=== PATIENT | male | born 1955 | race Caucasian/White ===

== ENCOUNTER 2019-10-28 02:47 | Emergency (ER) | payer OTHER, SELFPAY ==
[2019-10-28 02:48] VITALS: BP 216/92; PULSE 77; RESP 15; TEMP 36.7; O2SAT 99; BMI 35.2
--- NOTE | 2019-10-28 03:00 | ED.RN ---
PER DR LENNON, CALLED CRISIS TO SEE THIS PT, [facility]
--- NOTE | 2019-10-28 03:01 | ED.VISSUMM ---
- ER Visit Summary Date of Service: 10/28/19 Chief Complaint: Depression History of Present Illness: The patient is a 63 M lives at home with his . They recently moved from [place] to this area. He sees the [place]. He has a history of depression and prior cardiac disease with a quadruple bypass. States he just started a new job but he has been paid yet. They are having some financial concerns. The been getting food from the food bank but obviously do not have a lot of collins at this time. He states his and him discussion about this is upset him and he went to the car with a knife. He said he really had no intentions on harming himself. He thinks he may have overreacted. He states he loves his but that the conversation they had upset him. States he is never attempted suicide in the past. He has not been having suicidal ideations. He wants to follow-up with a counselor. Physical Examination: Older male no acute distress vital signs are stable afebrile. H EENT exam unremarkable. Neck nontender. Lungs clear to auscultation bilaterally. Heart regular rate and rhythm no murmur. Abdomen is soft and nontender normal bowel sounds no peritoneal signs. Patient is moving all 4 extremities. No signs of recent injury or trauma. Back nontender. Neurologically is awake and alert with no focal motor deficits. No signs of toxidrome. No smell of alcohol. Test Results: None Emergency Department Course and Treatment: Older male with acute on chronic depression. I do believe him I do not feel that he was an acute suicide risk tonight. I also spoke to the police communications dispatcher that was at the scene and brought him in. The officer did not feel that he needed a pink slipped nor do I. Please officer told me the same story that the patient did. It seemed to be accurate and cohesive with the patient's history. He stated the patient never made any threat at home. Treatment Plan: Counseling center evaluation as long as are comfortable the patient be discharged home as CT will be discharged with outpatient follow-up. Disposition: Discharge consider evaluation Impression: Acute on chronic depression This note was generated with [employer] dictation software. It may contain incorrect words, spelling, and punctuation that were not noted in review of the chart prior to signing
--- NOTE | 2019-10-28 03:24 | ED.DEP ---
ED Disposition - Plan for ED Patient: Disposition: Home or Assisted Living Instructions: Depression Referrals: Counseling,Center [GROUP OF PHYSICIANS] - As soon as possible Additional Instructions: Return to emergency department if you are feeling worse or suicidal or like you would harm anyone else. Continue with your current medications. Follow-up with the counseling center for further treatment and evaluation. [facility].
[2019-10-28 04:44] VITALS: PULSE 77; RESP 15; O2SAT 99
== END 2019-10-28 04:45 | disposition home or self-care (01) ==
PROVIDERS: Emergency Provider Emergency Medicine
DX: F32.9 Major depressive disorder, single episode, unspecified (principal); I10 Essential (primary) hypertension; E11.9 Type 2 diabetes mellitus without complications; Z79.84 Long term (current) use of oral hypoglycemic drugs; Z79.899 Other long term (current) drug therapy; Z95.1 Presence of aortocoronary bypass graft
CPT/HCPCS: 99283

== ENCOUNTER 2019-10-29 23:42 | Emergency (ER) | payer OTHER, SELFPAY ==
[2019-10-28 02:48] VITALS: BMI 35.2
[2019-10-29 23:44] VITALS: BP 162/112; PULSE 87; RESP 17; TEMP 36.4; O2SAT 98; BMI 35.5
--- NOTE | 2019-10-30 | ED.VIS.GEN ---
History of Present Illness Chief Complaint: Fall Detail of Chief Complaint: Fall with right chest pain Informant: Patient Onset: Weeks - 1 week Context: Gradual Onset Current Severity: Moderate Maximum Severity: Moderate Narrative: Patient presents with right upper chest wall pain. He states he was at work a week ago when he tripped and fell. 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 Patient states that his chest pain has continued throughout the past week. He has not been taking anything for it. He denies any other injury from his fall. - Past Medical History (1) Hypertension Status: Chronic (2) High cholesterol Status: Chronic (3) Hx of CABG Status: Chronic (4) Diabetes Status: Chronic (5) Anxiety Status: Chronic (6) Depression Status: Chronic Past Medical History - Allergies and Home Meds Allergies/Adverse Reactions: Allergies No Known Allergies Allergy (Verified 10/30/19 00:30) Primary Care Physician: Care Physician,No Primary [NON-STAFF] - Prior records reviewed: Yes Lives: Spouse/ Significant Other Smoking Status: Never smoker Review of Systems General: Denies: Chills, Fever Eyes: Denies: Visual changes - bilaterally ENT: Denies: Bilateral ear pain Cardiovascular: Reports: Chest pain - Right upper chest wall Respiratory: Denies: Dyspnea Gastrointestinal: Denies: Abdominal pain, Nausea, Vomiting, Diarrhea Genitourinary: Denies: Dysuria Musculoskeletal: Denies: Back pain, Extremity Pain Skin: Reports: - - Ecchymosis Neurological: Denies: Headache Allergy: Denies: Uticaria Physical Exam Vital Signs/Narrative: Vital Signs Temp Pulse Resp BP Pulse Ox 10/29/19 23:44 97.5 F L 87 17 162/112 H 98 Inital Vital Signs reviewed: Yes General: Well nourished, Well developed Head: Normocephalic ENT: Moist mucous membranes Neck: Supple Cardiovascular: Regular rate, Regular rhythm Respiratory: No distress, CTA bilaterally, Chest tenderness - Patient has reproducible right upper chest wall pain with ecchymosis. No crepitus noted. Abdomen: Soft, Nontender Extremities: Nontender Skin: - - Ecchymosis to right upper chest wall Neurological: Alert, Oriented x3 Psychological: Normal affect Diagnostic/Tx/Re-eval Impressions Ribs w/Chest X-Ray 10/30/19 00:01 IMPRESSION: RIBS: Normal x-ray examination of the ribs. No fracture CHEST: Normal x-ray examination of the chest. Electronically Signed: Lloyd Grady MD at 0:28 EST Tel , Service support , 10/30/19 00:01 Ribs Uni Min 3V w/PA Chest [RAD] Stat - Medical Decision Making X-ray results are reviewed with patient and spouse at bedside. He will be given [place] here for pain. He will take aspirin or Tylenol at home for pain. ED Disposition - Plan for ED Patient: Disposition: Home or Assisted Living Diagnosis: Chest wall contusion Instructions: Chest Wall Contusion Additional Instructions: [facility] with your [facility]
--- NOTE | 2019-10-30 00:01 | RAD_ITS ---
STUDY: X-RAY - UNILATERAL RIBS ( RIGHT ) WITH CHEST REASON FOR EXAM: Male, 63 years old. Patient fell. Right-sided chest pain TECHNIQUE - RIBS: 4 view(s) of the ribs. TECHNIQUE - CHEST: 1 view COMPARISON: None. FINDINGS - RIBS: Normal visualized ribs without a demonstrated fracture. FINDINGS - CHEST: The lungs are clear and expanded. There is no demonstrated pleural abnormality. Normal size heart. Normal mediastinum and miguel. Normal visualized pulmonary arteries. Normal visualized aortic arch and descending thoracic aorta. Normal visualized thoracic spine. Normal visualized ribs, clavicles, and shoulders. There is no demonstrated abnormality of the visualized soft tissue structures of the upper abdomen. RAD/Ribs Uni Min 3V w/PA Chest IMPRESSION: RIBS: Normal x-ray examination of the ribs. No fracture CHEST: Normal x-ray examination of the chest. Electronically Signed: Lloyd Grady MD at 0:28 EST Tel , Service support ,
[2019-10-30] MEDS: HYDROcodone Bitartrate/Apap 5/325 Tablet PO (00:43)
[2019-10-30 00:46] VITALS: BP 158/99; PULSE 81; RESP 19; O2SAT 98
== END 2019-10-30 00:54 | disposition home or self-care (01) ==
PROVIDERS: Emergency Provider Emergency Medicine
DX: S20.211A Contusion of right front wall of thorax, initial encounter (principal); W01.0XXA Fall on same level from slipping, tripping and stumbling without subsequent striking against object, initial encounter; Y93.9 Activity, unspecified; Y92.9 Unspecified place or not applicable; Y99.0 Civilian activity done for income or pay; I10 Essential (primary) hypertension; E78.00 Pure hypercholesterolemia, unspecified; E11.9 Type 2 diabetes mellitus without complications; F32.9 Major depressive disorder, single episode, unspecified; F41.9 Anxiety disorder, unspecified; Z95.1 Presence of aortocoronary bypass graft; Z79.84 Long term (current) use of oral hypoglycemic drugs; Z79.899 Other long term (current) drug therapy
CPT/HCPCS: 71101; 99283; A4216

== ENCOUNTER 2020-06-08 17:48 | Emergency (ER) | payer OTHER, SELFPAY ==
[2020-06-08 17:49] VITALS: BP 165/87; PULSE 78; RESP 18; TEMP 36.8; O2SAT 98; BMI 36.3
--- NOTE | 2020-06-08 18:02 | EKG12_ITS ---
Test Reason : CP Blood Pressure : / mmHG Vent. Rate : 069 BPM Atrial Rate : 069 BPM P-R Int : 156 ms QRS Dur : 098 ms QT Int : 378 ms P-R-T Axes : 015 -66 076 degrees QTc Int : 405 ms Normal sinus rhythm Left axis deviation Inferior infarct , age undetermined Poor R wave progression Nonspecific T wave abnormality Abnormal ECG Confirmed by LILI VENTURA, TRISH ([id number]), publishing editor HERIBERTO PICHARDO ([id number]) on 06/10/2020 12:48:44 PM Referred By: CASSIE Confirmed By:TRISH PEARSON MD
--- NOTE | 2020-06-08 18:49 | RAD_ITS ---
STUDY: X-RAY CHEST REASON FOR EXAM: Male, 64 years old. Chest pain, weakness, tingling in arm. Shortness of breath last night. TECHNIQUE: PA and lateral views of the chest. COMPARISON: None. FINDINGS: The lungs are clear and expanded. There is no demonstrated pleural abnormality. Sternal cerclage wires and vascular clips are present from a prior sternotomy and coronary artery bypass graft procedure (CABG). Normal mediastinum and miguel. Normal visualized pulmonary arteries. Normal visualized aortic arch and descending thoracic aorta. Normal visualized thoracic spine. Normal visualized ribs, clavicles, and shoulders. There is no demonstrated abnormality of the visualized soft tissue structures of the upper abdomen. RAD/Chest PA and Lateral IMPRESSION: No acute pulmonary process Electronically Signed: Oskar Mendoza MD at 19:40 EDT , Service support ,
[2020-06-08 19:41] LABS: Absolute Lymphocyte Count 2.28 X10^3/uL (0.83-4.51); Absolute Neutrophil Count 2.9 X10^3/uL (2.0-7.7); Basophil# 0.03 X10^3/uL; Basophil% 0.5 % (0-1); Eosinophil# 0.11 X10^3/uL; Eosinophils% 1.9 % (0-5); Hematocrit 45.2 % (40-54); Lymphocyte # 2.28 X10^3/ul (4.0); Lymphocyte % 39.4 % (19-41); Mean Corp Hgb Conc 35.4 g/dL (32-36); Mean Corpuscular Volume 87.6 fL (80-94); Mean Platelet Vol. 10.5 fl (6.2-12.0); Monocyte# 0.47 X10^3/uL; Monocyte% 8.1 % (0-10); NRBC Flagged by Analyzer 0 % (0-5); Neutrophil # 2.87 X10^3/uL (2.7-7.7); Neutrophil % 49.8 % (47-70); Platelet Count 188 K/mm3 (150-450); RBC Distribution Width CV 12.8 % (11.6-14.6); RBC Distribution Width SD 40.2 fl (35.1-43.9); Red Blood Count 5.16 M/mm3 (4.6-6.2); White Blood Count 5.8 K/mm3 (4.4-11.0)
[2020-06-08 19:59] LABS: Anion Gap 7 (5-15); BUN 23 mg/dL (7-18); BUN/Creat Ratio 22.8 RATIO (10-20); Calcium,Total 8.8 mg/dL (8.5-10.1); Chloride 103 mmol/L (98-107); Creatinine, Serum 1.01 mg/dL (0.70-1.30); EST Glomerular Filtration Rate 78 mL/min (>60); Est Glom Filt Rate - Afr Amer 95 mL/min (>60); Estimated Creatinine Clearance 74.28 ml/min; Glucose 266 mg/dL (74-106); Potassium 3.9 mmol/L (3.5-5.1); Sodium Level 136 mmol/L (136-145)
[2020-06-08 20:34] VITALS: BP 151/83; PULSE 72; RESP 20; O2SAT 97
--- NOTE | 2020-06-08 21:17 | ED.VISSUMM ---
- ER Visit Summary Date of Service: 06/08/20 Chief Complaint: Chest pain and left arm pain History of Present Illness: The patient is a 64 M presents with chest and left arm pain that became worse tonight. Nursing protocols were entered. I went to see the patient and he was no longer in the room. He had just left a couple minutes prior to my entering the room. Physical Examination: Patient left prior to me performing a physical exam. Test Results: CBC, basic metabolic profile, and troponin were obtained and were all essentially within normal limits. And lateral chest x-ray was obtained. There is no acute cardiopulmonary process. Emergency Department Course and Treatment: Patient left prior to my physical exam Disposition: Discharge AGAINST MEDICAL ADVICE Impression: Chest pain of uncertain etiology This note was generated with [employer] dictation software. It may contain incorrect words, spelling, and punctuation that were not noted in review of the chart prior to signing ED Disposition - Plan for ED Patient: Disposition: LEFT WITHOUT BEING SEEN Diagnosis: Chest pain of uncertain etiology [facility] [Primary Care Provider] -
== END 2020-06-08 21:14 | disposition left against medical advice (07) ==
PROVIDERS: Emergency Provider Emergency Medicine
DX: R07.9 Chest pain, unspecified (principal); Z53.21 Procedure and treatment not carried out due to patient leaving prior to being seen by health care provider
CPT/HCPCS: 71046; 80048; 84484; 85025; 93005; A4216

== ENCOUNTER 2020-09-03 14:48 | Emergency (ER) | payer OTHER, SELFPAY ==
[2020-09-03 14:48] VITALS: BP 163/95; PULSE 75; RESP 26; TEMP 36.3; O2SAT 100; BMI 37.9
--- NOTE | 2020-09-03 15:54 | EKG12_ITS ---
Test Reason : SOB AND DIZZINESS Blood Pressure : / mmHG Vent. Rate : 068 BPM Atrial Rate : 068 BPM P-R Int : 168 ms QRS Dur : 102 ms QT Int : 396 ms P-R-T Axes : 037 -71 019 degrees QTc Int : 421 ms Normal sinus rhythm Left axis deviation Inferior infarct , age undetermined Poor R wave progression Nonspecific T wave abnormality Abnormal ECG Confirmed by LILI VENTURA, TRISH ([id number]), editor continuity and script CHRIS KEENAN ([id number]) on 09/07/2020 12:48:59 PM Referred By: RITCHIE Confirmed By:TRISH PEARSON MD
--- NOTE | 2020-09-03 16:01 | ED.VISSUMM ---
- ER Visit Summary Date of Service: 09/03/20 Chief Complaint: [Shortness of breath] History of Present Illness: The patient is a 64 M [presents to the emergency department complaint of shortness of breath that started yesterday evening. Patient states that it came on gradually. Patient states that he just felt he can take a full breath and he had to make himself breathe. He denies any chest pain. He denies recent illness. He denies fever or cough. He denies abdominal pain. He is not had symptoms like this before. He does have history of anxiety and depression as well as PTSD. Patient with history of diabetes and hypertension. Patient has had a prior four-vessel CABG and history of coronary artery disease.] Patient states that his symptoms tend to come and go. Symptoms are not necessarily exertional. Physical Examination: [HEENT-PERRLA, EOMI. Cranial nerves II through XII grossly intact. TMs clear. Mucous membranes moist. No adenopathy. Cardiovascular-regular rate and rhythm without murmur or ectopy Lungs-clear to auscultation, chest wall stable without crepitus or subcu emphysema Abdomen-normoactive bowel sounds, soft, nontender, no rebound or rigidity, no peritoneal signs. 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 When compared with prior EKG from June 08, 2020 no significant changes noted.] CBC with it was normal. Chemistries unremarkable. Glucose was 384. BNP was 85. D-dimer is less than 0.27. Chest x-ray showed nothing acute. Emergency Department Course and Treatment: [Patient received Ativan 1 mg IV and he had significant improvement in symptoms.] Treatment Plan: [Patient will be given a prescription for a few Ativan as needed for anxiety. Patient agrees that this is likely the most likely cause of his symptoms.] Disposition: [Discharged home in stable condition] Impression: [Dyspnea Anxiety] This note was generated with [employer] software. It may contain incorrect words, spelling, and punctuation that were not noted in review of the chart prior to signing ED Disposition - Plan for ED Patient: [facility] [[facility] Provider] -
--- NOTE | 2020-09-03 16:40 | RAD_ITS ---
STUDY: X-RAY CHEST REASON FOR EXAM: Male, 64 years old. Wetness of breath and dizziness beginning last night. TECHNIQUE: Single AP portable view of the chest. COMPARISON: 06/08/2020. FINDINGS: The lungs are clear and expanded. There is no demonstrated pleural abnormality. Sternal cerclage wires and vascular clips are present from a prior sternotomy and coronary artery bypass graft procedure (CABG). The heart is normal in size. Normal mediastinum and miguel. Normal visualized pulmonary arteries. Normal visualized aortic arch and descending thoracic aorta. There are diffuse degenerative changes of the visualized thoracic spine. There is degenerative osteoarthritis of the bilateral shoulders. There is no demonstrated abnormality of the visualized soft tissue structures of the upper abdomen. RAD/Chest 1 View (Portable) IMPRESSION: No acute cardiopulmonary disease or major interval change. Electronically Signed: Gordon Peraza DO at 17:04 EDT Tel [phone], Service support ,
[2020-09-03] MEDS: LORazepam 2 MG/ML Syringe 1 MG IV (17:01)
[2020-09-03 17:03] VITALS: O2SAT 96
[2020-09-03 17:05] VITALS: BP 165/89; PULSE 70; RESP 18; O2SAT 96
[2020-09-03 17:20] LABS: Absolute Lymphocyte Count 1.41 X10^3/uL (0.83-4.51); Absolute Neutrophil Count 2.2 X10^3/uL (2.0-7.7); Basophil# 0.02 X10^3/uL; Basophil% 0.5 % (0-1); Eosinophil# 0.16 X10^3/uL; Eosinophils% 3.9 % (0-5); Hemoglobin 15.2 g/dL (13.0-16.5); Lymphocyte # 1.41 X10^3/ul (4.0); Lymphocyte % 34.1 % (19-41); Mean Corp Hgb Conc 34.5 g/dL (32-36); Mean Corpuscular Hgb 29.9 pg (27.0-32.0); Mean Corpuscular Volume 86.4 fL (80-94); Mean Platelet Vol. 10.8 fl (6.2-12.0); Monocyte# 0.33 X10^3/uL; NRBC Flagged by Analyzer 0 % (0-5); Neutrophil # 2.21 X10^3/uL (2.7-7.7); Neutrophil % 53.5 % (47-70); Platelet Count 172 K/mm3 (150-450); RBC Distribution Width CV 12.4 % (11.6-14.6); RBC Distribution Width SD 39.2 fl (35.1-43.9); Red Blood Count 5.09 M/mm3 (4.6-6.2); White Blood Count 4.1 K/mm3 (4.4-11.0)
[2020-09-03 17:33] LABS: D-Dimer Quantitative (DVT/PE) <= 0.27 FEU/ug/m (0.27-0.49)
[2020-09-03 17:39] LABS: BNP,B-Type NATRIURETIC PEPTIDE 85.5 pg/mL (0-100)
[2020-09-03 17:40] LABS: Anion Gap 6 (5-15); BUN 20 mg/dL (7-18); BUN/Creat Ratio 18.5 RATIO (10-20); Calcium,Total 8.7 mg/dL (8.5-10.1); Chloride 104 mmol/L (98-107); Creatinine, Serum 1.08 mg/dL (0.70-1.30); EST Glomerular Filtration Rate 73 mL/min (>60); Est Glom Filt Rate - Afr Amer 88 mL/min (>60); Estimated Creatinine Clearance 67.28 ml/min; Glucose 384 mg/dL (74-106); Sodium Level 136 mmol/L (136-145)
--- NOTE | 2020-09-03 17:47 | ED.DEP ---
ED Disposition - Plan for ED Patient: Instructions: ED Dyspnea, ED Panic Attack Prescriptions: Lorazepam [Ativan] 1 mg PO TID PRN #10 tab PRN Reason: Anxiety Prescription Printed [facility] [[facility] Provider] -
[2020-09-03 18:23] VITALS: BP 157/90; RESP 16; O2SAT 96
== END 2020-09-03 18:29 | disposition home or self-care (01) ==
LOC: ED 16:45
PROVIDERS: Emergency Provider Emergency Medicine
DX: R06.00 Dyspnea, unspecified (principal); F41.9 Anxiety disorder, unspecified; I25.10 Atherosclerotic heart disease of native coronary artery without angina pectoris; Z95.1 Presence of aortocoronary bypass graft
CPT/HCPCS: 71045; 80048; 83880; 84484; 85025; 85379; 93005; 96374; 99282; A4216

== ENCOUNTER 2021-04-10 14:24 | Emergency (ER) | payer OTHER, SELFPAY ==
[2021-04-10 14:26] VITALS: BP 199/125; PULSE 89; RESP 18; TEMP 36.1; O2SAT 99; BMI 37.7
--- NOTE | 2021-04-10 14:48 | EKG12_ITS ---
Test Reason : BACK PAIN Blood Pressure : / mmHG Vent. Rate : 084 BPM Atrial Rate : 084 BPM P-R Int : 158 ms QRS Dur : 098 ms QT Int : 390 ms P-R-T Axes : 023 -65 057 degrees QTc Int : 460 ms Normal sinus rhythm Left axis deviation Inferior infarct , age undetermined Abnormal ECG Confirmed by NEENA VENTURA, CARLOS ([id number]), production editor CHRIS KEENAN ([id number]) on 04/13/2021 1:48:45 PM Referred By: MELONIE Confirmed By:CARLOS CHAUDHARY MD
--- NOTE | 2021-04-10 15:04 | RAD_ITS ---
STUDY: X-RAY - THORACIC SPINE REASON FOR EXAM: Male, 65 years old. pain TECHNIQUE: 2 view(s) of the thoracic spine were obtained. COMPARISON: None. FINDINGS: Normal kyphosis of the thoracic spine. There is no substantial scoliosis. There is multilevel endplate spondylosis of the thoracic vertebrae. There is multilevel disc space narrowing of the thoracic spine. Sternal wires and mediastinal surgical clips compatible with prior CABG. RAD/Thoracic Spine 2 Views IMPRESSION: No demonstrate compression fracture. Degenerative disc disease of the thoracic spine. Electronically Signed: Wagner Dalton MD (Brooks) at 15:32 EDT , Service support ,
--- NOTE | 2021-04-10 15:04 | RAD_ITS ---
EXAM: XR RIGHT RIBS AND AP CHEST, 3 OR MORE VIEWS CLINICAL INDICATION: right rib pain TECHNIQUE: Frontal and oblique views of the right ribs and frontal view of the chest. This report was created using [employer] technology. COMPARISON: None. FINDINGS: LUNGS AND PLEURAL SPACES: Unremarkable. No consolidation or edema. No pneumothorax. No effusion. HEART: Sternal wires and mediastinal surgical clips compatible with prior CABG. MEDIASTINUM: Central airways and mediastinal contour are unremarkable. BONES/JOINTS: Unremarkable. No evidence of displaced rib fractures. RAD/Ribs Uni Min 3V w/PA Chest IMPRESSION: No acute findings in the chest or right ribs. Electronically Signed: Wagner Dalton MD (Brooks) at 15:40 EDT , Service support ,
--- NOTE | 2021-04-10 15:06 | EDS_ITS ---
HPI History of Present Illness Chief Complaint: Back Informant: patient and spouse/S.O. Onset/Context/Timing Onset: Weeks (3) Context: - (Cannot remember context of onset) Timing: Continuous Quality: Aching and Burning Current Severity: Moderate Maximum Severity: Moderate Worsened by: improves with Movement and - (Mostly worse with touching skin in the affected area) Relieved by: Medications (Topicals such as Aspercreme, lidocaine patches, and Tylenol orally) Associated Symptoms Associated Symptoms: Negative for Numbness and Tingling Narrative Narrative: Patient has had discomfort in his right upper back and needs his scapula that wraps around along the rib it is associated with to his axilla and chest to the sternum. It does not go to the other side. 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 He does not recall a major lifting injury. He denies any pleuritic symptoms, but he can reproduce the symptoms by palpation along the skin. Topical treatments like described above have been helping but only temporarily. It has been going on for 3 weeks he has never seen a rash. He has had a ruptured disc in the past in his low back that has given him sciatica but he is not dealing with that right now. Here in the emergency department on Monday, his blood pressure is very elevated over 200. He states he just ran out of his blood pressure medications for the last 3 days, he was taking them as prescribed prior to that, and he reordered them today. He has had no changes in his symptoms or new symptoms in the last several days since he ran out of those medications. [facility] Medical History High cholesterol HTN (hypertension) Home Medications atenolol 25 mg PO DAILY 10/30/19 [History Last Taken 10/29/19] atorvastatin 80 mg PO QHS 10/30/19 [History Last Taken 10/29/19] citalopram 40 mg PO DAILY 10/30/19 [History Last Taken 10/29/19] glipizide 5 mg PO DAILY 10/30/19 [History Last Taken 10/29/19] lisinopril 40 mg PO DAILY 10/30/19 [History Last Taken 10/29/19] meclizine 12.5 mg PO DAILY 10/30/19 [History Last Taken 10/29/19] metformin 500 mg PO DAILY 10/30/19 [History Last Taken 10/29/19] nifedipine 90 mg PO DAILY 10/30/19 [History Last Taken 10/29/19] omega-3 fatty acids-fish oil 1 tab PO DAILY 10/30/19 [History Last Taken 10/29/19] lorazepam 1 mg PO TID PRN #10 tab 09/03/20 [Rx Last Taken Unknown] gabapentin 300 mg PO TID 30 Days #89 cap 04/10/21 [Rx Last Taken Unknown] Allergy/AdvReac Type Severity Reaction Status Date / Time No Known Allergies Allergy Verified 04/10/21 14:25 Surgical History (Updated 04/10/21 @ 14:35 by Ada Pierre) S/P CABG x 3 Social History Smoking Status: Never smoker ROS ROS ED Constitutional Constitutional ED: Denies chills or fever(s) Gastrointestinal Gastrointestinal: Denies abdominal pain, constipation, fecal incontinence, nausea or vomiting Genitourinary Genitourinary ED: Reports other Details: no urinary retention ; Denies abdominal discomfort or urinary incontinence Musculoskeletal Musculoskeletal: Reports as per HPI and back pain; Denies neck pain Integumentary Denies rash or wounds Neurologic Neurologic: Denies headache(s), paresthesias or weakness EXAM Physical Exam Const Vital Signs: 04/10/21 14:26 04/10/21 15:39 Temperature 97 F L Temperature Source Temporal Pulse Rate 89 80 Respiratory Rate 18 18 Blood Pressure 199/125 H 221/118 H Blood Pressure Mean 149 152 Pulse Ox 99 96 Oxygen Delivery Method Room Air Room Air Positive well nourished and well developed General Appearance ED: well developed and NAD HEENT Negative for trauma or tenderness Eyes PERRL and EOMs intact bilaterally Neck full ROM and supple GI normal to inspection, nondistended, normoactive bowel sounds, soft to palpation and non-tender Back/Spine normal to inspection Extremity normal to inspection, full ROM and no pedal edema Neuro oriented x3 and no sensory deficits noted Sensorium / Orientation: alert Motor Exam: strength 5/5 throughout and clonus absent Psych mental status grossly normal and thought process normal Skin no rashes or lesions noted and no wounds MDM MDM MDM Narrative Medical decision making narrative: I think this patient is having neuropathic pain given the distribution that goes from midline to midline and the right side only, in a dermatomal strip, approximately T9. Rib x-rays were obtained to rule out a bony issue along the affected rib, as well as spine x-rays to rule out compression fracture. On my interpretation, 5 view x-ray series of the chest and right ribs show no acute abnormality. On my interpretation 3 view x-ray series of the thoracic spine show no acute fractures. According to radiology, there is degenerative disc disease. Certainly, this latter finding could be associated with nerve root impingement. Will place the patient on gabapentin and encourage close outpatient follow-up, he is comfortable with that plan. I also encouraged him to continue doing topicals as needed that are helping with his discomfort. Radiography Diagnostic Testing: Radiology Impression Ribs w/Chest X-Ray 04/10/21 15:04 IMPRESSION: No acute findings in the chest or right ribs. Electronically Signed: Wagner Dalton MD (Brooks) at 15:40 EDT , Service support , Thoracic Spine X-Ray 04/10/21 15:04 IMPRESSION: No demonstrate compression fracture. Degenerative disc disease of the thoracic spine. Electronically Signed: Wagner Dalton MD (Brooks) at 15:32 EDT , Service support , Discharge Plan Triage Chief Complaint: Back ED Provider: Travon Hedrick Dx/Rx/DC Orders Clinical Impression: Thoracic radiculopathy Instructions: ED Radiculopathy, Cervical Prescriptions: New gabapentin 300 mg capsule 300 mg PO TID 30 Days Qty: 89 RF: 0 No Action atorvastatin 80 MG tablet 80 mg PO QHS RF: 0 citalopram 40 MG tablet 40 mg PO DAILY RF: 0 atenolol 25 MG tablet 25 mg PO DAILY RF: 0 meclizine 12.5 MG tablet 12.5 mg PO DAILY RF: 0 metformin 500 MG tablet 500 mg PO DAILY RF: 0 nifedipine 90 MG tablet 90 mg PO DAILY RF: 0 lisinopril 40 MG tablet 40 mg PO DAILY RF: 0 glipizide 5 MG tablet 5 mg PO DAILY RF: 0 omega-3 fatty acids-fish oil 1 EACH capsule,delayed release(DR/EC) 1 tab PO DAILY RF: 0 lorazepam 1 MG tablet 1 mg PO TID PRN (Reason: Anxiety) Qty: 10 RF: 0 [facility] [facility] [[facility] Provider] - 1 Week if not improving Disposition Disposition: Home, self care
[2021-04-10 15:39] VITALS: BP 221/118; PULSE 80; RESP 18; O2SAT 96
[2021-04-10] MEDS: Atenolol 50 MG Tablet 25 MG PO (15:42)
[2021-04-10] MEDS: NIFEdipine 90 MG Tablet PO (15:43)
[2021-04-10] MEDS: Gabapentin 600 MG Tablet 300 MG PO (15:43)
[2021-04-10] MEDS: Lisinopril 40 MG Tablet PO (15:43)
[2021-04-10 16:29] VITALS: BP 199/107; PULSE 76; RESP 20; O2SAT 98
== END 2021-04-10 16:30 | disposition home or self-care (01) ==
PROVIDERS: Emergency Provider Emergency Medicine
DX: M54.14 Radiculopathy, thoracic region (principal); I10 Essential (primary) hypertension; E78.00 Pure hypercholesterolemia, unspecified; Z79.899 Other long term (current) drug therapy; Z79.84 Long term (current) use of oral hypoglycemic drugs
CPT/HCPCS: 71101; 72070; 93005; 99283

== ENCOUNTER 2021-04-20 17:33 | Inpatient (IN) | payer MEDICARE, SELFPAY ==
[2021-04-20 19:50] VITALS: BMI 38.9
[2021-04-20 20:00] VITALS: BP 176/80; PULSE 80; RESP 18; TEMP 36.1; O2SAT 96
[2021-04-20 22:30] VITALS: BP 160/87; PULSE 80; RESP 20; TEMP 36.1
[2021-04-20 22:35] VITALS: BP 160/80; PULSE 80; RESP 18; TEMP 36; O2SAT 97
[2021-04-20 23:11] LABS: Bedside Glucose 171 mg/dL (70-110)
[2021-04-21] MEDS: Atorvastatin Calcium 80 MG Tablet PO ×2 (00:47→21:30)
[2021-04-21] MEDS: metFORMIN HCl 1,000 MG Tablet 1000 MG PO ×2 (00:47→18:09)
[2021-04-21] MEDS: Gabapentin 300 MG Capsule PO ×2 (00:47→06:35)
[2021-04-21 05:49] LABS: Hematocrit 42.4 % (40-54); Mean Corp Hgb Conc 35.4 g/dL (32-36); Mean Corpuscular Volume 84.8 fL (80-94); Mean Platelet Vol. 9.9 fl (6.2-12.0); Platelet Count 174 K/mm3 (150-450); RBC Distribution Width CV 12.5 % (11.6-14.6); RBC Distribution Width SD 38.5 fl (35.1-43.9); White Blood Count 5.2 K/mm3 (4.4-11.0)
[2021-04-21 06:13] LABS: ALB/GLOB Ratio 0.8 RATIO (0.9-2.4); AST(SGOT) 17 U/L (15-37); Alanine Aminotransfer ALT/SGPT 39 U/L (16-61); Albumin, Serum 3.2 g/dL (3.2-5.0); Alkaline Phosphatase 53 U/L (45-117); Anion Gap 8 (5-15); BUN 16 mg/dL (7-18); BUN/Creat Ratio 16.7 RATIO (10-20); Chloride 105 mmol/L (98-107); Creatinine, Serum 0.96 mg/dL (0.70-1.30); EST Glomerular Filtration Rate 83 mL/min (>60); Est Glom Filt Rate - Afr Amer 101 mL/min (>60); Estimated Creatinine Clearance 72.24 ml/min; Globulin 3.8 g/dL (2.2-4.2); Glucose 176 mg/dL (74-106); Magnesium 1.8 mg/dL (1.6-2.6); Phosphorus 3.6 mg/dL (2.5-4.9); Potassium 3.9 mmol/L (3.5-5.1); Sodium Level 138 mmol/L (136-145)
[2021-04-21 07:17] VITALS: O2SAT 98
[2021-04-21 07:21] LABS: Bedside Glucose 192 mg/dL (70-110)
[2021-04-21 08:04] VITALS: BP 160/89; PULSE 89; RESP 18; TEMP 36.1; O2SAT 92
--- NOTE | 2021-04-21 08:59 | CASEMGMT ---
Addendum entered by Socorro Rivas 04/21/21 09:13: Social Work SW did also educate pt to team meeting Monday between 9am-10am, and at that time the team will review pt's progress and anticipated discharge timeframe and plan. MCKAY Zhang Original Note: Social Work SW met w/pt for initial assessment. Pt scored a 1 on PHQ-9, no indication of depression at this time. Pt given information on stroke support group, is undecided at this time if he would like to be on the mailing list. Pt's plan for discharge is to return home w/significant other and step daughter, pt open to home health or outpt therapy, whichever is appropriate when pt is ready for discharge. MCKAY Zhang
[2021-04-21] MEDS: Aspirin 81 MG TAB.CHEW PO (09:28)
[2021-04-21] MEDS: Multivitamins,Therapeutic Tablet 1 TABLET PO (09:28)
[2021-04-21] MEDS: Atenolol 25 MG Tablet PO (09:28)
[2021-04-21] MEDS: Clopidogrel Bisulfate 75 MG Tablet PO (09:28)
[2021-04-21] MEDS: NIFEdipine 90 MG Tablet PO (09:28)
[2021-04-21] MEDS: glipiZIDE 5 MG Tablet PO (09:28)
[2021-04-21] MEDS: Lisinopril 40 MG Tablet PO (09:29)
[2021-04-21] MEDS: Acetaminophen 500 MG Tablet 1000 MG PO ×2 (11:01→21:21)
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
[2021-04-21 12:10] LABS: Bedside Glucose 213 mg/dL (70-110)
--- NOTE | 2021-04-21 12:33 | REHABEVAL_ITS ---
Admission Information Primary Diagnosis:: debility due to multiple lacunar infarcts in several lobes of the brain. Status Changes from Prescreening?: No changes Identified Actual Problem List:: Falls, Cognitve Impr/Memory Loss, Depression, Alteration in Sleep, Mobility Impaired, Self Care Deficit, Diabetes, Hyperglycemia, BP, Hypertension and Alteration-Leisure Activ. Potential Problem List:: DVT, Bleeding, Infection, UTI, Aspiration, Falls, Skin Integrity and Depression Risk of Complications DVT: LMWH and HILL Hose Bleeding: Monitor Lab Values, Nursing to Teach Precautions for anti-coagulation therapy., Wound, if applicable, to be assessed every shift. and Stroke patients assessed for lethargy or change in status. Infection: Clinical Staff to Monitor for S/S of infection: and S/S of infection include fever, redness, warmth, etc. Urinary Tract Infection: Monitor for frequency, burning, discomfort, or incontinence. and Nursing will obtain urine sample for urinalysis and C&S when ordered. Aspiration: Clinical staff will monitor for coughing, drooling, congestion., Speech will evaluate swallowing and dsyphasia. and Nursing will monitor patient swallowing during meals. Falls: Patient will be evaluated for Fall Precautions and Patient will be placed on Fall Precautions as indicated per protocol. Skin Breakdown: Nursing will assess skin daily using assessment tool. and Nursing will place on Skin Breakdown Precautions as indicated. Pain: Clinical staff will assess patient's pain level per protocol., Medications will be given, if needed, and the pain level reassessed. and Other methods: Massage, distraction, decrease stimulus, etc. used PRN. Plan of Care Patient requires physician specializing in physical medicine and rehab oversight to provide close medical supervision of rehab issues including: Pain Management, Sleep Problems, Bowel and Bladder, Medical and co-morbidity Management, DVT prophylaxis, Rehabilitation Leadership and Coordination of treatment team Patient needs Physical Therapy: For a minimum of 1 hour and At least 5 out of 7 days Patient needs Physical Therapy to improve:: Mobility, Strengthening, Transfers, Stretching, ROM, Endurance, Stairs, Gait and Balance Patient needs Occupational Therapy: For a minimum of 1 hour and At least 5 out of 7 days Patient needs Occupational Therapy to improve ADL's incl.: Eating, Grooming, Bathing, Dressing, Toileting, Toilet transfers, Community Reintegration, Higher functioning activities, Household tasks, Adaptive Equipment, Splinting and Other activities as determined Patient requires speech therapy: For a minimum of 1 hour and At least 5 out of 7 days Patient requires speech therapy for: Swallowing, Cognition, Language Skills and Compensatory Strategies Patient requires 24/ Rehabilitation Nursing for: Pain Issues, Identifying and preventing risk factors, Monitoring and reporting current medical conditions, Assisting with ambulation, transfer, and all ADL's, Teaching patients about disease process and medications, Family teaching, Providing safe environment, Bowel and Bladder Issues, Skin integrity and Medication Management Patient needs Process Control Programmer/ Case Management for: Discharge Planning, Arranging Home Equipment or Services and Family Interventions Patient needs Dietary and Nutrition Services for: Adequate Nutrition, Nutritional Supplements and Nutritional Education Goals Patient will remain: free from falls and or injury at time of discharge. Patient will perform bed mobility at: MOD I level of assist. Patient will complete transfers from bed to chair at: MOD I level of assist. Patient will ambulate: with LRD and - (250 ft) Patient will complete upper body dressing at: MOD I level of assist. Patient will complete lower body dressing at: MOD I level of assist. Patient will complete toileting at: MOD I level of assist. Patient will perform bathing at: MOD I level of assist. Patient will complete grooming at: MOD I level of assist. Patient will complete home management skills at: MOD I level of assist. Patient will achieve: 12 stairs and - (1 curb step) Patient will have pain level of: of 3 or less Patient's skin will: remain intact Patient will receive: adequate nutrition. Discharge Planning Pt Prognosis for Sig. Practical Improv. w/in Reasonable Time: Good Estimated Length of stay (days): 14 Anticipated D/C Destination: Home Was Preadmission Assessment Accurate?: Yes
[2021-04-21 16:06] LABS: Hemoglobin A1c 10.1 % (3.8-5.6)
[2021-04-21 16:11] LABS: Bedside Glucose 188 mg/dL (70-110)
[2021-04-21 19:35] VITALS: BP 163/91; PULSE 74; RESP 18; TEMP 36.3; O2SAT 99
[2021-04-22] LABS: Bedside Glucose 190 mg/dL (70-110)
--- NOTE | 2021-04-22 02:42 | NURSING ---
PT HAS HAD 3 BOUTS OF DIARRHEA THIS SHIFT. PT STATES HE GETS DIARRHEA AT HOME WHENEVER HIS MEDICATIONS GET ADJUSTED OR CHANGED.
--- NOTE | 2021-04-22 02:44 | NURSING ---
DR GARCIA NOTIFIED OF PT'S 3 BOUTS OF BROWN DIARRHEA THIS SHIFT, CONTINENT, AND THAT PT DOES NOT HAVE FEVER AND PT'S WBC COUNT WAS 5.2 YESTERDAY . ALSO INFORMED THAT PT STATES HE GETS DIARRHEA AT HOME WHEN HIS MEDS GET ADJUSTED. PT WAS ASKED BY THIS NURSE IF HE WOULD LIKE SOMETHING TO HELP ALLEVIATE DIARRHEA AND PT HAD REPLIED YES. DR GARCIA WILL PLACE A MED ORDER FOR PT
[2021-04-22] MEDS: Loperamide 2 MG Capsule PO (02:54)
[2021-04-22 06:41] LABS: Bedside Glucose 187 mg/dL (70-110)
[2021-04-22 06:46] VITALS: O2SAT 95
[2021-04-22 07:39] VITALS: BP 171/97; PULSE 80; RESP 20; TEMP 36.8; O2SAT 94
[2021-04-22] MEDS: metFORMIN HCl 1,000 MG Tablet 1000 MG PO (08:13)
[2021-04-22] MEDS: Aspirin 81 MG TAB.CHEW PO (08:13)
[2021-04-22] MEDS: Multivitamins,Therapeutic Tablet 1 TABLET PO (08:13)
[2021-04-22] MEDS: NIFEdipine 90 MG Tablet PO (08:14)
[2021-04-22] MEDS: Atenolol 25 MG Tablet PO ×2 (08:14→15:33)
[2021-04-22] MEDS: Clopidogrel Bisulfate 75 MG Tablet PO (08:14)
[2021-04-22] MEDS: Acetaminophen 500 MG Tablet 1000 MG PO ×2 (08:15→18:03)
[2021-04-22] MEDS: Lisinopril 40 MG Tablet PO (08:15)
--- NOTE | 2021-04-22 08:21 | NURSING ---
pt had large emesis this am. pt was taking am medications and had vomited up breakfast and medications. emesis was white and velasquez in color from pt's cereal from breakfast. pt states that his breakfast made his stomach upset and he cannot take pills at times. pt's lungs auscultated, clear at this time. no s/sx of aspiration of emesis. pt denies JACKSON or dizziness, just complaints of nausea. pt cleaned up and denies further assistance. pt's call light is within reach and PA attempted to be placed. pt refuses to wear PA at this time.
[2021-04-22 12:00] LABS: Bedside Glucose 240 mg/dL (70-110)
[2021-04-22] MEDS: Sertraline 50 MG Tablet PO (12:18)
[2021-04-22] MEDS: oxyCODONE 5 MG Tablet PO (15:33)
[2021-04-22 17:10] LABS: Bedside Glucose 217 mg/dL (70-110)
[2021-04-22] MEDS: glipiZIDE 5 MG Tablet PO (17:59)
[2021-04-22] MEDS: Gabapentin 100 MG Capsule PO (18:00)
[2021-04-22] MEDS: metFORMIN HCl 500 MG Tablet PO (18:00)
[2021-04-22 18:01] VITALS: BP 153/98; PULSE 94
[2021-04-22] MEDS: hydrALAZINE 10 MG Tablet PO (18:01)
[2021-04-22 18:07] VITALS: BP 153/98; PULSE 94
--- NOTE | 2021-04-22 18:23 | NURSING ---
pt took medications prior to eating supper. while eating supper, pt had a large emesis. per pt took one bite of meal and didn't like it and began to vomit. pt has 600 cc of emesis out. pt states that the texture and taste of food are causing him to vomit. lung sounds auscultated and remain clear at this time. pt denies nausea prior to eating dinner. pt given applesauce and sugar free jello to eat at this time per request. pt denies further needs. call light within reach, bed in low position. pt refuses application of personal alarm. will continue to monitor pt for s/sx of aspiration.
[2021-04-22 19:30] VITALS: BP 182/97; PULSE 94; RESP 16; TEMP 36.9; O2SAT 99
[2021-04-22] MEDS: Atorvastatin Calcium 80 MG Tablet PO (20:29)
[2021-04-22] MEDS: Neuropathy Pain Cream Compound 60 CLICK TUBE TOPICAL (20:30)
[2021-04-22] MEDS: Ondansetron ODT 4 MG Tablet PO (21:40)
[2021-04-22 22:23] VITALS: BP 186/101; PULSE 83
[2021-04-22] MEDS: hydrALAZINE 25 MG Tablet PO (22:23)
[2021-04-22 22:40] LABS: Bedside Glucose 210 mg/dL (70-110)
[2021-04-23] VITALS (10 sets, daily range): BP systolic 160–187; BP diastolic 80–101; PULSE 76–89; RESP 16–17; TEMP 36.6–36.8; O2SAT 93–97; BMI 38.9
[2021-04-23] MEDS: Calcium Carbonate 500 MG Tablet PO (00:12)
[2021-04-23] MEDS: glipiZIDE 5 MG Tablet PO ×2 (06:47→16:01)
[2021-04-23] MEDS: hydrALAZINE 25 MG Tablet PO ×3 (06:47→21:56)
[2021-04-23 07:25] LABS: Bedside Glucose 137 mg/dL (70-110)
[2021-04-23] MEDS: Enoxaparin 40 MG/0.4 ML Syringe SC (08:02)
[2021-04-23] MEDS: metFORMIN HCl 500 MG Tablet PO ×2 (08:02→16:03)
[2021-04-23] MEDS: Multivitamins,Therapeutic Tablet 1 TABLET PO (08:02)
[2021-04-23] MEDS: Aspirin 81 MG TAB.CHEW PO (08:02)
[2021-04-23] MEDS: Gabapentin 100 MG Capsule PO ×2 (08:04→16:03)
[2021-04-23] MEDS: Neuropathy Pain Cream Compound 60 CLICK TUBE TOPICAL ×2 (08:05→21:58)
[2021-04-23] MEDS: Atenolol 50 MG Tablet PO ×2 (08:08→15:30)
--- NOTE | 2021-04-23 09:30 | PCM.PROGNOTE ---
Subjective Subjective BP's are not adequately controlled. Nursing reports that he is not able to keep meds down due to vomiting which he attributes to minced/moist diet? He denies nausea. This has been happening at home for the past few months.......he tells me it happens when he eats too much. BP is not adequately controlled. He denies CP, SOB, cough, palpitations. Objective Data Objective Data Vital Signs: Vital Signs Temp Pulse Resp BP Pulse Ox 98.4 F 81 16 184/87 H 99 04/22/21 19:30 04/23/21 06:47 04/22/21 19:30 04/23/21 06:47 04/22/21 19:30 Oxygen Delivery Method Room Air Weight: 243 lb 6.245 oz Body Mass Index (BMI) 38.9 Intake & Output: Intake and Output for Last 24 Hours 04/21/21 04/22/21 04/23/21 23:59 23:59 23:59 Intake Total 1422 / 1422 Output Total 600 / 600 Balance 1422 / 1422 -600 / -600 Lab / Micro Data Result Diagrams: 04/21/21 05:36 04/21/21 05:36 Labs: Laboratory Results - last 24 hr 04/22/21 04/22/21 04/22/21 11:55 17:03 22:21 POC Glucose 240 H 217 H 210 H 04/23/21 06:51 POC Glucose 137 H Physical Exam Const alert, oriented x3 and no apparent distress Constitutional Narrative: sitting in the recliner at the bedside. General Appearance: cooperative HEENT Mouth: dry mucous membranes Resp normal respiratory effort, normal air movement and clear to auscultation bilaterally Cardio regular rate, regular rhythm and no gallops Cardio Narrative: no ectopy GI soft to palpation, non-tender and non-distended Extremity General Extremity: Negative for edema Neuro Neuro Narrative: No facial droop. Persistent loss of sensation of the R face. + drift with the RUE. Speech is still a little slurred. Assessment & Plan Assessment/Plan (1) Multiple lacunar infarcts: (2) Vomiting: QUALIFIERS: Vomiting type: unspecified Vomiting Intractability: non-intractable Nausea presence: without nausea Qualified Code(s): R11.11 - Vomiting without nausea (3) Coronary artery disease: QUALIFIERS: Coronary Disease-Associated Artery/Lesion type: [place] artery [place] vs. transplanted heart: [place] heart Associated angina: with stable angina Qualified Code(s): I25.118 - Atherosclerotic heart disease of [place] coronary artery with other forms of angina pectoris (4) Hypertension: QUALIFIERS: Hypertension type: essential hypertension Qualified Code(s): I10 - Essential (primary) hypertension (5) Diabetes: QUALIFIERS: Diabetes mellitus type: type 2 Diabetes mellitus mcc insulin use: without buttermaker continuous churn use Diabetes mellitus complication status: with neurologic complications Diabetes mellitus complication detail: with other neurological complication Qualified Code(s): E11.49 - Type 2 diabetes mellitus with other diabetic neurological complication (6) Thoracic radiculopathy: (7) Dysphagia: PLAN: Adjust the antihypertensives to get the BP consistently less than 135/85. Diet education and risk factor control addressed with him today Will need to teach his how to administer the Victoza. Continue therapy. Charges/Coding Visit Charges Inpatient E&M: 93264 Subs Hosp L2
[2021-04-23] MEDS: Clopidogrel Bisulfate 75 MG Tablet PO (10:49)
[2021-04-23] MEDS: Lisinopril 40 MG Tablet PO (10:49)
[2021-04-23] MEDS: Sertraline 50 MG Tablet PO (10:49)
[2021-04-23] MEDS: NIFEdipine 90 MG Tablet PO (10:49)
[2021-04-23] MEDS: Ondansetron ODT 4 MG Tablet PO (10:53)
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
[2021-04-23 12:10] LABS: Bedside Glucose 136 mg/dL (70-110)
[2021-04-23 16:11] LABS: Bedside Glucose 145 mg/dL (70-110)
--- NOTE | 2021-04-23 17:40 | NURSING ---
Dr. Nieto has been made aware of Blood pressure readings and patient has been kept aware as well at the medication changes and currently blood pressure is 160/80 manually and nno's per Dr. Nieto at this time. Patient denies any ill changes and has had a good day today and in good spirits.
[2021-04-23] MEDS: oxyCODONE 5 MG Tablet PO (17:54)
[2021-04-23 20:45] LABS: Bedside Glucose 141 mg/dL (70-110)
[2021-04-23] MEDS: 0.9% Saline Lock 10 ML Syringe IV (21:52)
[2021-04-23] MEDS: Acetaminophen 500 MG Tablet 1000 MG PO (21:53)
[2021-04-23] MEDS: Atorvastatin Calcium 80 MG Tablet PO (21:58)
[2021-04-24] MEDS: Calcium Carbonate 500 MG Tablet PO (02:30)
[2021-04-24] MEDS: Enoxaparin 40 MG/0.4 ML Syringe SC (05:48)
[2021-04-24] MEDS: oxyCODONE 5 MG Tablet PO ×2 (05:50→18:39)
[2021-04-24 06:36] LABS: Bedside Glucose 165 mg/dL (70-110)
[2021-04-24] MEDS: Neuropathy Pain Cream Compound 60 CLICK TUBE TOPICAL ×2 (07:29→22:17)
[2021-04-24 07:30] VITALS: BP 162/80
[2021-04-24] MEDS: glipiZIDE 5 MG Tablet PO ×2 (07:30→17:01)
[2021-04-24 07:31] VITALS: PULSE 77
[2021-04-24] MEDS: hydrALAZINE 25 MG Tablet PO (07:31)
[2021-04-24] MEDS: Multivitamins,Therapeutic Tablet 1 TABLET PO (07:31)
[2021-04-24] MEDS: Aspirin 81 MG TAB.CHEW PO (07:31)
[2021-04-24] MEDS: Gabapentin 100 MG Capsule PO ×2 (07:31→17:02)
[2021-04-24] MEDS: metFORMIN HCl 500 MG Tablet PO ×2 (07:31→17:02)
[2021-04-24] MEDS: Atenolol 50 MG Tablet PO ×2 (07:32→22:18)
[2021-04-24 08:38] VITALS: PULSE 90; RESP 16; TEMP 36.3; O2SAT 95
[2021-04-24] MEDS: NIFEdipine 90 MG Tablet PO (08:54)
[2021-04-24] MEDS: Clopidogrel Bisulfate 75 MG Tablet PO (08:54)
[2021-04-24] MEDS: Sertraline 50 MG Tablet PO (08:54)
[2021-04-24] MEDS: Lisinopril 40 MG Tablet PO (08:54)
[2021-04-24] MEDS: 0.9% Saline Lock 10 ML Syringe IV ×4 (10:00→22:46)
[2021-04-24 11:06] VITALS: BP 140/72
[2021-04-24 12:05] LABS: Bedside Glucose 199 mg/dL (70-110)
[2021-04-24 16:46] LABS: Bedside Glucose 175 mg/dL (70-110)
[2021-04-24 16:48] VITALS: BMI 38.9
[2021-04-24 22:00] VITALS: BP 124/80; PULSE 84; RESP 16; TEMP 36.5; O2SAT 98
[2021-04-24] MEDS: Atorvastatin Calcium 80 MG Tablet PO (22:18)
[2021-04-24 23:46] LABS: Bedside Glucose 181 mg/dL (70-110)
[2021-04-25] MEDS: oxyCODONE 5 MG Tablet PO (01:51)
[2021-04-25] MEDS: Enoxaparin 40 MG/0.4 ML Syringe SC (06:26)
[2021-04-25 06:35] VITALS: BP 160/90
[2021-04-25 06:36] LABS: Bedside Glucose 172 mg/dL (70-110)
[2021-04-25 06:37] VITALS: BP 160/60; PULSE 86
[2021-04-25] MEDS: hydrALAZINE 25 MG Tablet PO (06:37)
[2021-04-25] MEDS: glipiZIDE 5 MG Tablet PO ×2 (07:49→17:04)
[2021-04-25] MEDS: Neuropathy Pain Cream Compound 60 CLICK TUBE TOPICAL ×2 (07:49→21:57)
[2021-04-25] MEDS: metFORMIN HCl 500 MG Tablet PO ×2 (07:50→17:04)
[2021-04-25] MEDS: Gabapentin 100 MG Capsule PO ×2 (07:50→17:04)
[2021-04-25] MEDS: NIFEdipine 90 MG Tablet PO (07:50)
[2021-04-25] MEDS: Clopidogrel Bisulfate 75 MG Tablet PO (07:50)
[2021-04-25] MEDS: Lisinopril 40 MG Tablet PO (07:50)
[2021-04-25] MEDS: Sertraline 50 MG Tablet PO (07:50)
[2021-04-25] MEDS: Multivitamins,Therapeutic Tablet 1 TABLET PO (07:51)
[2021-04-25] MEDS: Aspirin 81 MG TAB.CHEW PO (07:52)
[2021-04-25] MEDS: Atenolol 50 MG Tablet PO ×2 (07:53→21:58)
[2021-04-25 08:21] VITALS: BP 146/80
[2021-04-25] MEDS: 0.9% Saline Lock 10 ML Syringe IV ×2 (08:28→22:33)
[2021-04-25 08:37] VITALS: PULSE 86; RESP 16; TEMP 36.9; O2SAT 96
[2021-04-25 12:41] LABS: Bedside Glucose 155 mg/dL (70-110)
[2021-04-25 14:09] VITALS: BMI 38.9
[2021-04-25 17:26] LABS: Bedside Glucose 155 mg/dL (70-110)
[2021-04-25 21:26] LABS: Bedside Glucose 147 mg/dL (70-110)
[2021-04-25 21:55] VITALS: BP 150/80; PULSE 85; RESP 18; TEMP 36.4; O2SAT 99; BMI 38.9
[2021-04-25] MEDS: Atorvastatin Calcium 80 MG Tablet PO (21:57)
[2021-04-25] MEDS: Doxazosin 1 MG Tablet PO (21:57)
--- NOTE | 2021-04-26 04:04 | NURSING ---
reviewed and agree with screw machine operator single spindle assessment and handoff note.
[2021-04-26] MEDS: Enoxaparin 40 MG/0.4 ML Syringe SC (06:35)
[2021-04-26 06:41] LABS: Bedside Glucose 162 mg/dL (70-110)
[2021-04-26] MEDS: Lisinopril 40 MG Tablet PO (08:04)
[2021-04-26] MEDS: Sertraline 50 MG Tablet PO (08:04)
[2021-04-26] MEDS: Aspirin 81 MG TAB.CHEW PO (08:05)
[2021-04-26] MEDS: Atenolol 50 MG Tablet PO ×2 (08:05→20:51)
[2021-04-26] MEDS: Gabapentin 100 MG Capsule PO ×2 (08:05→16:52)
[2021-04-26] MEDS: NIFEdipine 90 MG Tablet PO (08:05)
[2021-04-26] MEDS: metFORMIN HCl 500 MG Tablet PO ×2 (08:05→16:52)
[2021-04-26] MEDS: Clopidogrel Bisulfate 75 MG Tablet PO (08:05)
[2021-04-26] MEDS: Acetaminophen 500 MG Tablet 1000 MG PO ×2 (08:06→16:53)
[2021-04-26] MEDS: glipiZIDE 5 MG Tablet PO ×2 (08:06→16:52)
[2021-04-26] MEDS: Sodium Chloride 0.65% 1 SPRAY SPRAY.BTL 2 SPRAY NASAL (08:10)
[2021-04-26] MEDS: Multivitamins,Therapeutic Tablet 1 TABLET PO (08:11)
[2021-04-26] MEDS: Neuropathy Pain Cream Compound 60 CLICK TUBE TOPICAL ×2 (08:12→20:51)
[2021-04-26 08:20] VITALS: BP 138/80; PULSE 86; RESP 16; TEMP 37; O2SAT 93
--- NOTE | 2021-04-26 09:40 | CASEMGMT ---
Social Work Team meeting held. Patient present as well as patient spouse, Susana. Discharge date set for 05/04/2021. Patient to discharge to home with spouse. Therapy recommending continued outpatient services for physical, occupational and speech therapy. Patient to continue with further care and treatment until time of discharge. Proposed discharge date: 05/04/2021 Disposition: Home with spouse. Will continue to follow. Colten LAZO, KIMBERS
[2021-04-26] MEDS: Pantoprazole Sodium 40 MG Tablet PO ×2 (10:25→20:51)
[2021-04-26 11:10] LABS: Bedside Glucose 224 mg/dL (70-110)
--- NOTE | 2021-04-26 14:26 | PCM.PROGNOTE ---
Subjective Subjective Paco was seen on team rounds today. His Susana was in the room for team rounds. Afebrile BP is coming under much better control. BP this AM was 138/80. He denies lightheadedness. Maintaining appropriate oxygen saturation on RA Oral intake is good Discussed with nursing - he does not like applesauce and taking the pills with a spoonful of water has not worked well. He is willing to try vanilla pudding. Reviewed the PT/OT/ST notes Medication list reviewed. Blood sugar record was reviewed. The FBS this morning was 162 and the blood sugar at lunch was 224. Prior to this all blood sugars had been less than 200. Denies CP, SOB, palpitations, cephalgia, nausea. The vomiting has resolved with the initiation of Protonix 40 mg BID for GERD. Objective Data Objective Data Vital Signs: Vital Signs Temp Pulse Resp BP Pulse Ox 98.6 F 86 16 138/80 H 93 04/26/21 08:20 04/26/21 08:20 04/26/21 08:20 04/26/21 08:20 04/26/21 08:20 Oxygen Delivery Method Room Air Weight: 243 lb 6.245 oz Body Mass Index (BMI) 38.9 Intake & Output: Intake and Output for Last 24 Hours 04/24/21 04/25/21 04/26/21 23:59 23:59 23:59 Intake Total 1852 / 1852 1510 / 1510 880 / 880 Balance 1852 / 1852 1510 / 1510 880 / 880 Lab / Micro Data Result Diagrams: 04/21/21 05:36 04/21/21 05:36 Labs: Laboratory Results - last 24 hr 04/25/21 04/25/21 04/26/21 17:04 21:07 06:34 POC Glucose 155 H 147 H 162 H 04/26/21 11:05 POC Glucose 224 H Physical Exam Const alert, oriented x3 and no apparent distress General Appearance: cooperative Resp normal respiratory effort, normal air movement and clear to auscultation bilaterally Cardio regular rate, regular rhythm, S1 normal heart sound, S2 normal heart sound, no murmurs and no gallops GI soft to palpation and non-tender Extremity no clubbing, cyanosis or edema Neuro Neuro Narrative: Speech is more clear and strength in the RUE is improving. Poor short term memory. Very cooperative in working with therapy but is taking his alarm off and not calling for assistance when getting out of bed and walking around his room. Assessment & Plan Assessment/Plan (1) Multiple lacunar infarcts: (2) Vomiting: QUALIFIERS: Vomiting type: unspecified Vomiting Intractability: non-intractable Nausea presence: without nausea Qualified Code(s): R11.11 - Vomiting without nausea (3) GERD (gastroesophageal reflux disease): QUALIFIERS: Esophagitis presence: esophagitis presence not specified Qualified Code(s): K21.9 - Gastro-esophageal reflux disease without esophagitis (4) TBI (traumatic brain injury): QUALIFIERS: Encounter type: subsequent encounter (5) Hypertension: QUALIFIERS: Hypertension type: essential hypertension Qualified Code(s): I10 - Essential (primary) hypertension PLAN: 1. Paco was reminded that he has to keep his alarm on and that he is at risk for aspiration/pneumonia/sepsis and even if he does not follow the swallowing recommendations D/W him by ST. We described to Paco and his what aspiration is and how it leads to pneumonia. I suspect the dysphagia predated this most recent CVA.......likely the result of numerous out lacunar infarcts in the posterior circulation 2. Vomiting likely the result of GERD and possibly gastritis and this has resolve with a PPI 3. HTN - coming under better control with adjustments to the antihypertensive regimen. 4. DM II - better control now with good diet and addition of Victoza. Diarrhea has resolved with the decrease in the Metformin dose. Charges/Coding Visit Charges Inpatient E&M: 98811 Subs Hosp L2
[2021-04-26 15:28] VITALS: BMI 38.9
[2021-04-26 16:00] VITALS: BP 134/84
[2021-04-26 16:45] LABS: Bedside Glucose 155 mg/dL (70-110)
[2021-04-26 20:45] VITALS: BP 146/70; PULSE 93; RESP 18; TEMP 36.5; O2SAT 96; BMI 38.9
[2021-04-26] MEDS: Atorvastatin Calcium 80 MG Tablet PO (20:51)
[2021-04-26] MEDS: Doxazosin 1 MG Tablet PO (20:51)
[2021-04-26 21:11] LABS: Bedside Glucose 139 mg/dL (70-110)
--- NOTE | 2021-04-27 04:10 | NURSING ---
Reviewed and agree with PALEOLOGIST documentation and assessment charting.
[2021-04-27] MEDS: Enoxaparin 40 MG/0.4 ML Syringe SC (06:27)
[2021-04-27 06:55] LABS: Bedside Glucose 145 mg/dL (70-110)
[2021-04-27 07:11] VITALS: BP 138/68; PULSE 87; RESP 16; TEMP 36.6; O2SAT 97
[2021-04-27] MEDS: glipiZIDE 5 MG Tablet 10 MG PO (07:42)
[2021-04-27] MEDS: Multivitamins,Therapeutic Tablet 1 TABLET PO (07:43)
[2021-04-27] MEDS: Aspirin 81 MG TAB.CHEW PO (07:43)
[2021-04-27] MEDS: Senna/Docusate Sodium 1 Tablet 2 TABLET PO (07:43)
[2021-04-27] MEDS: Gabapentin 100 MG Capsule PO ×2 (07:43→16:44)
[2021-04-27] MEDS: metFORMIN HCl 500 MG Tablet PO ×2 (07:43→16:43)
[2021-04-27] MEDS: NIFEdipine 90 MG Tablet PO (07:43)
[2021-04-27] MEDS: Pantoprazole Sodium 40 MG Tablet PO ×2 (07:43→21:38)
[2021-04-27] MEDS: Clopidogrel Bisulfate 75 MG Tablet PO (07:43)
[2021-04-27] MEDS: Neuropathy Pain Cream Compound 60 CLICK TUBE TOPICAL ×2 (07:44→21:38)
[2021-04-27] MEDS: Lisinopril 40 MG Tablet PO (07:44)
[2021-04-27] MEDS: Atenolol 50 MG Tablet PO ×2 (07:44→21:38)
[2021-04-27] MEDS: Sertraline 50 MG Tablet PO (07:45)
[2021-04-27] MEDS: Acetaminophen 500 MG Tablet 1000 MG PO (08:24)
[2021-04-27 09:37] VITALS: PULSE 87; RESP 18; O2SAT 97
--- NOTE | 2021-04-27 10:26 | PN_ITS ---
Subjective Subjective Vital signs stable Afebrile BP is controlled for the past several readings. BS record was reviewed and the blood sugars are well controlled. BS's are almost all less than 200 and he has had no hypoglycemia. Nursing reports that he refused to take his pills with pudding last night and today his nurse reports he took his pills with flavored water drinking form the bottle and not sipping. He has been up in his room walking around in his socks without an AD and he did not call nursing for help. He is at risk for aspiration and falling. We discussed this on rounds yesterday but, I think he just forgets. He has had multiple lacunar strokes and also several TBI's. He denies cough and SOB today. He is able to eat his meals with no vomiting since the Protonix was started. He tells me the neuropathic cream prescribed for R lateral rib pain is working well and he would like a RX at discharge. Objective Data Objective Data Vital Signs: Vital Signs Temp Pulse Resp BP Pulse Ox 97.9 F 87 18 138/68 H 97 04/27/21 07:11 04/27/21 09:37 04/27/21 09:37 04/27/21 07:11 04/27/21 09:37 Oxygen Delivery Method Room Air Weight: 243 lb 6.245 oz Body Mass Index (BMI) 38.9 Intake & Output: Intake and Output for Last 24 Hours 04/25/21 04/26/21 04/27/21 23:59 23:59 23:59 Intake Total 1510 / 1510 1280 / 1280 Balance 1510 / 1510 1280 / 1280 Lab / Micro Data Result Diagrams: 04/21/21 05:36 04/21/21 05:36 Labs: Laboratory Results - last 24 hr 04/26/21 04/26/21 04/26/21 11:05 16:36 21:07 POC Glucose 224 H 155 H 139 H 04/27/21 06:51 POC Glucose 145 H Physical Exam Const alert, no apparent distress and well nourished General Appearance: well developed HEENT moist oral mucous membranes HEENT Narrative: poor dentition Eyes PERRL Resp normal respiratory effort, normal air movement and clear to auscultation bilaterally Cardio regular rate, regular rhythm, S1 normal heart sound, S2 normal heart sound and no gallops Cardio Narrative: no ectopy Extremity no calf tenderness General Extremity: Negative for edema Skin General Skin Exam: no breakdown Rashes: no rashes Neuro CN's II-XII intact bilaterally Neuro Narrative: speech is more clear and he is articulating better. He no longer has drift with the RUE but he has persistent paresthesias of the R face. Psych Psych Narrative: He has poor short term memory. Unable to stick with his restrictions and the rules of the floor....like not getting up by yourself because he forgets. He is very pleasant and no argumentative. He wants to do things his way. Assessment & Plan Assessment/Plan (1) Multiple lacunar infarcts: (2) Physical debility: (3) Vomiting: QUALIFIERS: Vomiting type: unspecified Vomiting Intractability: non-intractable Nausea presence: without nausea Qualified Code(s): R11.11 - Vomiting without nausea (4) GERD (gastroesophageal reflux disease): QUALIFIERS: Esophagitis presence: esophagitis presence not specified Qualified Code(s): K21.9 - Gastro-esophageal reflux disease without esophagitis (5) Diabetes: QUALIFIERS: Diabetes mellitus type: type 2 Diabetes mellitus detention insulin use: without terminal computer operator use Diabetes mellitus complication status: with neurologic complications Diabetes mellitus complication detail: with other neurological complication Qualified Code(s): E11.49 - Type 2 diabetes mellitus with other diabetic neurological complication (6) Hypertension: QUALIFIERS: Hypertension type: essential hypertension Qualified Code(s): I10 - Essential (primary) hypertension (7) High cholesterol: (8) Thoracic radiculopathy: PLAN: 1. diabetes and BP are now well controlled. He was started on Victoza due to multiple CVA's and CAD. It helps with cardio protection. 2. Multiple old lacunar infarcts in the posterior circulation BL. Suspect new CVA with new RUE drift and R facial droop. He knows that he can no longer drive however, he does not have a good memory and he seems to do what he wants and is impulsive. 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 3. I discussed with Paco and his that since he can not follow the rules of this unit putting him at risk for aspiration/pneumonia/respiratory failure/falls we must discharge him home. His feels confident that she will be able to care for him. She knows that he will no longer be able to drive. They will follow up for OP services for PT/OT/ST. 4. The SW is going to try and get him set up with a SW at the [facility]. He gets his medical care at the [facility]. Charges/Coding Visit Charges Inpatient E&M: 53647 Subs Hosp L2
[2021-04-27 11:20] LABS: Bedside Glucose 244 mg/dL (70-110)
--- NOTE | 2021-04-27 13:00 | CASEMGMT ---
Social Work Notified by Dr. Nieto that discharge date has been changed to 04/28/2021. Met with patient in room. Patient agreeable to discharge date and plans to discharge to home with spouse. Patient reports to have all needed DME including a cane. Therapy recommends outpatient physical, occupational and speech therapy. Patient is agreeable to outpatient therapy and request for this social worker palliative care to speak with patient spouse about what facility to set up outpatient therapy services through. Patient plans for patient spouse to provide transportation to home for patient. This social worker palliative care broached topic of stroke support group, patient is agreeable to receiving stock house worker. Support provided. Telephone call to patient spouse, Susana. Susana request for outpatient therapy to be set up through [facility]. Susana confirms to be agreeable to discharge plan and to provide transportation to home for patient. Order for outpatient therapies faxed to [facility]. Proposed discharge date: 04/28/2021. Disposition: Home with spouse and outpatient therapy. Colten LAZO, MCKAY
--- NOTE | 2021-04-27 13:53 | CASEMGMT ---
Social Work Telephone call from [facility] Maki Hernandez. Maki reports that since patient does not have Medicare part B and [facility] instead that [facility] will need to provide orders for outpatient services. [facility] call to [facility], koffiil left for Flavio. Will continue to follow. Colten LAZO, MCKAY
--- NOTE | 2021-04-27 14:13 | CASEMGMT ---
Social Work Telephone call received from [facility]avio Araya with [facility]. Nursing manages referrals for outpatient services. Flavio directing this social contact worker to speak with Mayra Mary at ext. [phone]. Telephone call to vince Nunez left. Colten LAZO, MCKAY
[2021-04-27] MEDS: glipiZIDE 5 MG Tablet PO (16:43)
[2021-04-27 17:26] LABS: Bedside Glucose 132 mg/dL (70-110)
[2021-04-27 19:42] VITALS: BP 110/72; PULSE 87; RESP 18; TEMP 36; O2SAT 99
[2021-04-27 21:30] VITALS: PULSE 87; RESP 18; O2SAT 99; BMI 38.9
[2021-04-27] MEDS: Doxazosin 1 MG Tablet PO (21:37)
[2021-04-27] MEDS: Atorvastatin Calcium 80 MG Tablet PO (21:38)
[2021-04-27 21:55] LABS: Bedside Glucose 124 mg/dL (70-110)
--- NOTE | 2021-04-28 02:43 | NURSING ---
Reviewed and agree with ASSOCIATE PROFESSOR OF COMMUNICATION documentation and assessment charting.
[2021-04-28] MEDS: oxyCODONE 5 MG Tablet PO ×2 (04:14→13:01)
[2021-04-28] MEDS: Enoxaparin 40 MG/0.4 ML Syringe SC (05:15)
[2021-04-28] MEDS: Acetaminophen 500 MG Tablet 1000 MG PO (05:24)
[2021-04-28 07:17] VITALS: BP 148/83; PULSE 68; RESP 16; TEMP 36.2; O2SAT 96
[2021-04-28 07:20] LABS: Bedside Glucose 199 mg/dL (70-110)
[2021-04-28] MEDS: Clopidogrel Bisulfate 75 MG Tablet PO (07:59)
[2021-04-28] MEDS: glipiZIDE 5 MG Tablet 10 MG PO (07:59)
[2021-04-28] MEDS: metFORMIN HCl 500 MG Tablet PO (07:59)
[2021-04-28] MEDS: Neuropathy Pain Cream Compound 60 CLICK TUBE TOPICAL (07:59)
[2021-04-28] MEDS: Multivitamins,Therapeutic Tablet 1 TABLET PO (07:59)
[2021-04-28] MEDS: NIFEdipine 90 MG Tablet PO (07:59)
[2021-04-28] MEDS: Gabapentin 100 MG Capsule PO (07:59)
[2021-04-28] MEDS: Pantoprazole Sodium 40 MG Tablet PO (07:59)
[2021-04-28] MEDS: Aspirin 81 MG TAB.CHEW PO (07:59)
[2021-04-28] MEDS: Atenolol 50 MG Tablet PO (08:00)
[2021-04-28] MEDS: Sertraline 50 MG Tablet PO (08:00)
[2021-04-28] MEDS: Lisinopril 40 MG Tablet PO (08:00)
--- NOTE | 2021-04-28 09:54 | CASEMGMT ---
Social Work Telephone call received from Jennie at the [facility]. Jennie request for D/C recommendations from therapies to be faxed to [phone] to be reviewed for the doctor to approved outpatient therapy services. D/C summaries/recommendations for PT/OT/JACQUARD CARD CUTTER and outpatient therapy order faxed to the above number. Jennie reports that the [facility] will then follow up with patient to communicate if outpatient therapy was approved. Telephone call to patient spouse, Susana. Susana updated on above. Proposed discharge date: 04/28/2021. Colten LAZO, MCKAY
[2021-04-28 11:26] LABS: Bedside Glucose 160 mg/dL (70-110)
[2021-04-28 11:30] VITALS: BP 132/64; PULSE 72; RESP 16; TEMP 36.6; O2SAT 95
--- NOTE | 2021-04-28 11:56 | PCM.DC ---
Discharge Instructions Diet Discharge Diet: Low fat / Low cholesterol, 2000 Calorie Control Diet and 4000 mg Sodium Diet Activity Discharge Activity: May Not Drive, May Shower and - (use the cane to walk ) May resume sexual activity in: No Restrictions Weight Bearing Status: Full weight bearing Additional Activity Instructions:: You will not be able to drive......car or semi for the rest of your life. Dressing / Incision Call your doctor if you observe: Fever of 101 or Higher, Shortness of breath, Fainting spells, Swelling in the ankles, Chest pain, Increased palpitations (irregular heartbeat), Calf discomfort and Uncontrolled pain Follow [facility] Care [facility] [place] [facility] a local PCP to follow up with. You should also see a neurologist due to the multiple strokes you have had. Test Results: Test results from this visit will be discussed in further detail at your follow-up appointment, if applicable. Pending Tests Upon Discharge: none Discharge Plan Admission Admit Date/Time: 04/20/21 17:33 Primary Reason for Your Visit: Debility due recent ischemic CVA with RUE weakness/dysphagia/dysarthria Attending Provider: Ramila Nieto Primary Care Provider: [facility] Instructions Patient Instructions: Controlling High Blood Pressure, Diabetes: Inspecting Your Feet, Diabetes: Shopping for and Preparing Meals, Diabetes: Caring for Your Body, Diabetes: Activity Tips Additional Instructions / Restrictions: 1. Paco you have had numerous strokes in the past. you are at high risk for more strokes in the future if the diabetes, high cholesterol and high blood pressure are not controlled. You goals are to keep the HGBA1C 7 or under, the LDL (bad cholesterol) 70 or under and the BP less than 135/85, preferably less than 135/80. I think it would be a good idea to purchase a BP cuff so that you can check the BP's at home. In order to meet the above goals you are going to have to be consistent with taking ALL your meds AND eating a healthier diet. 2. Because of the multiple strokes and also the traumatic brain injuries your memory is not so good. You are going to have to rely on Lindsay's help to manage your medications and doctor's appts. You are no longer allowed to drive (car or semi) and lindsay will have to drive. 3. It is not uncommon for people with diabetes, high blood pressure and high cholesterol to have strokes and also heart attacks. You need to take better care of yourself. 4. Our SW talked with a SW at the [facility] names Jennie. We are faxing recommendations for therapy to them and the [place] will have to approve. I wrote prescriptions for all of the meds....I do not know which ones you have and which ones you don't. There are quite a few. You will need to get them filled very soon so your diabetes and BP stay controlled. 5. It was a pleasure to meet you Paco. You are a heck of a nice luna and you have taken good care of your family. It is time to retire now and take care of yourself. I hope you have a wonderful Father's day and stay well. If you or Lindsay have any questions after you leave the rehab unit you can call the Nurses station at [phone] or my office [phone] or my cell phone [phone]. Stay well Paco! Discharge Orders/Prescriptions Prescriptions: New clopidogrel 75 mg Tablet 75 mg PO DAILY Qty: 30 RF: 0 acetaminophen 500 mg Tablet 1,000 mg PO Q8H PRN PRN (Reason: Pain 1-10 Or Fever) Qty: 0 RF: 0 aspirin 81 mg Tablet,Chewable 81 mg PO BREAKFAST Qty: 100 RF: 0 atenolol 50 mg Tablet 50 mg PO BID Qty: 60 RF: 0 doxazosin 2 mg tablet 2 mg PO QHS Qty: 30 RF: 0 gabapentin 100 mg Capsule 100 mg PO BIDCM Qty: 60 RF: 0 glipizide 10 mg tablet 10 mg PO BID Qty: 60 RF: 0 Victoza 2-Abad 0.6 mg/0.1 mL (18 mg/3 mL) Pen Injector 0.6 mg subcut DAILY Qty: 1 RF: 0 multivitamin Tablet 1 tab PO BREAKFAST Qty: 0 RF: 0 loperamide 2 mg Capsule 2 mg PO Q2H PRN PRN (Reason: Diarrhea) Qty: 0 RF: 0 oxycodone 5 mg Tablet 5 mg PO Q4H PRN PRN (Reason: Pain Score 6-10) 7 Days Qty: 20 RF: 0 pantoprazole 40 mg Tablet,Delayed Release (Dr/Ec) 40 mg PO BID Qty: 60 RF: 0 sertraline 100 mg tablet 100 mg PO DAILY Qty: 30 RF: 0 Continued atorvastatin 80 MG tablet 80 mg PO QHS Qty: 30 RF: 0 nifedipine 90 MG tablet 90 mg PO DAILY Qty: 30 RF: 0 meclizine 12.5 MG tablet 12.5 mg PO BID PRN (Reason: as needed for dizziness) Qty: 10 RF: 0 lisinopril 40 MG tablet 40 mg PO DAILY Qty: 30 RF: 0 Changed metformin 500 MG tablet 500 mg PO BID Qty: 60 RF: 0 Discontinued atenolol 25 MG tablet 25 mg PO DAILY RF: 0 glipizide 5 MG tablet 5 mg PO BID RF: 0 gabapentin 300 mg capsule 300 mg PO TID RF: 0 Referrals / Follow [facility]: [facility] [[facility] Provider[facility] - Disposition Disposition (needs filled in before D/C Order can be placed): Home, self care
--- NOTE | 2021-04-28 12:17 | DS.PCM_ITS ---
Providers Date of Admission: 04/20/21 Primary Care Physician: [facility] Reason For Visit: STROKE Diagnosis Discharge Diagnosis (1) Multiple lacunar infarcts: Status: Acute Code(s): I63.81 - Other cerebral infarction due to occlusion or stenosis of small artery (2) Vomiting: Status: Resolved Code(s): R11.10 - Vomiting, unspecified Qualifiers: Vomiting type: unspecified Vomiting Intractability: non-intractable Nausea presence: without nausea Qualified Code(s): R11.11 - Vomiting without nausea (3) Coronary artery disease: Status: Chronic Code(s): I25.10 - Atherosclerotic heart disease of [place] coronary artery without angina pectoris Qualifiers: Coronary Disease-Associated Artery/Lesion type: [place] artery [place] vs. 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: 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 Diabetes mellitus complication status: with neurologic complications Diabetes mellitus complication detail: with other neurological complication Qualified Code(s): E11.49 - Type 2 diabetes mellitus with other diabetic neurological complication (6) Thoracic radiculopathy: Status: Acute Code(s): M54.14 - Radiculopathy, thoracic region (7) Dysphagia: Status: Acute Code(s): R13.10 - Dysphagia, unspecified (8) Cognitive dysfunction: Status: Acute Code(s): F09 - Unspecified mental disorder due to known physiological condition (9) GERD (gastroesophageal reflux disease): Status: Acute Code(s): K21.9 - Gastro-esophageal reflux disease without esophagitis Qualifiers: Esophagitis presence: esophagitis presence not specified Qualified Code(s): K21.9 - Gastro-esophageal reflux disease without esophagitis (10) Poor dentition: Status: Acute Code(s): K08.9 - Disorder of teeth and supporting structures, unspecified (11) TBI (traumatic brain injury): Status: Chronic Code(s): S06.9X9A - Unspecified intracranial injury with loss of consciousness of un specified duration, initial encounter Qualifiers: Encounter type: subsequent encounter (12) Physical debility: Status: Acute Code(s): R53.81 - Other malaise (13) Morbid obesity: Status: Acute Code(s): E66.01 - Morbid (severe) obesity due to excess calories (14) Stenosis of right vertebral artery: Status: Acute Code(s): I65.01 - Occlusion and stenosis of right vertebral artery (15) High cholesterol: Status: Chronic Code(s): E78.00 - Pure hypercholesterolemia, unspecified (16) Hx of CABG: Status: Chronic Code(s): Z95.1 - Presence of aortocoronary bypass graft (17) Anxiety: Status: Chronic Code(s): F41.9 - Anxiety disorder, unspecified Plan: DC home. 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 He should see a neurologist due to multiple lacunar infarcts and TBI's with cognitive dysfunction and dysphagia. He was told he should not drive.....either a semi or a car due to the cognitive dysfunction and multiple CVA's. Medications at Discharge Home Medications acetaminophen 1,000 mg PO Q8H PRN PRN #0 tab 04/28/21 aspirin 81 mg PO BREAKFAST #100 tab 04/28/21 atenolol 50 mg PO BID #60 tab 04/28/21 atorvastatin 80 mg PO QHS #30 tab 04/28/21 clopidogrel 75 mg PO DAILY #30 tab 04/28/21 doxazosin 2 mg PO QHS #30 tab 04/28/21 gabapentin 100 mg PO BIDCM #60 cap 04/28/21 glipizide 10 mg PO BID #60 tab 04/28/21 liraglutide [Victoza 2-Abad] 0.6 mg SUBCUT DAILY #1 packet 04/28/21 lisinopril 40 mg PO DAILY #30 tab 04/28/21 loperamide 2 mg PO Q2H PRN PRN #0 cap 04/28/21 meclizine 12.5 mg PO BID PRN #10 tab 04/28/21 metformin 500 mg PO BID #60 tab 04/28/21 multivitamin 1 tab PO BREAKFAST #0 tab 04/28/21 nifedipine 90 mg PO DAILY #30 tab 04/28/21 oxycodone 5 mg PO Q4H PRN PRN 7 Days #20 tab 04/28/21 pantoprazole 40 mg PO BID #60 tab 04/28/21 sertraline 100 mg PO DAILY #30 tab 04/28/21 Hospital Course Operations None Procedures - (Modified barium swallow. ) Summary of Care Provided Minutes Spent on Discharge: 46 Hospital Course: JIM BERNSTEIN, is a 65 M with a past medical history of hypertension, diabetes mellitus type 2, hyperlipidemia, coronary artery disease and history of a four-vessel CABG and multiple TBI's who presented to an emergency department complaining of back and chest pain. A CTA of the chest was negative for pulmonary embolus. Because he complained of some slurred speech and right leg weakness a few days prior to presenting to the emergency room his CT brain was done which showed multiple lacunar infarcts and he was transferred to [facility]. NIH at presentation to [place] was 0. An ECHO showed normal left ventricular size and there was mild left ventricular hypertrophy. The EF was normal at 55 to 60%. There were no wall motion abnormalities and no diastolic dysfunction. No PFO was detected. The atria were of normal size. PT at [place] found him to have impaired judgement, poor balance and poor safety awareness. He had impaired ability to ambulate and required verbal cues. He had poor short-term memory. He is a high fall risk. He was recently started on Gabapentin at a relatively high dose (300 mg TID) for initiation of tx but, he took only 1 dose and he was sleepy and did not recognize his and he quit taking it. On that same day he developed a JACK[place] and numbness on the R side of the face. 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 PT/OT recommended inpt acute rehab and he was transferred to [facility] inpt rehab on 04/20/21 for > 3 hours of therapy daily to restore function at or near his prior level of independence. On presentation to the rehab unit he had R facial numbness, RUE drift, dysarthria and dysphagia. He has been having trouble swallowing for a few months but the other neurologic deficits are new. His NIHSS at presentation to the acute rehab unit was 3. PT/ST and OT were ordered. He had a modified bar ium swallow and was diagnosed with moderate-severe oropharygeal phase dysphagia. Also noted on the MBS was reflux. Paco was having vomiting after eating. He did not complain of CP or heartburn and he denied nausea and epigastric pain. He was started on BID Protonix and the vomiting resolved. CBC was unremarkable at admission. The HGBA1C was 10.1. The BUN at discharge was 16 with a creatinine of 0.96 and a GFR of 83. BS's were under good control at the time of DC and the BP was also controlled with some adjustments to his anti-hypertensive regimen. Paco has very poor short term memory and can not recall his restrictions about eating and sipping rather than drinking down fluids. He has trouble retaining information from one day to the next. He was up walking around in his room without supervision after disconnecting the alarm with no AD in his socks putting him at high risk for a fall. He is poor safety awareness and with multiple cerebral infarcts and multiple TBI's I have little hope he is going to improve cognition and safety awareness. He was told he could no longer drive....either a car or a semi. Prior to DC he no longer had RUE drift and the dysarthria improved with ST. He has persistent R facial numbness and dysphagia. 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 He should follow up with his PCP at the [place] and also see a neurologist......I have a suspicion he may be developing multi-infarct dementia. Physical Exam Const alert, oriented x3, no apparent distress and well nourished Constitutional Narrative: sitting in the recliner at the bedside. General Appearance: cooperative and well developed HEENT normocephalic, head/scalp atraumatic and moist oral mucous membranes HEENT Narrative: poor dentition Eyes PERRL and EOMs intact bilaterally Neck supple, no JVD and no carotid bruits General: trachea midline Lymph Lymphatic: no lymphadenopathy noted Resp normal respiratory effort, normal air movement and clear to auscultation bilaterally Cardio regular rate, regular rhythm, S1 normal heart sound, S2 normal heart sound, no murmurs, no rub and no gallops Cardio Narrative: no ectopy GI soft to palpation, non-tender and non-distended GI Narrative: obese Extremity no clubbing, cyanosis or edema and no calf tenderness General Extremity: Negative for edema Skin no wounds and no jaundice General Skin Exam: no breakdown Rashes: no rashes Neuro Neuro Narrative: No facial droop. Persistent loss of sensation of the R face. No drift with the RUE. Speech is still a little slurred but overall the dysarthria has improved. Psych affect normal Psych Narrative: He has poor short term memory. Unable to stick with his restrictions and the rules of the floor....like not getting up by yourself because he forgets. He is very pleasant and not argumentative. He wants to do things his way and he can not remember what he was told to do. Appearance: appropriate Weight / BMI Weight Weight: 243 lb 2.718 oz Body Mass Index (BMI) 38.9 ABG / Lab / Microbiology Data Result Diagrams: 04/21/21 05:36 04/21/21 05:36 Laboratory: Laboratory Results - last 24 hr 04/27/21 04/27/21 04/28/21 17:22 21:43 07:14 POC Glucose 132 H 124 H 199 H 04/28/21 11:21 POC Glucose 160 H D/C Instructions Discharge Diet: Low fat / Low cholesterol, 2000 Calorie Control Diet and 4000 mg Sodium Diet May resume sexual activity in: No Restrictions Weight Bearing Status: Full weight bearing Additional Activity Instructions: You will not be able to drive......car or semi for the rest of your life. Call your doctor if you observe: Fever of 101 or Higher, Shortness of breath, Fainting spells, Swelling in the ankles, Chest pain, Increased palpitations (irregular heartbeat), Calf discomfort and Uncontrolled pain Pending Tests Upon Discharge: none When: [facility] [place] [facility] pick a local PCP to follow up with. You should also see a neurologist due to the multiple strokes you have had. Meaningful Use Info Meaningful Use Diagnoses (Choose all that apply): Ischemic CVA CVA Therapy Assessed for PT,OT and/or ST?: Yes Ischemic Stroke Antithrombotic order at d/c?: Yes Dx of Atrial fib/flutter?: No Anticoagulant at discharge?: No Reason anticoagulant not ordered: Treatment not Indicated Statins at discharge?: Yes Primary Dx Acute Ischemic CVA?: Yes IV tPA ordered during stay?: No Reason IV t-PA not ordered: Treatment not Indicated Discharge Plan Admission Admit Date/Time: 04/20/21 17:33 Primary Reason for Your Visit: Debility due recent ischemic CVA with RUE weakness/dysphagia/dysarthria Attending Provider: Ramila Nieto Primary Care Provider: [facility] Instructions Patient Instructions: Controlling High Blood Pressure, Diabetes: Inspecting Your Feet, Diabetes: Shopping for and Preparing Meals, Diabetes: Caring for Your Body, Diabetes: Activity Tips Additional Instructions / Restrictions: 1. Paco you have had numerous strokes in the past. you are at high risk for more strokes in the future if the diabetes, high cholesterol and high blood pressure are not controlled. You goals are to keep the HGBA1C 7 or under, the LDL (bad cholesterol) 70 or under and the BP less than 135/85, preferably less than 135/80. I think it would be a good idea to purchase a BP cuff so that you can check the BP's at home. In order to meet the above goals you are going to have to be consistent with taking ALL your meds AND eating a healthier diet. 2. Because of the multiple strokes and also the traumatic brain injuries your memory is not so good. You are going to have to rely on Lindsay's help to manage your medications and doctor's appts. You are no longer allowed to drive (car or semi) and lindsay will have to drive. 3. It is not uncommon for people with diabetes, high blood pressure and high cholesterol to have strokes and also heart attacks. You need to take better care of yourself. 4. Our SW talked with a SW at the [facility] names Jennie. We are faxing recommendations for therapy to them and the [place] will have to approve. I wrote prescriptions for all of the meds....I do not know which ones you have and which ones you don't. There are quite a few. You will need to get them filled very soon so your diabetes and BP stay controlled. 5. It was a pleasure to meet you Paco. You are a heck of a nice luna and you have taken good care of your family. It is time to retire now and take care of yourself. I hope you have a wonderful Father's day and stay well. If you or Lindsay have any questions after you leave the rehab unit you can call the Nurses station at [phone] or my office [phone] or my cell phone [phone]. Stay well Paco! Discharge Orders/Prescriptions Prescriptions: New clopidogrel 75 mg Tablet 75 mg PO DAILY Qty: 30 RF: 0 acetaminophen 500 mg Tablet 1,000 mg PO Q8H PRN PRN (Reason: Pain 1-10 Or Fever) Qty: 0 RF: 0 aspirin 81 mg Tablet,Chewable 81 mg PO BREAKFAST Qty: 100 RF: 0 atenolol 50 mg Tablet 50 mg PO BID Qty: 60 RF: 0 doxazosin 2 mg tablet 2 mg PO QHS Qty: 30 RF: 0 gabapentin 100 mg Capsule 100 mg PO BIDCM Qty: 60 RF: 0 glipizide 10 mg tablet 10 mg PO BID Qty: 60 RF: 0 Victoza 2-Abad 0.6 mg/0.1 mL (18 mg/3 mL) Pen Injector 0.6 mg subcut DAILY Qty: 1 RF: 0 multivitamin Tablet 1 tab PO BREAKFAST Qty: 0 RF: 0 loperamide 2 mg Capsule 2 mg PO Q2H PRN PRN (Reason: Diarrhea) Qty: 0 RF: 0 oxycodone 5 mg Tablet 5 mg PO Q4H PRN PRN (Reason: Pain Score 6-10) 7 Days Qty: 20 RF: 0 pantoprazole 40 mg Tablet,Delayed Release (Dr/Ec) 40 mg PO BID Qty: 60 RF: 0 sertraline 100 mg tablet 100 mg PO DAILY Qty: 30 RF: 0 Continued atorvastatin 80 MG tablet 80 mg PO QHS Qty: 30 RF: 0 nifedipine 90 MG tablet 90 mg PO DAILY Qty: 30 RF: 0 meclizine 12.5 MG tablet 12.5 mg PO BID PRN (Reason: as needed for dizziness) Qty: 10 RF: 0 lisinopril 40 MG tablet 40 mg PO DAILY Qty: 30 RF: 0 Changed metformin 500 MG tablet 500 mg PO BID Qty: 60 RF: 0 Discontinued atenolol 25 MG tablet 25 mg PO DAILY RF: 0 glipizide 5 MG tablet 5 mg PO BID RF: 0 gabapentin 300 mg capsule 300 mg PO TID RF: 0 Referrals / Follow [facility]: [facility] [Primary [facility] Provider[facility] - Disposition Disposition (needs filled in before D/C Order can be placed): Home, self care Charges/Coding Visit Charges Inpatient E&M: 70024 Disch Hosp
--- NOTE | 2021-04-28 13:35 | NURSING ---
pt discharged home via car transport with significant other at this time. discharge instructions given. denies questions or concerns.
[2021-04-28 13:36] VITALS: BMI 38.9
== END 2021-04-28 13:41 | disposition home or self-care (01) | DRG 57 ==
PROVIDERS: Admitting Provider Internal Medicine; Visit Provider Internal Medicine
DX: I69.351 Hemiplegia and hemiparesis following cerebral infarction affecting right dominant side (principal); I69.322 Dysarthria following cerebral infarction; I69.391 Dysphagia following cerebral infarction; I69.398 Other sequelae of cerebral infarction; R13.10 Dysphagia, unspecified; R20.9 Unspecified disturbances of skin sensation; E78.5 Hyperlipidemia, unspecified; I10 Essential (primary) hypertension; E78.00 Pure hypercholesterolemia, unspecified; I25.10 Atherosclerotic heart disease of native coronary artery without angina pectoris; E66.01 Morbid (severe) obesity due to excess calories; M54.14 Radiculopathy, thoracic region; E11.9 Type 2 diabetes mellitus without complications; K21.9 Gastro-esophageal reflux disease without esophagitis; Z95.1 Presence of aortocoronary bypass graft; Z79.899 Other long term (current) drug therapy; Z79.84 Long term (current) use of oral hypoglycemic drugs; Z87.820 Personal history of traumatic brain injury; Z68.38 Body mass index [BMI] 38.0-38.9, adult
CPT/HCPCS: 36415; 74230; 80053; 82962; 83036; 83735; 84100; 85027; 92507; 92523; 92526; 92610; 92611; 97110; 97112; 97116; 97162; 97166; 97530; 97535; 97802; 97803; 99251; A4216; G0463

== ENCOUNTER 2021-05-03 13:07 | Emergency (ER) | payer OTHER, SELFPAY ==
[2021-05-03 13:07] VITALS: BP 141/72; PULSE 82; RESP 18; TEMP 36.2; O2SAT 98; BMI 36.1
--- NOTE | 2021-05-03 14:37 | ED.RN ---
PT LWBS AT 1436
== END 2021-05-03 14:40 | disposition left against medical advice (07) ==
LOC: ED 14:42
DX: Z53.21 Procedure and treatment not carried out due to patient leaving prior to being seen by health care provider (principal)

== ENCOUNTER 2021-05-10 14:13 | Observation (INO) | payer OTHER, MEDICARE, SELFPAY ==
[2021-05-10] VITALS (16 sets, daily range): BP systolic 107–147; BP diastolic 60–79; PULSE 75–86; RESP 12–22; TEMP 36.4–36.9; O2SAT 96–99; BMI 35.9; BMI 35.5
--- NOTE | 2021-05-10 14:21 | EKG12_ITS ---
Test Reason : STROKE TEAM Blood Pressure : / mmHG Vent. Rate : 081 BPM Atrial Rate : 081 BPM P-R Int : 162 ms QRS Dur : 100 ms QT Int : 388 ms P-R-T Axes : -04 -68 052 degrees QTc Int : 450 ms Normal sinus rhythm Left axis deviation Inferior infarct , age undetermined Abnormal ECG Confirmed by LILI VENTURA, TRISH ([id number]), editor book CHRIS KEENAN ([id number]) on 05/13/2021 7:47:56 AM Referred By: RITCHIE Confirmed By:TRISH PEARSON MD
--- NOTE | 2021-05-10 14:21 | CT_ITS ---
STUDY: CT HEAD STROKE PROTOCOL W/O CONTRAST INJECTION REASON FOR EXAM: Male, 65 years old. Neuro deficit, acute, stroke suspected RADIATION DOSAGE (If Supplied By Facility): CTDIvol = ( 44.99 ) mGy, DLP = ( 863.6 ) mGycm TECHNIQUE: Transaxial CT imaging of the brain was performed without administration of intravenous contrast material. Individualized dose optimization techniques were used for this CT. COMPARISON: No relevant priors. FINDINGS: Normal soft tissue structures. Normal calvarium. There is mild cerebral atrophy with widening of the extra-axial spaces and ventricular dilatation. Normal white matter tracts of the cerebral hemispheres. There are small punctate calcifications of the basal ganglia which are seen in the aging brain as a normal variant. Tiny lacunae in the left basal ganglia. Normal brainstem. Normal cerebellum. There is no intracranial hemorrhage. There are no findings of an acute ischemic infarction. Atherosclerotic calcification of the cavernous portions of the internal carotid arteries bilaterally. Normal visualized paranasal sinuses. CT/STROKE Brain/Head without Cont IMPRESSION: Chronic involutional changes of the brain. Tiny lacune in the left basal ganglion. Most likely old. N.B. : The above Results were Read Back by Moncho Canseco MD to Berenice Burgess and understanding confirmed on 05/10/2021 14:41:27 (ET). Electronically Signed: Moncho Canseco MD at 14:42 EDT , Service support ,
[2021-05-10 14:26] LABS: Bedside Glucose 243 mg/dL (70-110)
[2021-05-10 14:27] LABS: Absolute Lymphocyte Count 1.81 X10^3/uL (0.83-4.51); Absolute Neutrophil Count 4.4 X10^3/uL (2.0-7.7); Basophil# 0.04 X10^3/uL; Basophil% 0.6 % (0-1); Eosinophil# 0.15 X10^3/uL; Eosinophils% 2.2 % (0-5); Hematocrit 40.4 % (40-54); Lymphocyte # 1.81 X10^3/ul (0.83-4.51); Lymphocyte % 26.5 % (19-41); Mean Corp Hgb Conc 34.7 g/dL (32-36); Mean Corpuscular Hgb 29.5 pg (27.0-32.0); Mean Corpuscular Volume 85.1 fL (80-94); Mean Platelet Vol. 9.6 fl (6.2-12.0); Monocyte% 5.9 % (0-10); NRBC Flagged by Analyzer 0 % (0-5); Neutrophil % 64.5 % (47-70); Platelet Count 229 K/mm3 (150-450); RBC Distribution Width CV 12.4 % (11.6-14.6); RBC Distribution Width SD 37.9 fl (35.1-43.9); Red Blood Count 4.75 M/mm3 (4.6-6.2); White Blood Count 6.8 K/mm3 (4.4-11.0)
--- NOTE | 2021-05-10 14:31 | ED.VIS.STROK ---
HPI History of Present Illness Chief Complaint: Neuro S/Sx Detail of Chief Complaint: Possible stroke with complaint of dizziness and blurred vision from left ey Informant: patient Narrative Narrative: Patient presents to the emergency department with complaint of dizziness that started when he walked outside around 12:30 PM. Patient also states that he had some blurred vision in the left eye and felt some numbness and tingling in his left hand. Patient tells me that the day before he had a mini stroke and was seen at [facility] where they did MRIs and other testing. Currently he is on aspirin and Plavix which he took today. Patient has history of coronary artery disease. Patient denies any focal weakness currently. He denies any dizziness currently. Complains only of some blurred vision from his left eye. He has no paresthesias currently or weakness. Prior similar symptoms: [facility] Medical History (Updated 05/10/21 @ 15:[address] Berenice Burgess, DO) Coronary artery disease CVA (cerebral vascular accident) Diabetes High cholesterol HTN (hypertension) Home Medications acetaminophen 1,000 mg PO Q8H PRN PRN #0 tab 04/28/21 [Rx Last Taken Unknown] aspirin 81 mg PO BREAKFAST #100 tab 04/28/21 [Rx Last Taken Unknown] atenolol 50 mg PO BID #60 tab 04/28/21 [Rx Last Taken Unknown] atorvastatin 80 mg PO QHS #30 tab 04/28/21 [Rx Last Taken Unknown] clopidogrel 75 mg PO DAILY #30 tab 04/28/21 [Rx Last Taken Unknown] doxazosin 2 mg PO QHS #30 tab 04/28/21 [Rx Last Taken Unknown] gabapentin 100 mg PO BIDCM #60 cap 04/28/21 [Rx Last Taken Unknown] glipizide 10 mg PO BID #60 tab 04/28/21 [Rx Last Taken Unknown] liraglutide [Victoza 2-Abad] 0.6 mg SUBCUT DAILY #1 packet 04/28/21 [Rx Last Taken Unknown] lisinopril 40 mg PO DAILY #30 tab 04/28/21 [Rx Last Taken Unknown] loperamide 2 mg PO Q2H PRN PRN #0 cap 04/28/21 [Rx Last Taken Unknown] meclizine 12.5 mg PO BID PRN #10 tab 04/28/21 [Rx Last Taken Unknown] metformin 500 mg PO BID #60 tab 04/28/21 [Rx Last Taken Unknown] multivitamin 1 tab PO BREAKFAST #0 tab 04/28/21 [Rx Last Taken Unknown] nifedipine 90 mg PO DAILY #30 tab 04/28/21 [Rx Last Taken Unknown] oxycodone 5 mg PO Q4H PRN PRN 7 Days #20 tab 04/28/21 [Rx Last Taken Unknown] pantoprazole 40 mg PO BID #60 tab 04/28/21 [Rx Last Taken Unknown] sertraline 100 mg PO DAILY #30 tab 04/28/21 [Rx Last Taken Unknown] Allergy/AdvReac Type Severity Reaction Status Date / Time No Known Allergies Allergy Verified 05/10/21 14:37 Family History (Updated 04/21/21 @ 12:[address] Ramila Nieto DO) Other Dementia Heart disease Hypertension Myocardial infarction Parkinsons disease Surgical History (Updated 04/10/21 @ 14:35 by Ada Pierre) S/P CABG x 3 Social History (Updated 04/21/21 @ 12:[address] Ramila Nieto DO) Smoking Status: Never smoker alcohol intake: current alcohol intake frequency: 3 or more drinks per day Alcohol type: beer substance use type: does not use ROS ROS ED Constitutional Constitutional ED: Reports systems reviewed and no addt'l complaints, except as documented; Denies body ache(s), change in weight or chills Eyes Eyes: Reports blurry vision; Denies acute decrease in peripheral vision, change in vision, double vision or loss of vision ENT ENT ED: Reports none; Denies ear pain, lip swelling, loss taste/smell, neck pain, otalgia or sore throat Cardiovascular Cardiovascular: Reports none; Denies abdominal pain, chest pain with activity, leg edema, lightheadedness, palpitations, rapid heart rate or syncope Respiratory/Chest Respiratory/Chest: Reports none; Denies change in mental status, dry cough, dyspnea, hemoptysis, shortness of breath at rest or shortness of breath with exertion Gastrointestinal Gastrointestinal: Reports none; Denies abdominal pain, change in stool character, diarrhea, hematemesis, hematochezia, melena, rectal bleeding or vomiting Genitourinary Genitourinary ED: Reports none; Denies abdominal discomfort, anuria, dysuria, genital pain or polyuria Musculoskeletal Musculoskeletal: Reports none; Denies arthralgias, back pain, difficulty walking, extremity pain, muscle weakness or myalgias Integumentary Reports none; Denies abscess or rash Neurologic Neurologic: Reports none and other Details: Dizziness and paresthesias in left hand currently are resolved. ; Denies abnormal gait, confusion, focal weakness, frequent falls, headache(s), loss of vision, numbness, paresthesias, radicular pain, vertigo or weakness Psychiatric Psychiatric: Reports systems reviewed and no addt'l complaints, except as documented and none; Denies behavioral changes, confusion, difficulty concentrating, hallucinations, suicidal ideation, tactile hallucinations or visual hallucinations Endocrine Endocrinology: Denies none, cold intolerance, excessive sweating, fatigue or heat intolerance Hematologic/Lymphatic Hematologic/Lymphatic: Reports none; Denies anemia, easy bleeding or easy bruising Allergic/Immunologic Allergic/Immunologic ED: Denies as per HPI, none, lip swelling, mouth swelling, throat swelling, tongue swelling or hives EXAM Physical Exam Const Vital Signs: 05/10/21 14:15 05/10/21 14:21 05/10/21 14:33 Temperature 97.6 F L Temperature Source Temporal Pulse Rate 85 82 81 Respiratory Rate 18 22 H 15 Blood Pressure 130/69 H 122/73 H 127/79 H Blood Pressure Mean 89 89 95 Pulse Ox 99 98 96 Oxygen Delivery Method Room Air Room Air Room Air 05/10/21 14:34 05/10/21 14:37 05/10/21 14:51 Temperature 97.6 F L Temperature Source Temporal Pulse Rate 84 82 Respiratory Rate 22 H 12 Blood Pressure 122/73 H 130/69 H Blood Pressure Mean 89 89 Pulse Ox 99 99 Oxygen Delivery Method Room Air Room Air Room Air Positive well nourished and well developed General Appearance ED: well developed and NAD HEENT Reports TM's clear and moist mucous membranes normocephalic and atraumatic; Negative for trauma or tenderness Tympanic Membrane ED: Yes TM's clear Eyes PERRL and EOMs intact bilaterally General Eye ED: Negative for pale conjunctiva or scleral icterus Neck no lymphadenopathy, supple and no JVD General: Negative for tenderness Chest Wall inspection of chest normal and palpation of chest normal Chest: Negative for tenderness Resp normal respiratory effort and clear to auscultation bilaterally Effort and Inspection: Negative for respiratory distress or pain with movement Auscultation: Negative for rhonchi, wheezes or diminished lung sounds Cardio regular rate, regular rhythm, S1 normal heart sound, S2 normal heart sound and no murmurs Peripheral Pulses: pulses 2+ throughout GI normal to inspection, nondistended, normoactive bowel sounds, soft to palpation, non-tender, non-distended and no masses Back/Spine no CVA tenderness and no thoracic nor lumbar tenderness Extremity normal to inspection General Extremety ED: Negative for edema General Extremity: Negative for edema Neuro oriented x3, CN's II-XII intact bilaterally, no sensory deficits noted and gait normal Neuro Narrative: Patient has no evidence of facial droop. No speech difficulty. Normal sensation. Complains of some blurred vision but only with the left eye. Patient still able to count fingers. NIH stroke scale is 1. Ramirez Coma Scale: document GCS findings Sensorium / Orientation: awake, alert, oriented to person, oriented to place and oriented to time Motor Exam: strength 5/5 throughout and strength abnormal Psych mental status grossly normal Skin no rashes or lesions noted and no wounds STROKE Vital Signs/Narrative: Vital Signs Temp Pulse Resp BP Pulse Ox 05/10/21 14:51 82 12 130/69 H 99 05/10/21 14:37 97.6 F L 84 22 H 122/73 H 99 05/10/21 14:33 81 15 127/79 H 96 05/10/21 14:21 82 22 H 122/73 H 98 05/10/21 14:15 97.6 F L 85 18 130/69 H 99 MDM MDM MDM Narrative Medical decision making narrative: Patient was evaluated by stroke neurologist from [facility]. Patient told the neurologist that he actually has been dizzy since yesterday and he fell yesterday morning. Last known well time was now yesterday and patient is not a TPA candidate. Patient has history of vertigo but states this dizziness is different. Neurologist recommended admission for MRI. Case will be discussed with hospitalist to evaluate patient for admission. Lab Data Attestation: I reviewed the patient's lab results. Labs: Laboratory Results - last 24 hr 05/10/21 05/10/21 05/10/21 14:20 14:20 14:20 WBC 6.8 RBC 4.75 Hgb 14.0 Hct 40.4 MCV 85.1 MCH 29.5 MCHC 34.7 RDW Std Deviation 37.9 RDW Coeff of Vern 12.4 Plt Count 229 MPV 9.6 Immature Gran % (Auto) 0.300 Neut % (Auto) 64.5 Lymph % (Auto) 26.5 Gray % (Auto) 5.9 Eos % (Auto) 2.2 Baso % (Auto) 0.6 Absolute Neuts (auto) 4.4 Absolute Lymphs (auto) 1.81 Nucleated RBC % 0 PT 13.7 INR 1.1 APTT 29.3 Sodium 135 L Potassium 4.7 Chloride 101 Carbon Dioxide 28.0 Anion Gap 6 BUN 24 H Creatinine 1.13 Estim Creat Clear Calc 63.44 Est GFR (MDRD) Af Amer 83 Est GFR (MDRD) Non-Af 69 BUN/Creatinine Ratio 21.2 H Glucose 237 H Calcium 9.2 Troponin I High Sens 4.5 POC Glucose 05/10/21 14:21 WBC RBC Hgb Hct MCV MCH MCHC RDW Std Deviation RDW Coeff of Vern Plt Count MPV Immature Gran % (Auto) Neut % (Auto) Lymph % (Auto) Gray % (Auto) Eos % (Auto) Baso % (Auto) Absolute Neuts (auto) Absolute Lymphs (auto) Nucleated RBC % PT INR APTT Sodium Potassium Chloride Carbon Dioxide Anion Gap BUN Creatinine Estim Creat Clear Calc Est GFR (MDRD) Af Amer Est GFR (MDRD) Non-Af BUN/Creatinine Ratio Glucose Calcium Troponin I High Sens POC Glucose 243 H Radiography Diagnostic Testing: Radiology Impression Brain CT 05/10/21 14:21 IMPRESSION: Chronic involutional changes of the brain. Tiny lacune in the left basal ganglion. Most likely old. N.B. : The above Results were Read Back by Moncho Canseco MD to Berenice Burgess and understanding confirmed on 05/10/2021 14:41:27 (ET). Electronically Signed: Moncho Canseco MD at 14:42 EDT , Service support , ADDENDUM: 05/10/21 1449 IMPRESSION: Chronic involutional changes of the brain. Tiny lacune in the left basal ganglion. Most likely old. N.B. : The above Results were Read Back by Moncho Canseco MD to Berenice Burgess and understanding confirmed on 05/10/2021 14:41:27 (ET). Electronically Signed: Moncho Canseco MD at 14:42 EDT , Service support , EKG Initial EKG: Attestation: I personally reviewed and interpreted this EKG as follows: Comments: Sinus rhythm with a ventricular rate of 81 bpm with inferior infarct that appears to be old. Discharge Plan Dx/Rx/DC Orders Clinical Impression: Dizziness, Blurred vision, Acute CVA (cerebrovascular accident) Disposition Disposition: Acute Care Hospital [facility]
[2021-05-10] MEDS: 0.9% Normal Saline 1,000 ML 100 ML IV ×2 (14:32→17:10)
[2021-05-10 14:39] LABS: International Normalized Ratio 1.1; Prothrombin Time (Protime)PT. 13.7 SECONDS (11.7-14.9)
[2021-05-10 14:40] LABS: Partial Thromboplast Time 29.3 Seconds (24.1-36.2)
[2021-05-10 14:43] LABS: Anion Gap 6 (5-15); BUN 24 mg/dL (7-18); BUN/Creat Ratio 21.2 RATIO (10-20); Calcium,Total 9.2 mg/dL (8.5-10.1); Chloride 101 mmol/L (98-107); Creatinine, Serum 1.13 mg/dL (0.70-1.30); EST Glomerular Filtration Rate 69 mL/min (>60); Est Glom Filt Rate - Afr Amer 83 mL/min (>60); Estimated Creatinine Clearance 63.44 ml/min; Glucose 237 mg/dL (74-106); Potassium 4.7 mmol/L (3.5-5.1); Sodium Level 135 mmol/L (136-145); Troponin-I HS 4.5 pg/mL (3.0-78.5)
--- NOTE | 2021-05-10 14:59 | RAD_ITS ---
STUDY: X-RAY CHEST REASON FOR EXAM: Male, 65 years old. Neuro deficit, acute, stroke suspected TECHNIQUE: Single AP portable view of the chest. COMPARISON: Comparison is made with prior study 09/03/2020. FINDINGS: EKG electrodes are seen. The lungs are clear and expanded. There is no demonstrated pleural abnormality. Sternal cerclage wires and vascular clips are present from a prior sternotomy and coronary artery bypass graft procedure (CABG). Normal mediastinum and miguel. Normal visualized pulmonary arteries. Normal visualized aortic arch and descending thoracic aorta. There are diffuse degenerative changes of the visualized thoracic spine. Mild dextroscoliosis. Normal visualized ribs, clavicles, and shoulders. There is no demonstrated abnormality of the visualized soft tissue structures of the upper abdomen. RAD/Chest 1 View IMPRESSION: No acute abnormality is seen. Electronically Signed: Moncho Canseco MD at 15:18 EDT , Service support ,
--- NOTE | 2021-05-10 15:00 | CM.ED ---
SW Note Referral Reason: Stroke Alert Referral Source: Stroke Alert SW and Operating Room Surgical Technologist were present to present support to patient's fiance', Susana. SW and Operating Room Surgical Technologist explained the stroke protocol to Susana and provided her with support. Patient came back into the room and provided support to her and her fiance/patient, Paco. Operating Room Surgical Technologist provided a prayer of support for patient and his fiance. SW remains available if further needs arise. Plan: To be determined Carolina SUAREZ
--- NOTE | 2021-05-10 15:09 | CHAPLAIN ---
Type of Pastoral Visit ___ Initial Visit ___ Follow-up Visit ___ On-call Visit ___ General Patient Visit ___ Spiritual Assessment ___ Family Conference ___ Bereavement _x__ Rapid Response ___ Code Blue ___ Other (describe below) Pastoral Care Referral From ___ Patient ___ Family ___ Nurse ___ Physician ___ Business Representative ___ Vice President Of Academic Affairs _x__ Other (describe below) Sacrament/Intervention _x__ Active listening ___ Anointing ___ Orthodox ___ Bereavement ___ Communion ___ Laura exploration ___ ___ Life review _x__ Prayer ___ Reconciliation ___ Sacrament of Sick _x__ Supportive presence ___ Wedding ___ Other (describe below) Pastoral Comments along with SW gave presence to the spouse of this patient; spouse is very emotional so calming words and redirection and prayer given; met patient when he returned from testing; offered support to pt
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
--- NOTE | 2021-05-10 15:59 | MRI_ITS ---
STUDY: MRI BRAIN WITHOUT CONTRAST REASON FOR EXAM: Male, 65 years old. CVA TECHNIQUE: Standardized multiplanar fat and water weighted pulse sequences were obtained. COMPARISON: Head CT dated MAY 10, 2021 FINDINGS: There is mild cerebral atrophy with widening of the extra-axial spaces and ventricular dilatation. There are multiple white matter hyperintensities, distributed throughout the deep white matter tracts of the cerebral hemispheres, consistent with moderate chronic white matter ischemic changes. There is no evidence for recent intracranial ischemia or other cause of cytotoxic edema on diffusion weighted imaging (DWI). Normal T2* images of the brain without demonstrated susceptibility artifact. There is no demonstrated hemosiderin stain. A small old lacunar infarct is present in the mid aspect of the left periventricular white matter and periphery of the left lobe of the thalamus. Normal bilateral basal ganglia. There is no extra-axial fluid accumulation. Normal flow voids within the major intracranial circulation suggesting patency by spin echo criteria. Normal sella turcica, pituitary gland, infundibular stalk, optic chiasm and hypothalamus. Normal tectal plate and pineal gland. Normal midbrain, hector and medulla. Normal cerebellum. Normal basal cisterns. Normal bilateral temporal bones. Normal bilateral internal auditory canals. No demonstrated orbital abnormality, within the constraints of a routine brain study. Normal visualized paranasal sinuses. Normal calvarium and skull base. Normal visualized soft tissue structures. Normal visualized upper cervical spine. MRI/Brain without Contrast IMPRESSION: 1. There are multiple white matter hyperintensities, distributed throughout the deep white matter tracts of the cerebral hemispheres, consistent with moderate chronic white matter ischemic changes. 2. No acute infarct or intracranial hemorrhage 3. Old lacunar infarct of the left periventricular white matter Electronically Signed: Geronimo Laureano MD at 20:57 EDT , Service support ,
[2021-05-10 16:28] LABS: Magnesium 2.1 mg/dL (1.6-2.6); Thyroid Stim Hormone (TSH) 2.92 uIU/mL (0.358-3.74)
[2021-05-10 17:20] LABS: Bedside Glucose 158 mg/dL (70-110)
[2021-05-10] MEDS: Pantoprazole Sodium 20 MG Tablet PO (17:31)
[2021-05-10] MEDS: Gabapentin 100 MG Capsule PO (17:31)
[2021-05-10] MEDS: Enoxaparin 40 MG/0.4 ML Syringe SC (17:31)
[2021-05-10] MEDS: Insulin Lispro 100 UNIT/ML INSULN.PEN SC ×2 (17:31→21:37)
[2021-05-10] MEDS: Atorvastatin Calcium 80 MG Tablet PO (21:37)
[2021-05-10 22:01] LABS: Bedside Glucose 165 mg/dL (70-110)
[2021-05-10] MEDS: 0.9% Saline Lock 10 ML Syringe IV (22:30)
[2021-05-10] MEDS: Neuropathy Pain Cream Compound 60 CLICK TUBE TOPICAL (23:02)
[2021-05-11] VITALS (7 sets, daily range): BP systolic 163–177; BP diastolic 83–89; PULSE 73–80; RESP 16–18; TEMP 36.2–36.8; O2SAT 96–100; BMI 35.5
[2021-05-11] MEDS: 0.9% Normal Saline 1,000 ML 100 ML IV (05:25)
[2021-05-11] MEDS: Insulin Lispro 100 UNIT/ML INSULN.PEN SC (06:36)
[2021-05-11 06:40] LABS: Bedside Glucose 163 mg/dL (70-110)
[2021-05-11 06:44] LABS: Absolute Lymphocyte Count 1.56 X10^3/uL (0.83-4.51); Absolute Neutrophil Count 2.1 X10^3/uL (2.0-7.7); Basophil# 0.02 X10^3/uL; Basophil% 0.5 % (0-1); Eosinophil# 0.13 X10^3/uL; Eosinophils% 3.1 % (0-5); Hematocrit 36.4 % (40-54); Hemoglobin 12.8 g/dL (13.0-16.5); Lymphocyte # 1.56 X10^3/ul (0.83-4.51); Lymphocyte % 37.8 % (19-41); Mean Corp Hgb Conc 35.2 g/dL (32-36); Mean Corpuscular Volume 85.4 fL (80-94); Mean Platelet Vol. 9.6 fl (6.2-12.0); Monocyte# 0.28 X10^3/uL; Monocyte% 6.8 % (0-10); NRBC Flagged by Analyzer 0 % (0-5); Neutrophil # 2.13 X10^3/uL (2.7-7.7); Neutrophil % 51.6 % (47-70); Platelet Count 187 K/mm3 (150-450); RBC Distribution Width CV 12.2 % (11.6-14.6); RBC Distribution Width SD 37.9 fl (35.1-43.9); Red Blood Count 4.26 M/mm3 (4.6-6.2); White Blood Count 4.1 K/mm3 (4.4-11.0)
[2021-05-11 07:29] LABS: ALB/GLOB Ratio 0.9 RATIO (0.9-2.4); AST(SGOT) 21 U/L (15-37); Alanine Aminotransfer ALT/SGPT 35 U/L (16-61); Albumin, Serum 3.2 g/dL (3.2-5.0); Alkaline Phosphatase 48 U/L (45-117); Anion Gap 6 (5-15); BUN 17 mg/dL (7-18); BUN/Creat Ratio 21.4 RATIO (10-20); Calcium,Total 8.3 mg/dL (8.5-10.1); Chloride 107 mmol/L (98-107); EST Glomerular Filtration Rate 103 mL/min (>60); Est Glom Filt Rate - Afr Amer 125 mL/min (>60); Globulin 3.5 g/dL (2.2-4.2); Glucose 166 mg/dL (74-106); Potassium 3.9 mmol/L (3.5-5.1); Protein, Total 6.7 g/dL (6.4-8.2); Sodium Level 139 mmol/L (136-145)
[2021-05-11] MEDS: Atenolol 50 MG Tablet PO (08:57)
[2021-05-11] MEDS: Enoxaparin 40 MG/0.4 ML Syringe SC (08:57)
[2021-05-11] MEDS: Aspirin 81 MG TAB.CHEW PO (08:57)
[2021-05-11] MEDS: Pantoprazole Sodium 20 MG Tablet PO (08:57)
[2021-05-11] MEDS: Doxazosin 1 MG Tablet 2 MG PO (08:57)
[2021-05-11] MEDS: NIFEdipine 90 MG Tablet PO (08:58)
[2021-05-11] MEDS: Clopidogrel Bisulfate 75 MG Tablet PO (08:58)
[2021-05-11] MEDS: Lisinopril 40 MG Tablet PO (08:58)
[2021-05-11] MEDS: Gabapentin 100 MG Capsule PO (08:58)
[2021-05-11] MEDS: Sertraline 100 MG Tablet PO (08:58)
[2021-05-11] MEDS: Neuropathy Pain Cream Compound 60 CLICK TUBE TOPICAL (08:59)
--- NOTE | 2021-05-11 09:41 | CASEMGMT ---
PHQ-9 completed, pt scored a 1. Pt denies feeling down or depressed at present. No referrals needed at this time. MCKAY Zhang
--- NOTE | 2021-05-11 10:46 | PCM.DC ---
Discharge Instructions Diet Discharge Diet: 1800 Calorie Control Diet Activity Discharge Activity: Return to Normal Activity Follow Up Care Test Results: Test results from this visit will be discussed in further detail at your follow-up appointment, if applicable. Discharge Plan Admission Admit Date/Time: 05/10/21 15:59 Primary Reason for Your Visit: blurred vision, dizziness Attending Provider: Matt Victor Primary Care Provider: [facility] Discharge Orders/Prescriptions Prescriptions: Continued clopidogrel 75 mg Tablet 75 mg PO DAILY Qty: 30 RF: 0 aspirin 81 mg Tablet,Chewable 81 mg PO BREAKFAST Qty: 100 RF: 0 gabapentin 100 mg Capsule 100 mg PO BIDCM Qty: 60 RF: 0 multivitamin Tablet 1 tab PO BREAKFAST Qty: 0 RF: 0 sertraline 100 mg tablet 100 mg PO DAILY Qty: 30 RF: 0 atorvastatin 80 MG tablet 80 mg PO QHS Qty: 30 RF: 0 nifedipine 90 MG tablet 90 mg PO DAILY Qty: 30 RF: 0 lisinopril 40 MG tablet 40 mg PO DAILY Qty: 30 RF: 0 esomeprazole magnesium [Nexium] 20 mg Capsule,Delayed Release(Dr/Ec) 20 mg PO DAILY RF: 0 omega-3 fatty acids-vitamin E 1,000 mg Capsule 4 cap PO DAILY RF: 0 metformin 500 MG tablet 2,000 mg PO BID RF: 0 glipizide 10 mg tablet 10 mg PO BID RF: 0 meclizine 12.5 MG tablet 25 mg PO BID PRN (Reason: as needed for dizziness) RF: 0 acetaminophen 500 mg tablet 1,000 mg PO BID PRN PRN (Reason: Pain 1-10 Or Fever) RF: 0 atenolol 50 mg tablet 50 mg PO DAILY RF: 0 doxazosin 2 mg tablet 2 mg PO DAILY RF: 0 Neuropathy Pain Cream 0.5 ml ointment 1 pump transdermal TID PRN (Reason: Neuropathy pain) RF: 0 Referrals / Follow Up: [facility] [[facility] - Within 2 Weeks Disposition Disposition (needs filled in before D/C Order can be placed): Home, Self Care
--- NOTE | 2021-05-11 11:03 | CASEMGMT ---
Pt has already been set up with PT/OT/ST as outpatient on discharge from [facility] rehab unit. Pt voices no further questions/concerns/needs. Ayesha PAYNE CM
--- NOTE | 2021-05-11 11:03 | PHA.DC.MR ---
Pharmacy Service has performed discharge medication reconciliation for this patient. The patient's discharge medication list was reviewed for discrepancies and discrepancies were resolved. Home Medications aspirin 81 mg PO BREAKFAST #100 tab 04/28/21 atorvastatin 80 mg PO QHS #30 tab 04/28/21 clopidogrel 75 mg PO DAILY #30 tab 04/28/21 gabapentin 100 mg PO BIDCM #60 cap 04/28/21 lisinopril 40 mg PO DAILY #30 tab 04/28/21 multivitamin 1 tab PO BREAKFAST #0 tab 04/28/21 nifedipine 90 mg PO DAILY #30 tab 04/28/21 sertraline 100 mg PO DAILY #30 tab 04/28/21 Neuropathy Pain Cream 1 pump TRANSDERMAL TID PRN 05/10/21 acetaminophen 1,000 mg PO BID PRN PRN 05/10/21 atenolol 50 mg PO DAILY 05/10/21 doxazosin 2 mg PO DAILY 05/10/21 esomeprazole magnesium [Nexium] 20 mg PO DAILY 05/10/21 glipizide 10 mg PO BID 05/10/21 meclizine 25 mg PO BID PRN 05/10/21 metformin 2,000 mg PO BID 05/10/21 omega-3 fatty acids-vitamin E 4 cap PO DAILY 05/10/21
--- NOTE | 2021-05-12 19:37 | DS.PCM_ITS ---
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 white matter #3 paresthesias of the left hand-etiology unclear #4 lightheadedness-etiology unclear #5 type 2 diabetes #6 hyperlipidemia #7 coronary artery disease Medications at Discharge Home Medications aspirin 81 mg PO BREAKFAST #100 tab 04/28/21 atorvastatin 80 mg PO QHS #30 tab 04/28/21 clopidogrel 75 mg PO DAILY #30 tab 04/28/21 gabapentin 100 mg PO BIDCM #60 cap 04/28/21 lisinopril 40 mg PO DAILY #30 tab 04/28/21 multivitamin 1 tab PO BREAKFAST #0 tab 04/28/21 nifedipine 90 mg PO DAILY #30 tab 04/28/21 sertraline 100 mg PO DAILY #30 tab 04/28/21 Neuropathy Pain Cream 1 pump TRANSDERMAL TID PRN 05/10/21 acetaminophen 1,000 mg PO BID PRN PRN 05/10/21 atenolol 50 mg PO DAILY 05/10/21 doxazosin 2 mg PO DAILY 05/10/21 esomeprazole magnesium [Nexium] 20 mg PO DAILY 05/10/21 glipizide 10 mg PO BID 05/10/21 meclizine 25 mg PO BID PRN 05/10/21 metformin 2,000 mg PO BID 05/10/21 omega-3 fatty acids-vitamin E 4 cap PO DAILY 05/10/21 Hospital Course Operations None Procedures None Summary of Care Provided Minutes Spent on Discharge: 30 Hospital Course: This 65-year-old white male was seen in the emergency room at [facility] with chief complaint of lightheadedness, blurred vision, and tingling in his left hand and arm. A stroke alert was called, it was decided that he was not a TPA candidate and it was recommended by teleneurology that he be placed in the hospital and undergo an MRI. Patient's l abs were unremarkable except for an elevated glucose, patient was placed in observation status on PCU and underwent an MRI of the brain which showed no acute stroke, an old left lacunar infarct was noted to be present. Patient was seen by PT, OT, and speech therapy. On 05/10/2021, patient was seen and examined: On examination he appeared in good health and spirits. Vital signs as documented. Skin warm and dry and without overt rashes. Neck without JVD, neck was supple, trachea midline, thyroid was normal. Lungs clear bilaterally, normal air movement was noted. Heart exam notable for regular rhythm, normal sounds and absence of murmurs, rubs or gallops. Abdomen unremarkable and without evidence of organomegaly, masses, or abdominal aortic enlargement. Bowel sounds are present, abdomen is not distended. Extremities nonedematous, no cyanosis was noted, no clubbing was noted. Neuro: Cranial nerves II through XII are grossly intact, no focal motor deficits were noted, sensation to light touch and pinprick intact, motor exam 5/5 throughout. Psych: Patient is alert and oriented x3, he does not appear anxious or depressed, he does not appear agitated. Patient was felt to be stable for discharge on 05/10/2021. Etiology of the patient's symptoms were unknown at the time of discharge. Weight / BMI Weight Weight: 109.3 kg Body Mass Index (BMI) 35.5 ABG / Lab / Microbiology Data Result Diagrams: 05/11/21 06:28 05/11/21 06:28 D/C Instructions Discharge Diet: 1800 Calorie Control Diet Meaningful Use Info Meaningful Use Diagnoses (Choose all that apply): None applicable Discharge Plan Admission Admit Date/Time: 05/10/21 15:59 Primary Reason for Your Visit: blurred vision, dizziness Attending Provider: Matt Victor Primary Care Provider[facility] Discharge Orders/Prescriptions Prescriptions: Continued clopidogrel 75 mg Tablet 75 mg PO DAILY Qty: 30 RF: 0 aspirin 81 mg Tablet,Chewable 81 mg PO BREAKFAST Qty: 100 RF: 0 gabapentin 100 mg Capsule 100 mg PO BIDCM Qty: 60 RF: 0 multivitamin Tablet 1 tab PO BREAKFAST Qty: 0 RF: 0 sertraline 100 mg tablet 100 mg PO DAILY Qty: 30 RF: 0 atorvastatin 80 MG tablet 80 mg PO QHS Qty: 30 RF: 0 nifedipine 90 MG tablet 90 mg PO DAILY Qty: 30 RF: 0 lisinopril 40 MG tablet 40 mg PO DAILY Qty: 30 RF: 0 esomeprazole magnesium [Nexium] 20 mg Capsule,Delayed Release(Dr/Ec) 20 mg PO DAILY RF: 0 omega-3 fatty acids-vitamin E 1,000 mg Capsule 4 cap PO DAILY RF: 0 metformin 500 MG tablet 2,000 mg PO BID RF: 0 glipizide 10 mg tablet 10 mg PO BID RF: 0 meclizine 12.5 MG tablet 25 mg PO BID PRN (Reason: as needed for dizziness) RF: 0 acetaminophen 500 mg tablet 1,000 mg PO BID PRN PRN (Reason: Pain 1-10 Or Fever) RF: 0 atenolol 50 mg tablet 50 mg PO DAILY RF: 0 doxazosin 2 mg tablet 2 mg PO DAILY RF: 0 Neuropathy Pain Cream 0.5 ml ointment 1 pump transdermal TID PRN (Reason: Neuropathy pain) RF: 0 [facility]errals / [facility] - Within 2 Weeks Disposition Disposition (needs filled in before D/C Order can be placed): Home, Self Care Charges/Coding Visit Charges OBSV E&M: 39596 Observation care discharge
== END 2021-05-11 10:49 | disposition home or self-care (01) ==
LOC: ED 15:29 → PCU 15:43
PROVIDERS: Admitting Provider Family Medicine; Emergency Provider Emergency Medicine; Visit Provider Internal Medicine
DX: G45.9 Transient cerebral ischemic attack, unspecified (principal); I25.10 Atherosclerotic heart disease of native coronary artery without angina pectoris; H53.8 Other visual disturbances; R42 Dizziness and giddiness; H53.9 Unspecified visual disturbance; R20.2 Paresthesia of skin; R26.81 Unsteadiness on feet; E78.5 Hyperlipidemia, unspecified; R20.0 Anesthesia of skin; E11.9 Type 2 diabetes mellitus without complications; R29.701 NIHSS score 1; E66.9 Obesity, unspecified; K21.9 Gastro-esophageal reflux disease without esophagitis; I10 Essential (primary) hypertension; F32.9 Major depressive disorder, single episode, unspecified; F41.9 Anxiety disorder, unspecified; E11.42 Type 2 diabetes mellitus with diabetic polyneuropathy; G47.33 Obstructive sleep apnea (adult) (pediatric); Z79.899 Other long term (current) drug therapy; Z79.82 Long term (current) use of aspirin; Z79.02 Long term (current) use of antithrombotics/antiplatelets; Z79.84 Long term (current) use of oral hypoglycemic drugs; Z95.1 Presence of aortocoronary bypass graft; Z68.35 Body mass index [BMI] 35.0-35.9, adult; Z87.820 Personal history of traumatic brain injury; Z87.891 Personal history of nicotine dependence
CPT/HCPCS: 36415; 70450; 70551; 71045; 80048; 80053; 82962; 83735; 84100; 84443; 84484; 85025; 85610; 85730; 92610; 93005; 96360; 96361; 96372; 96374; 96376; 97802; 99218; 99251; 99285; J7030; A4216; G0378; G0463

== ENCOUNTER 2021-06-10 14:30 | Outpatient (RCR) | payer OTHER, SELFPAY ==
--- NOTE | 2021-05-12 14:15 | HP.OTEVAL ---
Patient's Visit Information JIM BERNSTEIN is a 65 year old M, referred to Occupational Therapy by YEE GROVE, with a diagnosis of Cerebral infarction. Date of Evaluation: 05/10/21 Occupational Therapist: Brittney Singh, LADONNA/Owen, CHT - Subjective This 65/M was seen for OT danilo after suffering a stroke 04/11/21. Pt arrived with his , using a cane to help with balance. His reported that he fell (LOB) 05/08/21. His is r-hand dominant. 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 Pt reports that that ADLs are going well, but reports that she is there to help as needed. Pt's reported that she has been working with pt with exercises given to him by the [place] (theraband, and another band tool). - ROM Elbow: Right WFL/WFL Left WFL/WFL Wrist: Right WFL/WFL Left WFL/WFL - Strength Supervisor Coremaker: Right 78# Left 110# Lateral Pinch: Right 12# Left 12# Tripod Pinch: Right 9# Left 10# Strength Comments: MMT: R shoulder -4/5, L shoulder 5/5. R biceps 3+/5, triceps 3+/5. L biceps 5/5 triceps 5/5 - Nine Hole Peg Right: 45 seconds Left: 35 seconds Comments: Pt's put glasses on for L trial- times may reflect that - Quick DASH-Disab of Arm,Shoulder& Hand Quick DASH Score: 61.3625 - Goals Goal:: pt will demonstrate an increase in R senior storage administrator strength of at least 30# to increase independence in ADLs and IADLs. pt will demonstrate an increase R UE strength to a 4+/5 to increase independence in self-bathing and dressing tasks. Goal:: Pt will self-report completion of morning ADLs in 30 minutes or less by d/c. - Rehabilitation General Assessment: Pt demonstrated a limited muscle strength in his affected (R) side in biceps, triceps, and the shoulder girdle. Pt would benefit from skilled OT services 2-3 times a week for 3-4 weeks (total of 15 visits) to increase strength of R UE, senior storage administrator strength, and ADL education. Today, therapist took MMT measurements of the BUE, senior storage administrator, and pinch strength to determine POC of strengthening R UE and increase independence in ADLs and IADLs. Pt and understands and agrees with POC. Therapy session was directly supervised and doc. approved by Brittney ANDREA, CHT. Rehabilitation Potential: Good - Anticipated Interventions Strengthening, Ergonomic Education, Fine Motor Coord/Florencio, Neuro Reeducation, ADL Training, Caregiver Training, Home Program - Visit Plan Frequency: 2-3x /Week Duration: 2-4 Weeks TEXT: Thank you for the opportunity to evaluate your patient. For Medicare and Medicare HMO plans, please review the plan of care and approve it. It will need to be FAXED BACK to us at [phone] for Medicare purposes. Please let me know if there are questions or concerns regarding this plan of care. Physician Signature: Date:
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
--- NOTE | 2021-06-10 16:06 | HP.OTDCSUM_ITS ---
It has been my pleasure to treat JIM BERNSTEIN under orders from YEE GROVE, for the diagnosis of Cerebral infarction for a total of 8 visit(s). Please see the following information for a summary of their discharge status. 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 left embalmer/funeral director 95#. MMT right UE 4+/5 a increase from 3+/5 Patient Goals: Regain Strength, Improve Fine Motor Skills, Be More Independent in ADLS Goal:: pt will demonstrate an increase in R embalmer/funeral director strength of at least 30# to increase independence in ADLs and IADLs. pt will demonstrate an increase R UE strength to a 4+/5 to increase independence in self-bathing and dressing tasks. Goal:: Pt will self-report completion of morning ADLs in 30 minutes or less by d/c. Plan: D/C Discharge Comments: pt has met OT goals and has returned to his PLOF with ADls and IADLS. pt returns to [facility], [place] next week for hopeful releases to driving. pt states he will cont. with PRE HEP to maintain his strength. If there are questions or concerns regarding this patient's occupational therapy, please fell free to call me at [phone]. Thank you for the referral of this patient. Sincerely, Brittney Singh, OTR/L, CHT
== END 2021-06-10 19:00 | disposition home or self-care (01) ==
LOC: OT 14:30
DX: Z86.73 Personal history of transient ischemic attack (TIA), and cerebral infarction without residual deficits (principal)
CPT/HCPCS: 92610; 97110; 97166; 97530

== ENCOUNTER 2021-11-30 12:09 | Emergency (ER) | payer OTHER, SELFPAY ==
[2021-11-30] VITALS (12 sets, daily range): BP systolic 137–221; BP diastolic 61–83; PULSE 74–94; RESP 17–23; TEMP 36.4; O2SAT 94–100; BMI 36.6
--- NOTE | 2021-11-30 12:18 | ED.RN ---
DS distribution does require a drug screen according to our system. [facility] called.
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
--- NOTE | 2021-11-30 13:37 | CT_ITS ---
STUDY: CT BRAIN WITHOUT CONTRAST REASON FOR EXAM: Male, 66 years old. Head injury due to a fall. RADIATION DOSAGE (If Supplied By Facility): CTDIvol = ( 35.14 ) mGy, DLP = ( 1436.86 ) mGycm TECHNIQUE: Transaxial CT imaging of the brain was performed without administration of intravenous contrast material. Individualized dose optimization techniques were used for this CT. COMPARISON: Comparison is made with prior examination dated 05/10/2021. FINDINGS: Normal soft tissue structures. Normal calvarium. There is a 2.4 cm by 1.1 cm intracerebral hematoma in the anterior basilar area of the right frontal lobe. There is evidence of a small acute subdural hematoma overlying the right frontoparietal occipital lobes. The greatest transverse dimension of the subdural measures 5.7 mm. There is evidence of a subarachnoid hemorrhage worse in the right side of the brain. There is also evidence of a subdural hematoma of the cerebellar tentorium. There is a midline shift from right to left measuring 1.3 cm. There is evidence of edema of the right cerebral hemisphere. Normal basal ganglia and thalami. Normal brainstem. Normal cerebellum. There are no findings of an acute ischemic infarction. Minimal mucosal thickening lateral wall of left maxillary sinus CT/Brain/Head without Contrast IMPRESSION: Acute subdural hematoma overlying the right frontoparietal occipital lobes with the evidence of mass effect. Right frontal intracerebral hematoma as well as subarachnoid hemorrhage and subdural of the cerebellar tentorium. Shift of the midline from right to left of 1.3 cm. N.B. : The above Results were Read Back by Moncho Canseco MD to Shaneka Ojeda and understanding confirmed on 11/30/2021 14:09:29 (ET). Electronically Signed: Moncho Canseco MD at 14:10 EST , Service support ,
--- NOTE | 2021-11-30 13:53 | EDS_ITS ---
HPI HPI - Fall History of Present Illness Chief Complaint: Fall Informant: patient Narrative Narrative: Patient is a 66-year-old male with history of stroke with residual right-sided weakness presenting after a fall. Patient was loading his truck and seen in the snow when he lost his footing and then fell backwards hitting his head on the cement. He thinks he lost consciousness or become dazed. He says it was no more than a minute. Patient unsure when his last tetanus was. He notes that since the fall he has been having a hard time hearing especially out of his right ear. While in the waiting room he started having bleeding from his nose. Patient is on Plavix and aspirin. Denies any new vision changes, weakness or numbness. Tetanus Immunization: Unknown [facility] Medical History (Updated 11/30/21 @ 15:[address] Shaneka Ojeda, DO) Chest pain Coronary artery disease CVA (cerebral vascular accident) Diabetes Former smoker High cholesterol HTN (hypertension) Sleep apnea Home Medications aspirin 81 mg PO BREAKFAST #100 tab 04/28/21 [Rx Last Taken 05/10/21] atorvastatin 80 mg PO QHS #30 tab 04/28/21 [Rx Last Taken 05/09/21] clopidogrel 75 mg PO DAILY #30 tab 04/28/21 [Rx Last Taken 05/10/21] gabapentin 100 mg PO BIDCM #60 cap 04/28/21 [Rx Last Taken 05/10/21] lisinopril 40 mg PO DAILY #30 tab 04/28/21 [Rx Last Taken 05/10/21] multivitamin 1 tab PO BREAKFAST #0 tab 04/28/21 [Rx Last Taken 05/10/21] nifedipine 90 mg PO DAILY #30 tab 04/28/21 [Rx Last Taken 05/10/21] sertraline 100 mg PO DAILY #30 tab 04/28/21 [Rx Last Taken 05/10/21] Neuropathy Pain Cream 1 pump TRANSDERMAL TID PRN 05/10/21 [History Last Taken Unknown] acetaminophen 1,000 mg PO BID PRN PRN 05/10/21 [History Last Taken 05/09/21] atenolol 50 mg PO DAILY 05/10/21 [History Last Taken 05/10/21] doxazosin 2 mg PO DAILY 05/10/21 [History Last Taken 05/10/21] esomeprazole magnesium [Nexium] 20 mg PO DAILY 05/10/21 [History Last Taken 05/10/21] glipizide 10 mg PO BID 05/10/21 [History Last Taken 05/10/21] meclizine 25 mg PO BID PRN 05/10/21 [History Last Taken 05/10/21] metformin 2,000 mg PO BID 05/10/21 [History Last Taken 05/10/21] omega-3 fatty acids-vitamin E 4 cap PO DAILY 05/10/21 [History Last Taken 05/10/21] Allergy/AdvReac Type Severity Reaction Status Date / Time No Known Allergies Allergy Verified 11/30/21 12:12 Family History (Updated 05/10/21 @ 15:[address] Aracelis Culver MD) Mother Dementia Parkinsons disease Father Heart disease Hypertension Myocardial infarction CVA (cerebral vascular accident) CAD (coronary artery disease) Surgical History History of appendectomy S/P appendectomy S/P CABG x 4 Social History (Updated 05/10/21 @ 15:[address] Aracelis Culver MD) household members: spouse Smoking Status: Former smoker how long ago did patient quit smoking: Smoked in [employer] x 7 years, quit 1978, cigars. alcohol intake: former details: Usually 1-2 tall boy [place] beers daily, stopped 3 days prior. substance use type: does not use ROS ROS ED Constitutional Constitutional ED: Denies chills or fever(s) Eyes Eyes: Denies blurry vision or change in vision ENT ENT ED: Reports other Details: Epistaxis, decreased hearing, right worse than left ; Denies ear pain Cardiovascular Cardiovascular: Denies chest pain Respiratory/Chest Respiratory/Chest: Denies dyspnea Gastrointestinal Gastrointestinal: Reports nausea; Denies abdominal pain or vomiting Musculoskeletal Musculoskeletal: Reports neck pain; Denies arthralgias or myalgias Integumentary Denies rash Neurologic Neurologic: Reports headache(s) and other Details: Chronic right-sided weakness from prior stroke Psychiatric Psychiatric: Denies anxiety or depression Hematologic/Lymphatic Hematologic/Lymphatic: Reports easy bleeding and easy bruising EXAM Physical Exam Const Vital Signs: 11/30/21 12:09 11/30/21 13:03 11/30/21 14:05 Temperature 97.5 F L Temperature Source Temporal Pulse Rate 94 74 Respiratory Rate 18 17 Respiratory Effort Normal Non-Labored Blood Pressure 221/66 H 193/80 H Blood Pressure Mean 117 117 Blood Pressure Source Blood Pressure Position Blood Pressure Location Pulse Ox 97 99 Oxygen Delivery Method Room Air Room Air Oxygen Flow Rate (L/min) 11/30/21 14:12 11/30/21 14:15 11/30/21 14:48 Temperature Temperature Source Pulse Rate 82 83 Respiratory Rate 19 H 20 H Respiratory Effort Blood Pressure 184/83 H 185/70 H Blood Pressure Mean 116 108 Blood Pressure Source Monitor Blood Pressure Position Semi-Fowlers Blood Pressure Location Left Arm Pulse Ox 100 99 Oxygen Delivery Method Room Air Room Air Oxygen Flow Rate (L/min) 11/30/21 14:58 11/30/21 15:03 11/30/21 15:08 Temperature Temperature Source Pulse Rate 82 82 Respiratory Rate 22 H 20 H Respiratory Effort Blood Pressure 175/70 H 174/70 H Blood Pressure Mean 105 104 Blood Pressure Source Monitor Monitor Blood Pressure Position Blood Pressure Location Pulse Ox 99 98 94 Oxygen Delivery Method Room Air Oxygen Flow Rate (L/min) 11/30/21 15:10 11/30/21 15:15 11/30/21 15:26 Temperature Temperature Source Pulse Rate 82 85 86 Respiratory Rate 21 H 22 H 23 H Respiratory Effort Blood Pressure 168/64 H 165/62 H 158/61 H Blood Pressure Mean 98 96 93 Blood Pressure Source Monitor Monitor Blood Pressure Position Blood Pressure Location Pulse Ox 100 98 99 Oxygen Delivery Method Nasal Cannula Nasal Cannula Nasal Cannula Oxygen Flow Rate (L/min) 2 2 2 11/30/21 15:33 11/30/21 16:06 Temperature Temperature Source Pulse Rate 92 81 Respiratory Rate 20 H 21 H Respiratory Effort Blood Pressure 137/77 H 147/75 H Blood Pressure Mean 97 99 Blood Pressure Source Monitor Blood Pressure Position Blood Pressure Location Pulse Ox 100 100 Oxygen Delivery Method Nasal Cannula Oxygen Flow Rate (L/min) 2 Positive well nourished and well developed General Appearance ED: well developed and NAD HEENT Reports normocephalic HEENT Narrative: Hemotympanum on the right. Normal left medic membrane. No epistaxis or rhinorrhea present at this time. Normal occlusion of the jaw. Proximally 2 cm circumferential hematoma of the back of the scalp, just to the left of midline. Eyes PERRL and EOMs intact bilaterally Neck full ROM and supple Neck Narrative: No step-off sign. No midline tenderness. General: tenderness Chest Wall inspection of chest normal Resp normal respiratory effort and clear to auscultation bilaterally Cardio regular rate, regular rhythm and no murmurs GI non-tender and non-distended Palpation: soft Back/Spine no CVA tenderness Back/Spine Narrative: No midline tenderness. Extremity normal to inspection and full ROM Extremity Narrative: Normal strength and sensation in all extremities however patient is weaker on the right lower extremity compared to the left Neuro Neuro Narrative: GCS is 14 Sensorium / Orientation: alert, oriented to person, oriented to place, oriented to time and other Mildly drowsy, awakens easily with verbal stimuli Pupil Exam: Normal Pupillary Reactivity/Response: bilateral MDM MDM MDM Narrative Medical decision making narrative: Patient evaluated after head injury with questionable loss of conscious. He is on Plavix and aspirin. Patient reports having hearing loss and an episode of epistaxis after his head injury. He is not sure his last tetanus is. Tetanus is updated. Patient sent emergently to the CT scanner after my evaluation. He is found to have acute intracranial bleed. He is also quite hypertensive. He is given IV labetalol with no significant improvement of his hypertension and started on a Cardene drip. Because a Cardene drip transport has to be canceled because that squad is not able to accommodate said drip. He is then flown to [facility]. Patient is excepted by Dr. Sage Alves. On repeat evaluation patient is slightly more somnolent but still has a GCS of 14 so we will not intubate at this time. Radiography Diagnostic Testing: Clinical Impression(s) from Imaging Studies Brain CT 11/30/21 13:37 IMPRESSION: Acute subdural hematoma overlying the right frontoparietal occipital lobes with the evidence of mass effect. Right frontal intracerebral hematoma as well as subarachnoid hemorrhage and subdural of the cerebellar tentorium. Shift of the midline from right to left of 1.3 cm. N.B. : The above Results were Read Back by Moncho Canseco MD to Shaneka Ojeda and understanding confirmed on 11/30/2021 14:09:29 (ET). Electronically Signed: Moncho Canseco MD at 14:10 EST , Service support , ADDENDUM: 11/30/21 1417 IMPRESSION: Acute subdural hematoma overlying the right frontoparietal occipital lobes with the evidence of mass effect. Right frontal intracerebral hematoma as well as subarachnoid hemorrhage and subdural of the cerebellar tentorium. Shift of the midline from right to left of 1.3 cm. N.B. : The above Results were Read Back by Moncho Canseco MD to Shaneka Ojeda and understanding confirmed on 11/30/2021 14:09:29 (ET). Electronically Signed: Moncho Canseco MD at 14:10 EST , Service support , Cervical Spine CT 11/30/21 13:37 IMPRESSION: Multilevel degenerative changes, as described above. Electronically Signed: Moncho Canseco MD at 14:13 EST , Service support , Critical Care Time Critical Care Time: Yes Critical care time (excluding procedures): 30-74 minutes (45), Discussing w/Patient &/or Family/Engraving Plate Maker, Arranging Admission or Transfer and Performing Direct Patient Care at Bedside (Titrating nicardipine for blood pressure control, frequent reevaluations for neurologic status) Discharge Plan Triage Chief Complaint: Fall ED Provider: Shaneka Ojeda Dx/Rx/DC Orders Clinical Impression: Subdural hemorrhage, Acute intracerebral hemorrhage, Fall, Need for Tdap vaccination, Hematoma of occipital region of scalp Prescriptions: No Action clopidogrel 75 mg Tablet 75 mg PO DAILY Qty: 30 RF: 0 aspirin 81 mg Tablet,Chewable 81 mg PO BREAKFAST Qty: 100 RF: 0 gabapentin 100 mg Capsule 100 mg PO BIDCM Qty: 60 RF: 0 multivitamin Tablet 1 tab PO BREAKFAST Qty: 0 RF: 0 sertraline 100 mg tablet 100 mg PO DAILY Qty: 30 RF: 0 atorvastatin 80 MG tablet 80 mg PO QHS Qty: 30 RF: 0 nifedipine 90 MG tablet 90 mg PO DAILY Qty: 30 RF: 0 lisinopril 40 MG tablet 40 mg PO DAILY Qty: 30 RF: 0 esomeprazole magnesium [Nexium] 20 mg Capsule,Delayed Release(Dr/Ec) 20 mg PO DAILY RF: 0 omega-3 fatty acids-vitamin E 1,000 mg Capsule 4 cap PO DAILY RF: 0 metformin 500 MG tablet 2,000 mg PO BID RF: 0 glipizide 10 mg tablet 10 mg PO BID RF: 0 meclizine 12.5 MG tablet 25 mg PO BID PRN (Reason: as needed for dizziness) RF: 0 acetaminophen 500 mg tablet 1,000 mg PO BID PRN PRN (Reason: Pain 1-10 Or Fever) RF: 0 atenolol 50 mg tablet 50 mg PO DAILY RF: 0 doxazosin 2 mg tablet 2 mg PO DAILY RF: 0 Neuropathy Pain Cream 0.5 ml ointment 1 pump transdermal TID PRN (Reason: Neuropathy pain) RF: 0 [facility] [[facility] Provider] - Disposition Disposition: Acute Care Hospital Discharge Location: [facility] Discharge Date/Time: 11/30/21 16:07
--- NOTE | 2021-11-30 13:55 | NURSING ---
CALLED [facility] FOR TRANSFER. DR PICHARDO IS TALKING TO DR PLATT
[2021-11-30] MEDS: Labetalol (Prefilled) 20 MG/4 ML IV ×2 (14:07→14:17)
[2021-11-30] MEDS: Ondansetron 4 MG/2 ML Vial IV (14:08)
--- NOTE | 2021-11-30 14:12 | NURSING ---
CALLED [facility], ETA IS 30 MIN
[2021-11-30] MEDS: Diphth,Pertuss(Acell),Tet Vac 0.5 ML Vial IM (14:16)
--- NOTE | 2021-11-30 14:44 | NURSING ---
[facility]
[2021-11-30] MEDS: Nicardipine HCl-0.9% Sod Chlor 20 MG/200 ML IV.SOLN 50 MG CONT INF (14:48)
--- NOTE | 2021-11-30 14:50 | NURSING ---
[facility] ETA IS 10-15 MIN
--- NOTE | 2021-11-30 15:06 | NURSING ---
[facility] CALLED. CREW HAD TO RETURN TO [facility], 2ND FLIGHT CALLED
== END 2021-11-30 16:07 | disposition short-term general hospital (02) ==
PROVIDERS: Emergency Provider Emergency Medicine; Visit Provider Emergency Medicine
DX: S06.5X9A Traumatic subdural hemorrhage with loss of consciousness of unspecified duration, initial encounter (principal); I69.951 Hemiplegia and hemiparesis following unspecified cerebrovascular disease affecting right dominant side; E11.9 Type 2 diabetes mellitus without complications; S06.2X9A Diffuse traumatic brain injury with loss of consciousness of unspecified duration, initial encounter; Z87.891 Personal history of nicotine dependence; I10 Essential (primary) hypertension; E78.00 Pure hypercholesterolemia, unspecified; I25.10 Atherosclerotic heart disease of native coronary artery without angina pectoris; G47.30 Sleep apnea, unspecified; Z79.899 Other long term (current) drug therapy; Z79.82 Long term (current) use of aspirin; Z79.84 Long term (current) use of oral hypoglycemic drugs; Z95.1 Presence of aortocoronary bypass graft; Z79.02 Long term (current) use of antithrombotics/antiplatelets; S00.03XA Contusion of scalp, initial encounter; W18.49XA Other slipping, tripping and stumbling without falling, initial encounter; Y93.9 Activity, unspecified; Y92.9 Unspecified place or not applicable; Z23 Encounter for immunization
CPT/HCPCS: 70450; 72125; 87426; 90715; 96372; 99285; A4216; J2405

== ENCOUNTER 2022-01-11 15:50 | Emergency (ER) | payer OTHER, SELFPAY ==
[2022-01-11 15:51] VITALS: BP 165/92; PULSE 111; RESP 16; TEMP 36.2; O2SAT 99; BMI 34.5
--- NOTE | 2022-01-11 16:22 | EKG12_ITS ---
Test Reason : TACHYCARDIA Blood Pressure : / mmHG Vent. Rate : 101 BPM Atrial Rate : 101 BPM P-R Int : 142 ms QRS Dur : 094 ms QT Int : 362 ms P-R-T Axes : 050 -50 035 degrees QTc Int : 469 ms Sinus tachycardia Left axis deviation Inferior infarct , age undetermined Abnormal ECG Confirmed by NEENA VENTURA, CARLOS ([id number]), field map editor CHRIS KEENAN ([id number]) on 01/13/2022 1:38:14 PM Referred By: Confirmed By:CARLOS CHAUDHARY MD
--- NOTE | 2022-01-11 16:23 | EDS_ITS ---
HPI History of Present Illness Chief Complaint: Palpitations Detail of Chief Complaint: Labile blood pressure and persistent tachycardia Informant: patient and other (POA) Onset/Context/Timing Onset: Weeks (1 to 2 weeks) Context: - (Tachycardia has been persistent blood pressure has been labile) Timing: Continuous Quality: Heart rate 1 10-1 20 blood pressure varies between 95 systolic to 180. Current Severity: Moderate Maximum Severity: Severe Worsened by: Reported discrepancy with regards to green party responsible to pay for medicatio Relieved by: Not applicable Associated Symptoms Associated Symptoms: Persistent tachycardia without orthostatic symptoms and read HPI Narrative Narrative: Patient is a 66-year-old male who had a traumatic subdural in November. He underwent emergent surgery. He has residual loss of vision right eye, problems with balance and coordination and difficulty ambulating. His ambulation has improved over the past week. He was discharged from the rehab facility 2 Saturdays ago. He is not taking any clonidine or labetalol or hydralazine since discharge. According to the patient and his POA there has been difference of opinion if the [facility] should [facility] for the medicine or Worker's Comp. since this is a workers comp injury. Patient denies new headache. Patient denies new visual, ocular auditory symptoms. Patient denies trouble with speech or swallowing. Patient denies cardiac respiratory symptoms. Patient denies nausea, vomiting diarrhea. Patient denies urologic symptoms. Patient does report trouble with balance. He also reports problems with fine coordination. He states this has been an issue since he sustained a traumatic brain injury. Prior similar symptoms: Yes Recent Illness/Hospitalization: Yes [facility] Medical History (Updated 01/11/22 @ 18:[address] Abhijeet Vasquez MD) Chest pain Coronary artery disease CVA (cerebral vascular accident) Diabetes Former smoker High cholesterol HTN (hypertension) Sleep apnea Subdural hematoma Home Medications aspirin 81 mg PO BREAKFAST #100 tab 04/28/21 [Rx Last Taken 05/10/21] atorvastatin 80 mg PO QHS #30 tab 04/28/21 [Rx Last Taken 05/09/21] clopidogrel 75 mg PO DAILY #30 tab 04/28/21 [Rx Last Taken 05/10/21] gabapentin 100 mg PO BIDCM #60 cap 04/28/21 [Rx Last Taken 05/10/21] lisinopril 40 mg PO DAILY #30 tab 04/28/21 [Rx Last Taken 05/10/21] multivitamin 1 tab PO BREAKFAST #0 tab 04/28/21 [Rx Last Taken 05/10/21] nifedipine 90 mg PO DAILY #30 tab 04/28/21 [Rx Last Taken 05/10/21] sertraline 100 mg PO DAILY #30 tab 04/28/21 [Rx Last Taken 05/10/21] Neuropathy Pain Cream 1 pump TRANSDERMAL TID PRN 05/10/21 [History Last Taken Unknown] acetaminophen 1,000 mg PO BID PRN PRN 05/10/21 [History Last Taken 05/09/21] atenolol 50 mg PO DAILY 05/10/21 [History Last Taken 05/10/21] doxazosin 2 mg PO DAILY 05/10/21 [History Last Taken 05/10/21] esomeprazole magnesium [Nexium] 20 mg PO DAILY 05/10/21 [History Last Taken 05/10/21] glipizide 10 mg PO BID 05/10/21 [History Last Taken 05/10/21] meclizine 25 mg PO BID PRN 05/10/21 [History Last Taken 05/10/21] metformin 2,000 mg PO BID 05/10/21 [History Last Taken 05/10/21] omega-3 fatty acids-vitamin E 4 cap PO DAILY 05/10/21 [History Last Taken 05/10/21] sulfamethoxazole-trimethoprim 1 tab PO BID #14 tablet 01/11/22 [Rx Last Taken Unknown] Allergy/AdvReac Type Severity Reaction Status Date / Time No Known Allergies Allergy Verified 11/30/21 12:12 Family History Mother Dementia Parkinsons disease Father Heart disease Hypertension Myocardial infarction CVA (cerebral vascular accident) CAD (coronary artery disease) Surgical History (Updated 01/11/22 @ 16:[address] Abhijeet Vasquez MD) History of appendectomy S/P appendectomy S/P CABG x 4 Social History household members: spouse Smoking Status: Former smoker how long ago did patient quit smoking: Smoked in x 7 years, quit 1979, cigars. 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 substance use type: does not use ROS ROS ED Constitutional Constitutional ED: Denies chills, fever(s), subjective, sweats or weight loss Eyes Eyes: Reports blurry vision right and change in vision right (Since traumatic subdural); Denies diplopia Cardiovascular Cardiovascular: Reports palpitations and racing heartbeat; Denies chest pain, orthopnea or paroxysmal nocturnal dyspnea Respiratory/Chest Respiratory/Chest: Denies cough, dyspnea, dyspnea on exertion, orthopnea or paroxysmal nocturnal dyspnea Gastrointestinal Gastrointestinal: Denies abdominal pain, diarrhea, melena, nausea or vomiting Genitourinary Genitourinary ED: Denies dysuria, hematuria or urinary frequency Musculoskeletal Musculoskeletal: Denies arthralgias, back pain, myalgias or neck pain Integumentary Denies rash Neurologic Neurologic: Reports other Details: Problems with gait, balance and coordination ; Denies headache(s), paresthesias or weakness Endocrine Endocrinology: Denies polydipsia, polyphagia or polyuria Hematologic/Lymphatic Hematologic/Lymphatic: Reports anemia, easy bleeding and easy bruising EXAM Physical Exam Const Vital Signs: 01/11/22 15:51 01/11/22 16:10 Temperature 97.2 F L Temperature Source Temporal Pulse Rate 111 H Respiratory Rate 16 Respiratory Effort Normal Non-Labored Respiratory Pattern Normal Blood Pressure 165/92 H Blood Pressure Mean 116 Pulse Ox 99 Oxygen Delivery Method Room Air Positive well nourished and well developed General Appearance ED: well developed and NAD; Negative for cyanotic, diaphoretic or pallor HEENT Reports TM's clear and moist mucous membranes HEENT Narrative: Uvula midline. No erythema exudate posterior pharynx. Ears normal. Nares patent. Negative for trauma or tenderness Tympanic Membrane ED: Yes TM's clear Eyes PERRL and EOMs intact bilaterally Eyes Narrative: There is no APD. General Eye ED: Negative for pale conjunctiva or scleral icterus Neck no lymphadenopathy, supple and no JVD Neck Narrative: Trachea midline. Resp normal respiratory effort and clear to auscultation bilaterally Cardio regular rhythm, S1 normal heart sound, S2 normal heart sound and no murmurs Rate: tachycardic GI normal to inspection, nondistended, normoactive bowel sounds and non-tender Palpation: soft Back/Spine no CVA tenderness Cervical Spine: Negative for cervical spine tenderness Thoracic Spine / Upper Back: Negative for thoracic spinal tenderness or paraspinal muscle tenderness Extremity normal to inspection General Extremety ED: Negative for edema or tenderness General Extremity: Negative for edema Neuro oriented x3 and CN's II-XII intact bilaterally Neuro Narrative: Patient does have dysmetria on the right. There is a Babinski sign noted on the right. There is no clonus. Sensorium / Orientation: alert Motor Exam: strength 5/5 throughout Psych mental status grossly normal Skin no rashes or lesions noted and no wounds General Skin Exam: Negative for jaundice or pallor MDM MDM MDM Narrative Medical decision making narrative: Patient is tachycardic. He does not elevated blood pressure. We will treat his low blood pressure with labetalol. Will obtain appropriate blood work to assess for endorgan injury since he is not been able to take blood pressure meds because of finances. Case management was made aware of patient and will determine if they can assist the who is the POA. Lab Data Attestation: I reviewed the patient's lab results. Lab results narrative: Creatinine and renal function is normal. Glucose is slightly elevated 141. Labs: Laboratory Results - last 24 hr 01/11/22 01/11/22 01/11/22 16:20 16:20 16:50 WBC 6.4 RBC 3.63 L Hgb 11.0 L Hct 32.0 L MCV 88.2 MCH 30.3 MCHC 34.4 RDW Std Deviation 40.4 RDW Coeff of Vern 12.6 Plt Count 202 MPV 10.0 Immature Gran % (Auto) 0.500 Neut % (Auto) 68.1 Lymph % (Auto) 23.3 [place] % (Auto) 5.4 Eos % (Auto) 2.2 Baso % (Auto) 0.5 Absolute Neuts (auto) 4.3 Absolute Lymphs (auto) 1.48 Nucleated RBC % 0 Sodium 140 Potassium 3.8 Chloride 108 H Carbon Dioxide 27.0 Anion Gap 5 BUN 21 H Creatinine 0.99 Estim Creat Clear Calc 71.41 Est GFR (MDRD) Af Amer 97 Est GFR (MDRD) Non-Af 80 BUN/Creatinine Ratio 21.3 H Glucose 141 H Calcium 9.4 Urine Color Yellow Urine Clarity Sl. Cloudy Urine pH 8.0 Ur Specific [place] 1.010 Urine Protein 15 H Urine Glucose (UA) Normal Urine Ketones Negative Urine Occult Blood 10 H Urine Nitrite Negative Urine Bilirubin Negative Urine Urobilinogen Normal Ur Leukocyte Esterase 500 H Urine RBC 0-5 SEEN Urine WBC 50-100 SEEN Ur Squamous Epith Cells 0-5 SEEN Amorphous Sediment 1+ PHOS Urine Bacteria 3+ Urine Mucus 0 SEEN Rhythm Strip Rhythm Strip: Sinus Tach Rate: 111 Ectopy: None EKG Initial EKG: Attestation: I personally reviewed and interpreted this EKG as follows: Interpretation: Sinus Tachycardia (Ventricular rate is 101. OH interval 242. QRS durations 94. QT duration 362 ms. [place] is to the left.) Treatment and Re-Evaluation Comments:: I was informed by case management they contacted local pharmacy. They will fill his prescriptions to bridge him until he is seen by And has full prescriptions written for and covered. Discharge Plan Triage Chief Complaint: Palpitations ED Provider: Abhijeet Vasquez Dx/Rx/DC Orders Clinical Impression: Sinus tachycardia, Hypertension, Complicated urinary tract infection Instructions: ED Hypertension, Established, ED Bladder Infection, Male (Adult) Prescriptions: New sulfamethoxazole-trimethoprim [sulfamethoxazole-trimethoprim] 1 TABLET tablet 1 tab PO BID Qty: 14 RF: 0 No Action clopidogrel 75 mg Tablet 75 mg PO DAILY Qty: 30 RF: 0 aspirin 81 mg Tablet,Chewable 81 mg PO BREAKFAST Qty: 100 RF: 0 gabapentin 100 mg Capsule 100 mg PO BIDCM Qty: 60 RF: 0 multivitamin Tablet 1 tab PO BREAKFAST Qty: 0 RF: 0 sertraline 100 mg tablet 100 mg PO DAILY Qty: 30 RF: 0 atorvastatin 80 MG tablet 80 mg PO QHS Qty: 30 RF: 0 nifedipine 90 MG tablet 90 mg PO DAILY Qty: 30 RF: 0 lisinopril 40 MG tablet 40 mg PO DAILY Qty: 30 RF: 0 esomeprazole magnesium [Nexium] 20 mg Capsule,Delayed Release(Dr/Ec) 20 mg PO DAILY RF: 0 omega-3 fatty acids-vitamin E 1,000 mg Capsule 4 cap PO DAILY RF: 0 metformin 500 MG tablet 2,000 mg PO BID RF: 0 glipizide 10 mg tablet 10 mg PO BID RF: 0 meclizine 12.5 MG tablet 25 mg PO BID PRN (Reason: as needed for dizziness) RF: 0 acetaminophen 500 mg tablet 1,000 mg PO BID PRN PRN (Reason: Pain 1-10 Or Fever) RF: 0 atenolol 50 mg tablet 50 mg PO DAILY RF: 0 doxazosin 2 mg tablet 2 mg PO DAILY RF: 0 Neuropathy Pain Cream 0.5 ml ointment 1 pump transdermal TID PRN (Reason: Neuropathy pain) RF: 0 [facility] - Disposition Disposition: Home, Self Care
[2022-01-11] MEDS: Labetalol (Prefilled) 20 MG/4 ML IV (16:36)
[2022-01-11 16:40] LABS: Absolute Lymphocyte Count 1.48 X10^3/uL (0.83-4.51); Absolute Neutrophil Count 4.3 X10^3/uL (2.0-7.7); Basophil# 0.03 X10^3/uL; Basophil% 0.5 % (0-1); Eosinophil# 0.14 X10^3/uL; Eosinophils% 2.2 % (0-5); Lymphocyte # 1.48 X10^3/ul (0.83-4.51); Lymphocyte % 23.3 % (19-41); Mean Corp Hgb Conc 34.4 g/dL (32-36); Mean Corpuscular Hgb 30.3 pg (27.0-32.0); Mean Corpuscular Volume 88.2 fL (80-94); Monocyte# 0.34 X10^3/uL; Monocyte% 5.4 % (0-10); NRBC Flagged by Analyzer 0 % (0-5); Neutrophil # 4.33 X10^3/uL (2.7-7.7); Neutrophil % 68.1 % (47-70); Platelet Count 202 K/mm3 (150-450); RBC Distribution Width CV 12.6 % (11.6-14.6); RBC Distribution Width SD 40.4 fl (35.1-43.9); Red Blood Count 3.63 M/mm3 (4.6-6.2); White Blood Count 6.4 K/mm3 (4.4-11.0)
[2022-01-11 16:52] LABS: Anion Gap 5 (5-15); BUN 21 mg/dL (7-18); BUN/Creat Ratio 21.3 RATIO (10-20); Calcium,Total 9.4 mg/dL (8.5-10.1); Chloride 108 mmol/L (98-107); Creatinine, Serum 0.99 mg/dL (0.70-1.30); EST Glomerular Filtration Rate 80 mL/min (>60); Est Glom Filt Rate - Afr Amer 97 mL/min (>60); Estimated Creatinine Clearance 71.41 ml/min; Glucose 141 mg/dL (74-106); Potassium 3.8 mmol/L (3.5-5.1); Sodium Level 140 mmol/L (136-145)
[2022-01-11 16:54] LABS: Mucous, Urine 0 SEEN /hpf (<or=2+)
[2022-01-11 17:02] LABS: Color, Urine Yellow (Yellow); Glucose, Dipstick Normal (Normal); Ketone-Dipstick Negative (Negative); Leukocyte Esterase-Dipstick 500 /ul (Negative); Nitrite-Dipstick Negative (Negative); Occult Blood-Urine 10 /ul (Negative); Protein-Dipstick 15 mg/dl (Negative); Urine Bilirubin Dipstick Negative (Negative); Urine Clarity Sl. Cloudy (Clear); Urine Urobilinogen Normal (Normal)
[2022-01-11 17:17] LABS: Amorphous Sediment 1+ PHOS; Bacteria 3+ /hpf (None Seen); Red Blood Cells-Urine 0-5 SEEN /hpf (0-5); Squamous Epithelial Cells - UA 0-5 SEEN /hpf (0-5); White Blood Cells 50-100 SEEN /hpf (0-5)
[2022-01-11] MEDS: Smz/Tmp Ds Tablet 1 TABLET PO (18:44)
--- NOTE | 2022-01-11 18:45 | CASEMGMT ---
RN PAMELLA note: RN CM made aware patient having difficulty obtaining medications since recent work related injury. RN CM to bedside to speak with patient and patient's . ELMER CAN introduced self and role at [facility]. Patient and voiced understanding and agreeable to speaking with ELMER CAN. Patient's admits to feeling very frustrated regarding difficulty obtaining needed prescription medications. reports patient was treated at [facility] ER on 11/30/21 for work related head injury and was transferred to [place] and subsequently discharged on 12/21 to [facility] in [place] for rehab. Patient was discharged home on 12/31 but left facility with no medications. states patient has routine medications prescribed prior to injury (and supplied through [place]) available at home but does not have new medications prescribed since injury including: Clonidine 0.1 mg tab-- 1 tablet po BID Hydralazine HCl 50 mg tab-- 2 tabs po TID Labetalol HCl 300 mg tab-- 1 tab q6hr Levetiracetam 750 mg tab-- 1 tab BID reports patient was supposed to follow up a Workers Comp physician (Dr. Nicholson- [place], [place] [phone]) on 01/04/22 but had transportation issues on day of appointment and rescheduled appointment for 01/13/22. DONAL Campbell at [facility] has been working with patient and to obtain medications and had prescriptions called into [facility] but reports she was told pharmacy will not fill medications because patient is not comp activated and therefore not covered. attempting to call [facility] to assist with prescription coverage but instructed [facility] needs records. reports making numerous calls over the past couple of weeks without results. Patient is established with the [facility] clinic- Dr. Maya Travis MD and Breanna Enriquez RN. [phone]. Patient has a scheduled virtual appointment with [facility] tomorrow 01/12 and appointment with Workers Comp physician Dr. Nicholson on 01/13/2022. Patient's plans to discuss issues obtaining medication at both appointments. Call placed to [facility] 72 hr notification number, spoke to Hayden. Notification ID: [id number] [facility]- PING Hernandez and spoke to Daniel. Per Daniel, patient has 11 prescriptions ready for pickup but no insurance on file. Daniel states patient would need voucher from [place] in order for medications to be covered under [facility] benefit. Total [id number]-lqohod cost for 4 needed prescriptions = approximately $100. Patient's made aware. ELMER CAN called back to [facility] to inquire about cost for 2 day supply to bridge patient to follow-up appointments and quoted $28.03 for 2 days supply for 4 needed medications listed above. ELMER CM to room to inform patient and . became tearful and expressed much appreciation for assistance obtaining medications until follow up appointment. Patient and made aware [facility] pharmacy open until 2200 tonight and states she will go immediately upon patient's discharge to obtain medication and plans to purchase [address] Vasquez and primary RN made aware. ELMER Cardenas CM
[2022-01-11 19:12] VITALS: BP 153/73; PULSE 87; RESP 16; O2SAT 97
== END 2022-01-11 19:14 | disposition home or self-care (01) ==
PROVIDERS: Emergency Provider Emergency Medicine; Visit Provider Emergency Medicine
DX: R00.0 Tachycardia, unspecified (principal); I10 Essential (primary) hypertension; N39.0 Urinary tract infection, site not specified; I25.10 Atherosclerotic heart disease of native coronary artery without angina pectoris; G47.30 Sleep apnea, unspecified; Z87.891 Personal history of nicotine dependence
CPT/HCPCS: 80048; 81001; 85025; 87086; 87088; 87186; 93005; 96374; 99285; A4216

== ENCOUNTER 2022-01-29 19:03 | Emergency (ER) | payer OTHER, SELFPAY ==
[2022-01-29 19:05] VITALS: BP 109/48; PULSE 77; RESP 17; TEMP 36.3; O2SAT 99; BMI 38.2
[2022-01-29 20:04] LABS: Red Blood Cells-Urine 0 SEEN /hpf (0-5)
[2022-01-29 20:05] LABS: Mucous, Urine 0 SEEN /hpf (<or=2+); Squamous Epithelial Cells - UA 0 SEEN /hpf (0-5)
[2022-01-29 20:09] LABS: Color, Urine Yellow (Yellow); Glucose, Dipstick Normal (Normal); Ketone-Dipstick 5 mg/dl (Negative); Leukocyte Esterase-Dipstick 500 /ul (Negative); Nitrite-Dipstick Positive (Negative); Occult Blood-Urine 25 /ul (Negative); Protein-Dipstick 100 mg/dl (Negative); Specific Gravity, Urine 1.015 (1.002-1.030); Urine Bilirubin Dipstick Negative (Negative); Urine Clarity Clear (Clear); Urine Urobilinogen Normal (Normal)
[2022-01-29 20:25] LABS: Bacteria 2+ /hpf (None Seen); White Blood Cells >100 SEEN /hpf (0-5)
[2022-01-29 20:40] VITALS: BP 126/60; PULSE 71; RESP 16
[2022-01-29] MEDS: Smz/Tmp Ds Tablet 1 TABLET PO (20:43)
--- NOTE | 2022-01-29 21:35 | EX.ED.DYSGE1 ---
HPI History of Present Illness Chief Complaint: Fatigue Narrative Narrative: 66-year-old male presenting with fatigue. Patient significant history of hypertension which was poorly controlled. Due to her injury he sustained via Workmen's [employer]. requires him to be on new blood pressure medications after his medications are controlled by Worker's Comp. and half of them are controlled by the [facility]. He is unable to get anybody to take control of all the blood pressure medications. He states that he feels his blood pressure has been lower than usual. He is not having chest pain or shortness of breath. He has not had any falls. He does have some generalized fatigue but also feels he is a UTI. He has no fever, chills, nausea, vomiting, abdominal pain. He does complain of dysuria. [facility] Medical History Chest pain Coronary artery disease CVA (cerebral vascular accident) Diabetes Former smoker High cholesterol HTN (hypertension) Sleep apnea Subdural hematoma Home Medications aspirin 81 mg PO BREAKFAST #100 tab 04/28/21 [Rx Last Taken 05/10/21] atorvastatin 80 mg PO QHS #30 tab 04/28/21 [Rx Last Taken 05/09/21] clopidogrel 75 mg PO DAILY #30 tab 04/28/21 [Rx Last Taken 05/10/21] gabapentin 100 mg PO BIDCM #60 cap 04/28/21 [Rx Last Taken 05/10/21] lisinopril 40 mg PO DAILY #30 tab 04/28/21 [Rx Last Taken 05/10/21] multivitamin 1 tab PO BREAKFAST #0 tab 04/28/21 [Rx Last Taken 05/10/21] nifedipine 90 mg PO DAILY #30 tab 04/28/21 [Rx Last Taken 05/10/21] sertraline 100 mg PO DAILY #30 tab 04/28/21 [Rx Last Taken 05/10/21] Neuropathy Pain Cream 1 pump TRANSDERMAL TID PRN 05/10/21 [History Last Taken Unknown] acetaminophen 1,000 mg PO BID PRN PRN 05/10/21 [History Last Taken 05/09/21] atenolol 50 mg PO DAILY 05/10/21 [History Last Taken 05/10/21] doxazosin 2 mg PO DAILY 05/10/21 [History Last Taken 05/10/21] esomeprazole magnesium [Nexium] 20 mg PO DAILY 05/10/21 [History Last Taken 05/10/21] glipizide 10 mg PO BID 05/10/21 [History Last Taken 05/10/21] meclizine 25 mg PO BID PRN 05/10/21 [History Last Taken 05/10/21] metformin 2,000 mg PO BID 05/10/21 [History Last Taken 05/10/21] omega-3 fatty acids-vitamin E 4 cap PO DAILY 05/10/21 [History Last Taken 05/10/21] sulfamethoxazole-trimethoprim 1 tab PO BID #14 tablet 01/11/22 [Rx Last Taken Unknown] sulfamethoxazole-trimethoprim [Bactrim DS] 1 tab PO BID #14 tab 01/29/22 [Rx Last Taken Unknown] Allergy/AdvReac Type Severity Reaction Status Date / Time No Known Allergies Allergy Verified 01/29/22 19:04 Family History Mother Dementia Parkinsons disease Father Heart disease Hypertension Myocardial infarction CVA (cerebral vascular accident) CAD (coronary artery disease) Surgical History History of appendectomy S/P appendectomy S/P CABG x 4 Social History household members: spouse Smoking Status: Former smoker how long ago did patient quit smoking: Smoked in [employer] x 7 years, quit 1978, cigars. 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 substance use type: does not use ROS ROS ED Constitutional Constitutional ED: Denies chills or fever(s) Eyes Eyes: Denies blurry vision or diplopia ENT ENT ED: Denies rhinorrhea or sore throat Cardiovascular Cardiovascular: Denies chest pain or palpitations Respiratory/Chest Respiratory/Chest: Denies cough or dyspnea Gastrointestinal Gastrointestinal: Denies abdominal pain, nausea or vomiting Genitourinary Genitourinary ED: Reports dysuria and urinary frequency Musculoskeletal Musculoskeletal: Denies arthralgias or myalgias Integumentary Denies rash Neurologic Neurologic: Denies headache(s), paresthesias or weakness EXAM Physical Exam Const Vital Signs: 01/29/22 19:05 03/19/22 19:51 01/29/22 20:40 Temperature 97.4 F L Temperature Source Temporal Pulse Rate 77 71 Respiratory Rate 17 16 Respiratory Effort Normal Respiratory Pattern Normal Blood Pressure 109/48 L 126/60 H Blood Pressure Mean 68 Pulse Ox 99 Oxygen Delivery Method Room Air Positive well nourished General Appearance ED: Negative for pallor HEENT Reports moist mucous membranes Negative for trauma Eyes PERRL and EOMs intact bilaterally Resp normal respiratory effort Cardio regular rate and regular rhythm Back/Spine no CVA tenderness Neuro oriented x3 Sensorium / Orientation: alert Psych mental status grossly normal Skin no rashes or lesions noted General Skin Exam: Negative for jaundice or pallor MDM MDM MDM Narrative Medical decision making narrative: Patient states that he is on multiple medications for his blood pressure and having trouble getting the VA or Worker's Comp. to come to a conclusion on which blood pressure medications he can take. He is concerned that nobody is managing it. His blood pressure here today is normal. I did recommend to him that he see the [facility] and have them start managing his blood pressure medications and he states that he believes he can do that. He is positive for UTI today. His last UTI was sensitive to almost everything and he was on Bactrim which worked for him. I will place him on Bactrim today. Patient amenable to this plan. He is going to keep a blood pressure diary. If he has any new or worsening symptoms he is to return to the ER. Impression: #1 UTI Lab Data Attestation: I reviewed the patient's lab results. Labs: Laboratory Results - last 24 hr 01/29/22 19:45 Urine Color Yellow Urine Clarity Clear Urine pH 5.0 Ur Specific [place] 1.015 Urine Protein 100 H Urine Glucose (UA) Normal Urine Ketones 5 H Urine Occult Blood 25 H Urine Nitrite Positive H Urine Bilirubin Negative Urine Urobilinogen Normal Ur Leukocyte Esterase 500 H Urine RBC 0 SEEN Urine WBC >100 SEEN Ur Squamous Epith Cells 0 SEEN Urine Bacteria 2+ Urine Mucus 0 SEEN Discharge Plan Triage Chief Complaint: Fatigue ED Provider: Richie Thomas Dx/Rx/DC Orders Instructions: ED Bladder Infection, Male (Adult) Prescriptions: New sulfamethoxazole-trimethoprim [Bactrim DS] 800-160 mg tablet 1 tab PO BID Qty: 14 RF: 0 No Action clopidogrel 75 mg Tablet 75 mg PO DAILY Qty: 30 RF: 0 aspirin 81 mg Tablet,Chewable 81 mg PO BREAKFAST Qty: 100 RF: 0 gabapentin 100 mg Capsule 100 mg PO BIDCM Qty: 60 RF: 0 multivitamin Tablet 1 tab PO BREAKFAST Qty: 0 RF: 0 sertraline 100 mg tablet 100 mg PO DAILY Qty: 30 RF: 0 atorvastatin 80 MG tablet 80 mg PO QHS Qty: 30 RF: 0 nifedipine 90 MG tablet 90 mg PO DAILY Qty: 30 RF: 0 lisinopril 40 MG tablet 40 mg PO DAILY Qty: 30 RF: 0 esomeprazole magnesium [Nexium] 20 mg Capsule,Delayed Release(Dr/Ec) 20 mg PO DAILY RF: 0 omega-3 fatty acids-vitamin E 1,000 mg Capsule 4 cap PO DAILY RF: 0 metformin 500 MG tablet 2,000 mg PO BID RF: 0 glipizide 10 mg tablet 10 mg PO BID RF: 0 meclizine 12.5 MG tablet 25 mg PO BID PRN (Reason: as needed for dizziness) RF: 0 acetaminophen 500 mg tablet 1,000 mg PO BID PRN PRN (Reason: Pain 1-10 Or Fever) RF: 0 atenolol 50 mg tablet 50 mg PO DAILY RF: 0 doxazosin 2 mg tablet 2 mg PO DAILY RF: 0 Neuropathy Pain Cream 0.5 ml ointment 1 pump transdermal TID PRN (Reason: Neuropathy pain) RF: 0 sulfamethoxazole-trimethoprim [sulfamethoxazole-trimethoprim] 1 TABLET tablet 1 tab PO BID Qty: 14 RF: 0 [facility] Care Provider[facility] [Primary Care Provider] - Disposition Disposition: Home, Self Care Discharge Date/Time: 01/29/22 20:48
== END 2022-01-29 20:48 | disposition home or self-care (01) ==
PROVIDERS: Emergency Provider Student in an Organized Health Care Education/Training Program; Visit Provider Student in an Organized Health Care Education/Training Program
DX: N39.0 Urinary tract infection, site not specified (principal); I25.10 Atherosclerotic heart disease of native coronary artery without angina pectoris; Z87.891 Personal history of nicotine dependence
CPT/HCPCS: 81001; 87086; 87088; 87186; 99283

== ENCOUNTER 2022-03-07 20:01 | Emergency (ER) | payer OTHER, SELFPAY ==
[2022-03-07 20:02] VITALS: BP 133/70; PULSE 123; RESP 16; TEMP 36.2; O2SAT 98; BMI 36.4
[2022-03-07] MEDS: Meclizine HCl 25 MG Tablet PO (20:59)
[2022-03-07] MEDS: cloNIDine HCl 0.1 MG Tablet PO (22:43)
[2022-03-07] MEDS: hydrALAZINE 50 MG Tablet 100 MG PO (22:43)
[2022-03-07] MEDS: Labetalol 200 MG Tablet 300 MG PO (22:43)
--- NOTE | 2022-03-07 23:49 | EDS_ITS ---
HPI History of Present Illness Chief Complaint: Med Refill Informant: patient and spouse/S.O. Onset/Context/Timing Onset: Hours (1) Context: Sudden Onset Quality: Spinning sensation Location: Head Worsened by: Nothing Relieved by: Nothing Narrative Narrative: Patient presents with dizziness that became worse tonight. Patient states he has a history of vertigo and this feels similar to that. Patient describes it as a spinning sensation. Patient states it is mainly in his head that is spinning. Patient states he has a history of chronic tinnitus but denies any hearing changes. Patient denies any fevers or chills. Patient denies any chest pain or shortness of breath. Patient states he ran out of his blood pressure medications which include clonidine, labetalol, and hydralazine. Patient is requesting refills of these. Patient states that while he has been taking these medications he has not had any dizziness. [facility] Medical History Chest pain Coronary artery disease CVA (cerebral vascular accident) Diabetes Former smoker High cholesterol HTN (hypertension) Sleep apnea Subdural hematoma Home Medications aspirin 81 mg PO BREAKFAST #100 tab 04/28/21 [Rx Last Taken 05/10/21] atorvastatin 80 mg PO QHS #30 tab 04/28/21 [Rx Last Taken 05/09/21] clopidogrel 75 mg PO DAILY #30 tab 04/28/21 [Rx Last Taken 05/10/21] gabapentin 100 mg PO BIDCM #60 cap 04/28/21 [Rx Last Taken 05/10/21] lisinopril 40 mg PO DAILY #30 tab 04/28/21 [Rx Last Taken 05/10/21] multivitamin 1 tab PO BREAKFAST #0 tab 04/28/21 [Rx Last Taken 05/10/21] nifedipine 90 mg PO DAILY #30 tab 04/28/21 [Rx Last Taken 05/10/21] sertraline 100 mg PO DAILY #30 tab 04/28/21 [Rx Last Taken 05/10/21] Neuropathy Pain Cream 1 pump TRANSDERMAL TID PRN 05/10/21 [History Last Taken Unknown] acetaminophen 1,000 mg PO BID PRN PRN 05/10/21 [History Last Taken 05/09/21] atenolol 50 mg PO DAILY 05/10/21 [History Last Taken 05/10/21] doxazosin 2 mg PO DAILY 05/10/21 [History Last Taken 05/10/21] esomeprazole magnesium [Nexium] 20 mg PO DAILY 05/10/21 [History Last Taken 05/10/21] glipizide 10 mg PO BID 05/10/21 [History Last Taken 05/10/21] meclizine 25 mg PO BID PRN 05/10/21 [History Last Taken 05/10/21] metformin 2,000 mg PO BID 05/10/21 [History Last Taken 05/10/21] omega-3 fatty acids-vitamin E 4 cap PO DAILY 05/10/21 [History Last Taken 05/10/21] sulfamethoxazole-trimethoprim 1 tab PO BID #14 tablet 01/11/22 [Rx Last Taken Unknown] sulfamethoxazole-trimethoprim [Bactrim DS] 1 tab PO BID #14 tab 01/29/22 [Rx Last Taken Unknown] clonidine HCl 0.1 mg PO BID #60 tab 03/07/22 [Rx Last Taken Unknown] hydralazine 100 mg PO TID #180 tab 03/07/22 [Rx Last Taken Unknown] labetalol 300 mg PO Q6H #120 tab 03/07/22 [Rx Last Taken Unknown] Allergy/AdvReac Type Severity Reaction Status Date / Time No Known Allergies Allergy Verified 03/07/22 20:05 Family History Mother Dementia Parkinsons disease Father Heart disease Hypertension Myocardial infarction CVA (cerebral vascular accident) CAD (coronary artery disease) Surgical History History of appendectomy S/P appendectomy S/P CABG x 4 Social History household members: spouse Smoking Status: Former smoker how long ago did patient quit smoking: Smoked in x 7 years, quit 1978, cigars. 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 substance use type: does not use ROS ROS ED Constitutional Constitutional ED: Denies chills or fever(s) Eyes Eyes: Denies blurry vision or change in vision ENT ENT ED: Denies rhinorrhea or sore throat Cardiovascular Cardiovascular: Denies chest pain or palpitations Respiratory/Chest Respiratory/Chest: Denies cough or dyspnea Gastrointestinal Gastrointestinal: Denies nausea or vomiting Genitourinary Genitourinary ED: Denies dysuria or hematuria Musculoskeletal Musculoskeletal: Reports neck pain; Denies back pain Integumentary Denies abscess or rash Neurologic Neurologic: Denies headache(s) or weakness Allergic/Immunologic Allergic/Immunologic ED: Denies mouth swelling or urticaria EXAM Physical Exam Const Vital Signs: 03/07/22 20:02 03/07/22 20:26 Temperature 97.2 F L Temperature Source Temporal Pulse Rate 123 H Respiratory Rate 16 Respiratory Effort Normal Respiratory Pattern Normal Blood Pressure 133/70 H Blood Pressure Mean 91 Pulse Ox 98 Oxygen Delivery Method Room Air Positive well nourished and well developed General Appearance ED: well developed and NAD HEENT Reports moist mucous membranes Eyes PERRL and EOMs intact bilaterally Eyes Narrative: There is no nystagmus noted. Neck supple and no JVD Resp normal respiratory effort and clear to auscultation bilaterally Cardio regular rate, regular rhythm and no murmurs GI normal to inspection, nondistended, normoactive bowel sounds and non-tender Palpation: soft Extremity normal to inspection General Extremety ED: Negative for edema or tenderness General Extremity: Negative for edema Neuro oriented x3, CN's II-XII intact bilaterally and no sensory deficits noted Sensorium / Orientation: alert Motor Exam: strength 5/5 throughout Psych mental status grossly normal Skin no rashes or lesions noted MDM MDM MDM Narrative Medical decision making narrative: Patient was given a dose of meclizine here. Patient was given prescriptions for refills of his clonidine, labetalol, and hydralazine. Patient was given doses of those medications here prior to discharge. Patient was instructed to follow-up with his primary care physician in 1 to 2 weeks for reevaluation. Patient understood and was agreeable with the plan. All questions were answered. Discharge Plan Triage Chief Complaint: Med Refill ED Provider: Giuseppe Nunez Dx/Rx/DC Orders Clinical Impression: Hypertension, Vertigo Instructions: ED Hypertension, Established, ED Vertigo, Unspecified Prescriptions: New clonidine HCl 0.1 mg tablet 0.1 mg PO BID Qty: 60 RF: 0 labetalol 300 mg tablet 300 mg PO Q6H Qty: 120 RF: 0 hydralazine 50 mg tablet 100 mg PO TID Qty: 180 RF: 0 No Action clopidogrel 75 mg Tablet 75 mg PO DAILY Qty: 30 RF: 0 aspirin 81 mg Tablet,Chewable 81 mg PO BREAKFAST Qty: 100 RF: 0 gabapentin 100 mg Capsule 100 mg PO BIDCM Qty: 60 RF: 0 multivitamin Tablet 1 tab PO BREAKFAST Qty: 0 RF: 0 sertraline 100 mg tablet 100 mg PO DAILY Qty: 30 RF: 0 atorvastatin 80 MG tablet 80 mg PO QHS Qty: 30 RF: 0 nifedipine 90 MG tablet 90 mg PO DAILY Qty: 30 RF: 0 lisinopril 40 MG tablet 40 mg PO DAILY Qty: 30 RF: 0 esomeprazole magnesium [Nexium] 20 mg Capsule,Delayed Release(Dr/Ec) 20 mg PO DAILY RF: 0 omega-3 fatty acids-vitamin E 1,000 mg Capsule 4 cap PO DAILY RF: 0 metformin 500 MG tablet 2,000 mg PO BID RF: 0 glipizide 10 mg tablet 10 mg PO BID RF: 0 meclizine 12.5 MG tablet 25 mg PO BID PRN (Reason: as needed for dizziness) RF: 0 acetaminophen 500 mg tablet 1,000 mg PO BID PRN PRN (Reason: Pain 1-10 Or Fever) RF: 0 atenolol 50 mg tablet 50 mg PO DAILY RF: 0 doxazosin 2 mg tablet 2 mg PO DAILY RF: 0 Neuropathy Pain Cream 0.5 ml ointment 1 pump transdermal TID PRN (Reason: Neuropathy pain) RF: 0 sulfamethoxazole-trimethoprim [sulfamethoxazole-trimethoprim] 1 TABLET tablet 1 tab PO BID Qty: 14 RF: 0 sulfamethoxazole-trimethoprim [Bactrim DS] 800-160 mg tablet 1 tab PO BID Qty: 14 RF: 0 [facility] [facility] [Primary [facility] Provider] - 5-7 Days Disposition Disposition: Home, Self Care Discharge Date/Time: 03/07/22 22:45
--- NOTE | 2022-03-09 15:32 | CASEMGMT ---
[facility] ED f/u call: ED visit: 03/07/22 Complaint: Med refill Call to pt's #. No answer. Non-descript VM left requesting return call if there are any questions or concerns. Phone number provided. Yasir CONTRERAS RN CM
== END 2022-03-07 22:45 | disposition home or self-care (01) ==
PROVIDERS: Emergency Provider Emergency Medicine; Visit Provider Emergency Medicine
DX: I10 Essential (primary) hypertension (principal); R42 Dizziness and giddiness; I25.10 Atherosclerotic heart disease of native coronary artery without angina pectoris; G47.30 Sleep apnea, unspecified; Z87.891 Personal history of nicotine dependence; Z86.73 Personal history of transient ischemic attack (TIA), and cerebral infarction without residual deficits; Z76.0 Encounter for issue of repeat prescription
CPT/HCPCS: 99283

== ENCOUNTER 2022-03-24 16:30 | Outpatient (RCR) | payer OTHER, SELFPAY ==
--- NOTE | 2022-02-08 15:32 | HP.PTEVAL_ITS ---
Patient's Visit Information JIM BERNSTEIN is a 66 year old M referred to Physical Therapy by Dr. Matt Tong MD with a diagnosis of RIGHT FRONTAL INTRACRANIAL FRONTAL HEMMORAGE. Date of Evaluation: 02/08/22 Physical Therapist: Jim Zabala PT, Cert MDT, OCS - Visit Plan Frequency: 2-3x /Week Duration: 4 Weeks Plan: PT INTERVETIONS PRORGESSIVE BALANCE/GAIT PRORAM ,STRENGTHENING BLE ,ENDURANCE EX'S AND FUNCTIONAL STRENGTHENING - Subjective This 66 y/o male presents to physical therapy right frontal intracranial hemorrhage. Patient on Nov 30 fell and hit back of head when behind tailor door in back open forcefully from wind. Patient was unconscious ,patient then called employee then took to [employer] then went to ER [facility] which did CATCAN showed hemorrhage . Patient then was life flighted to [facility]. Patient had further diagnostics and MRI . Patient went to ICU ~ 1 month ,also was on ventilated for 4 days then extubated. Patient then transferred to [facility] for Rehab ~ 1 week .D/C to home Dec 16 of January 01. Patient initially had W/C for 1 week and unable to walk ,started fww. Patient then transfer to [facility]. Patient has cognition deficits/dementia and lost hearing right side. Patient has not falling at home. Patient has walk in shower and has shower chair. Patient able to dress . Patient spouse does cooking but prior patient was cook .Spouse does the cleaning. Patient seen DR lujan PT outpatient. Patient lives home 1 story home 3 steps with rail, but currently has ramp. Patient dues have h/o CVA x5 most last year. Patient condition affects QOL and function . SOCIAL: . 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 NEURO: denies paresthesia/tingling, reflexes L3-4,L4-5,L5-S1 1/3. BALANCE: FAIR +. GAIT: ambulated with rollator mild forward posture reciprocal pattern slow best and gait straight cane 3 point slow best unsteady min assist. MMT( [employer]) : quads R -19.7,L 18.7,hamtsrings R - 20.2,LEFT 19.7,hip flexion 16.2 R,15.8 -L. ankle 4/5. STAIRS: ascend/descend 4 steps with rails CGA. FLEXABILITY: hamstrings mild tight - Balance/Special Test Scores CATSIB Score (Max score 120 seconds): 50 Lower Extremity Functional Score: 22 - Goals Goal 1:: I HEP for balance and strengthening Goal Time Frame: 4-6 Weeks Goal 2:: Patient to ambulate with least restrictive device community distances with improved gait pattern Goal Time Frame: 4-6 Weeks Goal 3:: Patient improve peak force quads/hams 10 to improve gait and stairs Goal Time Frame: 4-6 Weeks Goal 4:: Patient to improve LFES by 10 points to improve gait/ balance and QOL Goal Time Frame: 4-6 Weeks Goal 5:: Patient to improve CATSIB BY 10points to improve balance and decrease risk of falls Goal Time Frame: 4-6 Weeks - Rehabilitation Potential Physical Therapy Diagnosis: This patient fell at work hit back of head developed hemorrhage with decrease balance ,weakness ,decrease gait and function thus will benefit from skilled PT Rehabilitation Potential: Good - Anticipated Interventions Patient/Client Instruction: Educate patient on: Condition, Plan of Care For the Purpose of:: To increase ROM, To improve muscle performance and motor function, To improve ability to perform ADL's, To improve performance and independence with ADL's, To improve ability of physical actions for home/communi ty/work/leisure, To improve gait and locomotor functions, To increase flexibility/ROM, To improve endurance, To improve balance, To reduce risk of recurrence, To improve tolerance to ADL's Therapeutic Exercise to Include: Strength training, Power training, Endurance training, Balance training, Gait and locomotor training, Active ROM Comment: BLE For the Purpose of:: To improve muscle performance and motor function, To improve ability to perform ADL's, To increase tolerance to activity/condition/position, To improve ability of physical actions for home/community/work/leisure, To improve gait and locomotor functions, To improve endurance, To improve balance, To improve safety with gait, To prevent re- injury, To improve tolerance to ADL's Thank you for the opportunity to evaluate your patient. For Medicare and Medicare HMO plans, please review the plan of care and approve it. It will need to be FAXED BACK to us at [phone] for Medicare purposes. For Medicare only, by signing this I certify the plan of care. Please let me know if there are questions or concerns regarding this plan of care. Physician Signature: Date:
--- NOTE | 2022-02-15 08:04 | HP.OTEVAL_ITS ---
Patient's Visit Information JIM BERNSTEIN is a 66 year old M, referred to Occupational Therapy by Dr. Matt Tong MD, with a diagnosis of R cranial intracranial hemorrhage, R side hematoma. Date of Evaluation: 02/14/22 Occupational Therapist: Brittney Singh, OTR/L, CHT - Subjective Pt. is a 66 y/o male that had a fall while at work on 11-21-21. Per pt. [facility] then [facility] then life flight to [facility] where he spent time in ICU. He reported 2 months prior to his fall he finished therapy for stroke. 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 Pt. stating he has type 2 diabetes and neuropathy. Pt. is R hand dominant. - ADLs Dressing: Socks Yard: Mow lawn, Use shovel Comments: Pt. stating that he has difficulty at times with donning socks. S/OT educated pt. on using a sock aid. Pt. lives in a 1 story home, has a walk in shower with a shower chair. Ramped entrance. - Objective Pt. reporting he has decreased hearing in R ear, smelling, and taste secondary to fall. completes meal prep. On this date he used a straight cane for functional mobility. - ROM Shoulder: BUE's WFL Elbow: BUE's WFL Forearm: BUE's WFL Wrist: BUE's WFL ROM Comments: B hands completed opposition. B hands completed composite fists - Strength Shoulder: R 23.7 L25.4 Elbow: R 29 L 22 Forearm: R 22.3 L 16.7 Finance And Administration Manager: R 80 L 95 Lateral Pinch: R 15 L 20 Tripod Pinch: R 12 L 12 Tip-to-Tip Pinch: R 10 L 10 Strength Comments: used the Mini FET for strength measurements. - Sensation Sensation Comments: sensation was noted at 3.61 on B hands. He has neuropathy related to type 2 diabetes. - Balance Static Sitting: good - Transfers Transfers: Pt. reported he can get lightheaded when standing after sitting for awhile. Pt. at Mod I with straight cane with functional mobility within therapy gym. Pt. reported that he has a ramp for his 2 steps at entrance of house. - Nine Hole Peg Right: 37 seconds Left: 35 seconds - DASH-Disabilities of Arm, Shoulder& Hand DASH Sum: 53 - Quick DASH-Disab of Arm,Shoulder& Hand Quick DASH Score: 55.0000 - Goals Goal:: Pt. will increase UB strength for home mgt tasks at Mod I level by dc. pt will demo a increase in B honing machine set up operator strength by 15# to increase his ind. with ADLs and IADls. pt will demo a increase in bilateral UE demo ind. box lift of 40# knee high to waist level to increase pts ind. with ADls and IADLS. Goal:: Pt. will verbalize and demonstrate independent use of gym equipment for health and wellness program by dc. pt will demo IND with gym eq. set up and proper hema. by d/c Goal:: Pt. will complete 30 minutes of medium intensity work in preparation to paint bathroom by dc. pt will demo use of bilateral UE simultaneously for 15-30 min without rest breaks indicating increase in endurance/strength to perform ADLs and IADLS and home mtg. by d/c - Rehabilitation General Assessment: Pt. had a fall on 11-21-21 which led to an intracranial hemorrhage, while at work when shutting his back truck doors. He has a deficit with his hearing on R side. He has decreased sensation in hands, secondary to neuropathy from type 2 diabetes and h/o stroke. Pt. would benefit from OT services 2-3 times a week for 3-4 weeks to get a health and wellness gym program and understand how to use the equipment independently. Therapy session was directly supervised and doc. reviewed and approved by Brittney Singh OTR/Owen,T Rehabilitation Potential: Excellent - Anticipated Interventions Strengthening, Ergonomic Education, Education re assistive Equipment, Home Program - Visit Plan Frequency: 2-3x /Week Duration: 4-6 Weeks TEXT: Thank you for the opportunity to evaluate your patient. For Medicare and Medicare HMO plans, please review the plan of care and approve it. It will need to be FAXED BACK to us at [phone] for Medicare purposes. Please let me know if there are questions or concerns regarding this plan of care. Physician Signature: Date:
--- NOTE | 2022-03-24 09:53 | HP.OTDCSUM_ITS ---
It has been my pleasure to treat JIM BERNSTEIN under orders from Dr. Matt Tong MD, for the diagnosis of R cranial intracranial hemorrhage, R side hematoma for a total of 6 visit(s). Please see the following information for a summary of their discharge status. 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 shoulder strength L 25# R 29.7#. elbow strength L 22.3#, 30.8#. pt. stating that capsacin rub helped with his legs and he slept much better. He has participated in strengthening exercises over 6 sessions. Reassessed on quick dash, this S/OT unsure of how much pt. was understanding the question/answers (even with the patient reading the questions while the S/OT read them out loud). Therapy session was directly supervised and doc. reviewed by Brittney Singh OTR/L,CHT Patient Goals: Regain Strength, Use Hand/Wrist/Arm Normally Again, Be More Independent in ADLS Other: Pt. stating he would like to be able to finish painting bathroom. He would also like to start a health and wellness program. Goal:: Pt. will increase UB strength for home mgt tasks at Mod I level by dc. pt will demo a increase in B television inspector strength by 15# to increase his ind. with ADLs and IADls. pt will demo a increase in bilateral UE demo ind. box lift of 40# knee high to waist level to increase pts ind. with ADls and IADLS. Goal:: Pt. will verbalize and demonstrate independent use of gym equipment for health and wellness program by dc. pt will demo IND with gym eq. set up and proper hema. by d/c Goal:: Pt. will complete 30 minutes of medium intensity work in preparation to paint bathroom by dc. pt will demo use of bilateral UE simultaneously for 15-30 min without rest breaks indicating increase in endurance/strength to perform ADLs and IADLS and home mtg. by d/c Plan: DC this date Discharge Comments: Pt. has reported that he feels he is 85% better. He has participated in 6 therapy sessions related to UB strengthening and endurance. Quick Dash results=30. He has met all goals with the exception of painting the bathroom as his has already painted it. Pt states she is IND with all ADLs and has returned to performing home mtg with yard work with good ability. pt is to continue with his HEP and possible gym membership to a health and wellness program- pt and agree with POC and D/C If there are questions or concerns regarding this patient's occupational therapy, please fell free to call me at [phone]. Thank you for the referral of this patient. Sincerely, Brittney Singh, OTR/L, CHT
--- NOTE | 2022-03-24 16:55 | HP.PTDCSUM ---
It has been my pleasure to treat JIM BERNSTEIN referred by Dr. Matt Tong MD, with the diagnosis of RIGHT FRONTAL INTRACRANIAL FRONTAL HEMMORAGE for a total of 11 visit(s). Discharge Date: Please see the following information for a summary of their discharge status. Subjective: Doing well ready for d/c % Improvement: 90 Objective/Function: POSTURE: WFL. GAIT RECOPROCAL PATTERN SLOW GERSON NO CANE PT AREA USE CANE WITH EXTENDED COMMUNITY DISTANMCE. BALANCE: GOOD -. MMT: QUADS/HAMS 4/5,HIP FELXION 4-/5 ANKDL 4/5. STAIRS: ALTERANING Goal 1:: I HEP for balance and strengthening Goal 2:: Patient to ambulate with least restrictive device community distances with improved gait pattern Goal 3:: Patient improve peak force quads/hams 10 to improve gait and stairs Goal 4:: Patient to improve LFES by 10 points to improve gait/ balance and QOL Goal 5:: Patient to improve CATSIB BY 10points to improve balance and decrease risk of falls Plan: d/c If there are questions or concerns regarding this patient's physical therapy, please feel free to call me at [phone]. Thank you for the referral of this patient. Sincerely, Jim Zabala, PT, Cert MDT, OCS Balance/Gait/Functional tests - Balance/Special Test Scores CATSIB Score (Max score 120 seconds): 115 Lower Extremity Functional Score: 57
== END 2022-03-24 19:00 | disposition home or self-care (01) ==
LOC: PT 16:30
PROVIDERS: Referring Provider Neurological Surgery; Visit Provider Neurological Surgery
DX: S06.899D Other specified intracranial injury with loss of consciousness of unspecified duration, subsequent encounter (principal); W19.XXXD Unspecified fall, subsequent encounter; Y99.0 Civilian activity done for income or pay
CPT/HCPCS: 97110; 97162; 97166

== ENCOUNTER 2022-03-27 02:17 | Emergency (ER) | payer OTHER, SELFPAY ==
[2022-03-27 02:19] VITALS: BP 141/76; PULSE 81; RESP 18; TEMP 35.8; O2SAT 97; BMI 37.5
[2022-03-27 02:35] LABS: Mucous, Urine 0 SEEN /hpf (<or=2+); Squamous Epithelial Cells - UA 0 SEEN /hpf (0-5)
--- NOTE | 2022-03-27 02:39 | EX.ED.DYSGE1 ---
HPI History of Present Illness Chief Complaint: Complaint Informant: patient and spouse/S.O. Narrative Narrative: Patient presents with concern for UTI. This patient sounds like he had a head bleed it began a year. He had a catheter that was removed in December. Since then he has had several UTIs. This is starting similar way. He came in early before he felt sick. He states for about a day has had some frequency. It is developed in the mild dysuria. Its only a small amount. But he now has a slight pink color of his urine that he thinks is likely blood. No flank pain. No fevers chills. No nausea vomiting. He states he does not feel sick. He is able to empty his urine completely. No clots seen. Nothing really makes his better or worse. [facility] Medical History Chest pain Coronary artery disease CVA (cerebral vascular accident) Diabetes Former smoker High cholesterol HTN (hypertension) Sleep apnea Subdural hematoma Home Medications lisinopril 40 mg PO DAILY #30 tab 04/28/21 [Rx Last Taken 03/26/22] nifedipine 90 mg PO DAILY #30 tab 04/28/21 [Rx Last Taken 03/26/22] Neuropathy Pain Cream 1 pump TRANSDERMAL TID PRN 05/10/21 [History Last Taken 03/26/22] doxazosin 2 mg PO DAILY 05/10/21 [History Last Taken 03/26/22] glipizide 10 mg PO BID 05/10/21 [History Last Taken 03/26/22] meclizine 12.5 mg PO BID PRN 05/10/21 [History Last Taken 03/26/22] metformin 1,000 mg PO BID 05/10/21 [History Last Taken 03/26/22] hydralazine 100 mg PO TID #180 tab 03/07/22 [Rx Last Taken 03/26/22] labetalol 300 mg PO Q6H #120 tab 03/07/22 [Rx Last Taken 03/26/22] aspirin 81 mg PO BREAKFAST 03/27/22 [History Last Taken 03/26/22] sulfamethoxazole-trimethoprim [Bactrim DS] 1 tab PO BID #20 tab 03/27/22 [Rx Last Taken Unknown] Allergy/AdvReac Type Severity Reaction Status Date / Time No Known Allergies Allergy Verified 03/07/22 20:05 Family History Mother Dementia Parkinsons disease Father Heart disease Hypertension Myocardial infarction CVA (cerebral vascular accident) CAD (coronary artery disease) Surgical History History of appendectomy S/P appendectomy S/P CABG x 4 Social History household members: spouse Smoking Status: Former smoker how long ago did patient quit smoking: Smoked in [employer] x 7 years, quit 1978, cigars. 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 substance use type: does not use ROS ROS ED Constitutional Constitutional ED: Denies chills or fever(s) ENT ENT ED: Denies rhinorrhea Cardiovascular Cardiovascular: Denies palpitations Respiratory/Chest Respiratory/Chest: Denies cough or dyspnea Gastrointestinal Gastrointestinal: Denies abdominal pain, nausea or vomiting Genitourinary Genitourinary ED: Reports dysuria, hematuria and urinary frequency Musculoskeletal Musculoskeletal: Denies back pain Integumentary Denies rash Neurologic Neurologic: Denies headache(s) Endocrine Endocrinology: Denies polydipsia Allergic/Immunologic Allergic/Immunologic ED: Denies mouth swelling or urticaria EXAM Physical Exam Const Vital Signs: 03/27/22 02:19 Temperature 96.4 F L Temperature Source Temporal Pulse Rate 81 Respiratory Rate 18 Blood Pressure 141/76 H Blood Pressure Mean 97 Pulse Ox 97 Oxygen Delivery Method Room Air Positive well nourished General Appearance ED: NAD HEENT trauma and tenderness Neck supple Chest Wall inspection of chest normal Resp normal respiratory effort Cardio regular rate and regular rhythm GI normal to inspection, nondistended, normoactive bowel sounds and non-tender GI Narrative: Abdomen is obese but no tenderness anywhere. I do not feel distended bladder. No CVA tenderness peer Palpation: soft Back/Spine no CVA tenderness Neuro Sensorium / Orientation: alert Psych mental status grossly normal Skin no rashes or lesions noted MDM MDM MDM Narrative Medical decision making narrative: Patient's urine is cloudy with leukocyte esterase along with a large number white cells and red cells. This along with his symptoms does point to a UTI. He will be treated for this. He was on Bactrim in the past and states it worked very well without side effects so we will use that. We discussed reasons to return that include pain, nausea vomiting, fevers or other concerns Lab Data Labs: Laboratory Results - last 24 hr 03/27/22 02:30 Urine Color Red Urine Clarity Cloudy Urine pH 7.0 Ur Specific [place] 1.010 Urine Protein 100 H Urine Glucose (UA) Normal Urine Ketones Negative Urine Occult Blood 250 H Urine Nitrite Negative Urine Bilirubin Negative Urine Urobilinogen Normal Ur Leukocyte Esterase 500 H Urine RBC > 100 SEEN Urine WBC >100 SEEN Ur Squamous Epith Cells 0 SEEN Urine Bacteria 2+ Urine Mucus 0 SEEN Discharge Plan Triage Chief Complaint: Complaint ED Provider: Sanjeev Alvarado Dx/Rx/DC Orders Clinical Impression: Urinary tract infection Instructions: ED Urinary Tract Infections in Men Prescriptions: New sulfamethoxazole-trimethoprim [Bactrim DS] 800-160 mg tablet 1 tab PO BID Qty: 20 RF: 0 No Action nifedipine 90 MG tablet 90 mg PO DAILY Qty: 30 RF: 0 lisinopril 40 MG tablet 40 mg PO DAILY Qty: 30 RF: 0 metformin 500 MG tablet 1,000 mg PO BID RF: 0 glipizide 10 mg tablet 10 mg PO BID RF: 0 meclizine 12.5 MG tablet 12.5 mg PO BID PRN (Reason: as needed for dizziness) RF: 0 doxazosin 2 mg tablet 2 mg PO DAILY RF: 0 Neuropathy Pain Cream 0.5 ml ointment 1 pump transdermal TID PRN (Reason: Neuropathy pain) RF: 0 labetalol 300 mg tablet 300 mg PO Q6H Qty: 120 RF: 0 hydralazine 50 mg tablet 100 mg PO TID Qty: 180 RF: 0 aspirin 81 mg tablet,chewable 81 mg PO BREAKFAST RF: 0 [facility] Provider[facility] - 3-5 Days if not improving Disposition Disposition: Home, Self Care
[2022-03-27 02:52] LABS: Color, Urine Red (Yellow); Glucose, Dipstick Normal (Normal); Ketone-Dipstick Negative (Negative); Leukocyte Esterase-Dipstick 500 /ul (Negative); Nitrite-Dipstick Negative (Negative); Occult Blood-Urine 250 /ul (Negative); Protein-Dipstick 100 mg/dl (Negative); Urine Bilirubin Dipstick Negative (Negative); Urine Clarity Cloudy (Clear); Urine Urobilinogen Normal (Normal)
[2022-03-27 03:03] LABS: Bacteria 2+ /hpf (None Seen); Red Blood Cells-Urine > 100 SEEN /hpf (0-5); White Blood Cells >100 SEEN /hpf (0-5)
[2022-03-27 03:44] VITALS: BP 141/74; PULSE 75; O2SAT 96
[2022-03-27] MEDS: Smz/Tmp Ds Tablet 1 TABLET PO (03:44)
== END 2022-03-27 03:46 | disposition home or self-care (01) ==
PROVIDERS: Emergency Provider Emergency Medicine; Visit Provider Emergency Medicine
DX: N39.0 Urinary tract infection, site not specified (principal); E11.9 Type 2 diabetes mellitus without complications; I10 Essential (primary) hypertension; I25.10 Atherosclerotic heart disease of native coronary artery without angina pectoris; G47.30 Sleep apnea, unspecified; Z79.82 Long term (current) use of aspirin; Z79.899 Other long term (current) drug therapy; Z79.84 Long term (current) use of oral hypoglycemic drugs; Z86.73 Personal history of transient ischemic attack (TIA), and cerebral infarction without residual deficits; Z87.891 Personal history of nicotine dependence
CPT/HCPCS: 81001; 87086; 99283

== ENCOUNTER 2022-04-24 12:38 | Emergency (ER) | payer OTHER, SELFPAY ==
[2022-04-24 12:39] VITALS: BP 148/71; PULSE 80; RESP 17; TEMP 36.7; O2SAT 97; BMI 36.6
--- NOTE | 2022-04-24 12:46 | EX.ED.DYSGE1 ---
HPI History of Present Illness Chief Complaint: Complaint Detail of Chief Complaint: Dysuria, frequency and hematuria Informant: patient Onset/Context/Timing Onset: Hours Context: Sudden Onset Timing: Intermittent Quality: Urinary tract symptoms Location: lower Current Severity: Gone Maximum Severity: Moderate Worsened by: When patient urinates Relieved by: NA Associated Symptoms Associated Symptoms: No other symptoms Narrative Narrative: Patient is a 76-year-old who presents with urinary symptoms started this morning. Is had recurrent urine tract infection since in the year. This was related to indwelling [place] at that time. Tonight patient denies fever, chills night sweats. Patient denies back pain or flank pain. Patient does complain of suprapubic pressure. Prior similar symptoms: Yes Recent Illness/Hospitalization: Yes [facility] Medical History (Updated 04/24/22 @ 13:[address] Abhijeet Vasquez MD) Chest pain Coronary artery disease CVA (cerebral vascular accident) Diabetes Former smoker High cholesterol HTN (hypertension) Sleep apnea Subdural hematoma UTI (urinary tract infection) Home Medications lisinopril 40 mg PO DAILY #30 tab 04/28/21 [Rx Last Taken 03/26/22] nifedipine 90 mg PO DAILY #30 tab 04/28/21 [Rx Last Taken 03/26/22] Neuropathy Pain Cream 1 pump TRANSDERMAL TID PRN 05/10/21 [History Last Taken 03/26/22] doxazosin 2 mg PO DAILY 05/10/21 [History Last Taken 03/26/22] glipizide 10 mg PO BID 05/10/21 [History Last Taken 03/26/22] meclizine 12.5 mg PO BID PRN 05/10/21 [History Last Taken 03/26/22] metformin 1,000 mg PO BID 05/10/21 [History Last Taken 03/26/22] hydralazine 100 mg PO TID #180 tab 03/07/22 [Rx Last Taken 03/26/22] labetalol 300 mg PO Q6H #120 tab 03/07/22 [Rx Last Taken 03/26/22] aspirin 81 mg PO BREAKFAST 03/27/22 [History Last Taken 03/26/22] sulfamethoxazole-trimethoprim [Bactrim DS] 1 tab PO BID #20 tab 03/27/22 [Rx Last Taken Unknown] sulfamethoxazole-trimethoprim 1 tab PO BID #14 tablet 04/24/22 [Rx Last Taken Unknown] Allergy/AdvReac Type Severity Reaction Status Date / Time No Known Allergies Allergy Verified 04/24/22 12:39 Family History Mother Dementia Parkinsons disease Father Heart disease Hypertension Myocardial infarction CVA (cerebral vascular accident) CAD (coronary artery disease) Surgical History History of appendectomy S/P appendectomy S/P CABG x 4 Social History household members: spouse Smoking Status: Former smoker how long ago did patient quit smoking: Smoked in [employer] x 7 years, quit 1978, cigars. 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 substance use type: does not use ROS ROS ED Constitutional Constitutional ED: Denies chills, fever(s), subjective or sweats Eyes Eyes: Denies blurry vision or change in vision Gastrointestinal Gastrointestinal: Denies abdominal pain, diarrhea, nausea or vomiting Genitourinary Genitourinary ED: Reports dysuria, hematuria and urinary frequency Musculoskeletal Musculoskeletal: Denies arthralgias, back pain or myalgias Neurologic Neurologic: Denies weakness Hematologic/Lymphatic Hematologic/Lymphatic: Denies anemia, easy bleeding or easy bruising EXAM Physical Exam Const Vital Signs: 04/24/22 12:39 Temperature 98.1 F Temperature Source Temporal Pulse Rate 80 Respiratory Rate 17 Blood Pressure 148/71 H Blood Pressure Mean 96 Pulse Ox 97 Oxygen Delivery Method Room Air Positive well nourished, well developed and obese General Appearance ED: well developed and NAD Nutritional Appearance: obese HEENT Reports moist mucous membranes Negative for trauma or tenderness Eyes PERRL and EOMs intact bilaterally General Eye ED: Negative for pale conjunctiva Neck no lymphadenopathy and supple Resp normal respiratory effort and clear to auscultation bilaterally Cardio regular rate, S1 normal heart sound, S2 normal heart sound and no murmurs GI normal to inspection, nondistended, normoactive bowel sounds and non-tender Palpation: soft Back/Spine General Back: CVA tenderness Neuro oriented x3, CN's II-XII intact bilaterally and no sensory deficits noted Sensorium / Orientation: alert Motor Exam: strength 5/5 throughout Psych mental status grossly normal MDM MDM MDM Narrative Medical decision making narrative: Patient has symptoms consistent with urinary tract infection. Patient does have blood tinged turbid appearing urine. UA was ordered as well as culture. Since he has no systemic symptoms blood work was not ordered. Lab Data Attestation: I reviewed the patient's lab results. Lab results narrative: Patient's urine is consistent with infection. Culture was sent since he has had recurrent infections. He was treated with Bactrim. Labs: Laboratory Results - last 24 hr 04/24/22 12:00 Urine Color Brown Urine Clarity Cloudy Urine pH 6.0 Ur Specific [place] 1.015 Urine Protein 100 H Urine Glucose (UA) 250 H Urine Ketones Negative Urine Occult Blood 250 H Urine Nitrite Negative Urine Bilirubin Negative Urine Urobilinogen Normal Ur Leukocyte Esterase 500 H Discharge Plan Triage Chief Complaint: Complaint ED Provider: Abhijeet Vasquez Dx/Rx/DC Orders Clinical Impression: Urinary tract infection Instructions: ED Bladder Infection, Male (Adult) Prescriptions: New sulfamethoxazole-trimethoprim [sulfamethoxazole-trimethoprim] 1 TABLET tablet 1 tab PO BID Qty: 14 RF: 0 No Action nifedipine 90 MG tablet 90 mg PO DAILY Qty: 30 RF: 0 lisinopril 40 MG tablet 40 mg PO DAILY Qty: 30 RF: 0 metformin 500 MG tablet 1,000 mg PO BID RF: 0 glipizide 10 mg tablet 10 mg PO BID RF: 0 meclizine 12.5 MG tablet 12.5 mg PO BID PRN (Reason: as needed for dizziness) RF: 0 doxazosin 2 mg tablet 2 mg PO DAILY RF: 0 Neuropathy Pain Cream 0.5 ml ointment 1 pump transdermal TID PRN (Reason: Neuropathy pain) RF: 0 labetalol 300 mg tablet 300 mg PO Q6H Qty: 120 RF: 0 hydralazine 50 mg tablet 100 mg PO TID Qty: 180 RF: 0 aspirin 81 mg tablet,chewable 81 mg PO BREAKFAST RF: 0 sulfamethoxazole-trimethoprim [Bactrim DS] 800-160 mg tablet 1 tab PO BID Qty: 20 RF: 0 [facility] [facility] - 3-5 Days Disposition Disposition: Home, Self Care
[2022-04-24 13:05] LABS: Mucous, Urine 0 SEEN /hpf (<or=2+); Squamous Epithelial Cells - UA 0 SEEN /hpf (0-5)
[2022-04-24 13:07] LABS: Color, Urine Brown (Yellow); Glucose, Dipstick 250 mg/dl (Normal); Ketone-Dipstick Negative (Negative); Leukocyte Esterase-Dipstick 500 /ul (Negative); Nitrite-Dipstick Negative (Negative); Occult Blood-Urine 250 /ul (Negative); Protein-Dipstick 100 mg/dl (Negative); Specific Gravity, Urine 1.015 (1.002-1.030); Urine Bilirubin Dipstick Negative (Negative); Urine Clarity Cloudy (Clear); Urine Urobilinogen Normal (Normal)
[2022-04-24 13:18] LABS: Bacteria 4+ /hpf (None Seen); Red Blood Cells-Urine 50-100 SEEN /hpf (0-5); White Blood Cells 25-50 SEEN /hpf (0-5)
[2022-04-24] MEDS: Smz/Tmp Ds Tablet 1 TABLET PO (13:26)
== END 2022-04-24 13:38 | disposition home or self-care (01) ==
PROVIDERS: Emergency Provider Emergency Medicine; Visit Provider Emergency Medicine
DX: N39.0 Urinary tract infection, site not specified (principal); E11.9 Type 2 diabetes mellitus without complications; I25.10 Atherosclerotic heart disease of native coronary artery without angina pectoris; I10 Essential (primary) hypertension; G47.30 Sleep apnea, unspecified; E66.9 Obesity, unspecified; Z79.82 Long term (current) use of aspirin; Z79.84 Long term (current) use of oral hypoglycemic drugs; Z79.899 Other long term (current) drug therapy; Z86.73 Personal history of transient ischemic attack (TIA), and cerebral infarction without residual deficits; Z87.891 Personal history of nicotine dependence
CPT/HCPCS: 81001; 87086; 87088; 99283

== ENCOUNTER 2022-11-02 14:30 | Outpatient (RCR) | payer OTHER, SELFPAY ==
--- NOTE | 2022-09-14 13:18 | HP.PTEVAL_ITS ---
Patient's Visit Information JIM BERNSTEIN is a 66 year old M referred to Physical Therapy by Dr. Matt Tong MD with a diagnosis of TBI. Date of Evaluation: 09/14/22 Physical Therapist: Hmia Francois, PT, ATC - Visit Plan Frequency: 2-3x /Week Duration: 4 Weeks Plan: B LE strengthening, balance and proprio, core stab ex's, gait training, stair negotiation, nustep, and HEP - Subjective TBI: 11/30/21. Pt was loading his truck at work when he fell backwards and hit his head resulting in a TBI. Pt was in the ICU for about 2 months, then to the senior care for about a week. Pt reports he has been home since. Pt notes he has memory deficits and hearing loss since the DOI. Pt reports his LE's are weak, which results in him having trouble with walking, standing, and transferring from sit to stand. Pt is currently using a cane, but notes he never used an AD prior to the injury. Pt reports he was unable to walk for 4 months, and was mostly in a wheelchair for that time. Pt then transitioned to a walker and then a cane. 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 Pt reports he has a hard time grocery shopping as he needs a cart to lean on secondary to weakness and instability. Pt reports he has had a couple falls over the past couple months due to his legs being weak. Pt has 3 stairs at home which he negotiates one step at a time. Pt reports his vision is still off. Pt has no pain today. - Objective Neuro: B LE sensation is WNL to light touch. B patellar reflex= 2/3. ROM: B LE's are WFL when compared bilaterally. MMT: B LE's are grossly 4-/5 throughout. FGA: 07/12 indicating severe balance deficits - Balance/Special Test Scores Functional Gait Assessment Score: 8 % Disability: 73.3400 Lower Extremity Functional Score: 16 - Goals Goal 1:: Increase B LE strength x 1 grade to aid with stair negotiation Goal Time Frame: 4-6 Weeks Goal 2:: Increase FGA score x 5 pnts to aid with preventing future falls Goal Time Frame: 4-6 Weeks Goal 3:: Pt will be able to negotiate stairs reciprocally with one handrail to aid with community mobility Goal Time Frame: 4-6 Weeks Goal 4:: I with HEP Goal Time Frame: 4-6 Weeks - Rehabilitation Potential Physical Therapy Diagnosis: Pt has LE weakness, difficulty with gait, and decreased balance secondary to TBI Rehabilitation Potential: Good - Anticipated Interventions Patient/Client Instruction: Educate patient on: Condition, Plan of Care For the Purpose of:: To improve self management Therapeutic Exercise to Include: Strength training, Endurance training, Balance training, Gait and locomotor training, Dynamic Lumbar Stabilization For the Purpose of:: To improve muscle performance and motor function, To increase tolerance to activity/condition/position, To decrease level of supervision to perform tasks Thank you for the opportunity to evaluate your patient. For Medicare and Medicare HMO plans, please review the plan of care and approve it. It will need to be FAXED BACK to us at [phone] for Medicare purposes. For Medicare only, by signing this I certify the plan of care. Please let me know if there are questions or concerns regarding this plan of care. Physician Signature: Date:
--- NOTE | 2022-09-16 11:57 | HP.OTEVAL_ITS ---
Patient's Visit Information JIM BERNSTEIN is a 66 year old M, referred to Occupational Therapy by Dr. Matt Tong MD, with a diagnosis of TBI. Date of Evaluation: 09/14/22 Occupational Therapist: Brittney Singh, LADONNA/Owen, CHT - Subjective This 66 year old male was seen for OT eval with dx of TBI. Pt states new dx is spinal stenosis, CTS and pinched nerve. pt sates he is going to see Dr. Williamson 2021 at 8:30. pt states he has numbness and tingling in bilateral hands- pt states also right side of his face is numb and he can't taste anything. pt would like to regain his strength so he can be more ind. with ADLS and IADLS. - ROM ROM Comments: pt demo ROM WNL - Strength [employer]: right 65 left 75 Lateral Pinch: right 10 left 6 Tripod Pinch: right 6 left 4 Tip-to-Tip Pinch: right 6 left 6 Strength Comments: pt demo with generalized weakness - Sensation Thumb: right 3.22 left 3.22 Index: right 3.22 left 3.22 Middle: right 3.22 left 3.22 Ring: right 3.22 left 3.22 Little: right 3.22 left 3.22 - Nine Hole Peg Right: 40.02 sec. Left: 38.51 sec. - Quick DASH-Disab of Arm,Shoulder& Hand Quick DASH Score: 76.6650 - Goals Goal:: Pt. will increase UB strength for home mgt tasks at Mod I level by dc. pt will demo a increase in B animal caretaker strength by 15# to increase his ind. with ADLs and IADls. pt will demo a increase in bilateral UE demo ind. box lift of 40# knee high to waist level to increase pts ind. with ADls and IADLS. Goal:: Pt. will complete 30 minutes of medium intensity work in preparation to paint bathroom by dc. pt will demo use of bilateral UE simultaneously for 15-30 min without rest breaks indicating increase in endurance/strength to perform ADLs and IADLS and home mtg. by d/c - Rehabilitation General Assessment: pt demo with a decrease in UB strength limiting pts ind. wi th ADLs and IADLs. pt would benefit from skilled OT services 2x week for 4 weeks to return pts strength at PLOF. Pt agrees with POC. Rehabilitation Potential: Good - Anticipated Interventions Strengthening, Ergonomic Education, Neuro Reeducation, Education re assistive Equipment, Education re Diagnosis, Caregiver Training, Home Program - Visit Plan Frequency: 2-3x /Week Duration: 4 Weeks TEXT: Thank you for the opportunity to evaluate your patient. For Medicare and Medicare HMO plans, please review the plan of care and approve it. It will need to be FAXED BACK to us at [phone] for Medicare purposes. Please let me know if there are questions or concerns regarding this plan of care. Physician Signature: Date:
--- NOTE | 2022-10-17 10:06 | HP.PTREVAL ---
Dr. Matt Tong MD, It has been my pleasure to treat JIM BERNSTEIN over the last 5 visits for TBI. Please see the progress note below for an update on the physical therapy plan of care! Subjective: Pt reports he feels ready for discharge Objective/Function: B LE strength is grossly 4/5. FGA: . Pt is able to negotiate stairs reciprocally, but uses 2 handrails for assistance. Pt is progressing well, but would benefit from further PT for balance and strengthening. Plan Plan: B LE strengthening, balance and proprio, core stab ex's, gait training, stair negotiation, nustep, and HEP Balance/Gait/Functional tests - Balance/Special Test Scores Functional Gait Assessment Score: 14 % Disability: 53.3400 Lower Extremity Functional Score: 16 Goals Goal 1:: Increase B LE strength x 1 grade to aid with stair negotiation Goal Time Frame: 4-6 Weeks Goal Progress: Progressing Goal 2:: Increase FGA score x 5 pnts to aid with preventing future falls Goal Time Frame: 4-6 Weeks Goal Progress: Goal Met Goal 3:: Pt will be able to negotiate stairs reciprocally with one handrail to aid with community mobility Goal Time Frame: 4-6 Weeks Goal Progress: Progressing Goal 4:: I with HEP Goal Time Frame: 4-6 Weeks Goal Progress: Goal Met Anticipated Interventions Patient/Client Instruction: Educate patient on: Condition, Plan of Care For the Purpose of:: To improve self management Therapeutic Exercise to Include: Strength training, Endurance training, Balance training, Gait and locomotor training, Dynamic Lumbar Stabilization For the Purpose of:: To improve muscle performance and motor function, To increase tolerance to activity/condition/position, To decrease level of supervision to perform tasks Please do not hesitate to contact me at [phone] by phone or if you have questions or concerns regarding this new plan of care! Sincerely, Hima Francois, PT, ATC
--- NOTE | 2023-01-03 08:17 | HP.OT.NRP ---
JIM BERNSTEIN was seen in my office for initial evaluation on 09/14/22. The following Plan of Care was established for this patient: Initial Frequency: 2-3x /Week Initial Duration: 4 Weeks Plan: Work man comp ends 11/04/22. Anticipated Interventions: Strengthening, Ergonomic Education, Neuro Reeducation, Education re assistive Equipment, Education re Diagnosis, Caregiver Training, Home Program This patient was last seen in our office 11/04/22. Pertinent comments regarding their Occupational therapy will appear below: pts insurance auth. is exp. pt d/c at this time. At this point I will be discontinuing this patient from occupational therapy. I would be happy to see this patient again in the future if found appropriate by the physician. Thank you! Brittney Singh, OTR/L, CHT
--- NOTE | 2023-01-06 07:18 | HP.PT.NRP ---
JIM BERNSTEIN was seen in my office for initial evaluation on 09/14/22. The following Plan of Care was established for this patient: Initial Frequency: 2-3x /Week Initial Duration: 4 Weeks Patient/Client Instruction: Educate patient on: Condition, Plan of Care For the Purpose of:: To improve self management Therapeutic Exercise to Include: Strength training, Endurance training, Balance training, Gait and locomotor training, Dynamic Lumbar Stabilization For the Purpose of:: To improve muscle performance and motor function, To increase tolerance to activity/condition/position, To decrease level of supervision to perform tasks This patient was last seen in our office . Pertinent comments regarding their Physical therapy will appear below: Pt was treated for 8 PT visits secondary to TBI through the date of 11/02/22. Pt has not returned since that date and is discontinued at this time. At this point I will be discontinuing this patient from physical therapy. I would be happy to see this patient again in the future if found appropriate by the physician. Thank you! Hima Francois, PT, ATC Balance/Gait/Functional tests - Balance/Special Test Scores Functional Gait Assessment Score: 14 % Disability: 53.3400 Lower Extremity Functional Score: 16
== END 2022-11-02 19:00 | disposition home or self-care (01) ==
LOC: OT 14:30
PROVIDERS: Referring Provider Neurological Surgery; Visit Provider Neurological Surgery
DX: S06.9X9D Unspecified intracranial injury with loss of consciousness of unspecified duration, subsequent encounter (principal)
CPT/HCPCS: 97110; 97161; 97164; 97165; 97166; 97530

== ENCOUNTER 2022-12-27 22:13 | Emergency (ER) | payer OTHER, SELFPAY ==
[2022-12-27 22:14] VITALS: BP 157/75; PULSE 82; RESP 15; TEMP 36.2; O2SAT 97; BMI 38.0
--- NOTE | 2022-12-27 23:07 | EDS_ITS ---
HPI History of Present Illness Chief Complaint: Upper Extremity Injury Narrative Narrative: Patient is a 67-year-old male with past medical history of hypertension hyperlipidemia and diabetes. He had an outpatient left carpal tunnel surgery performed 4 days ago at an outside hospital. states that she was rubbing his arm today and she felt a lump. She states she was very concerned that this lump is a blood clot and secondary to his had the patient brought in for evaluation. The patient denies any numbness tingling or weakness to his left arm. He reports the recent surgery but otherwise denies any travel history of hormone use or previous DVT/PE. He also denies any pain in the arm at this time chest pain or shortness of breath. However as there was concern for DVT he presents for evaluation [facility] Medical History (Updated 12/28/22 @ 05:[address] Julio Cesar Larios, ) Chest pain Coronary artery disease CVA (cerebral vascular accident) Diabetes Former smoker High cholesterol HTN (hypertension) Sleep apnea Subdural hematoma UTI (urinary tract infection) Home Medications lisinopril 40 mg tablet 40 mg PO DAILY blood pressure #30 tabs 04/28/21 [Rx Last Taken 03/26/22] nifedipine 90 mg tablet,extended release 90 mg PO DAILY blood pressure #30 tabs 04/28/21 [Rx Last Taken 03/26/22] Neuropathy Pain Cream 1 pump transdermal TID PRN Neuropathy pain 05/10/21 [History Last Taken 03/26/22] doxazosin 2 mg tablet 2 mg PO DAILY hypertension 05/10/21 [History Last Taken 03/26/22] meclizine 12.5 mg tablet 12.5 mg PO BID PRN as needed for dizziness 05/10/21 [History Last Taken 03/26/22] metformin 500 mg tablet 1,000 mg PO BID diabetes 05/10/21 [History Last Taken 03/26/22] hydralazine 50 mg tablet 100 mg PO TID #180 tabs 03/07/22 [Rx Last Taken 03/26/22] aspirin 81 mg chewable tablet 81 mg PO BREAKFAST heart health 03/27/22 [History Last Taken 03/26/22] sulfamethoxazole 800 mg-trimethoprim 160 mg tablet (Bactrim DS) 1 tab PO BID #20 tabs 03/27/22 [Rx Last Taken 04/10/22] carvedilol 25 mg tablet 25 mg PO BID 04/24/22 [History Last Taken Unknown] sulfamethoxazole 800 mg-trimethoprim 160 mg tablet 1 tab PO BID #14 TABLETS 04/24/22 [Rx Last Taken Unknown] Allergy/AdvReac Type Severity Reaction Status Date / Time No Known Allergies Allergy Verified 04/24/22 12:39 Family History Mother Dementia Parkinsons disease Father Heart disease Hypertension Myocardial infarction CVA (cerebral vascular accident) CAD (coronary artery disease) Surgical History History of appendectomy S/P appendectomy S/P CABG x 4 Social History household members: spouse Smoking Status: Former smoker how long ago did patient quit smoking: Smoked in [employer] x 7 years, quit 1978, cigars. 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 substance use type: does not use ROS ROS ED Constitutional Constitutional ED: Denies chills or fever(s) ENT ENT ED: Denies sore throat Cardiovascular Cardiovascular: Denies chest pain, palpitations or racing heartbeat Respiratory/Chest Respiratory/Chest: Denies cough or dyspnea Gastrointestinal Gastrointestinal: Denies abdominal pain, diarrhea, nausea or vomiting Genitourinary Genitourinary ED: Denies dysuria Musculoskeletal Musculoskeletal: Denies myalgias Integumentary Denies rash Neurologic Neurologic: Denies headache(s) Hematologic/Lymphatic Hematologic/Lymphatic: Denies easy bleeding or easy bruising EXAM Physical Exam Const Vital Signs: 12/27/22 22:14 Temperature 97.2 F L Temperature Source Temporal Pulse Rate 82 Respiratory Rate 15 Blood Pressure 157/75 H Blood Pressure Mean 102 Pulse Ox 97 Oxygen Delivery Method Room Air Positive well nourished and well developed General Appearance ED: well developed Eyes PERRL and EOMs intact bilaterally Neck supple Resp normal respiratory effort and clear to auscultation bilaterally Cardio regular rate and regular rhythm Extremity Extremity Narrative: Left upper extremity is neurovascularly intact; AIN/PIN are intact and normal. Patient has postsurgical changes to the dorsal aspect of the left palm/hand consistent with carpal tunnel surgery and these wound are clean dry and intact. There is no asymmetric edema or erythema or pain with palpation of the left arm to suggest DVT or secondary cellulitis or abscess formation. Neuro oriented x3 and CN's II-XII intact bilaterally Sensorium / Orientation: alert Psych mental status grossly normal Skin no rashes or lesions noted Skin Narrative: Surgical changes to the left hand/arm as documented above MDM MDM MDM Narrative Medical decision making narrative: Patient presented to the ER slightly hypertensive but does have a past medical history of this. Otherwise vitals are stable. Patient and had concern for an upper extremity DVT because of his recent carpal tunnel surgery and the lump felt in the upper left arm. On exam there is no asymmetric edema he has no erythema or warmth and I have low concern that this is a upper extremity DVT abscess or cellulitis. I recommended we obtain a venous duplex to rule this out completely. At this time of night I do not have access to an upper extremity DVT study. As the patient does not have chest pain or shortness of breath he is not tachycardic I do not feel there is a need for a D-dimer or further cardiac work-up. He will be given an outpatient venous duplex order to have the study done tomorrow. As my concern for DVT is low I do not want to place him on Lovenox either. This plan of care was discussed with the patient and his and they are agreeable to it Discharge Plan Triage Chief Complaint: Upper Extremity Injury ED Provider: Julio Cesar Larios Dx/Rx/DC Orders Clinical Impression: Left upper arm pain, Hypertension, High cholesterol Instructions: Understanding the Pain Response Prescriptions: No Action nifedipine 90 MG tablet 90 mg PO DAILY Qty: 30 0RF lisinopril 40 MG tablet 40 mg PO DAILY Qty: 30 0RF metformin 500 MG tablet 1,000 mg PO BID meclizine 12.5 MG tablet 12.5 mg PO BID PRN (Reason: as needed for dizziness) doxazosin 2 mg tablet 2 mg PO DAILY Neuropathy Pain Cream 0.5 ml ointment 1 pump transdermal TID PRN (Reason: Neuropathy pain) hydralazine 50 mg tablet 100 mg PO TID Qty: 180 0RF aspirin 81 mg tablet,chewable 81 mg PO BREAKFAST sulfamethoxazole-trimethoprim [Bactrim DS] 800-160 mg tablet 1 tab PO BID Qty: 20 0RF sulfamethoxazole-trimethoprim [sulfamethoxazole-trimethoprim] 1 TABLET tablet 1 tab PO BID Qty: 14 0RF carvedilol 25 mg Tablet 25 mg PO BID Other Ambulatory Orders: Venous Duplex US, Unilateral (Stat) Facility: [facility] - Location: [facility] Ordered By: Dr. Julio Cesar Larios [facility] [Primary [facility] Provider] - Activity Restrictions/Additional Instructions: Your risk factors and physical exam do not suggest blood clot but as there is a concern for this because of your recent carpal tunnel surgery a venous duplex for your arm has been ordered. This cannot be performed at this time of night so therefore return tomorrow as directed on your order. If there are any further concerns or worsening of symptoms please return for repeat evaluation Disposition Disposition: Home, Self Care Discharge Date/Time: 12/27/22 23:25
[2022-12-27 23:24] VITALS: BP 145/76; PULSE 74; RESP 18; O2SAT 100
== END 2022-12-27 23:25 | disposition home or self-care (01) ==
PROVIDERS: Emergency Provider Emergency Medicine; Visit Provider Emergency Medicine
DX: M79.622 Pain in left upper arm (principal); I10 Essential (primary) hypertension; E78.00 Pure hypercholesterolemia, unspecified; I25.10 Atherosclerotic heart disease of native coronary artery without angina pectoris; G47.30 Sleep apnea, unspecified; Z86.73 Personal history of transient ischemic attack (TIA), and cerebral infarction without residual deficits; Z95.1 Presence of aortocoronary bypass graft; Z87.891 Personal history of nicotine dependence
CPT/HCPCS: 99282

== ENCOUNTER → 2022-12-28 | Outpatient (CLI) | payer SELFPAY | END | disposition home or self-care (01) | PROVIDERS: Visit Provider Emergency Medicine | DX: M79.602 Pain in left arm (principal) ==

== ENCOUNTER 2023-01-07 11:39 | Inpatient (IN) | payer OTHER, SELFPAY ==
[2023-01-07] VITALS (10 sets, daily range): BP systolic 128–150; BP diastolic 61–74; PULSE 81–93; RESP 16; TEMP 36.3–37.2; O2SAT 92–97; BMI 38.7; BMI 38.2
--- NOTE | 2023-01-07 12:05 | EX.ED.DYSGE1 ---
HPI <KAMALA Schaefer - Last Filed: 01/07/23 14:49> History of Present Illness Chief Complaint: Wound Narrative Narrative: 67-year-old male with history of hypertension, hyperlipidemia, anxiety, diabetes who presents to the emergency department for concern of left hand infection. Patient had carpal tunnel surgery done by Dr. Mendoza at [place] on December 23, 2022. Patient had his stitches removed on January 04, 2023. Over the last 2 days, patient has had worsening pain, redness to his palm that radiates to his forearm. Patient states that he feels subjective chills. Patient is able to open and close his hand however causes significant pain. He did have some yellow to white drainage from the wound. [facility] <KAMALA Schaefer - Last Filed: 01/07/23 14:49> [facility] Medical History (Updated 01/07/23 @ 14:49 by KAMALA Schaefer) Chest pain Coronary artery disease CVA (cerebral vascular accident) Diabetes Former smoker High cholesterol HTN (hypertension) Sleep apnea Subdural hematoma UTI (urinary tract infection) Home Medications doxazosin 2 mg tablet 2 mg PO DAILY BLOOD PRESSURE 05/10/21 [History Last Taken 01/06/23] meclizine 12.5 mg tablet 6.25 mg PO BID DIZZINESS 05/10/21 [History Last Taken 01/06/23] metformin 500 mg tablet 1,000 mg PO QPM DIABETES 05/10/21 [History Last Taken 01/06/23] carvedilol 25 mg tablet 25 mg PO BID HEART 04/24/22 [History Last Taken 01/06/23] Cinnamon 1,200 mg PO/SL DAILY SUPPLEMENT 01/07/23 [History Last Taken 01/06/23] amlodipine 10 mg tablet 10 mg PO DAILY BLOOD PRESSURE 01/07/23 [History Last Taken 01/06/23] aspirin 81 mg tablet,delayed release 81 mg PO DAILY HEART HEALTH 01/07/23 [History Last Taken 01/06/23] fluticasone propionate 50 mcg/actuation nasal spray,suspension 1 spray intranasal UD CONGESTION 01/07/23 [History Last Taken 01/06/23] hydralazine 50 mg tablet 100 mg PO TIDCM BLOOD PRESSURE 01/07/23 [History Last Taken 01/06/23] lisinopril 40 mg tablet 40 mg PO DAILY BLOOD PRESSURE 01/07/23 [History Last Taken 01/06/23] pregabalin 25 mg capsule 25 mg PO QHS Check with primary doctor 01/07/23 [History Last Taken 01/06/23 22:00] rosuvastatin 20 mg tablet 20 mg PO DAILY CHOLESTEROL 01/07/23 [History Last Taken 01/07/23] semaglutide (weight loss) 0.5 mg/0.5 mL subcutaneous pen injector 0.5 mg subcut SA DIABETES 01/07/23 [History Last Taken 12/31/22] sertraline 100 mg tablet (Zoloft) 100 mg PO DAILY DEPRESSION/ANXIETY 01/07/23 [History Last Taken 01/06/23] Allergy/AdvReac Type Severity Reaction Status Date / Time gabapentin Allergy NEEDS Verified 01/07/23 11:42 FOLLOW-UP Family History Mother Dementia Parkinsons disease Father Heart disease Hypertension Myocardial infarction CVA (cerebral vascular accident) CAD (coronary artery disease) Surgical History History of appendectomy S/P appendectomy S/P CABG x 4 Social History household members: spouse Smoking Status: Former smoker how long ago did patient quit smoking: Smoked in [employer] x 7 years, quit 1978, cigars. 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 substance use type: does not use ROS <KAMALA Schaefer - Last Filed: 01/07/23 14:49> ROS ED ROS Narrative Constitutional: Negative for fever, weight loss, weakness. Positive for chills Eyes: Negative for vision loss, vision change, double vision ENT: Negative for any sore throat, ear pain, congestion Cardiovascular: Negative for any chest pain, tightness, palpitations Respiratory: Negative for any cough, sputum production, hemoptysis, dyspnea, dyspnea on exertion, orthopnea Gastrointestinal: Negative for any abdominal pain, nausea, vomiting, diarrhea, constipation, blood in stool, blood in vomit : Negative for any urinary frequency, dysuria, retention, blood in urine Muscle skeletal: Negative for any muscle joint pain, stiffness, myalgias, arthralgias, neck pain, back pain. Positive for left hand pain, redness Neurological: Negative for any headache, syncope, numbness or tingling, dizziness Skin: Negative for any rashes, lumps, itching, abrasions, lacerations. Positive for erythema, pain and swelling to the palm of the left hand Psychiatric: Negative for any depression, anxiety, stress, suicidal ideation, homicidal ideation Hematologic: Negative for any easy bruising, excessive bruising, easy bleeding Allergies: Negative for any eczema, hives, rash EXAM <KAMALA Schaefer - Last Filed: 01/07/23 14:49> Physical Exam Narrative Exam Narrative: Vital signs reviewed. Patient alert and orient x4. HEET: Head normocephalic atraumatic, TMs clear bilaterally. Posterior pharynx is clear, moist mucous membranes. Nares clear bilaterally. Neck: Supple with no lymphadenopathy or tenderness. No signs of meningismus, negative jolt sign. Cardiac: Regular rate and rhythm no murmurs gallops or rubs, equal peripheral pulses bilaterally. Respiratory: Lungs clear to auscultation bilaterally. No chest tenderness. Abdomen: Soft, nontender, nondistended. No abdominal bruit or pulsatile masses. No hepatosplenomegaly Extremities: No peripheral edema, no signs of gross trauma or deformity. Active full range of motion of all extremities. Patient is able to flex and extend his fingers of his left hand. On the palmar aspect, patient does have a 2.5 cm vertical surgical incision. This does appear to be erythemic, edematous, there is cellulitis surrounding the area that is extending into the anterior forearm. There is some streaking continuing. The surgical site does appear to be infected, there is slight dehiscence, as well as gross drainage. Radial pulse +2. No neurological focal deficit Neuro: Cranial nerves II through XII intact, no focal neurological deficits. Skin: Clean dry and intact with no rash, purpura, petechiae, vesicles or pustules. Backs/flank: No CVA tenderness, no midline spinal tenderness, no deformity. Psych: Normal mood and affect. No SI, HI or acute psychosis. Const Vital Signs: 01/07/23 11:42 01/07/23 11:44 01/07/23 11:58 Temperature 97.3 F L 97.3 F L 99.0 F Temperature Source Temporal Temporal Oral Pulse Rate 93 93 88 Respiratory Rate 16 16 16 Blood Pressure 150/63 H 150/63 H 143/71 H Blood Pressure Mean 92 92 95 Pulse Ox 97 97 94 Oxygen Delivery Method Room Air Room Air Room Air 01/07/23 12:58 01/07/23 13:00 01/07/23 14:00 Temperature 98.9 F 98.9 F 98.3 F Temperature Source Oral Oral Oral Pulse Rate 88 88 83 Respiratory Rate 16 16 16 Blood Pressure 130/64 H 130/64 H 143/74 H Blood Pressure Mean 86 86 97 Pulse Ox 95 94 95 Oxygen Delivery Method Room Air Room Air Room Air Positive well nourished and well developed General Appearance ED: well developed <Kamar Vega MD - Last Filed: 01/07/23 16:32> Physical Exam Const Vital Signs: 01/07/23 11:42 01/07/23 11:44 01/07/23 11:58 Temperature 97.3 F L 97.3 F L 99.0 F Temperature Source Temporal Temporal Oral Pulse Rate 93 93 88 Respiratory Rate 16 16 16 Blood Pressure 150/63 H 150/63 H 143/71 H Blood Pressure Mean 92 92 95 Pulse Ox 97 97 94 Oxygen Delivery Method Room Air Room Air Room Air 01/07/23 12:58 01/07/23 13:00 01/07/23 14:00 Temperature 98.9 F 98.9 F 98.3 F Temperature Source Oral Oral Oral Pulse Rate 88 88 83 Respiratory Rate 16 16 16 Blood Pressure 130/64 H 130/64 H 143/74 H Blood Pressure Mean 86 86 97 Pulse Ox 95 94 95 Oxygen Delivery Method Room Air Room Air Room Air MDM <KAMALA Schaefer - Last Filed: 01/07/23 14:49> MDM Lab Data Attestation: I reviewed the patient's lab results. Labs: Laboratory Results - last 24 hr 01/07/23 01/07/23 01/07/23 12:03 12:03 12:03 WBC 8.3 RBC 4.15 L Hgb 12.9 L Hct 37.3 L MCV 89.9 MCH 31.1 MCHC 34.6 RDW Std Deviation 41.5 RDW Coeff of Vern 12.7 Plt Count 147 L MPV 10.4 Immature Gran % (Auto) 0.200 Neut % (Auto) 76.9 H Lymph % (Auto) 14.5 L [place] % (Auto) 7.5 Eos % (Auto) 0.7 Baso % (Auto) 0.2 Absolute Neuts (auto) 6.4 Absolute Lymphs (auto) 1.20 Nucleated RBC % 0 ESR 40 H Sodium 137 Potassium 4.1 Chloride 108 H Carbon Dioxide 23.0 Anion Gap 6 BUN 24 H Creatinine 1.13 Estim Creat Clear Calc 61.70 Est GFR (MDRD) Af Amer 83 Est GFR (MDRD) Non-Af 68 BUN/Creatinine Ratio 21.2 H Glucose 232 H Lactic Acid 1.4 Calcium 8.7 C-React Prot Ext Range 73.40 H Radiography Diagnostic Testing: Clinical Impression(s) from Imaging Studies Hand X-Ray 01/07/23 12:15 IMPRESSION: Degenerative changes. Atherosclerosis. Diffuse soft tissue swelling. Electronically Signed: Trixie Eaton MD at 12:32 EST , Treatment and Re-Evaluation Narrative: All radiologic examinations were read, reviewed by the emergency department attending. From these reads, a plan of care will be put in place. Patient appears to be in slight discomfort secondary to pain to the left hand. Patient appears to be nontoxic, vital signs are stable. Patient presents to the emergency department with redness post surgery of carpal tunnel to the left hand. The area does appear to be cellulitic, there is gross drainage noted. Secondary to the patient's past medical history of diabetes, a septic work-up were completed with 2 sets of blood cultures, inflammatory markers. Patient will be given IV fluids, IV clindamycin. Patient did receive an x-ray which showed degenerative changes, arthrosclerosis, as well as diffuse soft tissue swelling. Patient did receive laboratory values, patient CBC was within normal limits, patient's chemistries showed slight elevated blood glucose at 232. Lactic acid was negative. Patient's inflammatory markers were elevated with a ESR of 40, C-reactive protein is 73.4. I do believe the patient does need admission to the hospital for IV antibiotics. I spoke with , he did ask if I would talk to the hospitalist here to see if the patient can be admitted here for IV antibiotics rather than transfer. I spoke with the patient's surgeon, he recommended the patient stay at [facility] and receive IV antibiotics. I spoke with Dr. Vasquez, she will accept this patient. Patient is made aware, the is at bedside. The patient be staying at the [facility] to receive IV antibiotics. To be a full admission. At this time, is no evidence of any synovitis or osteomyelitis. <Kamar Vega MD - Last Filed: 01/07/23 16:32> [facility] MDM Narrative Medical decision making narrative: I have personally performed a face to face assessment of the patient and have reviewed the RITO Note. I performed a substantive portion of the visit including all aspects of the following. My thomas findings include: History is carpal tunnel release surgery on the left on December 23, stitches removed on the , 2-1/2 days ago drainage of pus, erythema noted. [id number]. Exam is afebrile. Vital signs noted. Nontoxic-appearing. Positive erythema with soft tissue swelling left wrist and forearm. Palpable pulse, radial Medical Decision Making check labs. Check x-ray. Discussed with surgeon at [facility] who performed surgery. Requests admission here for antibiotics. Discussed with hospitalist. Admit. Other additions or changes: [None] Lab Data Labs: Laboratory Results - last 24 hr 01/07/23 01/07/23 01/07/23 12:03 12:03 12:03 WBC 8.3 RBC 4.15 L Hgb 12.9 L Hct 37.3 L MCV 89.9 MCH 31.1 MCHC 34.6 RDW Std Deviation 41.5 RDW Coeff of Vern 12.7 Plt Count 147 L MPV 10.4 Immature Gran % (Auto) 0.200 Neut % (Auto) 76.9 H Lymph % (Auto) 14.5 L [place] % (Auto) 7.5 Eos % (Auto) 0.7 Baso % (Auto) 0.2 Absolute Neuts (auto) 6.4 Absolute Lymphs (auto) 1.20 Nucleated RBC % 0 ESR 40 H Sodium 137 Potassium 4.1 Chloride 108 H Carbon Dioxide 23.0 Anion Gap 6 BUN 24 H Creatinine 1.13 Estim Creat Clear Calc 61.70 Est GFR (MDRD) Af Amer 83 Est GFR (MDRD) Non-Af 68 BUN/Creatinine Ratio 21.2 H Glucose 232 H Lactic Acid 1.4 Calcium 8.7 C-React Prot Ext Range 73.40 H Radiography Diagnostic Testing: Clinical Impression(s) from Imaging Studies Hand X-Ray 01/07/23 12:15 IMPRESSION: Degenerative changes. Atherosclerosis. Diffuse soft tissue swelling. Electronically Signed: Trixie Eaton MD at 12:32 EST , Discharge Plan Dx/Rx/DC Orders Clinical Impression: Cellulitis of hand, Surgical site infection, Hyperglycemia Disposition Disposition: Acute Care Hospital [facility] Discharge Date/Time: 01/07/23 15:20
[2023-01-07 12:13] LABS: Absolute Neutrophil Count 6.4 X10^3/uL (2.0-7.7); Basophil# 0.02 X10^3/uL; Basophil% 0.2 % (0-1); Eosinophil# 0.06 X10^3/uL; Eosinophils% 0.7 % (0-5); Hematocrit 37.3 % (40-54); Hemoglobin 12.9 g/dL (13.0-16.5); Lymphocyte % 14.5 % (19-41); Mean Corp Hgb Conc 34.6 g/dL (32-36); Mean Corpuscular Hgb 31.1 pg (27.0-32.0); Mean Corpuscular Volume 89.9 fL (80-94); Mean Platelet Vol. 10.4 fl (6.2-12.0); Monocyte# 0.62 X10^3/uL; Monocyte% 7.5 % (0-10); NRBC Flagged by Analyzer 0 % (0-5); Neutrophil # 6.35 X10^3/uL (2.7-7.7); Neutrophil % 76.9 % (47-70); Platelet Count 147 K/mm3 (150-450); RBC Distribution Width CV 12.7 % (11.6-14.6); RBC Distribution Width SD 41.5 fl (35.1-43.9); Red Blood Count 4.15 M/mm3 (4.6-6.2); White Blood Count 8.3 K/mm3 (4.4-11.0)
--- NOTE | 2023-01-07 12:15 | RAD_ITS ---
INDICATION: infection EXAMINATION/TECHNIQUE: X-RAY - LEFT XR Hand Min 3 Views 3 VIEWS COMPARISON: None. FINDINGS: SOFT TISSUES: There are vascular calcifications. There is diffuse soft tissue swelling of the plantar aspect of the hand. BONES/JOINTS: No acute fracture or subluxation.. Normal alignment. There are degenerative changes of the radiocarpal and interphalangeal joints. No sclerotic or destructive changes observed. RAD/Hand Min 3 Views IMPRESSION: Degenerative changes. Atherosclerosis. Diffuse soft tissue swelling. Electronically Signed: Trixie Eaton MD at 12:32 EST ,
[2023-01-07] MEDS: 0.9% Normal Saline 1,000 ML 1000 ML IV (12:20)
[2023-01-07] MEDS: Morphine 4 MG/ML Syringe IV (12:20)
[2023-01-07] MEDS: Ondansetron 4 MG/2 ML Vial IV (12:21)
[2023-01-07 12:28] LABS: Erythrocyte Sedimentation Rate 40 mm/hr (0-20)
[2023-01-07 12:32] LABS: Anion Gap 6 (5-15); BUN 24 mg/dL (7-18); BUN/Creat Ratio 21.2 RATIO (10-20); Calcium,Total 8.7 mg/dL (8.5-10.1); Chloride 108 mmol/L (98-107); Creatinine, Serum 1.13 mg/dL (0.70-1.30); EST Glomerular Filtration Rate 68 mL/min (>60); Est Glom Filt Rate - Afr Amer 83 mL/min (>60); Glucose 232 mg/dL (74-106); Potassium 4.1 mmol/L (3.5-5.1); Sodium Level 137 mmol/L (136-145)
[2023-01-07 12:36] LABS: Lactic Acid 1.4 mmol/L (0.4-1.9)
[2023-01-07] MEDS: Clindamycin 900 MG/50 ML BAG 75 MG IV (12:47)
--- NOTE | 2023-01-07 14:03 | HP.PCM.HOS_ITS ---
HPI - General General Date of Admission: 01/07/23 Date of Service: 01/07/23 Chief Complaint: LUE swelling. HPI Narrative JIM BERNSTEIN, is a 67 M with [facility] as outlined who was admitted via the ED with a complaint of pain and swelling as well as redness. He had carpal tunnel surgery on his left wrist on in [facility]. He had the stitches taken out on January 02. He noted 2 days ago that he was having pain, redness and swelling over the site of the surgery. The redness, pain and swelling worsened and he couldnt fully make a fist. He also noted a discharge from the site of the surgery. THe redness started extending up his inner foream, up his wrist towards his antecubital fossa, and he had associated chills, so he decided to come in to the ED. HE denied fever, nausea or vomiting or any other trauma to the area. Review of systems was otherwise negative. ED doctor spoke to surgeon at [place] who stated that patient didnt need to be transferred as they didnt think he needed a washout,a nd would benefit from IV antibiotics. Patient also informed me he didnt want to go to [facility] and preferred to stay in [facility]. He is being admitted to be managed for right wrist post operative cellulitis. [facility] Medical History (Updated 01/07/23 @ 18:[address] Jeana Vasquez MD) Chest pain Coronary artery disease CVA (cerebral vascular accident) Diabetes Former smoker High cholesterol HTN (hypertension) Sleep apnea Subdural hematoma UTI (urinary tract infection) Home Medications doxazosin 2 mg tablet 2 mg PO DAILY BLOOD PRESSURE 05/10/21 [History Last Taken 01/06/23] meclizine 12.5 mg tablet 6.25 mg PO BID DIZZINESS 05/10/21 [History Last Taken 01/06/23] metformin 500 mg tablet 1,000 mg PO QPM DIABETES 05/10/21 [History Last Taken 01/06/23] carvedilol 25 mg tablet 25 mg PO BID HEART 04/24/22 [History Last Taken 01/06/23] Cinnamon 1,200 mg PO/SL DAILY SUPPLEMENT 01/07/23 [History Last Taken 01/06/23] amlodipine 10 mg tablet 10 mg PO DAILY BLOOD PRESSURE 01/07/23 [History Last Taken 01/06/23] aspirin 81 mg tablet,delayed release 81 mg PO DAILY HEART HEALTH 01/07/23 [History Last Taken 01/06/23] fluticasone propionate 50 mcg/actuation nasal spray,suspension 1 spray intranasal UD CONGESTION 01/07/23 [History Last Taken 01/06/23] hydralazine 50 mg tablet 100 mg PO TIDCM BLOOD PRESSURE 01/07/23 [History Last Taken 01/06/23] lisinopril 40 mg tablet 40 mg PO DAILY BLOOD PRESSURE 01/07/23 [History Last Taken 01/06/23] pregabalin 25 mg capsule 25 mg PO QHS Check with primary doctor 01/07/23 [Hi story Last Taken 01/06/23 22:00] rosuvastatin 20 mg tablet 20 mg PO DAILY CHOLESTEROL 01/07/23 [History Last Taken 01/07/23] semaglutide (weight loss) 0.5 mg/0.5 mL subcutaneous pen injector 0.5 mg subcut SA DIABETES 01/07/23 [History Last Taken 12/31/22] sertraline 100 mg tablet (Zoloft) 100 mg PO DAILY DEPRESSION/ANXIETY 01/07/23 [History Last Taken 01/06/23] Allergy/AdvReac Type Severity Reaction Status Date / Time gabapentin Allergy NEEDS Verified 01/07/23 11:42 FOLLOW-UP Family History Mother Dementia Parkinsons disease Father Heart disease Hypertension Myocardial infarction CVA (cerebral vascular accident) CAD (coronary artery disease) Surgical History History of appendectomy S/P appendectomy S/P CABG x 4 Social History household members: spouse Smoking Status: Former smoker how long ago did patient quit smoking: Smoked in x 7 years, quit 1978, cigars. 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 substance use type: does not use ROS Constitutional Constitutional: Reports chills and malaise; Denies anorexia, change in weight, fatigue, fever(s) or weakness Eyes Eyes: Denies change in vision ENT HEENT: Denies dysphagia, headache(s) or sore throat Cardiovascular Cardiovascular: Denies chest pain, dyspnea on exertion, edema, lightheadedness, orthopnea, palpitations, rapid heart rate or syncope Respiratory/Chest Respiratory/Chest: Denies cough, dyspnea, shortness of breath at rest or shortness of breath with exertion Gastrointestinal Gastrointestinal: Denies abdominal pain, constipation, diarrhea, nausea or vomiting Genitourinary Genitourinary: Denies dysuria or urinary frequency Musculoskeletal Musculoskeletal: Denies arthralgias or joint swelling Neurologic Neurologic: Denies confusion, dizziness, focal weakness, seizure-like activity or syncope Psychiatric Psychiatric: Denies anxiety Vital Signs Vital Signs Vital Signs: 01/07/23 11:42 01/07/23 11:44 01/07/23 11:58 Temperature 97.3 F L 97.3 F L 99.0 F Temperature Source Temporal Temporal Oral Pulse Rate 93 93 88 Respiratory Rate 16 16 16 Blood Pressure 150/63 H 150/63 H 143/71 H Blood Pressure Mean 92 92 95 Pulse Ox 97 97 94 Oxygen Delivery Method Room Air Room Air Room Air 01/07/23 12:58 01/07/23 13:00 Temperature 98.9 F 98.9 F Temperature Source Oral Oral Pulse Rate 88 88 Respiratory Rate 16 16 Blood Pressure 130/64 H 130/64 H Blood Pressure Mean 86 86 Pulse Ox 95 94 Oxygen Delivery Method Room Air Room Air Weight Weight: 262 lb Body Mass Index (BMI) 38.7 Physical Exam Const alert and oriented x3 General Appearance: cooperative HEENT normocephalic, head/scalp atraumatic, hearing grossly normal bilaterally, moist oral mucous membranes and oropharynx normal Mouth: oral and palatal mucosa normal Eyes PERRL and EOMs intact bilaterally Neck no lymphadenopathy and supple Resp normal respiratory effort, no retractions, no use of accessory muscles and clear to auscultation bilaterally Cardio regular rate, regular rhythm, S1 normal heart sound, S2 normal heart sound and no murmurs GI normal to inspection, nondistended, normoactive bowel sounds Extremity Extremity Narrative: Left hand is swollen, tender to touch, unable to fully make a fist. Has an erythematous incision over volar aspect of left wrist, with surgical site crusted over, minimal discharge erythema extending up from left inner wrist towards the antecubital fossa Skin Skin Narrative: As under extremity Neuro oriented x3, CN's II-XII intact bilaterally and moves all extremities Sensorium / Orientation: awake and alert Motor Exam: strength 5/5 throughout Psych affect normal Results Lab / Micro Data Result Diagrams: 01/07/23 12:03 01/07/23 12:03 Labs: Laboratory Results - last 24 hr 01/07/23 12:03: WBC 8.3, RBC 4.15 L, Hgb 12.9 L, Hct 37.3 L, MCV 89.9, MCH 31.1, MCHC 34.6, RDW Std Deviation 41.5, RDW Coeff of Vern 12.7, Plt Count 147 L, MPV 10.4, Immature Gran % (Auto) 0.200, Neut % (Auto) 76.9 H, Lymph % (Auto) 14.5 L, Delta % (Auto) 7.5, Eos % (Auto) 0.7, Baso % (Auto) 0.2, Absolute Neuts (auto) 6 .4, Absolute Lymphs (auto) 1.20, Nucleated RBC % 0, ESR 40 H 01/07/23 12:03: Sodium 137, Potassium 4.1, Chloride 108 H, Carbon Dioxide 23.0, Anion Gap 6, BUN 24 H, Creatinine 1.13, Estim Creat Clear Calc 61.70, Est GFR (MDRD) Af Amer 83, Est GFR (MDRD) Non-Af 68, BUN/Creatinine Ratio 21.2 H, Glucose 232 H, Calcium 8.7, C-React Prot Ext Range 73.40 H 01/07/23 12:03: Lactic Acid 1.4 Radiology Impression Hand X-Ray 01/07/23 12:15 IMPRESSION: Degenerative changes. Atherosclerosis. Diffuse soft tissue swelling. Electronically Signed: Trixie Eaton MD at 12:32 EST , Assessment & Plan Assessment/Plan (1) Cellulitis and abscess of hand: PLAN: Plan # Post op cellulitis and probable abscess of darío GOFF * had carpal tunnel surgery of left wrist on Dec 23, and had stitches removed Jan 05. Subsequently started having above mentioned redness and pain after stitches were removed. * xray showed soft tissue swelling. WBc is normal. CRP is elevated * admit to med surg * IV vancomycin, pharmacy to dose. * get blood and wound cultures * if patieint not responding to antibiotics within 24 hours, will get plastic surgery on board. Patient doesnt want to go to [place] or follow up with his original surgeon * IV morphine, PO oxycodone and PO tylenol for pain * #TYpe 2 diabetes mellitus: on lantus. ISS. Accuchecks ACHS. On metformin and semaglutide #Hyperlipidemia: on statin #Hypertension: on amlodipine and carvedilol, hydralazine and carvedilo #CAD : on aspirin, statin Depression and anxeity: on sertraline DVT prophylaxis: lovenox Code statusL full code Total time spent on seeing patient and examining him, review of chart, discussion of plan with patient, talking to ED physician and documentation: 50 mins. Charges/Coding Visit Charges Inpatient E&M: 22030 Init Hosp L3
[2023-01-07] MEDS: Morphine 2 MG/ML Syringe IV (17:01)
[2023-01-07] MEDS: Insulin Lispro 100 UNIT/ML INSULN.PEN SC ×2 (17:08→20:40)
[2023-01-07 17:25] LABS: Bedside Glucose 160 mg/dL (74-106)
--- NOTE | 2023-01-07 17:55 | PCM.RX.CS ---
Consult Pharmacy has been consulted to manage selected antiobiotic: Vancomycin Type of Consult: New start Suspected Infection: Skin/Soft tissue Labs: Sodium 137 mmol/L (136-145) 01/07/23 12:03 Potassium 4.1 mmol/L (3.5-5.1) 01/07/23 12:03 Chloride 108 mmol/L (98-107) H 01/07/23 12:03 Carbon Dioxide 23.0 mmol/L (21.0-32.0) 01/07/23 12:03 Anion Gap 6 (5-15) 01/07/23 12:03 BUN 24 mg/dL (7-18) H 01/07/23 12:03 Creatinine 1.13 mg/dL (0.70-1.30) 01/07/23 12:03 Est GFR (MDRD) Af Amer 83 mL/min (>60) 01/07/23 12:03 Est GFR (MDRD) Non-Af 68 mL/min (>60) 01/07/23 12:03 BUN/Creatinine Ratio 21.2 RATIO (10-20) H 01/07/23 12:03 Glucose 232 mg/dL (74-106) H 01/07/23 12:03 Goal Trough: 15-20 mcg/mL Pharmacy Plan for Drug Dosing: NEW START IV VANCOMYCIN Consulting Physician: Dr. Vasquez Indication: Cellulitis Goal Trough: 15-20 SrCr: 1.13 (01-07-23) CrCl: 78 mls/min (using an adjusted body weight of 89kg) Comments: pt received a 2000mg loading dose on 01/07/23 at 1651 Vancomycin Dose: based on pts weight and renal function, recommend an initial dose of 1500mg q12h starting 01/08/23 at 0500. trough prior to the 4th total dose. Pending Level: 01/09/23 at 0430 Pharmacy Service will continue to monitor and adjust dosing as required. Follow-Up Labs: Trough Vancomycin - 01/09/23 at 0430
[2023-01-07] MEDS: oxyCODONE 5 MG Tablet PO (20:38)
[2023-01-07] MEDS: Meclizine 12.5 MG Tablet 6.25 MG PO (20:40)
[2023-01-07] MEDS: Doxazosin 1 MG Tablet 2 MG PO (20:40)
[2023-01-07] MEDS: Carvedilol 25 MG Tablet PO (20:40)
[2023-01-07] MEDS: Fluticasone 0.05% 1 SPRAY NASAL.SRY NASAL (20:41)
[2023-01-07] MEDS: Pregabalin 25 MG Capsule PO (20:43)
[2023-01-07 22:30] LABS: Bedside Glucose 217 mg/dL (74-106)
[2023-01-08] VITALS (7 sets, daily range): BP systolic 133–143; BP diastolic 55–69; PULSE 82–88; RESP 16–20; TEMP 36.8–37.1; O2SAT 92–97
[2023-01-08] MEDS: oxyCODONE 5 MG Tablet PO ×2 (02:30→20:51)
[2023-01-08 05:59] LABS: Absolute Lymphocyte Count 1.56 X10^3/uL (0.83-4.51); Absolute Neutrophil Count 4.3 X10^3/uL (2.0-7.7); Basophil# 0.02 X10^3/uL; Basophil% 0.3 % (0-1); Eosinophil# 0.08 X10^3/uL; Eosinophils% 1.2 % (0-5); Hematocrit 34.5 % (40-54); Hemoglobin 11.5 g/dL (13.0-16.5); Lymphocyte # 1.56 X10^3/ul (0.83-4.51); Lymphocyte % 23.7 % (19-41); Mean Corp Hgb Conc 33.3 g/dL (32-36); Mean Corpuscular Hgb 30.9 pg (27.0-32.0); Mean Corpuscular Volume 92.7 fL (80-94); Mean Platelet Vol. 10.7 fl (6.2-12.0); Monocyte# 0.58 X10^3/uL; Monocyte% 8.8 % (0-10); NRBC Flagged by Analyzer 0 % (0-5); Neutrophil # 4.33 X10^3/uL (2.7-7.7); Neutrophil % 65.7 % (47-70); Platelet Count 130 K/mm3 (150-450); RBC Distribution Width CV 12.8 % (11.6-14.6); Red Blood Count 3.72 M/mm3 (4.6-6.2); White Blood Count 6.6 K/mm3 (4.4-11.0)
[2023-01-08] MEDS: Insulin Lispro 100 UNIT/ML INSULN.PEN SC ×4 (06:29→20:54)
[2023-01-08 06:31] LABS: Anion Gap 4 (5-15); BUN 24 mg/dL (7-18); BUN/Creat Ratio 21.8 RATIO (10-20); Calcium,Total 8.2 mg/dL (8.5-10.1); Chloride 109 mmol/L (98-107); EST Glomerular Filtration Rate 71 mL/min (>60); Est Glom Filt Rate - Afr Amer 85 mL/min (>60); Estimated Creatinine Clearance 63.38 ml/min; Glucose 139 mg/dL (74-106); Potassium 4.1 mmol/L (3.5-5.1); Sodium Level 138 mmol/L (136-145)
[2023-01-08] MEDS: hydrALAZINE 50 MG Tablet 100 MG PO ×3 (07:44→16:33)
[2023-01-08] MEDS: Aspirin E.C. 81 MG Tablet PO (07:44)
[2023-01-08] MEDS: Meclizine 12.5 MG Tablet 6.25 MG PO ×2 (10:58→20:51)
[2023-01-08] MEDS: Carvedilol 25 MG Tablet PO ×2 (10:58→20:51)
[2023-01-08] MEDS: Atorvastatin Calcium 40 MG Tablet PO (10:59)
[2023-01-08] MEDS: Enoxaparin 40 MG/0.4 ML Syringe SC (10:59)
[2023-01-08] MEDS: Lisinopril 40 MG Tablet PO (11:00)
[2023-01-08] MEDS: Sertraline 100 MG Tablet PO (11:00)
[2023-01-08] MEDS: amLODIPine 10 MG Tablet PO (11:03)
[2023-01-08 11:40] LABS: Bedside Glucose 239 mg/dL (74-106)
--- NOTE | 2023-01-08 13:07 | PN_ITS ---
Subjective Subjective Patient seen and examined. The pain in his hand is a bit better today. He is able to flex his fingers a little bit more today. The redness starts was going up his left inner forearm is also improving. He denies any fever, chills, nausea vomiting or any other symptoms. Review of systems otherwise negative. Objective Data Objective Data Vital Signs: Vital Signs Temp Pulse Resp BP Pulse Ox O2 Del Method 98.6 F 88 16 133/67 H 93 Room Air 01/08/23 07:31 01/08/23 11:14 01/08/23 07:31 01/08/23 07:31 01/08/23 07:31 01/08/23 07:31 Oxygen Delivery Method Room Air Weight: 259 lb 4.218 oz Body Mass Index (BMI) 38.2 Intake & Output: Intake and Output for Last 24 Hours 01/06/23 01/07/23 01/08/23 23:59 23:59 23:59 Intake Total 1590 / 1690 630 / 630 Balance 1590 / 1690 630 / 630 Lab / Micro Data Result Diagrams: 01/08/23 05:18 01/08/23 05:18 Labs: Laboratory Results - last 24 hr 01/07/23 16:59: POC Glucose 160 H 01/07/23 20:38: POC Glucose 217 H 01/08/23 05:18: WBC 6.6, RBC 3.72 L, Hgb 11.5 L, Hct 34.5 L, MCV 92.7, MCH 30.9, MCHC 33.3, RDW Std Deviation 44.0 H, RDW Coeff of Venr 12.8, Plt Count 130 L, MPV 10.7, Immature Gran % (Auto) 0.300, Neut % (Auto) 65.7, Lymph % (Auto) 23.7, [place] % (Auto) 8.8, Eos % (Auto) 1.2, Baso % (Auto) 0.3, Absolute Neuts (auto) 4.3, Absolute Lymphs (auto) 1.56, Nucleated RBC % 0 01/08/23 05:18: Sodium 138, Potassium 4.1, Chloride 109 H, Carbon Dioxide 25.0, Anion Gap 4 L, BUN 24 H, Creatinine 1.10, Estim Creat Clear Calc 63.38, Est GFR (MDRD) Af Amer 85, Est GFR (MDRD) Non-Af 71, BUN/Creatinine Ratio 21.8 H, Glucose 139 H, Calcium 8.2 L 01/08/23 11:08: POC Glucose 239 H Micro: Microbiology 01/07/23 16:30 Wound - Hand Gram Stain - Final 01/07/23 16:30 Wound - Hand Wound Culture - Preliminary Staphylococcus aureus Physical Exam Const alert and oriented x3 General Appearance: cooperative HEENT normocephalic, head/scalp atraumatic, hearing grossly normal bilaterally, moist oral mucous membranes and oropharynx normal Eyes PERRL and EOMs intact bilaterally Neck no lymphadenopathy and supple Lymph Lymphatic: no lymphadenopathy noted Resp normal respiratory effort, normal air movement, no retractions, no use of access ory muscles and clear to auscultation bilaterally Cardio regular rate, regular rhythm, S1 normal heart sound, S2 normal heart sound and no murmurs GI normal to inspection, nondistended, normoactive bowel sounds Extremity Extremity Narrative: Left hand swelling has improved; able to flex his fingers a bit more now. Still unable to fully make a fist. Erythema over left inner forearm is improving. Surgical incision site mildly erythematous, no obvious discharge. Skin Skin Narrative: As under extremity Neuro oriented x3, CN's II-XII intact bilaterally and moves all extremities Sensorium / Orientation: awake and alert Motor Exam: strength 5/5 throughout Psych thought process normal, cooperative and affect normal Assessment & Plan Assessment/Plan (1) Cellulitis and abscess of hand: PLAN: Plan # Post op cellulitis and probable abscess of darío GOFF * had carpal tunnel surgery of left wrist on Dec 23, and had stitches removed Jan 05. Subsequently started having above mentioned redness and pain after stitches were removed. * redness of left wrist surgical site is improving. No visible discharge. Able to flex his fingers a little bit more today. * xray showed soft tissue swelling. WBc is normal. CRP is elevated * on IV vancomycin * blood culture pending. Wound culture growing Staph aureus. * Plastic surgery consulted; spoke to Dr Calvo, he will see patient tomorrow * of note, patient refused transfer to [facility] and doesn't want to follow up with the surgeon who did the surgery. * IV morphine, PO oxycodone and PO tylenol for pain * #TYpe 2 diabetes mellitus: on lantus. ISS. Accuchecks ACHS. On metformin and semaglutide #Hyperlipidemia: on statin #Hypertension: on amlodipine and carvedilol, hydralazine and carvedilol #CAD : on aspirin, statin Depression and anxeity: on sertraline DVT prophylaxis: lovenox Code statusL full code Total time spent on seeing patient and examining him, review of chart, discussion of plan with patient, talking to ED physician and documentation: 35 mins. Charges/Coding Visit Charges Inpatient E&M: 21951 Subs Hosp L2
[2023-01-08] MEDS: metFORMIN HCl 1,000 MG Tablet 1000 MG PO (16:33)
[2023-01-08 17:10] LABS: Bedside Glucose 157 mg/dL (74-106)
[2023-01-08] MEDS: Fluticasone 0.05% 1 SPRAY NASAL.SRY NASAL (20:51)
[2023-01-08] MEDS: Pregabalin 25 MG Capsule PO (20:51)
[2023-01-08] MEDS: Doxazosin 1 MG Tablet 2 MG PO (20:51)
[2023-01-08 22:30] LABS: Bedside Glucose 151 mg/dL (74-106)
[2023-01-09] VITALS (11 sets, daily range): BP systolic 116–154; BP diastolic 52–87; PULSE 72–85; RESP 12–18; TEMP 36.5–37.2; O2SAT 91–97; BMI 38.2
--- NOTE | 2023-01-09 | TESH_PTH ---
PATIENT: JIM BERNSTEIN LOC: MS3 U#:[id number] AGE/SX: 67/M ROOM: [facility] RE01/07/[address]: Dr. Matt Victor DO : 1955 BED: 1 DIS: 01/12/2023 SPEC #: [id number] RECD: 01/09/23 16:52 STATUS: HALLE MALDONADO #: [id number] DUY: 01/09/23 00:[address]: Jim Calvo DEPT: SURGICAL PATHOLOGY RECD BY: Srinath Hammer ENTERED: 01/10/23 10:03 SP TYPE: TENDON OTHR DR: MD Dr. Matt Benitez DO Dr. Nana Yaa Koram, MD Dr. Robert Leininger, MD [facility] Tissues: Tendon and tendon sheath, NOS Procedures: Surgery Specimen Level III Comments: @ Ordering doctor for SUIII edited from to @ by JAKOB at 01/10/23 1454 @ Submitting doctor edited from to @ by RGOOD at 01/10/23 1454 HEADER OPERATION: Incision and drainage carpal tunnel abscess PRE-OP DIAGNOSIS: Left carpal tunnel abscess TISSUE SUBMITTED: Tenosynovitis and carpal tunnel abscess of left hand MICROSCOPIC DIAGNOSIS Tenosynovitis and carpal tunnel abscess of left hand, incision and drainage abscess: Fragments of fibroadipose and fibroconnective tissue with acute and chronic inflammation and granulation tissue reaction. Leta 01/11/2023 MICROSCOPIC DESCRIPTION Slides are reviewed. GROSS DESCRIPTION Received in fixative is one container labeled with the patient's name and designated tenosynovitis and carpal tunnel abscess of left hand. The specimen consists of multiple irregular fragments of velasquez soft tissue that in aggregate measure 2.5 x 2.0 x 0.3 cm. The specimen is totally submitted in one cassette. / ASIF:gayle 01/10/2023 TC:2 CPT: 65107
[2023-01-09 00:10] LABS: Bedside Glucose 151 mg/dL (74-106)
[2023-01-09] MEDS: oxyCODONE 5 MG Tablet PO ×2 (02:54→09:57)
[2023-01-09 04:53] LABS: Vancomycin, Trough Level 16.5 ug/mL (5.0-15.0)
--- NOTE | 2023-01-09 05:12 | PCM.RX.CS ---
Consult Pharmacy has been consulted to manage selected antiobiotic: Vancomycin Type of Consult: Follow-up Suspected Infection: Skin/Soft tissue Labs: Sodium 138 mmol/L (136-145) 01/08/23 05:18 Potassium 4.1 mmol/L (3.5-5.1) 01/08/23 05:18 Chloride 109 mmol/L (98-107) H 01/08/23 05:18 Carbon Dioxide 25.0 mmol/L (21.0-32.0) 01/08/23 05:18 Anion Gap 4 (5-15) L 01/08/23 05:18 BUN 24 mg/dL (7-18) H 01/08/23 05:18 Creatinine 1.10 mg/dL (0.70-1.30) 01/08/23 05:18 Est GFR (MDRD) Af Amer 85 mL/min (>60) 01/08/23 05:18 Est GFR (MDRD) Non-Af 71 mL/min (>60) 01/08/23 05:18 BUN/Creatinine Ratio 21.8 RATIO (10-20) H 01/08/23 05:18 Glucose 139 mg/dL (74-106) H 01/08/23 05:18 Vancomycin Trough 16.5 ug/mL (5.0-15.0) H 01/09/23 04:25 Microbiology: Microbiology 01/07/23 16:30 Wound - Hand Gram Stain - Final 01/07/23 16:30 Wound - Hand Wound Culture - Preliminary Staphylococcus aureus Goal Trough: 15-20 mcg/mL Pharmacy Plan for Drug Dosing: Pharmacy Service will continue to monitor and adjust dosing as required. TROUGH 16.5 @ 12 HRS. NO CHANGES, FOLLOW UP TROUGH IN 2 DAYS Follow-Up Labs: Trough Vancomycin Labs to be done on [date and time ordered]: 01/11 @ 2105
[2023-01-09 07:45] LABS: Bedside Glucose 131 mg/dL (74-106)
--- NOTE | 2023-01-09 09:53 | EKG12_ITS ---
Test Reason : PRE OP Blood Pressure : / mmHG Vent. Rate : 084 BPM Atrial Rate : 084 BPM P-R Int : 170 ms QRS Dur : 094 ms QT Int : 378 ms P-R-T Axes : 054 -59 075 degrees QTc Int : 446 ms Normal sinus rhythm Left axis deviation Inferior infarct (cited on or before 08-JUN-2020) Abnormal ECG When compared with ECG of 11-JAN-2022 16:12, No significant change was found Confirmed by NEENA VENTURA, CARLOS ([id number]), international editorial producer CHRIS KEENAN ([id number]) on 01/10/2023 10:08:53 AM Referred By: DEZ Confirmed By:CARLOS CHAUDHARY MD
[2023-01-09] MEDS: hydrALAZINE 50 MG Tablet 100 MG PO ×2 (09:57→17:18)
[2023-01-09] MEDS: Sertraline 100 MG Tablet PO (09:57)
[2023-01-09] MEDS: Lisinopril 40 MG Tablet PO (09:57)
[2023-01-09] MEDS: Meclizine 12.5 MG Tablet 6.25 MG PO ×2 (09:58→21:51)
[2023-01-09] MEDS: Carvedilol 25 MG Tablet PO ×2 (09:58→21:51)
[2023-01-09] MEDS: Atorvastatin Calcium 40 MG Tablet PO (09:58)
[2023-01-09] MEDS: amLODIPine 10 MG Tablet PO (10:07)
--- NOTE | 2023-01-09 10:40 | CASEMGMT ---
ELMER CAN Assessment: Face to Face with pt for initial transition planning/care coordination assessment. ELMER CAN introduced self and role at [facility], pt voices understanding and consents to assessment. Pt is A/O x4 and answers all questions appropriately at this time. Pt lying in bed with sig other at bedside. Care providers, pharmacy, and demographics verified/updated. Admitting Dx: post op cellulitis of the left hand PCP: at [facility], Team 7 Specialists:Deon, pharmacist at [place]; viviana Berry Preferred Pharmacy: [facility] Retail Insurance: [place] Benefit Prescription Benefit: yes through the [place] LNOK: Susana Bhardwaj, sig other Living Arrangements: Pt lives with sig other in a single story home with 3 steps to enter with a rail. Pt reports he is I in ADL's and denies concerns at home. Transportation: Pt sig other transports pt to medical appts. Pt does not drive. DME/HHC/SNF: Pt has a cane, w/c, rollator, walker, crutches and CPAP at home. Pt currently uses his cane. Pt denies hx of HHC and has been to [facility] for rehab in the past. Pt states no concerns with going home at time of dc. Pt sig other reports she is emotional d/t approx 1 year ago pt being very ill. She states she helped him get better at home and is willing to do anything to assist him now. Pt is to go to surgery today. ELMER CAN to follow for needs post op. Pt states no further concerns/needs. Advised pt to ask CM if any further question/concerns/needs arise, voices understanding. Pt Goal: Home Plan: Home, pending OR
--- NOTE | 2023-01-09 10:47 | PCM.CONS.GEN ---
Assessment & Plan Assessment/Plan (1) Abscess of bursa, left wrist: (2) Abscess, palm: (3) Abscess of dorsum of left hand: (4) Left hand pain: (5) Tenosynovitis of hand: (6) History of carpal tunnel surgery of left wrist: (7) Diabetes: (8) Former smoker: PLAN: Plan Medical records reviewed. Labs and x-rays reviewed. Patient is diabetic and has worsening pain and redness and swelling left hand and wrist after a left carpal tunnel surgery on 12/23/22. He has been on Vancomycin since admission. The redness on his forearm improved. However there is persistent symptomatology on his left carpal tunnel area, left midpalm, left thenar eminence, and dorsum left hand. He is also showing some early tenosynovitis both with flexion and extension, mainly involving the long finger and ring finger and,to a lesser degree, the index finger. He is on Vancomycin. Preop culture shows Staphylococcus aureus thus far. Recommend urgent operative intervention today with incision and drainage of the abscesses. Depending on the severity of the tenosynovitis, tenosynovectomy may be necessary. Being a diabetic, I don't want to wait because of the persistence of the infection and the worsening of the infection which may increase the risk of suboptimal healing and stiffness of the hand resulting in decreased range of motion and decreased function of the hand. Surgery will be done under general anesthesia and tourniquet control. Tissue that is debrided will be sent to Pathology for analysis to rule out carcinoma and to Microbiology for culture. A positive culture may necessitate antibiotic modification. Will leave the wounds open and begin Silver dressing changes daily. After discharge, will need OT for range of motion exercises, strengthening, and edema management. Depending on the healing process and if further infection is noted postoperatively, additional surgery may be necessary. He voices understanding and wishes to proceed. Patient was informed of the risks and complications of the procedure including alternatives to surgery. These were discussed with the patient personally. Patient voices understanding and wishes to proceed with the surgery urgently today. Potential risks and complications included but not inclusive of bleeding, infection, seroma, hematoma, bruising, swelling, loss of sensation to skin, wound breakdown, need for wound care, poor scarring, poor aesthetic outcome, intra operative cardiac or neurologic events, DVT, PE, and reaction to anesthesia. If revision surgery is needed in the future, than the HgbA1c needs to be less than 8. His recent HgbA1c is 6.0. HPI Consult Data Date of Consult: 01/10/23 PCP / Referring MD: Jeana Vasquez MD HPI Narrative Reason for Consultation: Left carpal tunnel abscess HPI Narrative: JIM BERNSTEIN, is a 67 M who presented to the ED with increasing pain and redness and swelling in his left wrist and palm over the thenar eminence after having left carpal tunnel surgery on 12/23/22. He had his sutures removed on 01/02/23 and a few days after that, he noticed the redness over the incision that continued to worsen. At the time of admission, he had red streaks extending down his forearm toward the elbow. He had trouble making a fist and flexing and extending his index finger, long finger, and ring finger and had trouble touching his fingers with his thumb secondary to pain and swelling. He was admitted and started on IV Vancomycin. A wound culture was done upon admission and it is showing Staphylococcus aureus thus far. The red streaking on his forearm improved. His symptomatology persisted in his left wrist and palm. His WBC upon admission was 8.3 and decreased to 6.6 the next day. His ESR was 40. His CRP was 73.40. His HgbA1c was 6.0. X-ray showed soft tissues, there are vascular calcifications. There is diffuse soft tissue swelling of the plantar aspect of the hand. The bones showed no acute fracture or subluxation.. Normal alignment.? There are degenerative changes of the radiocarpal and interphalangeal joints. No sclerotic or destructive changes observed. Also since admission, there was increased pain and swelling on the dorsum of the left hand. Patient is right hand dominant. I was asked to evaluate this patient for surgical options for treatment. [facility] Medical History (Updated 01/10/23 @ 22:[address] Jim Calvo MD) Abscess of bursa, left wrist Abscess of dorsum of left hand Abscess, palm Chest pain Coronary artery disease CVA (cerebral vascular accident) Diabetes Former smoker High cholesterol HTN (hypertension) Left hand pain Open wound of left hand except fingers with tendon involvement Open wound of left palm Open wound of left wrist with tendon involvement Sleep apnea Subdural hematoma Tenosynovitis of hand UTI (urinary tract infection) Home Medications doxazosin 2 mg tablet 2 mg PO DAILY BLOOD PRESSURE 05/10/21 [History Last Taken 01/06/23] meclizine 12.5 mg tablet 6.25 mg PO BID DIZZINESS 05/10/21 [History Last Taken 01/06/23] metformin 500 mg tablet 1,000 mg PO QPM DIABETES 05/10/21 [History Last Taken 01/06/23] carvedilol 25 mg tablet 25 mg PO BID HEART 04/24/22 [History Last Taken 01/06/23] Cinnamon 1,200 mg PO/SL DAILY SUPPLEMENT 01/07/23 [History Last Taken 01/06/23] amlodipine 10 mg tablet 10 mg PO DAILY BLOOD PRESSURE 01/07/23 [History Last Taken 01/06/23] aspirin 81 mg tablet,delayed release 81 mg PO DAILY HEART HEALTH 01/07/23 [History Last Taken 01/06/23] fluticasone propionate 50 mcg/actuation nasal spray,suspension 1 spray intranasal UD CONGESTION 01/07/23 [History Last Taken 01/06/23] hydralazine 50 mg tablet 100 mg PO TIDCM BLOOD PRESSURE 01/07/23 [History Last Taken 01/06/23] lisinopril 40 mg tablet 40 mg PO DAILY BLOOD PRESSURE 01/07/23 [History Last Taken 01/06/23] pregabalin 25 mg capsule 25 mg PO QHS Check with primary doctor 01/07/23 [History Last Taken 01/06/23 22:00] rosuvastatin 20 mg tablet 20 mg PO DAILY CHOLESTEROL 01/07/23 [History Last Taken 01/07/23] semaglutide (weight loss) 0.5 mg/0.5 mL subcutaneous pen injector 0.5 mg subcut SA DIABETES 01/07/23 [History Last Taken 12/31/22] sertraline 100 mg tablet (Zoloft) 100 mg PO DAILY DEPRESSION/ANXIETY 01/07/23 [History Last Taken 01/06/23] Allergy/AdvReac Type Severity Reaction Status Date / Time gabapentin Allergy NEEDS Verified 01/07/23 11:42 FOLLOW-UP Family History Mother Dementia Parkinsons disease Father Heart disease Hypertension Myocardial infarction CVA (cerebral vascular accident) CAD (coronary artery disease) Surgical History (Updated 01/10/23 @ 00:[address] Jim Calvo MD) History of appendectomy History of carpal tunnel surgery of left wrist S/P appendectomy S/P CABG x 4 Social History household members: spouse Smoking Status: Former smoker how long ago did patient quit smoking: Smoked in x 7 years, quit 1978, cigars. 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 substance use type: does not use ROS ROS Narrative General - Denies fever, and weight loss. Has fatigue. Eyes - Denies cataracts and glaucoma. ENT - Denies nasal congestion and sore throat. Endocrine - Denies excessive thirst and urination. Has diabetes mellitus. Skin - Denies suspicious lesions and skin cancer. Has redness and pain and swelling left wrist at carpal tunnel, thenar eminence, midpalm, dorsum left hand. Musculoskeletal - Denies joint pain, joint stiffness, weakness of muscles and joints, back pain, and arthritis. Neuro - Denies headaches. Cardiovascular - Denies chest pain, fatigue, and shortness of breath with exertion. Psych - Denies anxiety and depression. Respiratory - Denies chronic cough and shortness of breath. Patient is a former smoker. Gastrointestinal - Denies nausea, vomiting, diarrhea, and constipation. Hematologic - Denies abnormal bruising and bleeding. Genitourinary - Denies hematuria and urinary frequency. Physical Exam Narrative General - Alert and Oriented. HEENT - PERRL. EOMI. Throat is clear. Neck - Supple and nontender. No cervical adenopathy. Lungs - Clear to auscultation. Heart - Regular rate and rhythm. Abdomen - Soft and nondistended. Extremities - FROM right upper extremity. No axillary adenopathy. Radial pulses are palpable. Patient is right hand dominant. For the left upper extremity, there is redness and swelling and tenderness to palpation over the carpal tunnel incision left wrist, left thenar eminence, left midpalm, and dorsum left hand. There is fluctuance over the thenar eminence. Has increased tenderness with flexion and extension of left index finger, left long finger, and left ring finger. Has increased tenderness with thumb opposition. Only able to touch his index finger with his thumb. He is unable to make a fist. Has tenderness with left wrist range of motion. A small amount of pus was expressed with palpation adjacent to the carpal tunnel incision. Fingers are warm with good capillary refill. Sensation is decreased secondary to swelling from the infection. Neuro - CN II-XII grossly intact. Psych - Normal mood and affect. Medical Records Data Attestation: I reviewed the patient's medical records Lab / Micro Data Attestation: I reviewed the patient's lab results. Result Diagrams: 01/10/23 06:35 01/10/23 06:35 Labs: Laboratory Results - last 24 hr 01/08/23 06:26: POC Glucose 151 H 01/08/23 11:08: POC Glucose 239 H 01/08/23 16:32: POC Glucose 157 H 01/08/23 20:52: POC Glucose 151 H 01/09/23 04:25: Vancomycin Trough 16.5 H 01/09/23 06:44: POC Glucose 131 H Micro: Microbiology 01/07/23 16:30 Wound - Hand Gram Stain - Final 01/07/23 16:30 Wound - Hand Wound Culture - Final Staphylococcus aureus 01/07/23 12:04 Blood Culture (Wb) - Anticubital Right Blood Culture - Preliminary No growth in 48 hours. 01/07/23 12:03 Blood Culture (Wb) - Right Hand Blood Culture - Preliminary No growth in 48 hours. Charges/Coding Visit Charges Inpatient E&M: 14631 Init Hosp L3 (57 Modifier ICD-10 - M71.032, L02.519, L02.512, M79.642, M65.9, Z98.890, E11.9, Z87.891)
--- NOTE | 2023-01-09 13:07 | NURSING ---
Off unit to OR at this time.
[2023-01-09] MEDS: Lactated Ringers 1,000 ML 15 ML IV (13:15)
[2023-01-09 13:50] LABS: Bedside Glucose 137 mg/dL (74-106)
--- NOTE | 2023-01-09 14:24 | PCM.CONS.GEN ---
Assessment & Plan Assessment/Plan (1) Cellulitis and abscess of hand: PLAN: L wrist infection s/p surgery 12/23/22. Wound cx with mssa. Will narrow vanc to cefazolin. OR today with Dr. Calvo for I&D. Will follow, thank you, d/w Dr. Calvo HPI Consult Data Date of Consult: 01/09/23 HPI Narrative Reason for Consultation: surg site infection HPI Narrative: JIM BERNSTEIN, is a 67 M with DM, had L carpal tunnel surgery at [place] 12/23/22. Had stitches taken out 01/02, then over next 2 started to have pain, redness, swelling, purulent drainage and associated fever. He is R handed. Pain was moderate. Had been using abx ointment at home. Came to ED, admitted here on vanc, going to OR today for I&D. Full ROS performed and neg except as noted above. [facility] Medical History Chest pain Coronary artery disease CVA (cerebral vascular accident) Diabetes Former smoker High cholesterol HTN (hypertension) Sleep apnea Subdural hematoma UTI (urinary tract infection) Home Medications doxazosin 2 mg tablet 2 mg PO DAILY BLOOD PRESSURE 05/10/21 [History Last Taken 01/06/23] meclizine 12.5 mg tablet 6.25 mg PO BID DIZZINESS 05/10/21 [History Last Taken 01/06/23] metformin 500 mg tablet 1,000 mg PO QPM DIABETES 05/10/21 [History Last Taken 01/06/23] carvedilol 25 mg tablet 25 mg PO BID HEART 04/24/22 [History Last Taken 01/06/23] Cinnamon 1,200 mg PO/SL DAILY SUPPLEMENT 01/07/23 [History Last Taken 01/06/23] amlodipine 10 mg tablet 10 mg PO DAILY BLOOD PRESSURE 01/07/23 [History Last Taken 01/06/23] aspirin 81 mg tablet,delayed release 81 mg PO DAILY HEART HEALTH 01/07/23 [History Last Taken 01/06/23] fluticasone propionate 50 mcg/actuation nasal spray,suspension 1 spray intranasal UD CONGESTION 01/07/23 [History Last Taken 01/06/23] hydralazine 50 mg tablet 100 mg PO TIDCM BLOOD PRESSURE 01/07/23 [History Last Taken 01/06/23] lisinopril 40 mg tablet 40 mg PO DAILY BLOOD PRESSURE 01/07/23 [History Last Taken 01/06/23] pregabalin 25 mg capsule 25 mg PO QHS Check with primary doctor 01/07/23 [History Last Taken 01/06/23 22:00] rosuvastatin 20 mg tablet 20 mg PO DAILY CHOLESTEROL 01/07/23 [History Last Taken 01/07/23] semaglutide (weight loss) 0.5 mg/0.5 mL subcutaneous pen injector 0.5 mg subcut SA DIABETES 01/07/23 [History Last Taken 12/31/22] sertraline 100 mg tablet (Zoloft) 100 mg PO DAILY DEPRESSION/ANXIETY 01/07/23 [History Last Taken 01/06/23] Allergy/AdvReac Type Severity Reaction Status Date / Time gabapentin Allergy NEEDS Verified 01/07/23 11:42 FOLLOW-UP Family History Mother Dementia Parkinsons disease Father Heart disease Hypertension Myocardial infarction CVA (cerebral vascular accident) CAD (coronary artery disease) Surgical History History of appendectomy S/P appendectomy S/P CABG x 4 Social History household members: spouse Smoking Status: Former smoker how long ago did patient quit smoking: Smoked in x 7 years, quit 1978, cigars. 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 substance use type: does not use Physical Exam Const alert, oriented x3 and no apparent distress General Appearance: cooperative HEENT normocephalic and head/scalp atraumatic Eyes PERRL and EOMs intact bilaterally Neck supple and No nodes Resp normal air movement and clear to auscultation bilaterally Cardio regular rate and regular rhythm GI soft to palpation, non-tender and non-distended Extremity General Extremity: Negative for edema Skin Skin Narrative: L wrist swelling, redness, tenderness, warmth, limited ROM Neuro CN's II-XII intact bilaterally Lab / Micro Data Attestation: I reviewed the patient's lab results. Result Diagrams: 01/08/23 05:18 01/08/23 05:18 Labs: Laboratory Results - last 24 hr 01/08/23 06:26: POC Glucose 151 H 01/08/23 16:32: POC Glucose 157 H 01/08/23 20:52: POC Glucose 151 H 01/09/23 04:25: Vancomycin Trough 16.5 H 01/09/23 04:25: Hemoglobin A1c 6.0 H 01/09/23 06:44: POC Glucose 131 H 01/09/23 13:23: POC Glucose 137 H Micro: Microbiology 01/07/23 16:30 Wound - Hand Gram Stain - Final 01/07/23 16:30 Wound - Hand Wound Culture - Final Staphylococcus aureus 01/07/23 12:04 Blood Culture (Wb) - Anticubital Right Blood Culture - Preliminary No growth in 48 hours. 01/07/23 12:03 Blood Culture (Wb) - Right Hand Blood Culture - Preliminary No growth in 48 hours.
[2023-01-09] MEDS: Lidocaine 1% /Epi 1:100 (20ml) 20 ML Vial (14:40)
[2023-01-09 15:11] LABS: Bedside Glucose 171 mg/dL (74-106)
--- NOTE | 2023-01-09 15:52 | OP.PCM_ITS ---
Problems Associated Problem List Diagnoses (1) Abscess of bursa, left wrist: (2) Abscess, palm: (3) Abscess of dorsum of left hand: (4) Left hand pain: (5) Extensor tenosynovitis of left wrist: (6) Suppurative tenosynovitis of flexor tendon of left hand: (7) Compartment syndrome of left hand: (8) History of carpal tunnel surgery of left wrist: (9) Diabetes: (10) Former smoker: Report of Operation Date of Procedure: 01/09/23 Pre-Operative Diagnosis: 1. Left carpal tunnel abscess. 2. Left midpalmar abscess. 3. Abscess dorsum left hand. 4. Left hand pain. 5. Early tenosynovitis. 6. History of left carpal tunnel surgery. 7. Diabetes mellitus. 8. Former smoker. Post-Operative Diagnosis: 1. Left carpal tunnel abscess. 2. Left midpalmar abscess. 3. Abscess dorsum left hand. 4. Left hand pain. 5. Extensor tenosynovitis 4th compartment (EDC tendon) left wrist. 6. Flexor tenosynovitis left palm involving index finger, long finger, and ring finger. 7. History of left carpal tunnel surgery. 8. Diabetes mellitus. 9. Former smoker. 10. Compartment syndrome 2nd, 3rd, and 4th dorsal interosseous muscles. Surgery/Procedure Performed:: 1. Incision and drainage left carpal tunnel abscess with extension into thenar area. 2. Incision and drainage midpalmar abscess left hand. 3. Tenosynovectomy flexor tendons left ring finger, left long finger, and left index finger. 4. Incision and drainage abscess dorsum left hand. 5. Extensor tenosynovectomy 4th compartment (EDC tendon) left wrist. 6. Fasciotomy 2nd, 3rd, and 4th dorsal interosseous muscles dorsum left hand for compartment syndrome. Description of Surgical Findings:: JIM BERNSTEIN, is a 67 M who presented to the ED with increasing pain and redness and swelling in his left wrist and palm over the thenar eminence after having left carpal tunnel surgery on 12/23/22.? ? He had his sutures removed on 01/02/23 and a few days after that, he noticed the redness over the incision that continued to worsen.? At the time of admission, he had red streaks extending down his forearm toward the elbow.? He had trouble making a fist and flexing and extending his index finger, long finger, and ring finger and had trouble touching his fingers with his thumb secondary to pain and swelling.? He was admitted and started on IV Vancomycin.? A wound culture was done upon admission and it is showing Staphylococcus aureus thus far.? The red streaking on his forearm improved. His symptomatology persisted in his left wrist and palm.? His WBC upon admission was 8.3 and decreased to 6.6 the next day.? His ESR was 40.? His CRP was 73.40.? His HgbA1c was 6.0.? X-ray showed soft tissues, there are vascular calcifications. There is diffuse soft tissue swelling of the plantar as pect of the hand.? The bones showed no acute fracture or subluxation.. Normal alignment.? There are degenerative changes of the radiocarpal and interphalangeal joints. No sclerotic or destructive changes observed. Also since admission, there was increased pain and swelling on the dorsum of the left hand.? Patient is right hand dominant.? I was asked to evaluate this patient for surgical options for treatment. Patient was informed of the risks and complications of the procedure including alternatives to surgery. These were discussed with the patient personally. Patient voices understanding and wishes to proceed. Potential risks and complications included but not inclusive of bleeding, infection, hematoma, bruising, swelling, loss of sensation to skin, wound breakdown, need for wound care, poor scarring, poor aesthetic outcome, intra operative cardiac or neurologic events, DVT, PE, and reaction to anesthesia. Total tourniquet time - 58 minutes. Size of wound left carpal tunnel area - 5.5 cm. Size of wound left midpalmar area - 2.5 cm. Size of wound dorsum left hand area, radial - 5.5 cm. Size of wound dorsum left hand area, ulnar - 5.5 cm. Surgeon: Jim Calvo MD data conversion developer: None Type of Anesthesia: General Anesthesiologist: Yasmany Moreno MD and Jorge Villa CRNA Specimen's removed: Tenosynovitis and carpal tunnel abscess to Pathology and Microbiology. Drains: None. Estimated Blood Loss (mL): 50. Description of Procedure: Patient was taken to OR in supine position and was placed under general anesthesia. The left hand and wrist and forearm areas were prepped and draped in the usual fashion. SCD's were placed for DVT prophylaxis. Perioperative antibiotics were given intravenously. I made markings in the left palmar area, dorsum left hand, and extending the carpal tunnel wound if necessary. Using xylocaine with epinephrine, the markings were infiltrated. After waiting 5 minutes for the anesthetic to take effect, I elevated the left hand and wrapped with a blue towel as the tourniquet was elevated to 250 mmHg. Under loupe magnification I opened up the left carpal tunnel incision and extended it about 5 mm distally and a zig zag formation in the wrist area. The underlying sutures were removed. I dissected down to the carpal tunnel repair. Some fat necrosis was noted. It was excised and debrided. A small amount of pus was seen. I bluntly dissected radially where there was inflamed tissue. The recurrent branch median nerve was seen and preserved. Dissection proceeded into the thenar musculature. The flexor tendons to the index finger was seen. Tenosynovitis was present with thickened synovium. A tenosynovectomy was performed. I flexed the finger and the tendons glided well. I pressed on the midpalm and a small amount of pus emanated from this area. A horizontal midpalmar incision was made. I dissected bluntly with a hemostat down to the flexor tendons to the ring finger and long finger. Tenosynovitis was present with thickened synovium. Tenosynovectomies were performed. I flexed both fingers and the tendons glided well. I turned the hand over. The dorsal aspect of the hand was quite swollen. I made longitudinal incisions by the index finger and ring finger. The superficial sensory branch of the radial nerve by the radial incision was seen and preserved. Tenosynovitis was seen involving the EDC tendons. I dissected proximally and the sheath was quite inflamed. Tenosynovectomies were performed involving the 4th compartment (EDC tendons). Dissecting further down, I visualized the dorsal interosseous muscles. The 2nd, 3rd, and 4th dorsal interosseous muscles appeared dusky. Vertical incisions were made for fasciotomies involving the 2nd, 3rd, and 4th dorsal interosseous muscles. The 1st dorsal interosseous muscle appeared pink and viable. The wounds were irrigated with saline. After a few minutes the dorsal interosseous muscles appeared more pink and viable. The tissue that has been removed was sent to Pathology for analysis and to Microbiology for culture. A positive culture may necessitate antibiotic modification. The wounds were copiously irrigated with saline. The tourniquet was released after 58 minutes. Hemostasis obtained with electrocautery. The wounds were packed with Mepitel nonadherent dressing followed by Kerlix gauze and Betadine. 4x4 gauze was applied followed by Kerlix gauze and a compression johnny wrap. The size of the left carpal tunnel wound was 5.5 cm. The size of the left midpalmar wound was 2.5 cm. The size of the dorsum left hand wounds were 5.5 cm the radial wound and 5.5 cm for the ulnar wound. Patient tolerated the procedure well and was sent to PACU in satisfactory condition. Patient will be sent upstairs for continued postop care. Will begin Silver dressing changes tomorrow. After discharge he will need OT for range of motion exercises, strengthening, and edema management. Grafts/Implants Used: None. Complications None. Admit VTE Documentation VTE Present on Admission: No VTE Mechan Device Prophylaxis: SCD's VTE Pharm Prophylaxis ordered?: Yes Addendum Addendum: Surgery Charges CPT - 86832 ICD-10 - M71.032, L02.512, L02.519, M79.642, Z98.890, E11.9, Z87.891 93548 M65.142, M71.032, L02.512, L02.519, M79.642, Z98.890, E11.9, Z87.891 13282 M65.142, M71.032, L02.512, L02.519, M79.642, Z98.890, E11.9, Z87.891 58386 M65.142, M71.032, L02.512, L02.519, M79.642, Z98.890, E11.9, Z87.891 99120 M65.832, M71.032, L02.512, L02.519, M79.642, Z98.890, E11.9, Z87.891 29194 T79.A12A, M71.032, L02.512, L02.519, M65.142, M65.832, M79.642, Z98.890, E11.9, Z87.891 29680 T79.A12A, M71.032, L02.512, L02.519, M65.142, M65.832, M79.642, Z98.890, E11.9, Z87.891 [id number] T79.A12A, M71.032, L02.512, L02.519, M65.142, M65.832, M79.642, Z98.890, E11.9, Z87.891
--- NOTE | 2023-01-09 15:55 | CHAPLAIN ---
Type of Pastoral Visit ___ Initial Visit ___ Follow-up Visit ___ On-call Visit ___ General Patient Visit ___ Spiritual Assessment ___ Family Conference ___ Bereavement ___ Rapid Response ___ Code Blue ___ Other (describe below) Pastoral Care Referral From ___ Patient ___ Family ___ Nurse ___ Physician ___ Thermoforming Operator ___ Green Plumber ___ Other (describe below) Sacrament/Intervention ___ Active listening ___ Anointing ___ Oriental Orthodox ___ Bereavement ___ Communion ___ Laura exploration ___ ___ Life review ___ Prayer ___ Reconciliation ___ Sacrament of Sick ___ Supportive presence ___ Wedding ___ Other (describe below) Pastoral Comments patient was out of the room and a calling card was left
[2023-01-09 16:25] LABS: Bedside Glucose 138 mg/dL (74-106)
[2023-01-09] MEDS: Cefazolin 2 GM in 0.9% Normal Saline 100 ML IV ×2 (17:10→21:47)
[2023-01-09] MEDS: oxyCODONE 5 MG Tablet 10 MG PO ×2 (17:17→21:47)
[2023-01-09] MEDS: HYDROmorphone 1 MG/ML Syringe IV (18:53)
[2023-01-09] MEDS: 0.9% Saline Lock 10 ML Syringe IV (18:53)
--- NOTE | 2023-01-09 18:55 | PN.HOSP_ITS ---
Reason for Visit Reason for Visit: Diagnoses Cutaneous abscess of unspecified hand (01/07/23) Cellulitis of unspecified part of limb (01/07/23) Subjective Subjective Patient was seen and examined today, he underwent surgery today for incision and drainage of left carpal tunnel abscess with extension into the thenar area, I had infectious diseases see the patient today and he placed the patient on Ancef and stopped the patient's vancomycin. Patient's cultures grew out methicillin sensitive Staph aureus. Patient complains of postop pain at this time but otherwise has no complaints of any shortness of breath, chest discomfort, fever, or chills. Objective Data Objective Data Vital Signs: Vital Signs Temp Pulse Resp BP Pulse Ox O2 Del Method O2 Flow Rate 98.2 F 85 18 154/87 H 97 Nasal Cannula 2 01/09/23 18:10 01/09/23 18:10 01/09/23 18:10 01/09/23 18:10 01/09/23 18:10 01/09/23 18:10 01/09/23 18:10 Oxygen Flow Rate (L/min) 2 Oxygen Delivery Method Nasal Cannula Weight: 117.6 kg Body Mass Index (BMI) 38.2 Intake & Output: Intake and Output for Last 24 Hours 01/07/23 01/08/23 01/09/23 23:59 23:59 23:59 Intake Total 1590 / 1690 1160 / 1310 1640 / 1640 Balance 1590 / 1690 1160 / 1310 1640 / 1640 Lab / Micro Data Result Diagrams: 01/08/23 05:18 01/08/23 05:18 Labs: Laboratory Results - last 24 hr 01/08/23 06:26: POC Glucose 151 H 01/08/23 20:52: POC Glucose 151 H 01/09/23 04:25: Vancomycin Trough 16.5 H 01/09/23 04:25: Hemoglobin A1c 6.0 H 01/09/23 06:44: POC Glucose 131 H 01/09/23 11:52: POC Glucose 171 H 01/09/23 13:23: POC Glucose 137 H 01/09/23 16:08: POC Glucose 138 H Micro: Microbiology 01/07/23 16:30 Wound - Hand Gram Stain - Final 01/07/23 16:30 Wound - Hand Wound Culture - Final Staphylococcus aureus 01/07/23 12:04 Blood Culture (Wb) - Anticubital Right Blood Culture - Preliminary No growth in 48 hours. 01/07/23 12:03 Blood Culture (Wb) - Right Hand Blood Culture - Preliminary No growth in 48 hours. Physical Exam Const alert, oriented x3, no apparent distress, average body habitus and healthy appearing General Appearance: cooperative, well kempt and well developed Orientation / Consciousness: awake, oriented to person, oriented to place and oriented to time HEENT normocephalic, head/scalp atraumatic and moist oral mucous membranes Eyes PERRL, EOMs intact bilaterally and conjunctivae normal Neck supple, no JVD, thyroid normal and no carotid bruits General: trachea midline Resp normal respiratory effort, no retractions, no use of accessory muscles and clear to auscultation bilaterally Auscultation: Negative for rales, rhonchi or wheezes Cardio regular rate, regular rhythm, no murmurs, no rub and no gallops GI normal to inspection, nondistended, normoactive bowel sounds, soft to palpation, non-tender and non-distended Extremity Extremity Narrative: Left hand and left forearm is wrapped in surgical dressing, this was not removed for examination of the area Neuro oriented x3, CN's II-XII intact bilaterally, moves all extremities, no focal motor deficits and no sensory deficits noted Sensorium / Orientation: awake, alert, oriented to person, oriented to place and oriented to time Speech: speech normal Psych affect normal Assessment & Plan Assessment/Plan (1) Cellulitis and abscess of hand: PLAN: Plan 1. Cellulitis and abscess of the left hand secondary to recent left carpal tu nnel surgery-with methicillin sensitive Staph aureus, continue present antibiotic coverage per infectious diseases #2 type 2 diabetes-patient will remain on his current long-acting insulin and Accu-Cheks and sliding scale insulin coverage. #3 coronary artery disease-stable at this time, continue present medications #4 hyperlipidemia-patient remains on a statin at this time #5 essential hypertension-patient remains on his current medications Total clinical time spent by myself addressing the patient's medical issues, reviewing all the data, and collaborating with patient's care team: 35-minutes Charges/Coding Visit Charges Inpatient E&M: 14514 Subs Hosp L2
[2023-01-09] MEDS: Insulin Lispro 100 UNIT/ML INSULN.PEN SC (21:48)
[2023-01-09] MEDS: Acetaminophen 325 MG Tablet 650 MG PO (21:48)
[2023-01-09] MEDS: Fluticasone 0.05% 1 SPRAY NASAL.SRY NASAL (21:50)
[2023-01-09] MEDS: Doxazosin 1 MG Tablet 2 MG PO (21:51)
[2023-01-09] MEDS: Pregabalin 50 MG Capsule PO (21:54)
[2023-01-09 22:20] LABS: Bedside Glucose 180 mg/dL (74-106)
[2023-01-10] VITALS (8 sets, daily range): BP systolic 119–162; BP diastolic 58–80; PULSE 81–94; RESP 16–18; TEMP 36.6–37.2; O2SAT 92–97
[2023-01-10] MEDS: HYDROmorphone 1 MG/ML Syringe IV ×3 (01:00→22:19)
[2023-01-10] MEDS: oxyCODONE 5 MG Tablet 10 MG PO ×2 (05:22→10:11)
[2023-01-10] MEDS: Cefazolin 2 GM in 0.9% Normal Saline 100 ML IV (05:22)
[2023-01-10] MEDS: Acetaminophen 325 MG Tablet 650 MG PO (05:23)
[2023-01-10 06:43] LABS: Hematocrit 32.4 % (40-54); Hemoglobin 11.4 g/dL (13.0-16.5); Mean Corp Hgb Conc 35.2 g/dL (32-36); Mean Corpuscular Hgb 31.7 pg (27.0-32.0); Mean Platelet Vol. 9.8 fl (6.2-12.0); Platelet Count 131 K/mm3 (150-450); RBC Distribution Width CV 12.5 % (11.6-14.6); RBC Distribution Width SD 41.1 fl (35.1-43.9); White Blood Count 5.1 K/mm3 (4.4-11.0)
[2023-01-10 07:06] LABS: Bedside Glucose 130 mg/dL (74-106)
[2023-01-10 07:10] LABS: Anion Gap 6 (5-15); BUN 18 mg/dL (7-18); BUN/Creat Ratio 15.3 RATIO (10-20); Calcium,Total 8.2 mg/dL (8.5-10.1); Chloride 105 mmol/L (98-107); Creatinine, Serum 1.18 mg/dL (0.70-1.30); EST Glomerular Filtration Rate 65 mL/min (>60); Est Glom Filt Rate - Afr Amer 79 mL/min (>60); Estimated Creatinine Clearance 59.08 ml/min; Glucose 134 mg/dL (74-106); Potassium 3.9 mmol/L (3.5-5.1); Sodium Level 137 mmol/L (136-145)
[2023-01-10] MEDS: Carvedilol 25 MG Tablet PO ×2 (08:29→22:10)
[2023-01-10] MEDS: hydrALAZINE 50 MG Tablet 100 MG PO ×3 (08:29→16:36)
[2023-01-10] MEDS: Aspirin E.C. 81 MG Tablet PO (08:29)
[2023-01-10] MEDS: Atorvastatin Calcium 40 MG Tablet PO (08:29)
[2023-01-10] MEDS: amLODIPine 10 MG Tablet PO (08:29)
[2023-01-10] MEDS: Lisinopril 40 MG Tablet PO (08:29)
[2023-01-10] MEDS: Enoxaparin 40 MG/0.4 ML Syringe SC (08:29)
[2023-01-10] MEDS: Meclizine 12.5 MG Tablet 6.25 MG PO ×2 (08:29→22:10)
[2023-01-10] MEDS: Sertraline 100 MG Tablet PO (08:30)
[2023-01-10] MEDS: Pregabalin 50 MG Capsule PO ×2 (08:37→22:10)
--- NOTE | 2023-01-10 10:23 | PCM.PN.ID ---
Physical Exam Narrative Feeling ok, wrist sore, no fever, no n/v/d. Const alert and no apparent distress Resp normal air movement and clear to auscultation bilaterally Cardio regular rate and regular rhythm GI soft to palpation, non-tender and non-distended Skin Skin Narrative: L wrist wrapped ID ID: Route of nutrition/ use of supplements: [] Nutritional Intake: [] IV Site: [] Galeano Catheter: [] Assessment & Plan Assessment/Plan (1) Cellulitis and abscess of hand: PLAN: L wrist infection s/p surgery 12/23/22. Wound cx with mssa. Cont cefazolin. OR 01/09/[address] Calvo for I&D. Surg cx pending. Will follow
[2023-01-10] MEDS: Insulin Lispro 100 UNIT/ML INSULN.PEN SC ×2 (11:34→16:36)
[2023-01-10 11:55] LABS: Bedside Glucose 199 mg/dL (74-106)
[2023-01-10] MEDS: 0.9% Saline Lock 10 ML Syringe IV (12:21)
--- NOTE | 2023-01-10 13:58 | WOUNDNOTE ---
wound photo: left hand
--- NOTE | 2023-01-10 13:58 | WOUNDNOTE ---
wound photo: left hand
--- NOTE | 2023-01-10 15:27 | CASEMGMT ---
Addendum entered by Taylor Del Toro 01/10/23 15:44: Discussed pt wound with wound nurse, states pt sig other is not able to complete dressing changes. ELMER CAN in to pt room, pt lying in bed. He also states that his significant other cannot perform wound care. Patient was provided a list of [facility] providers including quality and resource use data and consistent with the patient?s preferred geographic region, medical needs, and insurance network were provided from the [employer]. Pt states his neighbor is a visiting nurse and his sig other is checking to see what agency she works for. Pt would like to talk the agencies over with sig other. ELMER CAN to check back in the morning for choices. If pt does not have an available cg, he is willing to go to 's office for wound care. Original Note: TC to registration, verified with [employer] that pt has Medicare A.
--- NOTE | 2023-01-10 16:21 | CHAPLAIN ---
Type of Pastoral Visit _x__ Initial Visit ___ Follow-up Visit ___ On-call Visit ___ General Patient Visit ___ Spiritual Assessment ___ Family Conference ___ Bereavement ___ Rapid Response ___ Code Blue ___ Other (describe below) Pastoral Care Referral From _x__ Patient ___ Family ___ Nurse ___ Physician ___ Metal Grinder ___ Thermospray Operator ___ Other (describe below) Sacrament/Intervention _x__ Active listening ___ Anointing ___ Alevism ___ Bereavement ___ Communion ___ Laura exploration ___ _x__ Life review _x__ Prayer ___ Reconciliation ___ Sacrament of Sick _x__ Supportive presence ___ Wedding ___ Other (describe below) Pastoral Comments patient initially states that he is fine but then as conversation proceeds he talks about many health issues of last few years, his financial difficulties due to not working, and his who worries about everything; pt admits that this scenario is hard to navigate; pt is asked about his coping abilities; pt does welcome time to talk and for prayer
[2023-01-10] MEDS: metFORMIN HCl 1,000 MG Tablet 1000 MG PO (16:36)
[2023-01-10 17:00] LABS: Bedside Glucose 151 mg/dL (74-106)
--- NOTE | 2023-01-10 19:03 | PCM.PN.HOSP ---
Reason for Visit Reason for Visit: Diagnoses Cutaneous abscess of unspecified hand (01/07/23) Cellulitis of unspecified part of limb (01/07/23) Subjective Subjective Patient was seen and examined today, he grew out Gram negative rods which were nonlactose junior manufacturing engineer's from his hand wound, I talked with infectious diseases about this and we change his antibiotic coverage today. Patient is having some bleeding late this afternoon from the wound site, nursing had redressed the area. Objective Data Objective Data Vital Signs: Vital Signs Temp Pulse Resp BP Pulse Ox O2 Del Method O2 Flow Rate 97.9 F 81 18 119/60 95 Room Air 2 01/10/23 14:39 01/10/23 16:36 01/10/23 14:39 01/10/23 14:39 01/10/23 14:39 01/10/23 14:39 01/10/23 08:19 Oxygen Flow Rate (L/min) 2 Oxygen Delivery Method Room Air Weight: 117.6 kg Body Mass Index (BMI) 38.2 Intake & Output: Intake and Output for Last 24 Hours 01/08/23 01/09/23 01/10/23 23:59 23:59 23:59 Intake Total 1160 / 1310 1750 / 1750 1110 / 1110 Balance 1160 / 1310 1750 / 1750 1110 / 1110 Lab / Micro Data Result Diagrams: 01/10/23 06:35 01/10/23 06:35 Labs: Laboratory Results - last 24 hr 01/09/23 21:46: POC Glucose 180 H 01/10/23 06:35: WBC 5.1, RBC 3.60 L, Hgb 11.4 L, Hct 32.4 L, MCV 90.0, MCH 31.7, MCHC 35.2 D, RDW Std Deviation 41.1, RDW Coeff of Vern 12.5, Plt Count 131 L, MPV 9.8 01/10/23 06:35: Sodium 137, Potassium 3.9, Chloride 105, Carbon Dioxide 26.0, Anion Gap 6, BUN 18, Creatinine 1.18, Estim Creat Clear Calc 59.08, Est GFR (MDRD) Af Amer 79, Est GFR (MDRD) Non-Af 65, BUN/Creatinine Ratio 15.3, Glucose 134 H, Calcium 8.2 L 01/10/23 06:46: POC Glucose 130 H 01/10/23 11:32: POC Glucose 199 H 01/10/23 16:34: POC Glucose 151 H Micro: Microbiology 01/09/23 15:22 Tissue - Hand Gram Stain - Final 01/09/23 15:22 Tissue - Hand Wound Culture - Preliminary GNR non junior manufacturing engineer 01/07/23 16:30 Wound - Hand Gram Stain - Final 01/07/23 16:30 Wound - Hand Wound Culture - Final Staphylococcus aureus 01/07/23 12:04 Blood Culture (Wb) - Anticubital Right Blood Culture - Preliminary No growth in 48 hours. 01/07/23 12:03 Blood Culture (Wb) - Right Hand Blood Culture - Preliminary No growth in 48 hours. Physical Exam Narrative alert, oriented x3, no apparent distress, average body habitus and healthy appearing General Appearance: cooperative, well kempt and well developed Orientation / Consciousness: awake, oriented to person, oriented to place and oriented to time HEENT normocephalic, head/scalp atraumatic and moist oral mucous membranes Eyes PERRL, EOMs intact bilaterally and conjunctivae normal Neck supple, no JVD, thyroid normal and no carotid bruits General: trachea midline Resp normal respiratory effort, no retractions, no use of accessory muscles and clear to auscultation bilaterally Auscultation: Negative for rales, rhonchi or wheezes Cardio regular rate, regular rhythm, no murmurs, no rub and no gallops GI normal to inspection, nondistended, normoactive bowel sounds, soft to palpation, non-tender and non-distended Extremity Extremity Narrative: Left hand and left forearm is wrapped in surgical dressing, this was not removed for examination of the area Neuro oriented x3, CN's II-XII intact bilaterally, moves all extremities, no focal motor deficits and no sensory deficits noted Sensorium / Orientation: awake, alert, oriented to person, oriented to place and oriented to time Speech: speech normal Psych affect normal Assessment & Plan Assessment/Plan (1) Tenosynovitis of hand: (2) Cellulitis and abscess of hand: PLAN: Plan 1. Cellulitis and abscess of the left hand secondary to recent left carpal tunnel surgery-with methicillin sensitive Staph aureus and gram-negative nonlactose fermenting meryl, continue present antibiotic coverage per infectious diseases-patient was changed to cefepime today #2 type 2 diabetes-patient will remain on his current long-acting insulin and Accu-Cheks and sliding scale insulin coverage. #3 coronary artery disease-stable at this time, continue present medications #4 hyperlipidemia-patient remains on a statin at this time #5 essential hypertension-patient remains on his current medications Total clinical time spent by myself addressing the patient's medical issues, reviewing all the data, and collaborating with patient's care team: 35-minutes Charges/Coding Visit Charges Inpatient E&M: 35216 Subs Hosp L2
--- NOTE | 2023-01-10 19:35 | PCM.PN.SRG ---
Subjective Subjective Postop #1 Has some wound pain. Tolerated the Silver dressing change with some increased pain. Needed IV analgesia. Objective Data Objective Data Vital Signs: Vital Signs Temp Pulse Resp BP Pulse Ox O2 Del Method O2 Flow Rate 97.9 F 81 18 119/60 95 Room Air 2 01/10/23 14:39 01/10/23 16:36 01/10/23 14:39 01/10/23 14:39 01/10/23 14:39 01/10/23 14:39 01/10/23 08:19 Oxygen Flow Rate (L/min) 2 Oxygen Delivery Method Room Air Weight: 259 lb 4.218 oz Body Mass Index (BMI) 38.2 Intake & Output: Intake and Output for Last 24 Hours 01/08/23 01/09/23 01/10/23 23:59 23:59 23:59 Intake Total 1160 / 1310 1750 / 1750 1110 / 1110 Balance 1160 / 1310 1750 / 1750 1110 / 1110 Lab / Micro Data Attestation: I reviewed the patient's lab results. Result Diagrams: 01/10/23 06:35 01/10/23 06:35 Labs: Laboratory Results - last 24 hr 01/09/23 21:46: POC Glucose 180 H 01/10/23 06:35: WBC 5.1, RBC 3.60 L, Hgb 11.4 L, Hct 32.4 L, MCV 90.0, MCH 31.7, MCHC 35.2 D, RDW Std Deviation 41.1, RDW Coeff of Vern 12.5, Plt Count 131 L, MPV 9.8 01/10/23 06:35: Sodium 137, Potassium 3.9, Chloride 105, Carbon Dioxide 26.0, Anion Gap 6, BUN 18, Creatinine 1.18, Estim Creat Clear Calc 59.08, Est GFR (MDRD) Af Amer 79, Est GFR (MDRD) Non-Af 65, BUN/Creatinine Ratio 15.3, Glucose 134 H, Calcium 8.2 L 01/10/23 06:46: POC Glucose 130 H 01/10/23 11:32: POC Glucose 199 H 01/10/23 16:34: POC Glucose 151 H Micro: Microbiology 01/09/23 15:22 Tissue - Hand Gram Stain - Final 01/09/23 15:22 Tissue - Hand Wound Culture - Preliminary GNR non sterilization technician 01/07/23 16:30 Wound - Hand Gram Stain - Final 01/07/23 16:30 Wound - Hand Wound Culture - Final Staphylococcus aureus 01/07/23 12:04 Blood Culture (Wb) - Anticubital Right Blood Culture - Preliminary No growth in 48 hours. 01/07/23 12:03 Blood Culture (Wb) - Right Hand Blood Culture - Preliminary No growth in 48 hours. Physical Exam Narrative General - Alert and Oriented HEENT - PERRL. EOMI. Neck - Supple and nontender. Abdomen - Soft and nondistended. Extremities - Left hand and wrist wounds are stable. Minor oozing noted controlled with gauze compression. Some tenderness with the Silver dressing change. Needed IV analgesia. Swelling improved. Flexion and extension of the fingers with less pain. Redness much improved. Thumb opposition less painful. Can't reach ring and small fingers yet. Neuro - CN II-XII grossly intact. Psych - Normal mood and affect. Assessment & Plan Assessment/Plan (1) Abscess, palm: (2) Abscess of bursa, left wrist: (3) Abscess of dorsum of left hand: (4) Left hand pain: (5) Open wound of left wrist with tendon involvement: (6) Open wound of left palm: (7) Open wound of left hand except fingers with tendon involvement: (8) Extensor tenosynovitis of left wrist: (9) Suppurative tenosynovitis of flexor tendon of left hand: (10) Compartment syndrome of left hand: (11) Diabetes: (12) History of carpal tunnel surgery of left wrist: (13) Former smoker: PLAN: Plan Left hand and wrist wounds are stable. No further evidence of infection. Swelling and redness improved. Some oozing in the wounds that were controlled with gauze compression. Tolerated the Silver dressing change with some pain. Needed IV analgesia. Flexion and extension of the fingers less painful. Thumb opposition less painful. Can't reach ring and small fingers yet. Preop wound culture showed Staphylococcus aureus. Operative culture thus far shows Gram negative rods non-sterilization technician. Cefazolin was stopped and switched to Cefepime. Encourage nutritional supplementation with protein to help the healing process. Will check a Prealbumin. After discharge, will need OT for range of motion exercises, strengthening, and edema management. Anticipate needing IV analgesia for the dressing changes for the next few days.
[2023-01-10] MEDS: Fluticasone 0.05% 1 SPRAY NASAL.SRY NASAL (22:10)
[2023-01-10] MEDS: Doxazosin 1 MG Tablet 2 MG PO (22:10)
[2023-01-10 22:40] LABS: Bedside Glucose 146 mg/dL (74-106)
[2023-01-11] VITALS (11 sets, daily range): BP systolic 145–170; BP diastolic 76–87; PULSE 80–89; RESP 14–18; TEMP 36.6–37; O2SAT 95–97
[2023-01-11] MEDS: oxyCODONE 5 MG Tablet 10 MG PO ×3 (06:24→20:49)
[2023-01-11] MEDS: Acetaminophen 325 MG Tablet 650 MG PO ×3 (06:24→20:49)
[2023-01-11 07:00] LABS: Bedside Glucose 139 mg/dL (74-106)
[2023-01-11 07:43] LABS: Prealbumin 12.9 mg/dL (20.0-40.0)
[2023-01-11] MEDS: hydrALAZINE 50 MG Tablet 100 MG PO ×3 (08:36→16:22)
[2023-01-11] MEDS: Aspirin E.C. 81 MG Tablet PO (08:37)
[2023-01-11] MEDS: Meclizine 12.5 MG Tablet 6.25 MG PO ×2 (09:51→20:49)
[2023-01-11] MEDS: Carvedilol 25 MG Tablet PO ×2 (09:52→20:49)
[2023-01-11] MEDS: Enoxaparin 40 MG/0.4 ML Syringe SC (09:53)
[2023-01-11] MEDS: Atorvastatin Calcium 40 MG Tablet PO (09:53)
[2023-01-11] MEDS: amLODIPine 10 MG Tablet PO (09:54)
[2023-01-11] MEDS: Sertraline 100 MG Tablet PO (09:54)
[2023-01-11] MEDS: Lisinopril 40 MG Tablet PO (09:54)
[2023-01-11] MEDS: Pregabalin 50 MG Capsule PO ×2 (09:54→20:49)
[2023-01-11] MEDS: Insulin Lispro 100 UNIT/ML INSULN.PEN SC ×3 (11:17→20:43)
[2023-01-11 11:56] LABS: Bedside Glucose 171 mg/dL (74-106)
[2023-01-11] MEDS: 0.9% Saline Lock 10 ML Syringe IV ×2 (13:36→14:30)
--- NOTE | 2023-01-11 13:47 | PCM.PN.ID ---
Physical Exam Narrative Hand sore, no fever, no n/v/d. Resp normal air movement and clear to auscultation bilaterally Cardio regular rate and regular rhythm GI soft to palpation, non-tender and non-distended Skin Skin Narrative: reviewed photos ID ID: Route of nutrition/ use of supplements: [] Nutritional Intake: [] IV Site: [] Galeano Catheter: [] Assessment & Plan Assessment/Plan (1) Cellulitis and abscess of hand: PLAN: L wrist infection s/p surgery 12/23/22. Wound cx with mssa. OR 01/09/[address] Calvo for I&D. Surg cx with mssa and enterobacter. Abx changed to cefepime. Will follow
[2023-01-11] MEDS: HYDROmorphone 1 MG/ML Syringe IV (14:30)
--- NOTE | 2023-01-11 15:24 | CASEMGMT ---
ELMER CAN discussed pt care with wound nurse and PROFESSOR OF LAW Nia. Pt sig other currently cannot perform dressing changes d/t tendon showing. She states once wound heals she is willing to learn. If [facility] cannot see pt 3x/wk, pt may go into 's office per Nia. ELMER CAN into pt room, pt sig other present. Discussed [facility] SN, PT and OT. They are agreeable. They have chosen [facility]. Sig other confirms after tendons are not showing she is willing to learn dressing changes. TC to Fay at [facility], referral made with the above information. She will see if they can see pt 3x/wk but it may be only 2x. Will await acceptance.
--- NOTE | 2023-01-11 16:17 | PCM.PN.SRG ---
Subjective Subjective Postop #2 Tolerated Silver dressing change better today. Still needed IV analgesia. Objective Data Objective Data Vital Signs: Vital Signs Temp Pulse Resp BP Pulse Ox O2 Del Method O2 Flow Rate 98.6 F 89 16 145/77 H 95 Room Air 2 01/11/23 14:09 01/11/23 14:09 01/11/23 14:18 01/11/23 14:09 01/11/23 14:09 01/11/23 14:18 01/11/23 02:30 Oxygen Flow Rate (L/min) 2 Oxygen Delivery Method Room Air Weight: 259 lb 4.218 oz Body Mass Index (BMI) 38.2 Intake & Output: Intake and Output for Last 24 Hours 01/09/23 01/10/23 01/11/23 23:59 23:59 23:59 Intake Total 1750 / 1750 1210 / 1210 1891.25 / 1891.25 Balance 1750 / 1750 1210 / 1210 1891.25 / 1891.25 Lab / Micro Data Result Diagrams: 01/10/23 06:35 01/10/23 06:35 Labs: Laboratory Results - last 24 hr 01/10/23 16:34: POC Glucose 151 H 01/10/23 22:07: POC Glucose 146 H 01/11/23 06:19: POC Glucose 139 H 01/11/23 06:40: Prealbumin 12.9 L 01/11/23 11:15: POC Glucose 171 H Micro: Microbiology 01/09/23 15:22 Tissue - Hand Gram Stain - Final 01/09/23 15:22 Tissue - Hand Wound Culture - Preliminary Enterobacter cloacae complex Staphylococcus aureus 01/07/23 16:30 Wound - Hand Gram Stain - Final 01/07/23 16:30 Wound - Hand Wound Culture - Final Staphylococcus aureus 01/07/23 12:04 Blood Culture (Wb) - Anticubital Right Blood Culture - Preliminary No growth in 48 hours. 01/07/23 12:03 Blood Culture (Wb) - Right Hand Blood Culture - Preliminary No growth in 48 hours. Physical Exam Narrative General - Alert and Oriented HEENT - PERRL. EOMI.? Neck - Supple and nontender. ? Abdomen - Soft and nondistended. Extremities - Left hand and wrist wounds are stable.? Minor oozing noted controlled with gauze compression.? Some tenderness with the Silver dressing change but tolerated it better than yesterday.? Needed IV analgesia. ? Swelling improved.? Flexion and extension of the fingers with less pain.? Redness much improved.? Thumb opposition less painful.? Can't reach ring and small fingers? yet. Neuro - CN II-XII grossly intact. Psych - Normal mood and affect. Assessment & Plan Assessment/Plan (1) Abscess, palm: (2) Abscess of bursa, left wrist: (3) Abscess of dorsum of left hand: (4) Left hand pain: (5) Open wound of left wrist with tendon involvement: (6) Open wound of left palm: (7) Open wound of left hand except fingers with tendon involvement: (8) Extensor tenosynovitis of left wrist: (9) Suppurative tenosynovitis of flexor tendon of left hand: (10) Compartment syndrome of left hand: (11) Diabetes: (12) History of carpal tunnel surgery of left wrist: (13) Former smoker: PLAN: Plan Left hand and wrist wounds are stable. No further evidence of infection. Swelling and redness improved. Some oozing in the wounds that were controlled with gauze compression. Tolerated the Silver dressing change better today but still needed IV analgesia. Flexion and extension of the fingers less painful. Thumb opposition less painful. Can't reach ring and small fingers yet. Preop wound culture showed Staphylococcus aureus. Operative culture thus far shows Enterobacter cloacae complex and Staphylococcus aureus. He is on IV Cefepime. ID is following. Prealbumin 12.9. Encourage nutritional supplementation with protein to help the healing process. After discharge, will need OT for range of motion exercises, strengthening, and edema management. Anticipate needing IV analgesia for the dressing changes for the next couple days. He would benefit having home health to help with the dressing changes at home.
[2023-01-11] MEDS: metFORMIN HCl 1,000 MG Tablet 1000 MG PO (16:22)
[2023-01-11] MEDS: Juven (unflavored) Packet 1 PACKET PO (16:22)
[2023-01-11 16:56] LABS: Bedside Glucose 182 mg/dL (74-106)
--- NOTE | 2023-01-11 17:14 | PCM.PN.HOSP ---
Reason for Visit Reason for Visit: Diagnoses Type 2 diabetes mellitus without complications (01/07/23) Cutaneous abscess of left hand (01/07/23) Cutaneous abscess of unspecified hand (01/07/23) Cellulitis of unspecified part of limb (01/07/23) Other infective (teno)synovitis, left hand (01/07/23) Other synovitis and tenosynovitis, left forearm (01/07/23) Synovitis and tenosynovitis, unspecified (01/07/23) Abscess of bursa, left wrist (01/07/23) Pain in left hand (01/07/23) Unspecified open wound of left hand, initial encounter (01/07/23) Unspecified open wound of left wrist, initial encounter (01/07/23) Unspecified injury of unspecified muscle, fascia and tendon at wrist and hand level, left hand, initial encounter (01/07/23) Traumatic compartment syndrome of left upper extremity, initial encounter (01/07/23) Personal history of nicotine dependence (01/07/23) Other specified postprocedural states (01/07/23) Subjective Subjective Was seen and examined today, he remains on cefepime at this time. Patient denies any fever or chills. Objective Data Objective Data Vital Signs: Vital Signs Temp Pulse Resp BP Pulse Ox O2 Del Method O2 Flow Rate 98.6 F 89 16 145/77 H 95 Room Air 2 01/11/23 14:09 01/11/23 16:22 01/11/23 14:18 01/11/23 14:09 01/11/23 14:09 01/11/23 14:18 01/11/23 02:30 Oxygen Flow Rate (L/min) 2 Oxygen Delivery Method Room Air Weight: 117.6 kg Body Mass Index (BMI) 38.2 Intake & Output: Intake and Output for Last 24 Hours 01/09/23 01/10/23 01/11/23 23:59 23:59 23:59 Intake Total 1750 / 1750 1210 / 1210 1891.25 / 1891.25 Balance 1750 / 1750 1210 / 1210 1891.25 / 189.25 Lab / Micro Data Result Diagrams: 01/10/23 06:35 01/10/23 06:35 Labs: Laboratory Results - last 24 hr 01/10/23 22:07: POC Glucose 146 H 01/11/23 06:19: POC Glucose 139 H 01/11/23 06:40: Prealbumin 12.9 L 01/11/23 11:15: POC Glucose 171 H 01/11/23 16:21: POC Glucose 182 H Micro: Microbiology 01/09/23 15:22 Tissue - Hand Gram Stain - Final 01/09/23 15:22 Tissue - Hand Wound Culture - Preliminary Enterobacter cloacae complex Staphylococcus aureus 01/07/23 16:30 Wound - Hand Gram Stain - Final 01/07/23 16:30 Wound - Hand Wound Culture - Final Staphylococcus aureus 01/07/23 12:04 Blood Culture (Wb) - Anticubital Right Blood Culture - Preliminary No growth in 48 hours. 01/07/23 12:03 Blood Culture (Wb) - Right Hand Blood Culture - Preliminary No growth in 48 hours. Physical Exam Narrative alert, oriented x3, no apparent distress, average body habitus and healthy appearing General Appearance: cooperative, well kempt and well developed Orientation / Consciousness: awake, oriented to person, oriented to place and oriented to time HEENT normocephalic, head/scalp atraumatic and moist oral mucous membranes Eyes PERRL, EOMs intact bilaterally and conjunctivae normal Neck supple, no JVD, thyroid normal and no carotid bruits General: trachea midline Resp normal respiratory effort, no retractions, no use of accessory muscles and clear to auscultation bilaterally Auscultation: Negative for rales, rhonchi or wheezes Cardio regular rate, regular rhythm, no murmurs, no rub and no gallops GI normal to inspection, nondistended, normoactive bowel sounds, soft to palpation, non-tender and non-distended Extremity Extremity Narrative: Left hand and left forearm is wrapped in surgical dressing, this was not removed for examination of the area Neuro oriented x3, CN's II-XII intact bilaterally, moves all extremities, no focal motor deficits and no sensory deficits noted Sensorium / Orientation: awake, alert, oriented to person, oriented to place and oriented to time Speech: speech normal Psych affect normal Assessment & Plan Assessment/Plan (1) Abscess of bursa, left wrist: (2) Tenosynovitis of hand: (3) Cellulitis and abscess of hand: PLAN: Plan 1. Cellulitis and abscess of the left hand secondary to recent left carpal tunnel surgery-with methicillin sensitive Staph aureus and gram-negative nonlactose fermenting meryl, continue present antibiotic coverage per infectious diseases-patient remains on cefepime #2 type 2 diabetes-patient will remain on his current long-acting insulin and Accu-Cheks and sliding scale insulin coverage. #3 coronary artery disease-stable at this time, continue present medications #4 hyperlipidemia-patient remains on a statin at this time #5 essential hypertension-patient remains on his current medications Total clinical time spent by myself addressing the patient's medical issues, reviewing all the data, and collaborating with patient's care team: 35-minutes Charges/Coding Visit Charges Inpatient E&M: 00602 Subs Hosp L2
[2023-01-11] MEDS: Fluticasone 0.05% 1 SPRAY NASAL.SRY NASAL (20:45)
[2023-01-11] MEDS: Doxazosin 1 MG Tablet 2 MG PO (20:49)
[2023-01-11 22:05] LABS: Bedside Glucose 154 mg/dL (74-106)
[2023-01-12 03:00] VITALS: BP 152/71; PULSE 76; RESP 18; TEMP 36.4; O2SAT 97
[2023-01-12 06:45] LABS: Bedside Glucose 126 mg/dL (74-106)
[2023-01-12 08:08] VITALS: BP 155/91; PULSE 78; RESP 16; TEMP 36; O2SAT 97
[2023-01-12 09:34] VITALS: BP 155/91; PULSE 78
[2023-01-12] MEDS: hydrALAZINE 50 MG Tablet 100 MG PO ×2 (09:34→12:00)
[2023-01-12] MEDS: Atorvastatin Calcium 40 MG Tablet PO (09:34)
[2023-01-12] MEDS: Lisinopril 40 MG Tablet PO (09:34)
[2023-01-12] MEDS: Carvedilol 25 MG Tablet PO (09:34)
[2023-01-12] MEDS: Aspirin E.C. 81 MG Tablet PO (09:35)
[2023-01-12] MEDS: amLODIPine 10 MG Tablet PO (09:35)
[2023-01-12] MEDS: Meclizine 12.5 MG Tablet 6.25 MG PO (09:35)
[2023-01-12] MEDS: Juven (unflavored) Packet 1 PACKET PO (09:35)
[2023-01-12] MEDS: Sertraline 100 MG Tablet PO (09:35)
[2023-01-12] MEDS: oxyCODONE 5 MG Tablet 10 MG PO (09:36)
[2023-01-12] MEDS: Acetaminophen 325 MG Tablet 650 MG PO (09:37)
[2023-01-12] MEDS: Enoxaparin 40 MG/0.4 ML Syringe SC (09:38)
[2023-01-12] MEDS: Pregabalin 50 MG Capsule PO (09:38)
--- NOTE | 2023-01-12 10:08 | PCM.PN.ID ---
Physical Exam Narrative Feeling better, hand less sore, no fever Const alert and no apparent distress Resp normal air movement and clear to auscultation bilaterally Cardio regular rate and regular rhythm GI soft to palpation, non-tender and non-distended Skin Skin Narrative: hand wrapped ID ID: Route of nutrition/ use of supplements: [] Nutritional Intake: [] IV Site: [] Galeano Catheter: [] Assessment & Plan Assessment/Plan (1) Cellulitis and abscess of hand: PLAN: L wrist infection s/p surgery 12/23/22. Wound cx with mssa. OR 01/09/[address] Calvo for I&D. Surg cx with mssa and enterobacter. Abx changed to cefepime 01/10. Ok for home today with 10 more days levaquin 500mg po daily. ID followup prn. Will follow
--- NOTE | 2023-01-12 10:53 | CASEMGMT ---
Addendum entered by Adele Castorena 01/12/23 16:30: While pt updating pt on below information, pt's sig other, had phoned in and she was notified of the below information/discharge plan. Addendum entered by Adele Castorena 01/12/23 16:10: Call received back from Brittney, nurse for Dr Lorenzo @ the [facility]. Brittney made aware pt needs consult to go to [facility], as they are unable to bill for the visits there under [facility] and would need to be billed under [facility]. She was made aware plan is for pt to receive SN visits from [facility] 3 x's/week initially until pt able to go to the weekly and then they will do SN [facility] visits 2 x's/week. She states she will notify Dr Lorenzo of this and ask for consult to be placed. She states the consult request then has to go to [facility] team to review the request and make determination if they will approve or deny. She states it may take up to 30 days to make determination, but it is usually done w/in a week, and the should be notified of decision. Call placed to both Maya @ and Fay @ [facility] and they were made aware of above. They were provided w/Community [facility] team contact info: [phone]. Ext [phone]. Fay asks for Maya to notify her once they receive notification of decision. Maya made aware. Pt made aware of all of the above. Addendum entered by Adele Castorena 01/12/23 13:23: Per Fay @ [facility], they are able to see pt 3 x's/week until [facility] approval is received for pt to go to the [facility] Center weekly. Fay also states that Dr Lorenzo @ [facility] is agreeable to following pt for [facility]. Call to [facility] to inquire who approval for should obtained from. VM left for Brittney, restaurant kitchen and service manager for Dr Lorenzo. Awaiting return call. Addendum entered by Adele Castorena 01/12/23 11:22: Call received from Maya @ [facility]. Pt has [facility] only and only able to bill appts @ the under [facility]. Maya states the [facility] would have to approve visits @ the before they can see him. Call placed to Fay @ [facility] and she was made aware of the above. Fay checking to see if they are able to see pt 3 x's/week. Yasir CONTRERAS RN, CM Original Note: ELMER CAN NOTE: Per Fay @ [facility], they are able to accep pt w/SOC slated for tomorrow 01/13. She states they can only see pt 2 x's/week. Call placed to Maya @ the [facility] Center. Appt scheduled w/Nia Platt NP, on Tuesday 01/16 @ 10 AM, with the plan for her to see pt weekly thereafter. Appt added to pt's discharge plan. Pt made aware of the above. Yasir CONTRERAS RN, CM
[2023-01-12] MEDS: Insulin Lispro 100 UNIT/ML INSULN.PEN SC (11:00)
[2023-01-12 11:15] LABS: Bedside Glucose 207 mg/dL (74-106)
--- NOTE | 2023-01-12 11:49 | CASEMGMT ---
Social Work PT has a health care POA on file naming Susana Bhardwaj. [facility] does have a living will section built in. RUSSELL Bloom
[2023-01-12 12:00] VITALS: PULSE 80
[2023-01-12 15:30] VITALS: BP 149/79; PULSE 82; RESP 16; TEMP 36.7; O2SAT 94
--- NOTE | 2023-01-12 16:16 | PCM.DC ---
Discharge Instructions Diet Discharge Diet: 1800 Calorie Control Diet Activity Discharge Activity: Return to Normal Activity Weight Bearing Status: Full weight bearing Dressing / Incision Call your doctor if your incision/area has: - (Home health will change your dressing) Cleanse incision/area with: Soap & Water and Keep Dressing Clean & Dry Follow Up Care Test Results: Test results from this visit will be discussed in further detail at your follow-up appointment, if applicable. Discharge Plan Admission Admit Date/Time: 01/07/23 14:03 Primary Reason for Your Visit: left hand abcess Attending Provider: Matt Victor Primary Care Provider: [place] [place] Consulting Providers: Robin Calvo ; Jeana Vasquez ; Juma Hernandez Discharge Orders/Prescriptions Prescriptions: New levofloxacin 500 mg tablet 500 mg PO DAILY Qty: 10 0RF oxycodone 5 mg Tablet 10 mg PO Q6H PRN (Reason: pain) 7 Days Qty: 56 0RF pregabalin 50 mg Capsule 50 mg PO BID Qty: 60 0RF Continued metformin 500 MG tablet 1,000 mg PO QPM meclizine 12.5 MG tablet 6.25 mg PO BID doxazosin 2 mg tablet 2 mg PO DAILY carvedilol 25 mg Tablet 25 mg PO BID sertraline [Zoloft] 100 mg Tablet 100 mg PO DAILY aspirin 81 mg Tablet,Delayed Release (Dr/Ec) 81 mg PO DAILY amlodipine 10 mg Tablet 10 mg PO DAILY fluticasone propionate 50 mcg/actuation [place],Suspension 1 spray intranasal UD rosuvastatin 20 mg Tablet 20 mg PO DAILY semaglutide (weight loss) 0.5 mg/0.5 mL Pen Injector 0.5 mg SUBCUT SA Cinnamon 1,200 mg PO/SL DAILY hydralazine 50 mg tablet 100 mg PO TIDCM lisinopril 40 MG tablet 40 mg PO DAILY pregabalin 25 mg Capsule 25 mg PO QHS Referrals / Follow Up: Nia Platt NP, [facility] [Med Staff - Adv Practice Prof] - 01/16/23 10:00 am (Please arrive @ 9:30 AM to complete paperwork. ) [facility],[place] [Primary Care Provider] - Disposition Disposition (needs filled in before D/C Order can be placed): Home Health Service
--- NOTE | 2023-01-12 16:35 | DS.PCM_ITS ---
Providers Date of Admission: 01/07/23 Date of Discharge: 01/12/23 Primary Care Physician: [facility] Consultations 01/08/23 09:24 Consult: Plastic Surgery Routine Consulting Provider: Robin Calvo Reason for Consult: hand cellulitis EMERGENT Consult: No MD Notified: Yes Date Notified: 01/08/23 Time Notified: 09:24 Method of Notification: texted per Dr. Vasquez 01/09/23 13:22 Consult: Infectious Disease Routine Consulting Provider: Juma Hernandez Reason for Consult: left hand infection EMERGENT Consult: No MD Notified: Yes Date Notified: 01/09/23 Time Notified: 13:22 Method of Notification: Verbal 01/10/23 14:22 Consult: Onc/Wound/director of software development Routine Comment: Reason for Consult:: left hand Reason For Visit: POST OP CELLULITIS OF THE LEFT HAND Diagnosis Discharge Diagnosis (1) Cellulitis and abscess of hand: Status: Acute Code(s): L03.119 - Cellulitis of unspecified part of limb; L02.519 - Cutaneous abscess of unspecified hand Plan 1. Cellulitis and abscess of the left hand secondary to recent left carpal tunnel surgery-with methicillin sensitive Staph aureus and gram-negative nonlactose fermenting meryl, continue present antibiotic coverage per infectious diseases-patient remains on cefepime #2 type 2 diabetes-patient will remain on his current long-acting insulin and Accu-Cheks and sliding scale insulin coverage. #3 coronary artery disease-stable at this time, continue present medications #4 hyperlipidemia-patient remains on a statin at this time #5 essential hypertension-patient remains on his current medications Total clinical time spent by myself addressing the patient's medical issues, reviewing all the data, and collaborating with patient's care team: 35-minutes Medications at Discharge Home Medications doxazosin 2 mg tablet 2 mg PO DAILY BLOOD PRESSURE 05/10/21 meclizine 12.5 mg tablet 6.25 mg PO BID DIZZINESS 05/10/21 metformin 500 mg tablet 1,000 mg PO QPM DIABETES 05/10/21 carvedilol 25 mg tablet 25 mg PO BID HEART 04/24/22 Cinnamon 1,200 mg PO/SL DAILY SUPPLEMENT 01/07/23 amlodipine 10 mg tablet 10 mg PO DAILY BLOOD PRESSURE 01/07/23 aspirin 81 mg tablet,delayed release 81 mg PO DAILY HEART HEALTH 01/07/23 fluticasone propionate 50 mcg/actuation nasal spray,suspension 1 spray intranasal UD CONGESTION 01/07/23 hydralazine 50 mg tablet 100 mg PO TIDCM BLOOD PRESSURE 01/07/23 lisinopril 40 mg tablet 40 mg PO DAILY BLOOD PRESSURE 01/07/23 pregabalin 25 mg capsule 25 mg PO QHS Check with primary doctor 01/07/23 rosuvastatin 20 mg tablet 20 mg PO DAILY CHOLESTEROL 01/07/23 semaglutide (weight loss) 0.5 mg/0.5 mL subcutaneous pen injector 0.5 mg subcut SA DIABETES 01/07/23 sertraline 100 mg tablet (Zoloft) 100 mg PO DAILY DEPRESSION/ANXIETY 01/07/23 levofloxacin 500 mg tablet 500 mg PO DAILY #10 tabs 01/12/23 oxycodone 5 mg tablet 10 mg PO Q6H PRN pain 7 days #56 tabs 01/12/23 pregabalin 50 mg capsule 50 mg PO BID #60 caps 01/12/23 Hospital Course Operations - (Incision and drainage of left carpal tunnel abscess with extension into the thenar area, and incision and drainage of abscess dorsum left hand) Procedures None Summary of Care Provided Minutes Spent on Discharge: 32 Hospital Course: This 67-year-old white male was seen in the emergency room at [facility] with complaints of left hand and wrist swelling and redness, patient had a recent left carpal tunnel surgery done at another hospital on 12/23/2022, patient had a sutures removed on 01/04/2023, he noticed worsening pain and redness that radiated into his forearm 48 hours after this. Patient also complained of chills. Patient's white blood cell count was 8.3, x-ray of the left hand showed degenerative changes and diffuse soft tissue swelling, the ER physician spoke with the patient's surgeon and he recommended the patient to stay at [facility] and receive IV antibiotics. Patient was admitted to [place] [address], he was given IV antibiotics and seen in consultation by infectious diseases and plastic surgery, plastic surgery performed a debridement of the surgical area on the patient's left wrist and hand, organisms grew out methicillin sensitive Staph aureus and Enterobacter cloacae. Patient was felt to be stable for discharge home on oral Levaquin. On 01/12/2023, patient was seen and examined: On examination he appeared in good health and spirits. Vital signs as documented. Skin warm and dry and without overt rashes. Neck without JVD, neck was supple, trachea midline, thyroid was normal. Lungs clear bilaterally, normal air movement was noted. Heart exam notable for regular rhythm, normal sounds and absence of murmurs, rubs or garcia ps. Abdomen unremarkable and without evidence of organomegaly, masses, or abdominal aortic enlargement. Bowel sounds are present, abdomen is not distended. Neuro: Cranial nerves II through XII are grossly intact, no focal motor deficits were noted, sensation to light touch and pinprick intact, motor exam 5/5 throughout. Psych: Patient is alert and oriented x3, he does not appear anxious or depressed, he does not appear agitated. Patient appeared stable for discharge home on 01/12/2023. Weight / BMI Weight Weight: 117.6 kg Body Mass Index (BMI) 38.2 ABG / Lab / Microbiology Data Result Diagrams: 01/10/23 06:35 01/10/23 06:35 Laboratory: Laboratory Results - last 24 hr 01/11/23 16:21: POC Glucose 182 H 01/11/23 20:43: POC Glucose 154 H 01/12/23 06:25: POC Glucose 126 H 01/12/23 10:57: POC Glucose 207 H Microbiology: Microbiology 01/07/23 12:03 Blood Culture (Wb) - Right Hand Blood Culture - Final No growth in 5 days. 01/07/23 12:04 Blood Culture (Wb) - Anticubital Right Blood Culture - Final No growth in 5 days. 01/09/23 15:22 Tissue - Hand Gram Stain - Final 01/09/23 15:22 Tissue - Hand Wound Culture - Final Enterobacter cloacae complex Staphylococcus aureus 01/09/23 15:22 Tissue - Hand Anaerobic Culture - Preliminary 01/07/23 16:30 Wound - Hand Gram Stain - Final 01/07/23 16:30 Wound - Hand Wound Culture - Final Staphylococcus aureus D/C Instructions Discharge Diet: 1800 Calorie Control Diet Weight Bearing Status: Full weight bearing Call your doctor if your incision/area has: - (Home health will change your dressing) Cleanse incision/area with: Soap & Water and Keep Dressing Clean & Dry Meaningful Use Info Meaningful Use Diagnoses (Choose all that apply): None applicable Discharge Plan Admission Admit Date/Time: 01/07/23 14:03 Primary Reason for Your Visit: left hand abcess Attending Provider: Matt Victor Primary Care Provider: [facility] Consulting Providers: Robin Calvo ; Jeana Vasquez ; Juma Hernandez Discharge Orders/Prescriptions Prescriptions: New levofloxacin 500 mg tablet 500 mg PO DAILY Qty: 10 0RF oxycodone 5 mg Tablet 10 mg PO Q6H PRN (Reason: pain) 7 Days Qty: 56 0RF pregabalin 50 mg Capsule 50 mg PO BID Qty: 60 0RF Continued metformin 500 MG tablet 1,000 mg PO QPM meclizine 12.5 MG tablet 6.25 mg PO BID doxazosin 2 mg tablet 2 mg PO DAILY carvedilol 25 mg Tablet 25 mg PO BID sertraline [Zoloft] 100 mg Tablet 100 mg PO DAILY aspirin 81 mg Tablet,Delayed Release (Dr/Ec) 81 mg PO DAILY amlodipine 10 mg Tablet 10 mg PO DAILY fluticasone propionate 50 mcg/actuation [place],Suspension 1 spray intranasal UD rosuvastatin 20 mg Tablet 20 mg PO DAILY semaglutide (weight loss) 0.5 mg/0.5 mL Pen Injector 0.5 mg SUBCUT SA Cinnamon 1,200 mg PO/SL DAILY hydralazine 50 mg tablet 100 mg PO TIDCM lisinopril 40 MG tablet 40 mg PO DAILY pregabalin 25 mg Capsule 25 mg PO QHS Referrals / Follow Up: Nia Platt NP, [facility] [employer] [facility] [Med Staff - Adv Practice Prof] - 01/16/23 10:00 am (Please arrive @ 9:30 AM to complete paperwork. ) [facility],[place] [Primary Care Provider] - Disposition Disposition (needs filled in before D/C Order can be placed): Home Health Service Charges/Coding Visit Charges Inpatient E&M: 66144 Disch Hosp >30min
[2023-01-12 16:40] VITALS: BP 149/79; PULSE 82; RESP 16; TEMP 36.7; O2SAT 94
--- NOTE | 2023-01-13 10:30 | CASEMGMT ---
Received tc from Brittney at [place] who states that she needs more information for the [facility] approval. Made aware that pt will see in the office if HH cannot do wound care and sig other unable to learn. Spoke with Nia MEZA who states that wounds to the hand are seen at the office, not the [facility]. She states she will cancel request. Spoke with Fay at [facility], she states order reads daily for wound care. Reached out to Nia Platt NP, she will call order for 3x/wk. Fay is aware of the plan of visits at 's office if need be as well once their visit frequency is determined.
== END 2023-01-12 17:30 | disposition home health service (06) | DRG 857 ==
LOC: ED 14:49 → MS3 14:50
PROVIDERS: Anesthesiology; Nurse Practitioner; Surgery; Admitting Provider Student in an Organized Health Care Education/Training Program; Emergency Provider Emergency Medicine; Visit Provider Internal Medicine
PROC: 0LB80ZZ Excision of Left Hand Tendon, Open Approach (ICD-10-PCS; principal; 2023-01-09 14:15)
DX: T81.43XA Infection following a procedure, organ and space surgical site, initial encounter (principal); L03.114 Cellulitis of left upper limb; T79.A12A Traumatic compartment syndrome of left upper extremity, initial encounter; L02.512 Cutaneous abscess of left hand; E11.65 Type 2 diabetes mellitus with hyperglycemia; E78.00 Pure hypercholesterolemia, unspecified; B95.61 Methicillin susceptible Staphylococcus aureus infection as the cause of diseases classified elsewhere; B95.2 Enterococcus as the cause of diseases classified elsewhere; F41.9 Anxiety disorder, unspecified; I25.10 Atherosclerotic heart disease of native coronary artery without angina pectoris; I10 Essential (primary) hypertension; M65.142 Other infective (teno)synovitis, left hand; M71.032 Abscess of bursa, left wrist; M65.832 Other synovitis and tenosynovitis, left forearm; F32.A Depression, unspecified; X58.XXXA Exposure to other specified factors, initial encounter; Z95.1 Presence of aortocoronary bypass graft; Z79.82 Long term (current) use of aspirin; Z79.84 Long term (current) use of oral hypoglycemic drugs; Z79.899 Other long term (current) drug therapy; Z86.73 Personal history of transient ischemic attack (TIA), and cerebral infarction without residual deficits; Z87.891 Personal history of nicotine dependence
CPT/HCPCS: 36415; 73130; 80048; 80202; 82962; 83036; 83605; 84134; 85025; 85027; 85652; 86140; 87040; 87070; 87075; 87077; 87102; 87176; 87186; 87205; 87206; 88304; 93005; 97110; 97116; 97161; 97166; 97530; 97535; 99284; J7030; J7040; J7120; A4216; J2405

== ENCOUNTER 2023-05-08 13:00 | Outpatient (RCR) | payer OTHER, SELFPAY ==
--- NOTE | 2023-04-13 09:49 | HP.OTEVAL_ITS ---
Patient's Visit Information JIM BERNSTEIN is a 67 year old M, referred to Occupational Therapy by Nia Platt, DERRICK-Castro, with a diagnosis of cutaneous abscess left hand, synovitis/tenosynovitis/infection left hand. Date of Evaluation: 04/11/23 Occupational Therapist: LADONNA Britton/Owen, CHT - Subjective This 67 year old male was seen for OT eval with dx traumatic compartment syndrome left UE, open wound left hand, cutaneous abscess of left hand tenosynovitis of left hand, synovitis and tenosynovitis left hand - infection teno(synovitis) left hand/left forearm . pt underwent left CTR on 12/23/22 and ended up in hospital with infection on 01/07/23 and underwent sx on 01/09/23. pt arrives with healed wounds but would like to get full ROM of grasp and increase his research environmental engineer strength. pt is c/o of left shoulder pain with movement. - Pain left hand 0 Pain Intensity Range: 6, 7 - ROM Shoulder: right flexion WNL left 125 with pain Wrist: right 65/55 left 30/30 Opposition: Kapandji opposition scale right 10 Distal palmar crease left 4 tip of RF ROM Comments: pt demo 1/2 away from left composite fist. right hand full composite fist. - Strength Orchestra Director: right 100# left 22# Lateral Pinch: right 20# left 10# Tripod Pinch: right 6# left 14# - Sensation Thumb: right 2.83 left 2.83 interpretation = Normal sensation Index: right 2.83 left 2.83 interpretation = Normal sensation Middle: right 2.83 left 2.83 interpretation = Normal sensation Ring: right 2.83 left 2.83 interpretation = Normal sensation Little: right 2.83 left 2.83 interpretation = Normal sensation - Nine Hole Peg Right: 27.93 sec. Left: 37.32 - Quick DASH-Disab of Arm,Shoulder& Hand Quick DASH Score: 75.0000 - Goals Goal:Daily scar massage when approriate: Yes Goal:ROM equal to unaffected hand: Yes Goal:Orchestra Director/Pinch strength at least 75% of unaffected hand: Yes Goal:No pain with affected hand use: Yes Goal:PIP Circumferences equal to unaffected hand: Yes Goal:Full use of affected hand in daily activities including: Yes Goal:Decrease scar hypersensitivity: Yes - Rehabilitation General Assessment: pt demo with limited ability to form a left composite fist and weakness of left research environmental engineer and pinch strength increasing need of assistance with ADLs and IADl.s pt also demo with hypertrophic scaring. Pt would benefit from skilled OT services 2-3x week for 8 weeks to increase ROM/strength to return pt to PLOF. pt demo understanding and agrees to POC. Rehabilitation Potential: Good - Anticipated Interventions A/AAROM/PROM, Strengthening, Scar Care, Triggerpoint Release, Desensitization, Sensory Retraining, Modalities, Orthoses, Joint Protection/Energy Conservation, Fine Motor Coord/Florencio, Education re assistive Equipment, Education re Diagnosis - Visit Plan Frequency: 2-3x /Week Duration: 2 Months TEXT: Thank you for the opportunity to evaluate your patient. For Medicare and Medicare HMO plans, please review the plan of care and approve it. It will need to be FAXED BACK to us at [phone] for Medicare purposes. Please let me know if there are questions or concerns regarding this plan of care. Physician Signature: Date:
--- NOTE | 2023-05-08 13:23 | HP.OTDCSUM_ITS ---
It has been my pleasure to treat JIM BERNSTEIN under orders from KAMALA Jeter, for the diagnosis of cutaneous abscess left hand, synovitis/tenosynovitis/infection left hand for a total of 8 visit(s). Please see the following information for a summary of their discharge status. % Improvement: 75 Objective/Function: left customer service attendant strength 50# increase from 20#. left lateral pinch 12# increase from 12#. left tripod pinch 14# same as evaluation. Patient Goals: Regain Strength, Improve Fine Motor Skills, Use Hand/Wrist/Arm Normally Again, Be More Independent in ADLS Goal:Daily scar massage when approriate: Yes Goal:ROM equal to unaffected hand: Yes Goal:Infectious Disease Physician/Pinch strength at least 75% of unaffected hand: Yes Goal:No pain with affected hand use: Yes Goal:PIP Circumferences equal to unaffected hand: Yes Goal:Full use of affected hand in daily activities including: Yes Goal:Decrease scar hypersensitivity: Yes Plan: D/C Discharge Comments: pt states he is ready for D/C and states he will continue with his HEP. (scar mtg. ROM, PROM and PRE) as well as return to use with IADLs and ADLs. pt agrees with D/C and states he will continue with HEP. If there are questions or concerns regarding this patient's occupational therapy, please fell free to call me at [phone]. Thank you for the referral of this patient. Sincerely, Brittney Singh, OTR/L, CHT
== END 2023-05-08 14:21 | disposition home or self-care (01) ==
LOC: OT 13:00
PROVIDERS: Referring Provider Nurse Practitioner Family; Visit Provider Nurse Practitioner Family
DX: G56.00 Carpal tunnel syndrome, unspecified upper limb (principal)
CPT/HCPCS: 97110; 97140; 97166; 97530

== ENCOUNTER 2023-07-13 22:44 | Emergency (ER) | payer OTHER, SELFPAY ==
[2023-07-13 22:45] VITALS: BP 164/81; PULSE 82; RESP 18; TEMP 36.9; O2SAT 100; BMI 39.6
--- NOTE | 2023-07-13 23:13 | EDS_ITS ---
HPI History of Present Illness Chief Complaint: Bite Informant: patient and spouse/S.O. Narrative Narrative: Patient was placing wood into an existing wood pile, and was surprisingly met with a swarm of bees that look like yellow jackets, and he received multiple stings, 5 or 6 on his face and 1 on his left forearm. This was about 6 hours prior to evaluation. He states they are a little sore but he has no other symptoms. They did not cause him to fall or have an injury, he denies any pruritus or history of allergies to bee stings. His significant other brought him and states that she was concerned about all the medications that he is on and his medical problems and if any of this would interfere. She states after the stings, she cleaned them. Then she prepped them with hydrogen peroxide. Then she wiped them all with isopropanol. Then she was applying a drawing salve in order to get the stingers out. [facility] Medical History Abscess of bursa, left wrist Abscess of dorsum of left hand Abscess, palm Arthritis Chest pain Compartment syndrome of left hand Coronary artery disease CVA (cerebral vascular accident) Diabetes Extensor tenosynovitis of left wrist Former smoker Hearing problem High cholesterol History of carpal tunnel surgery of left wrist HTN (hypertension) Left hand pain Neuropathy Open wound of left hand except fingers with tendon involvement Open wound of left palm Open wound of left wrist with tendon involvement Open wounds of multiple sites of left hand Sleep apnea Subdural hematoma Suppurative tenosynovitis of flexor tendon of left hand Tenosynovitis of hand UTI (urinary tract infection) Home Medications doxazosin 2 mg tablet 2 mg PO DAILY BLOOD PRESSURE 05/10/21 [History Last Taken 01/06/23] meclizine 12.5 mg tablet 6.25 mg PO BID DIZZINESS 05/10/21 [History Last Taken 01/06/23] metformin 500 mg tablet 1,000 mg PO QPM DIABETES 05/10/21 [History Last Taken 01/06/23] carvedilol 25 mg tablet 25 mg PO BID HEART 04/24/22 [History Last Taken 01/06/23] Cinnamon 1,200 mg PO/SL DAILY SUPPLEMENT 01/07/23 [History Last Taken 01/06/23] amlodipine 10 mg tablet 10 mg PO DAILY BLOOD PRESSURE 01/07/23 [History Last Taken 01/06/23] aspirin 81 mg tablet,delayed release 81 mg PO DAILY HEART HEALTH 01/07/23 [History Last Taken 01/06/23] fluticasone propionate 50 mcg/actuation nasal spray,suspension 1 spray intranasal UD CONGESTION 01/07/23 [History Last Taken 01/06/23] hydralazine 50 mg tablet 100 mg PO TIDCM BLOOD PRESSURE 01/07/23 [History Last Taken 01/06/23] lisinopril 40 mg tablet 40 mg PO DAILY BLOOD PRESSURE 01/07/23 [History Last Taken 01/06/23] pregabalin 25 mg capsule 25 mg PO QHS Check with primary doctor 01/07/23 [Hist ory Last Taken 01/06/23 22:00] rosuvastatin 20 mg tablet 20 mg PO DAILY CHOLESTEROL 01/07/23 [History Last Taken 01/07/23] semaglutide (weight loss) 0.5 mg/0.5 mL subcutaneous pen injector 0.5 mg subcut SA DIABETES 01/07/23 [History Last Taken 12/31/22] sertraline 100 mg tablet (Zoloft) 100 mg PO DAILY DEPRESSION/ANXIETY 01/07/23 [History Last Taken 01/06/23] pregabalin 50 mg capsule 50 mg PO BID #60 caps 01/12/23 [Rx Last Taken Unknown] oxycodone 5 mg tablet 10 mg (2 x 5 mg) PO Q6H PRN pain 7 days #56 tabs 03/09/23 [Rx Last Taken Unknown] donepezil 10 mg tablet 10 mg PO QHS #30 tabs 05/16/23 [Rx Last Taken Unknown] donepezil 5 mg tablet 5 mg PO QHS #30 tabs 05/16/23 [Rx Last Taken Unknown] Allergy/AdvReac Type Severity Reaction Status Date / Time gabapentin Allergy Severe Other Verified 07/13/23 22:45 Family History Mother Dementia Parkinsons disease Father Heart disease Hypertension Myocardial infarction CVA (cerebral vascular accident) CAD (coronary artery disease) Surgical History History of appendectomy History of carpal tunnel surgery of left wrist History of hand surgery S/P appendectomy S/P CABG x 4 Social History household members: spouse Smoking Status: Former smoker how long ago did patient quit smoking: Smoked in x 7 years, quit 1979, cigars. 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 substance use type: does not use ROS ROS ED Constitutional Constitutional ED: Denies chills or fever(s) Eyes Eyes: Denies change in vision or diplopia ENT ENT ED: Reports as per HPI and facial pain; Denies sore throat, throat swelling or tongue swelling Cardiovascular Cardiovascular: Denies lightheadedness, pedal edema or syncope Respiratory/Chest Respiratory/Chest: Denies dyspnea or wheezing Gastrointestinal Gastrointestinal: Denies nausea or vomiting Integumentary Reports as per HPI EXAM Physical Exam Const Vital Signs: 07/13/23 22:45 07/13/23 23:26 Temperature 98.4 F Temperature Source Temporal Pulse Rate 82 78 Respiratory Rate 18 16 Blood Pressure 164/81 H 164/81 H Blood Pressure Mean 108 Pulse Ox 100 99 Positive well nourished and well developed General Appearance ED: well developed and NAD HEENT HEENT Narrative: Several very small sting sites scattered on the face, 2 or 3 on his forehead, 2 or 3 on the right side of his face, and he states there is 1 right beneath his right eye that objectively I do not see or feel. Eyes PERRL, EOMs intact bilaterally and conjunctivae normal Neck no lymphadenopathy and supple Chest Wall inspection of chest normal and palpation of chest normal Extremity normal to inspection General Extremety ED: Negative for edema or tenderness General Extremity: Negative for edema Psych mental status grossly normal Skin Skin Narrative: Several sting sites that are very benign appearing I do not palpate any foreign bodies in the skin, most are on the face and there is 1 on the left volar forearm. All very benign appearing no significant wheal and flare reactions. No tenderness, no fluctuance, no lymphangitis. MDM MDM MDM Narrative Medical decision making narrative: Reassured these are simple insect stings, simple supportive care is warranted and nothing more at this time we discussed signs and symptoms of infection and reasons to watch and return. Discharge Plan Triage Chief Complaint: Bite ED Provider: Travon Hedrick Dx/Rx/DC Orders Clinical Impression: Insect sting Instructions: Bite Sting Insect Spider Scorpion Prescriptions: No Action oxycodone 5 mg tablet 10 mg PO Q6H PRN (Reason: pain) 7 Days Qty: 56 0RF donepezil 5 mg tablet 5 mg PO QHS Qty: 30 0RF donepezil 10 mg tablet 10 mg PO QHS Qty: 30 5RF Rx Instructions: Begin after completing one month of treatment of donepezil 5mg nightly metformin 500 MG tablet 1,000 mg PO QPM meclizine 12.5 MG tablet 6.25 mg PO BID doxazosin 2 mg tablet 2 mg PO DAILY carvedilol 25 mg Tablet 25 mg PO BID sertraline [Zoloft] 100 mg Tablet 100 mg PO DAILY aspirin 81 mg Tablet,Delayed Release (Dr/Ec) 81 mg PO DAILY amlodipine 10 mg Tablet 10 mg PO DAILY fluticasone propionate 50 mcg/actuation [place],Suspension 1 spray intranasal UD rosuvastatin 20 mg Tablet 20 mg PO DAILY semaglutide (weight loss) 0.5 mg/0.5 mL Pen Injector 0.5 mg SUBCUT SA Cinnamon 1,200 mg PO/SL DAILY hydralazine 50 mg tablet 100 mg PO TIDCM lisinopril 40 MG tablet 40 mg PO DAILY pregabalin 25 mg Capsule 25 mg PO QHS pregabalin 50 mg Capsule 50 mg PO BID Qty: 60 0RF [facility] [[facility] Provider] - As Needed Disposition Disposition: Home, Self Care Discharge Date/Time: 07/13/23 23:27
[2023-07-13 23:26] VITALS: BP 164/81; PULSE 78; RESP 16; O2SAT 99
== END 2023-07-13 23:27 | disposition home or self-care (01) ==
LOC: ED 23:14
PROVIDERS: Emergency Provider Emergency Medicine; Visit Provider Emergency Medicine
DX: S51.802A Unspecified open wound of left forearm, initial encounter (principal); S01.80XA Unspecified open wound of other part of head, initial encounter; I25.10 Atherosclerotic heart disease of native coronary artery without angina pectoris; Z87.891 Personal history of nicotine dependence; X58.XXXA Exposure to other specified factors, initial encounter
CPT/HCPCS: 99282

== ENCOUNTER → 2023-11-30 | Outpatient (CLI) | payer OTHER, SELFPAY ==
--- NOTE | 2023-11-30 15:13 | CT_ITS ---
STUDY: CT BRAIN WITHOUT CONTRAST REASON FOR EXAM: Male, 68 years old. eval for reaccumulation of subdural fluid RADIATION DOSAGE (If Supplied By Facility): CTDIvol = ( 47.06 ) mGy, DLP = ( 960.91 ) mGycm TECHNIQUE: Transaxial CT imaging of the brain was performed without administration of intravenous contrast material. Individualized dose optimization techniques were used for this CT. COMPARISON: 11/30/2021 FINDINGS: Normal soft tissue structures. Normal calvarium. There is mild cerebral atrophy with widening of the extra-axial spaces and ventricular dilatation. There are areas of decreased attenuation within the white matter tracts of the supratentorial brain, consistent with microvascular disease changes. There are bilateral lacunar infarcts of the basal ganglia and thalami. Normal brainstem. Normal cerebellum. Encephalomalacia seen in the right frontal lobe from previous infarct. No fluid collections. There is no intracranial hemorrhage. There are no findings of an acute ischemic infarction. Normal visualized paranasal sinuses. CT/Brain/Head without Contrast IMPRESSION: Chronic involutional changes of the brain. Old right frontal infarct. No acute abnormality. Electronically Signed: Andrew Dennis MD at 17:56 EST ,
--- OUTSIDE RECORDS SUMMARY | 2023-11-30 15:38 | XMS RPT_ITS | CCD ---
Author Name Unknown Address [address] [facility] [address] [place] [address] Organization [facility] Care Team Providers Care Water Resources Business Segment Leader Name Role Phone PROVIDER, UNKNOWN Attending Unavailable PROVIDER, UNKNOWN Admitting Unavailable [place], [facility] Primary Care Physician [place], [facility] Primary Care Physician DR CARRIE KELLER MD Attending [place]available [place] Unavailable KRISHNA VENTURA, DR CARRIE Woody Attending Unavailable [place] [place] Consulting Unavailable TALA JOHNSON MD Consulting Unavailable KRISHNA VENTURA, DR CARRIE Woody Attending Unavailable [facility] Primary Care Unavailable JUDE VENTURA, CRISTAL Attending Unavailable [facility] Primary Care Unavailable JUDE VENTURA, CRISTAL Attending Unavailable [place] Primary Care Unavailable KRISHNA VENTURA, DR CARRIE Woody Attending Unavailable [place] Primary Care Unavailable JUDE VENTURA, CRISTAL Attending Unavailable [facility] Primary Care Unavailable JUDE VENTURA, CRISTAL Attending Unavailable [facility] Primary Care Unavailable JUDE VENTURA, CRISTAL Attending Unavailable [facility] Primary Care Unavailable FLIGHT ASSEMBLY MECHANIC-ACTING TEACHER, JOSE Attending Unavail able [place] Primary Care Unavailable DR CARRIE KELLER MD Attending Unavailable [place] Primary Care Unavailable Allergies Allergy Classification Reported Allergen(s) Allergy Type Date of Onset Reaction(s) Facility (9 sources) gabapentin; Translations: [gabapentin] Drug Allergy Hallucinations (finding) [facility] Work Phone: (9 sources) PHENobarbital; Translations: [phenobarbital] Drug Allergy Unknown [facility] Work Phone: (9 sources) Phenytoin; Translations: [phenytoin] Drug Allergy Unknown [facility] Work Phone: (4 sources) atorvastatin; Translations: [atorvastatin] Drug Allergy Diarrhea (finding) [facility] Medications Current Medications Medication Drug Class(es) Dates Sig (Normalized) Sig (Original) 0.5 ML semaglutide 1 MG/ML Auto-Injector (4 sources) Start: 12-12-2022 End: 01-09-2023 inject 1 dose by subcutaneous injection every week semaglutide 0.5 mg/0.5 mL (0.5 mg dose) subcutaneous solution Dose : 0.5 mg =, Subcutaneous, qWeek, in the abdomen, thigh, or upper arm, # 2 mL, 0 Refill(s) Start Date: 12/12/22 Stop Date: 01/09/23 Status: Ordered amLODIPine 10 mg oral tablet (8 sources) Dihydropyridine Calcium Channel Anand Start: 12-12-2022 amLODIPine 10 mg oral tablet Dose : 10 mg = 1 tab(s), Oral, qAM, # 30 tab(s), 0 Refill(s) Start Date: 12/12/22 Status: Ordered Completed/Discontinued Medications Medication Drug Class(es) Dates Sig (Normalized) Sig (Original) cholecalciferol 0.025 mg oral capsule (5 sources) Vitamin D Start: 12-17-2021 End: 01-16-2022 cholecalciferol 25 mcg (1000 intl units) oral capsule Dose : 25 mcg = 1 cap(s), Oral, qDay, # 30 cap(s), 0 Refill(s), other reason (Rx) Start Date: 12/17/21 Stop Date: 01/16/22 Status: Ordered Problems Problem Classification Problem Date Documented Da te Episodic/Chronic Intracranial injury (8 sources) Traumatic brain injury 12-29-2021 Episodic Other nervous system disorders (5 sources) Carpal tunnel syndrome 10-25-2022 Chronic Results Test Name Value Interpretation Reference Range Facil ity Vital Signs Date Time Vital Sign Value Performing Clinician Facility 12-23-2022 08:53-0500 Diastolic Blood Pressure Non-Invasive [address] CARRIE KELLER MD [facility] 12-23-2022 08:53-0500 Heart rate 76 /min DR CARRIE KELLER MD [facility] 12-23-2022 08:53-0500 Respiratory rate 16 /min DR CARRIE KELLER MD [address] [place] [id number] 12-23-2022 08:53-0500 Systolic Blood Pressure Non-Invasive [address] CARRIE KELLER MD [address] [place] [id number] 12-23-2022 08:15-0500 Body temperature 96.8 [degF] DR CARRIE KELLER MD [address] [place] [id number] 12-23-2022 08:15-0500 Diastolic Blood Pressure Non-Invasive [address] CARRIE KELLER MD [address] [place] [address] 12-23-2022 08:15-0500 Heart rate 74 /min DR CARRIE KELLER MD [address] [place] [address] 12-23-2022 08:15-0500 Reason For Taking VItal Signs DR CARRIE KELLER MD [address] [place] [id number] 12-23-2022 08:15-0500 Respiratory rate 16 /min DR CARRIE KELLER MD [address] [place] [id number] 12-23-2022 08:15-0500 Systolic Blood Pressure Non-Invasive [address] CARRIE KELLER MD [address] [place] [address] 12-23-2022 08:05-0500 Heart rate 75 /min DR CARRIE KELLER MD [address] [place] [address] 12-23-2022 08:05-0500 Respiratory Rate - Anes 20 br/min DR CARRIE KELLER MD [address] [place] [address] 12-23-2022 08:04-0500 Diastolic Blood Pressure Non-Invasive [address] CARRIE KELLER MD [address] [place] [address] 12-23-2022 08:04-0500 Systolic Blood Pressure Non-Invasive [address] CARRIE KELLER MD [address] [place] [address] 12-23-2022 07:55-0500 Heart rate 73 /min DR CARRIE KELLER MD [address] [place] [address] 12-23-2022 07:55-0500 Respiratory Rate - Anes 17 br/min DR CARRIE KELLER MD [address] [place] [address] 12-23-2022 05:30-0500 Body height 175.[address] CARRIE KELLER MD [address] [place] [address] 12-23-2022 05:30-0500 Body temperature 97.7 [degF] DR CARRIE KELLER MD [address] [place] [address] 12-23-2022 05:30-0500 Body weight 116.[address] CARRIE KELLER MD [address] [place] [address] 12-23-2022 05:30-0500 Heart rate 70 /min DR CARRIE KELLER MD [address] [place] [address] 12-23-2022 05:30-0500 Respiratory rate 16 /min DR CARRIE KELLER MD [address] [place] [address] 12-12-2022 14:43-0500 Blood Pressure Cuff Size DR CARRIE KELLER MD [address] [place] [address] 12-12-2022 14:43-[address] CARRIE KELLER MD [address] [place] [address] 12-12-2022 14:43-[address] CARRIE KELLER MD [address] [place] [address] 12-12-2022 14:43-0500 Body height [address] CARRIE KELLER MD [address] [place] [address] 12-12-2022 14:43-0500 Body temperature 97.52 [degF] DR CARRIE KELLER MD [address] [place] [address] 12-12-2022 14:43-0500 Body weight [address] CARRIE KELLER MD [address] [place] [address] 12-12-2022 14:43-0500 Diastolic Blood Pressure Non-Invasive [address] CARRIE KELLER MD [address] [place] [address] 12-12-2022 14:43-0500 Heart rate 73 /min DR CARRIE KELLER MD [address] [place] [address] 12-12-2022 14:43-0500 Systolic Blood Pressure Non-Invasive [address] CARRIE KELLER MD [address] [place] [address] 12-21-2021 18:40-0500 Heart rate 69 /min CRISTAL ROQUE MD [address] [place] [address] 12-21-2021 18:40-0500 Respiratory rate 18 /min CRISTAL ROQUE MD [address] [place] [address] 12-21-2021 14:30-0500 Body temperature 97.88 [degF] CRISTAL ROQUE MD [facility] 12-21-2021 14:30-0500 Diastolic blood pressure 69 mm[Hg] CRISTAL ROQUE MD [address] [place] [address] 12-21-2021 14:30-0500 Heart rate 70 /min CRISTAL ROQUE MD [facility] 12-21-2021 14:30-0500 Mean blood pressure 89 mm[Hg] CRISTAL ROQUE MD [facility] 12-21-2021 14:30-0500 Reason For Taking VItal Signs CRISTAL ROQUE MD [facility] 12-21-2021 14:30-0500 Respiratory rate 17 /min CRISTAL ROQUE MD [facility] 12-21-2021 14:30-0500 Systolic blood pressure 130 mm[Hg] CRISTAL ROQUE MD [facility] 12-21-2021 12:49-0500 Heart rate 69 /min CRISTAL ROQUE MD [facility] 12-21-2021 12:49-0500 Respiratory rate 18 /min CRISTAL ROQUE MD [facility] 12-21-2021 09:34-0500 Heart rate 68 /min CRISTAL ROQUE MD [facility] 12-21-2021 06:44-0500 Body temperature 97.88 [degF] CRISTAL ROQUE MD [facility] 12-21-2021 06:44-0500 Heart rate 79 /min CRISTAL ROQUE MD [facility] 12-21-2021 06:44-0500 Reason For Taking VItal Signs CRISTAL ROQUE MD [facility] 12-21-2021 03:00-0500 Body temperature 97.7 [degF] CRISTAL ROQUE MD [facility] 12-21-2021 03:00-0500 Heart rate 80 /min CRISTAL ROQUE MD [facility] 12-21-2021 03:00-0500 Reason For Taking VItal Signs CRISTAL ROQUE MD [facility] 12-20-2021 22:46-0500 Heart rate 68 /min CRISTAL ROQUE MD [facility] 12-20-2021 22:46-0500 Mean blood pressure 72 mm[Hg] CRISTAL ROQUE MD [facility] 12-20-2021 18:52-0500 Heart rate 72 /min CRISTAL ROQUE MD [facility] 12-18-2021 00:00-0500 Diastolic Blood Pressure NBP 82 1 CRISTAL ROQUE MD [facility] 12-18-2021 00:00-0500 Mean blood pressure 102 mm[Hg] CRISTAL ROQUE MD [facility] 12-18-2021 00:00-0500 Systolic Blood Pressure NBP 145 1 CRISTAL ROQUE MD [facility] 12-17-2021 18:00-0500 Diastolic Blood Pressure NBP 86 1 CRISTAL ROQUE MD [facility] 12-17-2021 18:00-0500 Mean blood pressure 94 mm[Hg] CRISTAL ROQUE MD [facility] 12-17-2021 18:00-0500 Systolic Blood Pressure NBP 124 1 CRISTAL ROQUE MD [facility] 12-17-2021 13:15-0500 Diastolic Blood Pressure NBP 78 1 CRISTAL ROQUE MD [facility] 12-17-2021 13:15-0500 Mean blood pressure 91 mm[Hg] CRISTAL ROQUE MD [facility] 12-17-2021 13:15-0500 Systolic Blood Pressure NBP 135 1 CRISTAL ROQUE MD [facility] 12-11-2021 08:40-0500 Mean blood pressure 112 mm[Hg] CRISTAL ROQUE MD [facility] 12-11-2021 07:23-0500 Mean blood pressure 101 mm[Hg] CRISTAL ROQUE MD [facility] 12-11-2021 06:45-0500 Diastolic blood pressure 47 mm[Hg] CRISTAL ROQUE MD [facility] 12-11-2021 06:45-0500 Mean blood pressure 74 mm[Hg] CRISTAL ROQUE MD [facility] 12-11-2021 06:45-0500 Systolic blood pressure 125 mm[Hg] CRISTAL ROQUE MD [facility] 12-11-2021 06:31-0500 Diastolic blood pressure 50 mm[Hg] CRISTAL ROQUE MD [facility] 12-11-2021 06:31-0500 Systolic blood pressure 126 mm[Hg] CRISTAL ROQUE MD [facility] 12-11-2021 06:10-0500 Diastolic blood pressure 45 mm[Hg] CRISTAL ROQUE MD [facility] 12-11-2021 06:10-0500 Systolic blood pressure 124 mm[Hg] CRISTAL ROQUE MD [facility] 12-10-2021 12:30-0500 Body temperature 99.68 [degF] CRISTAL ROQUE MD [facility] 12-10-2021 09:37-0500 Body temperature 98.24 [degF] CRISTAL ROQUE MD [facility] 12-10-2021 08:04-0500 Body temperature 100.58 [degF] CRISTAL ROQUE MD [facility] 12-09-2021 14:14-0500 SaO2% (BldA) [Mass fraction] 97.5 % CRISTAL ROQUE MD [facility] 12-09-2021 04:39-0500 SaO2% (BldA) [Mass fraction] 95.0 % CRISTAL ROQUE MD [facility] 12-09-2021 01:52-0500 SaO2% (BldA) [Mass fraction] 98.5 % CRISTAL ROQUE MD [facility] 2021 20:30-0500 Body height 175.3 cm CRISTAL ROQUE MD [facility] 2021 20:30-0500 Body weight 118.2 kg CRISTAL ROQUE MD [facility] 2021 20:30-0500 Body weight 38.46 kg/m2 CRISTAL ROQUE MD [facility] 2021 16:35-0500 Body weight 127.5 kg CRISTAL ROQUE MD [facility] Encounters Encounter Date Encounter Type Care Provider Facility Start: 01-04-2023 End: 01-05-[address] CARRIE KELLER MD Facility:A Start: 01-04-2023 End: 01-04-[address] CARRIE KELLER MD [facility] Start: 12-27-[address] CARRIE KELLER MD Faci lity:A Start: 12-23-2022 End: 12-23-[address] CARRIE KELLER MD Facility:A Start: 12-23-2022 End: 12-23-[address] CARRIE KELLER MD [facility] Start: 12-12-2022 End: 12-12-[address] CARRIE KELLER MD [facility] Start: 12-12-2022 End: 12-13-[address] CARRIE KELLER MD Facility:A Start: 12-12-2022 End: 12-12-2022 Patient encounter procedure JOSE BURNETT ASSEMBLY MECHANIC-ACTING TEACHER [facility] Start: 10-25-2022 End: 10-26-[address] CARRIE KELLER MD Facility:A Start: 10-25-2022 End: 10-25-[address] CARRIE KELLER MD [facility] Start: 10-19-2022 End: 10-20-2022 ambulatory CRISTAL ROQUE MD Facility:A Start: 10-19-2022 End: 10-19-2022 Minor Procedure CRISTAL ROQUE MD [facility] Start: 08-01-2022 End: 08-02-2022 ambulatory CRISTAL ROQUE MD Facility:A Start: 08-01-2022 End: 08-01-2022 Patient encounter procedure CRISTAL ROQUE MD [facility] Start: 06-17-2022 End: 06-18-2022 ambulatory CRISTAL ROQUE MD Facility:B Start: 06-17-2022 End: 06-17-2022 Patient encounter procedure CRISTAL ROQUE MD [facility] Start: 06-08-2022 End: 06-09-2022 ambulatory CRISTAL ROQUE MD Facility:A Start: 02-09-2022 End: 02-10-2022 ambulatory CRISTAL ROQUE MD Facility:A Start: 2021 End: 2021 ambulatory UNKNOWN PROVIDER Facility:[facility] Start: 2021 End: 12-21-2021 Evaluation and management of inpatient LUISANA BROOKS MD [facility] Procedures Date Procedure Procedure Detail Performing Clinician Start: 12-22-2022 Decompression of med mary nerve DR CARRIE KELLER MD Immunizations Immunization Date Immunization Notes Care Provider Fa cility 2021 tetanus toxoid, redu jennifer diphtheria toxoid, and acellular pertussis vaccine, adsorbed CRISTAL ROQUE MD [facility] 08-22-2021 SARS-CoV-2 mRNA (tozinameran) vaccine CRISTAL ROQUE MD [facility] 02-13-2021 SARS-CoV-2 mRNA (tozinameran) vaccine CRISTAL ROQUE MD [facility] 01-23-2021 SARS-CoV-2 mRNA (tozinameran) vaccine CRISTAL ROQUE MD [facility] Payers Date Payer Category Payer Unknown [id number] 2021 Unknown [id number] 1955 Unknown [id number] 2.16. [id number] 1955 Unknown [id number] 2.16.8 [id number] 1955 Unknown [id number] 2.16.8 [id number] 1955 Unknown [id number] 2.16.8 [id number] 1955 Unknown [id number] 2.16.8 [id number] 1955 Unknown [id number] 2.16.8 [id number] 1955 Unknown [id number] 2.16.8 [id number] 1955 Unknown [id number] 2.16.8 [id number] 1955 Unknown [id number] 2.16.8 [id number] 1955 Unknown [id number] 2.16.8 [id number] 1955 Unknown [id number] 2.16.8 [id number] 1955 Unknown [id number] 2.16.8 [id number] Social History Date Type Detail Facility Start: 04-16-2021 Never smoked t obacco (finding) [facility] Sex Assigned At Male [facility] Start: 12-12-2022 Tobacco smoking status Ex-smoker (fi nding) [facility] Functional Status Date Assessment Result Facility 12-23-2022 Functional Status Awake [facility] 12-23-2022 Functional Status [facility] 12-12-2022 Functional Status Sensory Defici ts Hearing deficit, left ear, Hearing deficit, right ear [facility] Mental Status Date Assessment Result Facility 12-23-2022 Mental Status Oriented x 4 [facility] 12-23-2022 Mental Status [facility] Clinical Notes 12-01-2021 to 12-23-2022 Note Date & Type Note Facility 12-23-2022 Anesthesiology Consult note Patient: JIM BERNSTEIN Age: 67 years Sex: Male : 1955 Associated Diagnoses: None Author: KAVITA CRUZ MD Assessment Postanesthesia assessment Vitals: Vital signs from flowsheet : Vital Signs 12/23/2022 8:53 EST Peripheral Pulse Rate 76 bpm Respiratory Rate 16 br/min Systolic Blood Pressure Non-Invasive 156 mmHg HI Diastolic Blood Pressure Non-Invasive 88 mmHg 12/23/2022 8:15 EST Temperature Temporal Artery 36.0 DegC Apical Heart Rate 74 bpm Respiratory Rate 16 br/min Systolic Blood Pressure Non-Invasive 139 mmHg Diastolic Blood Pressure Non-Invasive 78 mmHg Reason For Taking VItal Signs Procedure post-care 12/23/2022 8:05 EST Heart Rate Monitored 75 bpm bpm Respiratory Rate - Anes 20 br/min br/min 12/23/2022 8:04 EST Systolic Blood Pressure Non-Invasive 108 mmHg mmHg Diastolic Blood Pressure Non-Invasive 60 mmHg mmHg 12/23/2022 8:01 EST Systolic Blood Pressure Non-Invasive 108 mmHg mmHg Diastolic Blood Pressure Non-Invasive 57 mmHg mmHg 12/23/2022 8:00 EST Heart Rate Monitored 74 bpm bpm Respiratory Rate - Anes 17 br/min br/min 12/23/2022 7:59 EST Systolic Blood Pressure Non-Invasive 101 mmHg mmHg Diastolic Blood Pressure Non-Invasive 58 mmHg mmHg 12/23/2022 7:55 EST Heart Rate Monitored 73 bpm bpm Respiratory Rate - Anes 17 br/min br/min Systolic Blood Pressure Non-Invasive 107 mmHg mmHg Diastolic Blood Pressure Non-Invasive 58 mmHg mmHg 12/23/2022 7:52 EST Systolic Blood Pressure Non-Invasive 101 mmHg mmHg Diastolic Blood Pressure Non-Invasive 57 mmHg mmHg 12/23/2022 7:50 EST Heart Rate Monitored 74 bpm bpm Respiratory Rate - Anes 16 br/min br/min 12/23/2022 7:49 EST Systolic Blood Pressure Non-Invasive 113 mmHg mmHg Diastolic Blood Pressure Non-Invasive 64 mmHg mmHg 12/23/2022 7:46 EST Systolic Blood Pressure Non-Invasive 107 mmHg mmHg Diastolic Blood Pressure Non-Invasive 61 mmHg mmHg 12/23/2022 7:45 EST Heart Rate Monitored 75 bpm bpm Respiratory Rate - Anes 17 br/min br/min (Modified) 12/23/2022 7:43 EST Systolic Blood Pressure Non-Invasive 115 mmHg mmHg Diastolic Blood Pressure Non-Invasive 65 mmHg mmHg 12/23/2022 7:41 EST Systolic Blood Pressure Non-Invasive 120 mmHg mmHg Diastolic Blood Pressure Non-Invasive 70 mmHg mmHg 12/23/2022 7:40 EST Heart Rate Monitored 73 bpm bpm Respiratory Rate - Anes 18 br/min br/min (Modified) 12/23/2022 7:38 EST Systolic Blood Pressure Non-Invasive 143 mmHg mmHg Diastolic Blood Pressure Non-Invasive 76 mmHg mmHg 12/23/2022 7:35 EST Heart Rate Monitored 78 bpm bpm Respiratory Rate - Anes 14 br/min br/min (Modified) Systolic Blood Pressure Non-Invasive 166 mmHg mmHg Diastolic Blood Pressure Non-Invasive 82 mmHg mmHg 12/23/2022 7:32 EST Systolic Blood Pressure Non-Invasive 163 mmHg mmHg Diastolic Blood Pressure Non-Invasive 80 mmHg mmHg 12/23/2022 7:30 EST Heart Rate Monitored 84 bpm bpm Respiratory Rate - Anes 11 br/min br/min (Modified) 12/23/2022 5:30 EST Temperature Temporal Artery 36.5 DegC Apical Heart Rate 70 bpm Respiratory Rate 16 br/min Systolic Blood Pressure Non-Invasive 145 mmHg HI Diastolic Blood Pressure Non-Invasive 84 mmHg . Mental status: at preoperative baseline. Respiratory function: respirations are non-labored. Respiratory support: none. CV function: Normal rate, Regular rhythm. Cardiovascular support: none. Pain: Post op control see nursing medication documentation. Nausea status: denies nausea. Postoperative hydration status: euvolemic. Digitally Signed by KAVITA CRUZ MD on 12/23/2022 04:35 PM [facility] 12-23-2022 Hospital Discharg e instructions Patient Education 12/23/2022 08:34:[address] Discharge Instructions Template (08/2018) (Custom) [facility] SAME DAY SURGERY DISCHARGE INSTRUCTIONS PLEASE FOLLOW THE INSTRUCTIONS BELOW MARKED WITH AN X: _x__ Regular Diet: Start with clear liquids, then soup and crackers and gradually add other foods. ___ Drink extra fluids. ___ Special Diet Instructions: ___ ACTIVITY: ___ Avoid stress to suture line. Since you have had an anesthetic, it would be advisable not to drive, drink alcohol, or make major decisions over the next 24 hours. You may require more rest tonight and tomorrow. ___ May resume regular activity as tolerated. ___ Restrict activity as follows: ___ ___ Walk Only ___ ___ Do not go up and down stairs. ___ Do not ride in car until ___ ___ Do not drive car. ___ Do not have sexual intercourse. _x__ No heavy lifting, pushing or straining. _x__ Other: _Follow all written and verbal instructions per Dr. Keller.__ BATHING/SHOWERING: ___ Sponge bathe until office visit. ___ Sitting in tub of warm water may relieve discomfort. ___ May tub bathe ___ May shower ___ On day after surgery sit in tub of warm water to soak off dressing. DRESSING: ___ Keep operative area dry and clean for ___ ___ Check the operative area for signs of bleeding. Apply pressure to the bleeding site if necessary and call your physician. ___ Change dressing as necessary using sterile dressing material or bandaid. ___ Reinforce dressing as necessary. ___ Change and care for wound as follows: ___ ___ Wear bra for ___ days following breast surgery for comfort. ___ Change drip pad as needed. ___ Wear scrotal support for comfort. WATCH FOR SIGNS OF INFECTION: (Usually appears 36-48 hours after surgery) Increased temperature (101 degrees Fahrenheit or higher) Redness or swelling Increased pain Foul odor or drainage. If you have any questions, please call your doctor at the number listed on your follow up instructions. Follow all instructions given to you by your physician. Please complete and return the survey you will be receiving in the mail to help us better serve our patients. Form: [id number]) R: 02/1912/23/2022 08:34:44 Endoscopic Carpal Tunnel Release, Care After Endoscopic Carpal Tunnel Release, Care After This sheet gives you information about how to care for yourself after your procedure. Your health care provider may also give you more specific instructions. If you have problems or questions, contact your health care provider. What can I expect after the procedure? After the procedure, it is common to have: Pain. Swelling. Stiffness. Follow these instructions at home: Medicines Take [id number] and prescription medicines only as told by your health care provider. Ask your health care provider if the medicine prescribed to you requires you to avoid driving or using heavy machinery. Incision care Wear your wraparound compression bandage on your hand until you go back for your follow-up visit. Do not let this bandage get wet. Cover it with a watertight covering when you take a bath or a shower. After the compression bandage has been removed, follow instructions from your health care provider about how to take care of your incision. Make sure you: ?Wash your hands with soap and water before and after you change any additional bandage (dressing). If soap and water are not available, use hand photovoltaic technician. ?Change this dressing as told by your health care provider. ?Leave stitches (sutures), skin glue, or adhesive strips in place. These skin closures may need to stay in place for 2 weeks or longer. If adhesive strip edges start to loosen and curl up, you may trim the loose edges. Do not remove adhesive strips completely unless your health care provider tells you to do that. After the compression bandage has been removed, check your incision area every day for signs of infection. Check for: ?More redness, swelling, or pain. ?More fluid or blood. ?Warmth. ?Pus or a bad smell. Do not take baths, swim, or use a hot tub until your health care provider approves. Ask your health care provider if you may take showers. Managing pain, stiffness, and swelling If directed, put ice on your wrist area. To do this: ?If you have a removable splint or brace, remove it as told by your health care provider. ?Put ice in a plastic bag. ?Place a towel between your skin and the bag or between your bandage and the bag. ?Leave the ice on for 20 minutes, 2 3 times a day. Move your fingers often to reduce stiffness and swelling. Raise (elevate) your wrist area above the level of your heart while you are sitting or lying down. If you have a splint or brace: Wear the splint or brace as told by your health care provider. Remove it only as told by your health care provider. Loosen the splint or brace if your fingers tingle, become numb, or turn cold and blue. Keep the splint or brace clean. If the splint or brace is not waterproof: ?Do not let it get wet. ?Cover it with a watertight covering when you take a bath or a shower. Activity Use your hand carefully. Do not do activities that cause pain. You should be able to do light activities with your hand. Do not lift with your affected hand until your health care provider approves. Avoid pulling and pushing. Return to your normal activities as told by your health care provider. Ask your health care provider what activities are safe for you. Ask your health care provider when it is safe to drive. General instructions Do not use any products that contain nicotine or tobacco, such as cigarettes, e-cigarettes, and chewing tobacco. These can delay incision healing after surgery. If you need help quitting, ask your health care provider. Keep all follow-up visits as told by your health care provider. This is important. Contact a health care provider if you have: Chills or a fever. Pain that is not controlled by your pain medicine. Discoloration of your fingers. Tingling, weakness, or numbness. More redness, swelling, or pain around your incision. More fluid or blood coming from your incision. An incision that feels warm to the touch. Pus or a bad smell coming from your incision. Summary After the procedure, it is common to have pain, swelling, and stiffness. Call your health care provider if you have pain that is not controlled with medicine. Return to your health care provider to have your compression bandage removed. After it has been removed, check your incision area every day for signs of infection. If you have a splint or brace, wear it as told by your health care provider. Move your fingers often, and keep your hand above the level of your heart when resting. Return to your normal activities as told by your health care provider. Ask your health care provider what activities are safe for you. You should be able to do light activities with your hand. Contact a health care provider if you have numbness, weakness, a fever, or any signs of infection. This information is not intended to replace advice given to you by your health care provider. Make sure you discuss any questions you have with your health care provider. Document Released: 02/27/2020 Document Revised: 02/27/2020 Document Reviewed: 02/27/2020 Elsevier Patient Education 2020 [employer] Follow Up Care 11/29/2022 10:30:23 With:KRISHNA VENTURA, CARRIE Woody, Neurosurgery Address: [address] [place] [address] [address] [place] [phone] When: Unknown Comments:Follow-up as scheduled With:JOSE BURNETT, Neurosurgery Address: [address] [place] [address] [address] [place] [phone] When:01/04/2023 13:40:00 [facility] 12-23-2022 Summary of episod e note Discharge Instructions Thank you for allowing [facility] to assist you with your healthcare needs. The following is important discharge information regarding your hospital visit. Your Care Team [facility] What to do next Instructions From Your Doctor Your follow up appointment will be with Dr. Keller's Nurse Practitioner, Jose Burnett CNP. No aspirin, aspirin products, NSAIDS (no motrin, advil, aleve, or ibuprofen) for 1 week after surgery. No lifting more than a plate of food with your left hand. Keep incision dry. May shower or bathe, but hand must be covered to ensure it remains dry. No soaking hand in water for 6 weeks. No submerging it in tub bath, hot tub, or swimming pool. No sauna or steam room. Keep large, bulky dressing on for 48hrs. After 48 hrs, remove dressing and place a large clean bandaid over incision. Change bandaid daily until sutures are removed at [address] Keller's office if you develop, fever, chills, redness around the incision, or drainage from the incision. Scheduled Follow-Up Appointments Appointment Type When Where Contact InformationNS Post Op 01/04/2023 01:40 PM EST Neurosurgery [address] [place] [phone] Surgical Pre-Test 01/05/2023 08:30 AM EST Main PAT Surgery 01/12/2023 07:45 AM EST Main OR Follow Up Appointments Follow Up with JOSE BURNETT, Neurosurgery When 01/04/2023 01:40 PM EST Where: [address] [place] [address] [address] [place] [phone] Follow Up with KRISHNA VENTURA, CARRIE Wodoy, Neurosurgery When Why: Follow-up as scheduled Where: [address] [facility] [address] [facility] [place] [address]- [phone] The Following Activity and Diet Have Been Ordered for You Discharge Activity - Ordered -- Do not lift more than a plate of food with your left hand., 12/23/22 8:32:00 EST Discharge Diet - Ordered -- No changes were made to your diet during your hospital stay. Please resume your pre hospitalization diet on discharge., 12/23/22 8:32:00 EST The Following Equipment Has Been Ordered for You Discharge Home Equipment Discharge Wound Care - Ordered -- May remove bulky gauze dressing 48hrs after surgery. Then, place a large bandaid over incision and change daily.Keep incision dry. Do not submerge in water., 12/23/22 8:32:00 EST Allergies Dilantin (Unknown) PHENobarbital (Unknown) atorvastatin (Diarrhea) gabapentin (Hallucinations) Medications Please ask your primary doctor or pharmacist before taking any other medication not listed, including over the counter drugs, herbal medications, vitamins and or supplements as they may interact with your home medications. What How Much When Instructions Last Dose Unchanged amLODIPine (amLODIPine 10 mg oral tablet) 1 tab(s) by mouth Once a day (in the morning) Unchanged carvedilol (carvedilol 25 mg oral tablet) 1 tab(s) by mouth Two (2) times a day Unchanged doxazosin (doxazosin 2 mg oral tablet) 1 tab(s) by mouth Once a day (in the morning) Unchanged fluticasone nasal (fluticasone proprionate NASAL 50 mcg/ spray) 2 spray(s) each nostril Daily at bedtime Unchanged hydrALAZINE (hydrALAZINE 50 mg oral tablet) 2 tab(s) by mouth Three (3) times a day Unchanged lisinopril (lisinopril 40 mg oral tablet) 1 tab(s) by mouth Once a day (in the morning) Unchanged meclizine (meclizine 25 mg oral tablet) 0.5 tab(s) by mouth Two (2) times a day as needed for Dizziness Unchanged metFORMIN (MetFORMIN (Eqv-Fortamet) 500 mg oral tablet, EXTENDED RELEASE) 1 tab(s) by mouth Once a day (in the evening) Unchanged rosuvastatin (rosuvastatin 20 mg oral capsule) 1 cap by mouth Once a day (in the morning) Unchanged semaglutide (semaglutide 0.5 mg/ 0.5 mL (0.5 mg dose) subcutaneous solution) 0.5 Milligram Subcutaneous Every week Duration: 4 week(s) in the abdomen, thigh, or upper arm Unchanged sertraline (sertraline 150 mg oral capsule) 1 cap by mouth Once a day (in the morning) swallow whole Please take this list to your next doctor s visit. Bring all medications you take, including over the counter medications, herbals and other supplements with you to your doctor s visit. Patients and families are reminded to discard old lists and to update any records with all medication providers or retail pharmacies. Education Materials [facility] SAME DAY SURGERY DISCHARGE INSTRUCTIONS PLEASE FOLLOW THE INSTRUCTIONS BELOW MARKED WITH AN X: _x__ Regular Diet: Start with clear liquids, then soup and crackers and gradually add other foods. ___ Drink extra fluids. ___ Special Diet Instructions: ___ ACTIVITY: ___ Avoid stress to suture line. Since you have had an anesthetic, it would be advisable not to drive, drink alcohol, or make major decisions over the next 24 hours. You may require more rest tonight and tomorrow. ___ May resume regular activity as tolerated. ___ Restrict activity as follows: ___ ___ Walk Only ___ ___ Do not go up and down stairs. ___ Do not ride in car until ___ ___ Do not drive car. ___ Do not have sexual intercourse. _x__ No heavy lifting, pushing or straining. _x__ Other: _Follow all written and verbal instructions per Dr. Keller.__ BATHING/SHOWERING: ___ Sponge bathe until office visit. ___ Sitting in tub of warm water may relieve discomfort. ___ May tub bathe ___ May shower ___ On day after surgery sit in tub of warm water to soak off dressing. DRESSING: ___ Keep operative area dry and clean for ___ ___ Check the operative area for signs of bleeding. Apply pressure to the bleeding site if necessary and call your physician. ___ Change dressing as necessary using sterile dressing material or bandaid. ___ Reinforce dressing as necessary. ___ Change and care for wound as follows: ___ ___ Wear bra for ___ days following breast surgery for comfort. ___ Change drip pad as needed. ___ Wear scrotal support for comfort. WATCH FOR SIGNS OF INFECTION: (Usually appears 36-48 hours after surgery) Increased temperature (101 degrees Fahrenheit or higher) Redness or swelling Increased pain Foul odor or drainage. If you have any questions, please call your doctor at the number listed on your follow up instructions. Follow all instructions given to you by your physician. Please complete and return the survey you will be receiving in the mail to help us better serve our patients. Form: 1522 ([id number]) R: 02/19 Endoscopic Carpal Tunnel Release, Care After This sheet gives you information about how to care for yourself after your procedure. Your health care provider may also give you more specific instructions. If you have problems or questions, contact your health care provider. What can I expect after the procedure? After the procedure, it is common to have: Pain. Swelling. Stiffness. Follow these instructions at home: Medicines Take dilb-fju-ugpudwt and prescription medicines only as told by your health care provider. Ask your health care provider if the medicine prescribed to you requires you to avoid driving or using heavy machinery. Incision care Wear your wraparound compression bandage on your hand until you go back for your follow-up visit. Do not let this bandage get wet. Cover it with a watertight covering when you take a bath or a shower. After the compression bandage has been removed, follow instructions from your health care provider about how to take care of your incision. Make sure you: ? Wash your hands with soap and water before and after you change any additional bandage (dressing). If soap and water are not available, use hand photovoltaic technician. ? Change this dressing as told by your health care provider. ? Leave stitches (sutures), skin glue, or adhesive strips in place. These skin closures may need to stay in place for 2 weeks or longer. If adhesive strip edges start to loosen and curl up, you may trim the loose edges. Do not remove adhesive strips completely unless your health care provider tells you to do that. After the compression bandage has been removed, check your incision area every day for signs of infection. Check for: ? More redness, swelling, or pain. ? More fluid or blood. ? Warmth. ? Pus or a bad smell. Do not take baths, swim, or use a hot tub until your health care provider approves. Ask your health care provider if you may take showers. Managing pain, stiffness, and swelling If directed, put ice on your wrist area. To do this: ? If you have a removable splint or brace, remove it as told by your health care provider. ? Put ice in a plastic bag. ? Place a towel between your skin and the bag or between your bandage and the bag. ? Leave the ice on for 20 minutes, 2 3 times a day. Move your fingers often to reduce stiffness and swelling. Raise (elevate) your wrist area above the level of your heart while you are sitting or lying down. If you have a splint or brace: Wear the splint or brace as told by your health care provider. Remove it only as told by your health care provider. Loosen the splint or brace if your fingers tingle, become numb, or turn cold and blue. Keep the splint or brace clean. If the splint or brace is not waterproof: ? Do not let it get wet. ? Cover it with a watertight covering when you take a bath or a shower. Activity Use your hand carefully. Do not do activities that cause pain. You should be able to do light activities with your hand. Do not lift with your affected hand until your health care provider approves. Avoid pulling and pushing. Return to your normal activities as told by your health care provider. Ask your health care provider what activities are safe for you. Ask your health care provider when it is safe to drive. General instructions Do not use any products that contain nicotine or tobacco, such as cigarettes, e-cigarettes, and chewing tobacco. These can delay incision healing after surgery. If you need help quitting, ask your health care provider. Keep all follow-up visits as told by your health care provider. This is important. Contact a health care provider if you have: Chills or a fever. Pain that is not controlled by your pain medicine. Discoloration of your fingers. Tingling, weakness, or numbness. More redness, swelling, or pain around your incision. More fluid or blood coming from your incision. An incision that feels warm to the touch. Pus or a bad smell coming from your incision. Summary After the procedure, it is common to have pain, swelling, and stiffness. Call your health care provider if you have pain that is not controlled with medicine. Return to your health care provider to have your compression bandage removed. After it has been removed, check your incision area every day for signs of infection. If you have a splint or brace, wear it as told by your health care provider. Move your fingers often, and keep your hand above the level of your heart when resting. Return to your normal activities as told by your health care provider. Ask your health care provider what activities are safe for you. You should be able to do light activities with your hand. Contact a health care provider if you have numbness, weakness, a fever, or any signs of infection. This information is not intended to replace advice given to you by your health care provider. Make sure you discuss any questions you have with your health care provider. Document Released: 02/27/2020 Document Revised: 02/27/2020 Document Reviewed: 02/27/2020 Elsevier Patient Education 2020 [employer] Additional Information VACCINATE! IT SAVES LIVES! Members of the community who have not yet received the COVID-19 vaccine and would like to receive it can visit one of [facility] vaccine clinics. There are many vaccine clinic locations within the [facility]. For locations and available times, please visit [email or web address].o neo.[email or web address] It is important to note that some COVID mobile vaccine clinics are held outdoors and may be canceled in rainy or stormy conditions. To learn more about pediatric vaccinations (ages 5-11), we invite you to visit the [facility] webpage. [email or web address] To learn more about the COVID-19 vaccine, we invite you to visit the [employer] website for a list of frequently asked questions. [email or web address] [facility] Patient Portal Access Instructions: Stay connected with your healthcare team and access your personal medical information anytime with the [facility] Patient Portal.If you would like a full copy of your medical records, please contact the [facility] Medical Records Department, Monday through Monday between 8a.m. and 4:30p.m. Please follow the directions below to access the portal: 1.Access the email account you provided upon registration to the community health systems.2.Look for an invitation email from [facility].3.Open the email and access the invitation link: Accept Invitation to [facility]4.Fill in the required east to create your account. Sign into [email or web address] with your username and password that you created in the above steps to stay up to date. You can then view a summary of results, a summary of your visits, and the ability to download your summaries to your computer or send the information securely to a physician. Remember that your healthcare information is confidential, so carefully consider who you will allow to register on the [facility] Patient Portal for access to your information. You can also access the [facility] Patient Portal on the [employer] bats[employer]va. Simply click on Health Records under Health Data and then click on the [employer] logo. HOW TO SAFELY DISPOSE OF PRESCRIPTION MEDICATIONS Please use one of the following methods to safely dispose of your unused medications. 1.Use a drug disposal kit: the drug disposal pouch allows you to safely discard your old and unused drugs. Ask your nurse to give you one when you are discharged.2.Visit a local take-back location: Many local pharmacies and police departments have programs that collect old and unwanted prescription drugs. Call your local pharmacy or go to http://bit.[employer]/0K4Nb8h to find one close to you.3.Make use of household items: Use cat litter or old coffee grounds to dispose medications if other options are not available. Mix your drugs with these household products, seal them in an airtight container and throw it into the garbage. Call [facility]: [phone] to be sure your drugs can be disposed of in this way. Some medicines may require a different approach.4.Never flush your medications down the toilet. IF YOU HAVE BEEN PRESCRIBED AN OPIOID FOR PAIN If you have been prescribed an opioid (such as hydrocodone, oxycodone or morphine), it is critical to understand the possible side effects and risks of opioid pain medications. Even when taken as directed, opioids can have several side effects including: Tolerance, meaning you might need to take more of a medication for the same pain relief. Nausea, vomiting and/or constipation. Sleepiness, dizziness, dry mouth, confusion, depression or itching. Physical dependence, meaning you have withdrawal symptoms when a medication is stopped, can develop within a few days. KNOW YOUR RESPONSIBILITIES It is important to know exactly how much and how often to take the opioid pain medications you are prescribed. Never take opioids in higher amounts or more often than prescribed. Do not combine opioids with alcohol or other drugs that cause drowsiness, such as benzodiazepines, also known as benzos, including diazepam and alprazolam, muscle relaxants or sleep aids. Never sell or share prescription opioids. This is illegal. Store opioids in a secure place and out of reach of others (including children, family, friends and visitors). The last page of this document has been signed and retained as a CHART COPY. Signatures Patient Education Materials 1-SDS Discharge Instructions Template (08/2018) (Custom) Endoscopic Carpal Tunnel Release, Care After Medication Leaflets My discharge plan and instructions have been reviewed and explained to me and I,JIM BERNSTEIN understand my current condition and have read and understand these discharge instructions. I have received a written copy of the plan/instructions. If I have questions, I am aware that I should contact my doctor. 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 Health Status Allergies: Allergic Reactions (Selected) Severity Not Documented Atorvastatin- Diarrhea. Dilantin- Unknown. Gabapentin- Hallucinations. PHENobarbital- Unknown., Allergies (4) ActiveReaction atorvastatinDiarrhea DilantinUnknown gabapentinHallucinations PHENobarbitalUnknown Current medications: (Selected) Inpatient Medications Ordered Kefzol: Start: 12/23/22 5:43:00 EST, Dose= 2 gram(s), = 20 mL, IV Push (INT), PREOP pharm, Routine, 18 hour(s), Stop date 12/23/22 23:42:00 EST, Rate: 240 mL/hr, Infuse over: 5 minute(s), 20 mL, 12/23/22 5:43:00 EST NS 1,000 mL: Start: 12/23/22 5:43:00 EST, 18 hour(s), Stop date 12/23/22 23:42:00 EST, Rate: 20 mL/hr, 12/23/22 5:43:00 EST ceFAZolin: Start: 12/23/22 6:00:00 EST, Dose= 1 gram(s), = 10 mL, Topical (INT), PREOP pharm, 8 hour(s), Stop date 12/23/22 13:59:00 EST, Rate: 0 mL/hr, Infuse over: 0 minute(s), 1,010 mL lidocaine 1% preservative-free injectable solution: Start: 12/23/22 6:00:00 EST, Dose = 2.5 mg, = 0.25 mL, Intradermal, prep pharm, 18 hour(s), Stop: 12/23/22 23:59:00 EST, 0, 12/23/22 5:43:00 EST Prescriptions Prescribed hydrALAZINE 50 mg oral tablet: Dose : 100 mg = 2 tab(s), Oral, TID, # 180 tab(s), 0 Refill(s), other reason (Rx) Documented Medications Documented MetFORMIN (Eqv-Fortamet) 500 mg oral tablet, EXTENDED RELEASE: Dose : 500 mg = 1 tab(s), Oral, qPM, # 90 tab(s), 0 Refill(s) amLODIPine 10 mg oral tablet: Dose : 10 mg = 1 tab(s), Oral, qAM, # 30 tab(s), 0 Refill(s) carvedilol 25 mg oral tablet: Dose : 25 mg = 1 tab(s), Oral, BID, 0 Refill(s) doxazosin 2 mg oral tablet: Dose : 2 mg = 1 tab(s), Oral, qAM fluticasone proprionate NASAL 50 mcg/ spray: Dose = 2 spray(s), Nostril, each, qHS, 0 Refill(s) lisinopril 40 mg oral tablet: Dose : 40 mg = 1 tab(s), Oral, qAM meclizine 25 mg oral tablet: Dose : 12.5 mg = 0.5 tab(s), Oral, BID, PRN Dizziness rosuvastatin 20 mg oral capsule: Dose : 20 mg = 1 cap(s), Oral, qAM, # 30 cap(s), 0 Refill(s) semaglutide 0.5 mg/0.5 mL (0.5 mg dose) subcutaneous solution: Dose : 0.5 mg =, Subcutaneous, qWeek, in the abdomen, thigh, or upper arm, # 2 mL, 0 Refill(s) sertraline 150 mg oral capsule: Dose : 150 mg = 1 cap(s), Oral, qAM, swallow whole, # 30 cap(s), 0 Refill(s) Problem list: Medical Carpal tunnel syndrome / SNOMED CT 42878303 / Confirmed Stenosis of cervical spine / SNOMED CT 855006225 / Confirmed TBI (traumatic brain injury) / SNOMED CT 401088 / Confirmed, Active Problems (19) Anxiety Back pain Balance disorder Carpal tunnel syndrome Claustrophobia COVID-19 Depression Diabetes Dizziness Hard of hearing Hearing aid HTN (hypertension) Hypercholesterolemia Impaired memory Panic attack Seizures Stenosis of cervical spine TBI (traumatic brain injury) Vertigo Histories Past Medical History: No active or resolved past medical history items have been selected or recorded. Procedure history: Carpal tunnel release ([id number]) on 12/22/2022 at 67 Years. 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 Coronary artery bypass graft ([id number]). Comments: 04/16/2021 14:14 ELMER Martinez quadruple Cyst ([id number]). Comments: 04/16/2021 14:14 ELMER Martinez right ear Social History Social & Psychosocial Habits Alcohol 04/16/2021 Use: Current Type: Beer Frequency: Daily Comment: 2-3 beers daily - 04/16/2021 14:14 - ELMER Gunn Substance Abuse 04/16/2021 Use: Never Tobacco 12/12/2022 Tobacco Use: Former smoker, quit more Type: Cigars Stopped at age: 25 Years Home/Environment 12/12/2022 Domestic Concerns None Living situation: Home/Independent Lives In Single level home . Physical Examination Vital Signs(last 24 hrs) Last Charted Resp Rate 16 br/min (DEC 23 05:30) SBPH 145mmHg (DEC 23 05:30) DBP84 mmHg (DEC 23 05:30) Measurements from flowsheet : Measurements 12/23/2022 5:30 EST Height 175.3 cm Height in inches 69 inch(es) Admission Weight 116.9 kg Weight Lbs 257.2 lb Weight Method Actual [place] Body Weight 70.74 kg Type of Scale Used Bed scale Admission Body Mass Index 38.04 m2 General: Alert and oriented. Airway: Mallampati classification: III (soft palate, base of uvula visible). Dentition Evaluation: Missing teeth. Respiratory: Lungs are clear to auscultation, Respirations are non-labored. Cardiovascular: Normal rate, Regular rhythm. Heart Sounds: Normal. Neurologic: Alert, Oriented. Review / Management Documentation reviewed: Current records. Assessment and Plan [place] [employer] Anesthesiologists (ASA) physical status classification: Class III. Anesthetic Preoperative Plan Premedication: intravenous. Anesthetic technique: MAC. Postoperative pain management: Per surgeon. Informed consent: signed by patient. Notes: TBI, seizures. Digitally Signed by TALA JOHNSON MD on 12/23/2022 07:11 AM [facility] 06-17-2022 Note ORIGINAL HISTORY: Traumatic brain injury COMPARISON: 08 December 2021 TECHNIQUE: 1. Sagittal T1-weighted images. 2. Axial T2-weighted and T2*-weighted images. 3. Axial FLAIR images. 4. Axial diffusion-weighted images with ADC map. FINDINGS: There is a small area of encephalomalacia in the inferior right frontal lobe. 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 Otherwise, the ventricles and sulci are normal to mildly enlarged. There are no abnormal intra or extra-axial fluid collections. There is [id number] punctate and nodular T2 hyperintensity in the cerebral white matter. There is no abnormal restriction of diffusion. The orbital contents are normal in appearance. The paranasal sinuses are clear. IMPRESSION: Interval evolution of right frontal traumatic brain injury, now complete. Interval resolution of the previously seen subdural hematoma. Volume loss and small vessel ischemic disease. Interpreted by: Jim Lemus MD Preliminary Report By: Jim Lemus MD Electronically signed By Jim Lemus MD Dictated Date: 06/17/2022 2:34:50 PM Prelim Date: 06/17/2022 2:37:18 PM Sign Date: 06/17/2022 2:37:18 PM Ordering Provider: [facility] 06-17-2022 Note ORIGINAL HISTORY: Traumatic brain injury COMPARISON: 08 December 2021 TECHNIQUE: 1. Sagittal T1-weighted images. 2. Axial T2-weighted and T2*-weighted images. 3. Axial FLAIR images. 4. Axial diffusion-weighted images with ADC map. FINDINGS: There is a small area of encephalomalacia in the inferior right frontal lobe. 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 Otherwise, the ventricles and sulci are normal to mildly enlarged. There are no abnormal intra or extra-axial fluid collections. There is sdvw-pv-pvsuahfd punctate and nodular T2 hyperintensity in the cerebral white matter. There is no abnormal restriction of diffusion. The orbital contents are normal in appearance. The paranasal sinuses are clear. IMPRESSION: Interval evolution of right frontal traumatic brain injury, now complete. Interval resolution of the previously seen subdural hematoma. Volume loss and small vessel ischemic disease. Interpreted by: Jim Lemus MD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
== END | disposition home or self-care (01) ==
LOC: CT 15:12
PROVIDERS: Referring Provider Psychiatry & Neurology Neurology; Visit Provider Psychiatry & Neurology Neurology
DX: S06.5X9A Traumatic subdural hemorrhage with loss of consciousness of unspecified duration, initial encounter (principal); R41.3 Other amnesia
CPT/HCPCS: 70450

== ENCOUNTER 2023-12-16 14:32 | Emergency (ER) | payer OTHER, SELFPAY ==
[2023-12-16 14:32] VITALS: BP 157/89; PULSE 80; RESP 16; TEMP 36.1; O2SAT 100; BMI 37.5
--- NOTE | 2023-12-16 14:57 | EX.ED.VIS.EY ---
HPI History of Present Illness Chief Complaint: Eye Problem Informant: patient and spouse/S.O. Associated Symptoms History of injury: No Visual correction: None Narrative Narrative: 68-year-old male states his right eye has been irritated and watering and bothersome for the past 3 to 4 years since he had a stroke. Today it is worse. Significant other shows me a picture saying that it was more red today, showing in a picture that appears to show significant bulbar conjunctival injection. The patient states his discharge is been clear today. His vision is blurry today and he is sensitive to the light in the right eye only. He denies any deep boring eye pain. He states chronically he has been using an unknown cooling drop in this eye. For the last 3 to 4 days, he has been using cetirizine drops several times a day. Once it helped but the majority of time including today it has not helped at all. He has not seen an communicable disease specialist for this. He was total 1 point that he was suspected to have glaucoma by someone but he cannot remember any details there. With regards to his stroke he does not have any chronic facial symptoms, but the significant other who was who brought him here and is extremely worried about him states that when he had a stroke before he had some vision affected. The patient admits that the blurry vision in his right eye is chronic and may be a little worse today but he has no visual field losses or other acute neurologic symptoms. 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 [facility] Medical History Abscess of bursa, left wrist Abscess of dorsum of left hand Abscess, palm Arthritis Chest pain Compartment syndrome of left hand Coronary artery disease CVA (cerebral vascular accident) Diabetes Extensor tenosynovitis of left wrist Former smoker Hearing problem High cholesterol History of carpal tunnel surgery of left wrist HTN (hypertension) Left hand pain Neuropathy Open wound of left hand except fingers with tendon involvement Open wound of left palm Open wound of left wrist with tendon involvement Open wounds of multiple sites of left hand Sleep apnea Subdural hematoma Suppurative tenosynovitis of flexor tendon of left hand Tenosynovitis of hand UTI (urinary tract infection) Home Medications doxazosin 2 mg tablet 2 mg PO DAILY BLOOD PRESSURE 05/10/21 [History Last Taken 01/06/23] meclizine 12.5 mg tablet 6.25 mg PO BID DIZZINESS 05/10/21 [History Last Taken 01/06/23] metformin 500 mg tablet 1,000 mg PO QPM DIABETES 05/10/21 [History Last Taken 01/06/23] carvedilol 25 mg tablet 25 mg PO BID HEART 04/24/22 [History Last Taken 01/06/23] Cinnamon 1,200 mg PO/SL DAILY SUPPLEMENT 01/07/23 [History Last Taken 01/06/23] amlodipine 10 mg tablet 10 mg PO DAILY BLOOD PRESSURE 01/07/23 [History Last Taken 01/06/23] aspirin 81 mg tablet,delayed release 81 mg PO DAILY HEART HEALTH 01/07/23 [History Last Taken 01/06/23] fluticasone propionate 50 mcg/actuation nasal spray,suspension 1 spray intranasal UD CONGESTION 01/07/23 [History Last Taken 01/06/23] hydralazine 50 mg tablet 100 mg PO TIDCM BLOOD PRESSURE 01/07/23 [History Last Taken 01/06/23] lisinopril 40 mg tablet 40 mg PO DAILY BLOOD PRESSURE 01/07/23 [History Last Taken 01/06/23] pregabalin 25 mg capsule 25 mg PO QHS Check with primary doctor 01/07/23 [History Last Taken 01/06/23 22:00] rosuvastatin 20 mg tablet 20 mg PO DAILY CHOLESTEROL 01/07/23 [History Last Taken 01/07/23] semaglutide (weight loss) 0.5 mg/0.5 mL subcutaneous pen injector 0.5 mg subcut SA DIABETES 01/07/23 [History Last Taken 12/31/22] sertraline 100 mg tablet (Zoloft) 100 mg PO DAILY DEPRESSION/ANXIETY 01/07/23 [History Last Taken 01/06/23] pregabalin 50 mg capsule 50 mg PO BID #60 caps 01/12/23 [Rx Last Taken Unknown] oxycodone 5 mg tablet 10 mg (2 x 5 mg) PO Q6H PRN pain 7 days #56 tabs 03/09/23 [Rx Last Taken Unknown] donepezil 10 mg tablet 10 mg PO QHS #30 tabs 05/16/23 [Rx Last Taken Unknown] donepezil 5 mg tablet 5 mg PO QHS #30 tabs 05/16/23 [Rx Last Taken Unknown] memantine 10 mg tablet 10 mg PO BID #60 tabs 09/13/23 [Rx Last Taken Unknown] Allergy/AdvReac Type Severity Reaction Status Date / Time gabapentin Allergy Severe Other Verified 12/16/23 14:32 Family History Mother Dementia Parkinsons disease Father Heart disease Hypertension Myocardial infarction CVA (cerebral vascular accident) CAD (coronary artery disease) Surgical History History of appendectomy History of carpal tunnel surgery of left wrist History of hand surgery S/P appendectomy S/P CABG x 4 Social History household members: spouse Smoking Status: Former smoker how long ago did patient quit smoking: Smoked in [place] x 7 years, quit 1978, cigars. 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 substance use type: does not use ROS ROS ED Constitutional Constitutional ED: Denies chills or fever(s) Eyes Eyes: Reports as per HPI, blurry vision right, erythema, tearing and other Details: irritated, not painful ENT ENT ED: Denies ear pain, rhinorrhea or sore throat Gastrointestinal Gastrointestinal: Denies nausea or vomiting Neurologic Neurologic: Denies headache(s), paresthesias or weakness EXAM Physical Exam Const Vital Signs: 12/16/23 14:32 Temperature 97.0 F L Temperature Source Temporal Pulse Rate 80 Respiratory Rate 16 Blood Pressure 157/89 H Blood Pressure Mean 111 Pulse Ox 100 Oxygen Delivery Method Room Air Positive well nourished and well developed General Appearance ED: well developed and NAD HEENT atraumatic; Negative for tenderness Mouth ED: Yes oral and palatal mucosa normal and Yes lips normal Mouth: oral and palatal mucosa normal and lips normal Eyes PERRL and EOMs intact bilaterally Eyes Narrative: Mild right bulbar conjunctival injection. No chemosis. No major palpebral injection or eyelid swelling. No periorbital cellulitis. No active discharge present. Mild photophobia. Neck no lymphadenopathy and supple Neuro oriented x3, CN's II-XII intact bilaterally and gait normal Sensorium / Orientation: alert Skin Lesions: no lesions Rashes: no rashes MDM MDM MDM Narrative Medical decision making narrative: After visual acuities were done, tetracaine was placed in both eyes for local anesthesia for Paul-Pen measurement of pressures. Vision was 20/70 OS, 20/50 OD, 20/40 both eyes. Pressures were 23-24 on both eyes, several measurements taken which were consistent and of 5% or less degree of error according to the Paul-Pen which was calibrated before measurement. On slit-lamp exam, he does have some speckling of the cornea. With fluorescein staining, this does uptake the dye, it appears to be superficial and I do not see any evidence of an ulcer or linear abrasion or foreign body. I discussed all this with ophthalmology Dr. Escoto, she advises discontinuing all of the drops he is doing, and having him do preservative-free refresh p.m. ointment as needed, and follow[facility] with [facility] or [facility] as the patient had previously [facility]. Discharge Plan Triage Chief Complaint: Eye Problem ED Provider: Travon Hedrick Dx/Rx/DC Orders Clinical Impression: Keratitis, right Prescriptions: No Action oxycodone 5 mg tablet 10 mg PO Q6H PRN (Reason: pain) 7 Days Qty: 56 0RF donepezil 5 mg tablet 5 mg PO QHS Qty: 30 0RF donepezil 10 mg tablet 10 mg PO QHS Qty: 30 5RF Rx Instructions: Begin after completing one month of treatment of donepezil 5mg nightly memantine 10 mg tablet 10 mg PO BID Qty: 60 4RF Rx Instructions: Begin after completing 3-week titration using memantine 5 mg tablets. metformin 500 MG tablet 1,000 mg PO QPM meclizine 12.5 MG tablet 6.25 mg PO BID doxazosin 2 mg tablet 2 mg PO DAILY carvedilol 25 mg Tablet 25 mg PO BID sertraline [Zoloft] 100 mg Tablet 100 mg PO DAILY aspirin 81 mg Tablet,Delayed Release (Dr/Ec) 81 mg PO DAILY amlodipine 10 mg Tablet 10 mg PO DAILY fluticasone propionate 50 mcg/actuation [place],Suspension 1 spray intranasal UD rosuvastatin 20 mg Tablet 20 mg PO DAILY semaglutide (weight loss) 0.5 mg/0.5 mL Pen Injector 0.5 mg SUBCUT SA Cinnamon 1,200 mg PO/SL DAILY hydralazine 50 mg tablet 100 mg PO TIDCM lisinopril 40 MG tablet 40 mg PO DAILY pregabalin 25 mg Capsule 25 mg PO QHS pregabalin 50 mg Capsule 50 mg PO BID Qty: 60 0RF Primary Care Provider: [facility],[place] Referrals: Calli Escoto MD [Med Staff - Active Staff] - 3-5 Days if not improving [facility],[place] [Primary Care Provider] - Activity Restrictions/Additional Instructions: Discontinue the [id number] drops that you are currently using. For the next 3 to 4 days, use REFRESH PM ointment especially at night, you can use this up to every hour as needed for discomfort. If you want to transition to drops after this, then you may use any preservative-free artificial tears product. Follow-up with an communicable disease specialist as above or with the [facility]. Keratitis is an inflammation of the cornea. The cornea is the outer, clear layer that covers the colored part of your eye and pupil. Ultraviolet light can burn your eye and cause keratitis. Bright sunlight can do this if you don't wear sunglasses that block ultraviolet light. This is especially true when the sun's rays reflect off snow or water, or when you look directly into the sun for a long time. The problem can also be caused by bright light from welding equipment (also known as welder and fitter's flash ), tanning booths, and sunlamps. These can burn your eyes if you don't wear eye protection. Your doctor may have put a few drops of medicine into your eye to prevent infection and scarring. Your doctor may also have given you an eye patch or a special type of contact lens to wear while your eye heals. It may take 24 hours after the burn to know how much of your eye was affected. Your vision may be blurry and your eye may hurt and feel irritated. These symptoms should start to get better within a few days. Follow-up care is a thomas part of your treatment and safety.?Be sure to make and go to all appointments, and call your doctor if you are having problems. It is also a good idea to know your test results and keep a list of the medicines you take. How can you care for yourself at home? If your doctor gave you eyedrops, use them as directed. Antibiotic eyedrops help prevent infection and scarring. Use the medicine for as long as your doctor tells you to, even if your eye starts to look and feel better. Keep the bottle tip clean. Do not let it touch the eye area. Be sure to only use the eyedrops your doctor prescribed. Do not use [id number] eyedrops. They may make your symptoms worse. To put in eyedrops: Tilt your head back, and pull your lower eyelid down with one finger. Drop or squirt the medicine inside the lower lid. Close your eye for 30 to 60 seconds to let the drops move around. Do not touch the eyedropper tip to your eyelashes or any other surface. Put a cold washcloth over your eye to help reduce swelling. Do this for 15 minutes 3 or 4 times a day for the first 24 to 48 hours after a burn to your eye. If you use a small ice pack, place a cloth between the ice and your skin. Do not use chemical cooling packs on or near your eye. If the pack leaks, the chemicals could cause more harm to your eye. After the swelling goes down, put a warm washcloth over your eye to help relieve pain. Do not wear contact lenses or eye makeup until your doctor says it is okay. If you were wearing disposable contacts when the burn happened, throw them away. Use a new pair when your eye has healed and it is safe to wear them again. Take an [id number] pain medicine, such as acetaminophen (Tylenol), ibuprofen (Advil, Motrin), or naproxen (Aleve), as needed. Read and follow all instructions on the label. If you feel like you have something in your eye, don't rub it. This could cause more harm to your eye. To prevent ultraviolet reyes to your eye: Wear sunglasses that block ultraviolet rays. Do this even on cloudy days and in the winter. Protect your eyes from the sun's glare when you are boating, sunbathing, or skiing. Wear a mask or goggles designed for welding if you are welding or are near someone who is welding. Use goggles to protect your eyes when you use tanning booths or sunlamps. When should you call for help? Call your doctor now?or seek immediate medical care if: You have signs of an eye infection, such as: Pus or thick discharge coming from the eye. Redness or swelling around the eye. A fever. You have new or worse eye pain. You have vision changes. It feels like there is something in your eye. Light hurts your eye. Watch closely for changes in your health, and be sure to contact your doctor if: You do not get better as expected.
[2023-12-16] MEDS: Fluorescein 1 MG STRIP 1 STRIP RIGHT EYE (15:02)
[2023-12-16] MEDS: Tetracaine 0.5% Ophthalmic Bottle 2 DRP RIGHT EYE (15:02)
--- OUTSIDE RECORDS SUMMARY | 2023-12-16 15:16 | XMS RPT_ITS | CCD ---
Author Name Unknown Address [address] [facility] [address] [place] [address] Organization [facility] Care Team Providers Care Safety Assistant Name Role Phone PROVIDER, UNKNOWN Attending Unavailable PROVIDER, UNKNOWN Admitting Unavailable [place] Primary Care Physician [phone] 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 TOGGLER, JOSE Attending Unavail able [facility] Care Unavailable DR CARRIE KELLER MD Attending Unavailable [place] Unavailable Allergies Allergy Classification Reported Allergen(s) Allergy Type Date of Onset Reaction(s) Facility (9 sources) gabapentin; Translations: [gabapentin] Drug Allergy Hallucinations (finding) [facility] Work Phone: (9 sources) PHENobarbital; Translations: [phenobarbital] Drug Allergy Unknown [facility] Work Phone: (9 sources) Phenytoin; Translations: [phenytoin] Drug Allergy Unknown [facility] Work Phone: (4 sources) atorvastatin; Translations: [atorvastatin] Drug Allergy Diarrhea (finding) [facility] Medications Current Medications Medication Drug Class(es) [...] Non-Invasive [address] CARRIE KELLER MD [facility] 12-23-2022 08:53-0500 Heart rate 76 /min DR CARRIE KELLER MD [facility] 12-23-2022 08:53-0500 Respiratory rate 16 /min DR CARRIE KELLER MD [address] [place] [address] 12-23-2022 08:53-0500 Systolic Blood Pressure Non-Invasive [address] CARRIE KELLER MD [address] [place] [address] 12-23-2022 08:15-0500 Body temperature 96.8 [degF] DR CARRIE KELLER MD [address] [place] [address] 12-23-2022 08:15-0500 Diastolic Blood Pressure Non-Invasive [address] CARRIE KELLER MD [address] [place] [address] 12-23-2022 08:15-0500 Heart rate 74 /min DR CARRIE KELLER MD [address] [place] [address] 12-23-2022 08:15-0500 Reason For Taking VItal Signs DR CARRIE KELLER MD [address] [place] [address] 12-23-2022 08:15-0500 Respiratory rate 16 /min DR CARRIE KELLER MD [address] [place] [address] 12-23-2022 08:15-0500 Systolic Blood Pressure Non-Invasive [address] CARRIE KELLER MD [address] [place] [address] 12-23-2022 08:05-0500 Heart rate 75 /min DR CARRIE KELLER MD [address] [place] [address] 12-23-2022 08:05-0500 Respiratory Rate - Anes 20 br/min DR CARRIE KELLER MD [address] [place] [address] 12-23-2022 08:04-0500 Diastolic Blood Pressure Non-Invasive [address] CARRIE KELLER MD [address] [place] [address] 12-23-2022 08:04-0500 Systolic Blood Pressure Non-Invasive [address] CARRIE KELLER MD [address] [place] [address] 12-23-2022 07:55-0500 Heart rate 73 /min DR CARRIE KELLER MD [address] [place] [address] 12-23-2022 07:55-0500 Respiratory Rate - Anes 17 br/min DR CARRIE KELLER MD [address] [place] [address] 12-23-2022 05:30-0500 Body height 175.[address] CARRIE KELLER MD [address] [place] [address] 12-23-2022 05:30-0500 Body temperature 97.7 [degF] DR CARRIE KELLER MD [address] [place] [address] 12-23-2022 05:30-0500 Body weight 116.[address] CARRIE KELLER MD [address] [place] [address] 12-23-2022 05:30-0500 Heart rate 70 /min DR CARRIE KELLER MD [address] [place] [address] 12-23-2022 05:30-0500 Respiratory rate 16 /min DR CARRIE KELLER MD [address] [place] [address] 12-12-2022 14:43-0500 Blood Pressure Cuff Size DR CARRIE KELLER MD [address] [place] [address] 12-12-2022 14:43-[address] CARIRE KELLER MD [address] [place] [address] 12-12-2022 14:43-[address] CARRIE KELLER MD [address] [place] [address] 12-12-2022 14:43-0500 Body height [address] CARRIE KELLER MD [address] [place] [address] 12-12-2022 14:43-0500 Body temperature 97.52 [degF] DR CARRIE KELLER MD [address] [place] [address] 12-12-2022 14:43-0500 Body weight [address] CARRIE KELLER MD [address] [place] [address] 12-12-2022 14:43-0500 Diastolic Blood Pressure Non-Invasive [address] CARRIE KELLER MD [address] [place] [address] 12-12-2022 14:43-0500 Heart rate 73 /min DR CARRIE KELLER MD [address] [place] [address] 12-12-2022 14:43-0500 Systolic Blood Pressure Non-Invasive [address] CARRIE KELLER MD [address] [place] [address] 12-21-2021 18:40-0500 Heart rate 69 /min CRISTAL ROQUE MD [address] [place] [address] 12-21-2021 18:40-0500 Respiratory rate 18 /min CRISTAL ROQUE MD [address] [place] [address] 12-21-2021 14:30-0500 Body temperature 97.88 [degF] CRISTAL ROQUE MD [facility] 12-21-2021 14:30-0500 Diastolic blood pressure 69 mm[Hg] CRISTAL ROQUE MD [address] [place] [address] 12-21-2021 14:30-0500 Heart rate 70 /min CRISTAL ROQUE MD [facility] 12-21-2021 14:30-0500 Mean blood pressure 89 mm[Hg] CRISTAL ROQUE MD [facility] 12-21-2021 14:30-0500 Reason For Taking VItal Signs CRISTAL ROQUE MD [facility] 12-21-2021 14:30-0500 Respiratory rate 17 /min CRISTAL ROQUE MD [facility] 12-21-2021 14:30-0500 Systolic blood pressure 130 mm[Hg] CRISTAL ROQUE MD [facility] 12-21-2021 12:49-0500 Heart rate 69 /min CRISTAL ROQUE MD [facility] 12-21-2021 12:49-0500 Respiratory rate 18 /min CRISTAL ROQUE MD [facility] 12-21-2021 09:34-0500 Heart rate 68 /min CRISTAL ROQUE MD [facility] 12-21-2021 06:44-0500 Body temperature 97.88 [degF] CRISTAL ROQUE MD [facility] 12-21-2021 06:44-0500 Heart rate 79 /min CRISTAL ROQUE MD [facility] 12-21-2021 06:44-0500 Reason For Taking VItal Signs CRISTAL ROQUE MD [facility] 12-21-2021 03:00-0500 Body temperature 97.7 [degF] CRISTAL ROQUE MD [facility] 12-21-2021 03:00-0500 Heart rate 80 /min CRISTAL ROQUE MD [facility] 12-21-2021 03:00-0500 Reason For Taking VItal Signs CRISTAL ROQUE MD [facility] 12-20-2021 22:46-0500 Heart rate 68 /min CRISTAL ROQUE MD [facility] 12-20-2021 22:46-0500 Mean blood pressure 72 mm[Hg] CRSITAL ROQUE MD [facility] 12-20-2021 18:52-0500 Heart rate 72 /min CRISTAL ROQUE MD [facility] 12-18-2021 00:00-0500 Diastolic Blood Pressure NBP 82 1 CRISTAL ROQUE MD [facility] 12-18-2021 00:00-0500 Mean blood pressure 102 mm[Hg] CRISTAL ROQUE MD [facility] 12-18-2021 00:00-0500 Systolic Blood Pressure NBP 145 1 CRISTAL ROQUE MD [facility] 12-17-2021 18:00-0500 Diastolic Blood Pressure NBP 86 1 CRISTAL ROQUE MD [facility] 12-17-2021 18:00-0500 Mean blood pressure 94 mm[Hg] CRISTAL ROQUE MD [facility] 12-17-2021 18:00-0500 Systolic Blood Pressure NBP 124 1 CRISTAL ROQUE MD [facility] 12-17-2021 13:15-0500 Diastolic Blood Pressure NBP 78 1 CRISTAL ROQUE MD [facility] 12-17-2021 13:15-0500 Mean blood pressure 91 mm[Hg] CRISTAL ROQUE MD [facility] 12-17-2021 13:15-0500 Systolic Blood Pressure NBP 135 1 CRISTAL ROQUE MD [facility] 12-11-2021 08:40-0500 Mean blood pressure 112 mm[Hg] CRISTAL ROQUE MD [facility] 12-11-2021 07:23-0500 Mean blood pressure 101 mm[Hg] CRISTAL ROQUE MD [facility] 12-11-2021 06:45-0500 Diastolic blood pressure 47 mm[Hg] CRISTAL ROQUE MD [facility] 12-11-2021 06:45-0500 Mean blood pressure 74 mm[Hg] CRISTAL ROQUE MD [facility] 12-11-2021 06:45-0500 Systolic blood pressure 125 mm[Hg] CRISTAL ROQUE MD [facility] 12-11-2021 06:31-0500 Diastolic blood pressure 50 mm[Hg] CRISTAL ROQUE MD [facility] 12-11-2021 06:31-0500 Systolic blood pressure 126 mm[Hg] CRISTAL ROQUE MD [facility] 12-11-2021 06:10-0500 Diastolic blood pressure 45 mm[Hg] CRISTAL ROQUE MD [facility] 12-11-2021 06:10-0500 Systolic blood pressure 124 mm[Hg] CRISTAL ROQUE MD [facility] 12-10-2021 12:30-0500 Body temperature 99.68 [degF] CRISTAL ROQUE MD [facility] 12-10-2021 09:37-0500 Body temperature 98.24 [degF] CRISTAL ROQUE MD [facility] 12-10-2021 08:04-0500 Body temperature 100.58 [degF] CRISTAL ROQUE MD [facility] 12-09-2021 14:14-0500 SaO2% (BldA) [Mass fraction] 97.5 % CRISTAL ROQUE MD [facility] 12-09-2021 04:39-0500 SaO2% (BldA) [Mass fraction] 95.0 % CRISTAL ROQUE MD [facility] 12-09-2021 01:52-0500 SaO2% (BldA) [Mass fraction] 98.5 % CRISTAL ROQUE MD [facility] 2021 20:30-0500 Body height 175.3 cm CRISTAL ROQUE MD [facility] 2021 20:30-0500 Body weight 118.2 kg CRISTAL ROQUE MD [facility] 2021 20:30-0500 Body weight 38.46 kg/m2 CRISTAL ROQUE MD [facility] 2021 16:35-0500 Body weight 127.5 kg CRISTAL ROQUE MD [facility] Encounters Encounter Date Encounter Type Care Provider Facility Start: 01-04-2023 End: 01-05-[address] CARRIE KELLER MD Facility:A Start: 01-04-2023 End: 01-04-[address] CARRIE KELLER MD [facility] Start: 12-27-[address] CARRIE KELLER MD Faci lity:A Start: 12-23-2022 End: 12-23-[address] CARRIE KELLER MD Facility:A Start: 12-23-2022 End: 12-23-[address] CARRIE KELLER MD [facility] Start: 12-12-2022 End: 12-12-[address] CARRIE KELLER MD [facility] Start: 12-12-2022 End: 12-13-[address] CARRIE KELLER MD Facility:A Start: 12-12-2022 End: 12-12-2022 Patient encounter procedure JOSE BURNETT AEROSPACE MECHANIC-SKIN TOGGLER [facility] Start: 10-25-2022 End: 10-26-[address] CARRIE KELLER MD Facility:A Start: 10-25-2022 End: 10-25-[address] CARRIE KELLER MD [facility] Start: 10-19-2022 End: 10-20-2022 ambulatory CRISTAL ROQUE MD Facility:A Start: 10-19-2022 End: 10-19-2022 Minor Procedure CRISTAL ROQUE MD [facility] Start: 08-01-2022 End: 08-02-2022 ambulatory CRISTAL ROQUE MD Facility:A Start: 08-01-2022 End: 08-01-2022 Patient encounter procedure CRISTAL ROQUE MD [facility] Start: 06-17-2022 End: 06-18-2022 ambulatory CRISTAL ROQUE MD Facility:B Start: 06-17-2022 End: 06-17-2022 Patient encounter procedure CRISTAL ROQUE MD [facility] Start: 06-08-2022 End: 06-09-2022 ambulatory CRISTAL ROQUE MD Facility:A Start: 02-09-2022 End: 02-10-2022 ambulatory CRISTAL ROQUE MD Facility:A Start: 2021 End: 2021 ambulatory UNKNOWN PROVIDER Facility:[facility] Start: 2021 End: 12-21-2021 Evaluation and management of inpatient LUISANA BROOKS MD [facility] Procedures Date Procedure Procedure Detail Performing Clinician Start: 12-22-2022 Decompression of med mary nerve DR CARRIE KELLER MD Immunizations Immunization Date Immunization Notes Care Provider Fa cility 2021 tetanus toxoid, redu jennifer diphtheria toxoid, and acellular pertussis vaccine, adsorbed CRISTAL ROQUE MD [facility] 08-22-2021 SARS-CoV-2 mRNA (tozinameran) vaccine CRISTAL ROQUE MD [facility] 02-13-2021 SARS-CoV-2 mRNA (tozinameran) vaccine CRISTAL ROQUE MD [facility] 01-23-2021 SARS-CoV-2 mRNA (tozinameran) vaccine CRISTAL ROQUE MD [facility] Payers Date Payer Category Payer Unknown [id number] 2021 Unknown [id number] 1955 Unknown [id number] 2.16. [id number] 1955 Unknown [id number] 2.16.8 [id number] 1955 Unknown [id number] 2.16.8 [id number] 1955 Unknown [id number] 2.16.8 [id number] 1953 Unknown [id number] 2.16.8 [id number] 1953 Unknown [id number] 2.16.8 [id number] 1953 Unknown [id number] 2.16.8 [id number] 1953 Unknown [id number] 2.16.8 [id number] 1953 Unknown [id number] 2.16.8 [id number] 1953 Unknown [id number] 2.16.8 [id number] 1953 Unknown [id number] 2.16.8 [id number] 1953 Unknown [id number] 2.16.8 [id number] Social History Date Type Detail Facility Start: 04-16-2021 Never smoked t obacco (finding) [facility] Sex Assigned At Male [facility] Start: 12-12-2022 Tobacco smoking status Ex-smoker (fi nding) [facility] Functional Status Date Assessment Result Facility 12-23-2022 Functional Status [facility] 12-23-2022 Functional Status [facility] 12-12-2022 Functional Status Sensory Defici ts Hearing deficit, left ear, Hearing deficit, right ear [facility] Mental Status Date Assessment Result Facility 12-23-2022 Mental Status Oriented x 4 [facility] 12-23-2022 Mental Status [facility] Clinical Notes 12-01-2021 to 12-23-2022 Note [...] KAVITA CRUZ MD on 12/23/2022 04:35 PM [facility] 12-23-2022 Hospital Discharg e instructions Patient Education 12/23/2022 08:34:44 [facility] Discharge Instructions Template (08/2018) (Custom) [place] SAME DAY SURGERY DISCHARGE INSTRUCTIONS PLEASE FOLLOW [...] us better serve our patients. Form: 1522 [id number]) R: 02/1912/23/2022 08:34:44 Endoscopic Carpal Tunnel Release, [...] Follow these instructions at home: Medicines Take nqka-gyg-emjrqsa and prescription medicines only as told by [...] and water are not available, use hand fuel oil clerk. ?Change this dressing as told by your [...] Document Reviewed: 02/27/2020 Elsevier Patient Education 2020 [employer]. Follow Up Care 11/29/2022 10:30:23 With:KRISHNA VENTURA, CARRIE Woody, Neurosurgery Address: [address] [place] [address] [address] [place] [address]- [phone] When: Unknown Comments:Follow-up as scheduled With:JOSE BURNETT, Neurosurgery Address: [address] [place] [address] [address] [place] [phone] When:01/04/2023 13:40:00 [facility] 12-23-2022 Summary of episod e note Discharge Instructions Thank you for allowing [facility] to assist you with your healthcare needs. [...] Post Op 01/04/2023 01:40 PM EST Neurosurgery [address] [place] [phone] Surgical Pre-Test 01/05/2023 08:30 AM EST Main PAT Surgery 01/12/2023 07:45 AM EST Main OR Follow Up Appointments Follow Up with JOSE BURNETT, Neurosurgery When 01/04/2023 01:40 PM EST Where: [address] [place] [address] [address] [place] [phone] Follow Up with KRISHNA VENTURA, CARRIE Woody, Neurosurgery When Why: Follow-up as scheduled Where: [address] [facility] [place] [address]- [phone] The Following Activity and Diet Have Been [...] medication providers or retail pharmacies. Education Materials [facility] SAME DAY SURGERY DISCHARGE INSTRUCTIONS PLEASE FOLLOW [...] us better serve our patients. Form: 1522 ([id number]) R: 02/19 Endoscopic Carpal Tunnel Release, Care [...] Follow these instructions at home: Medicines Take cfvv-vor-xioayxm and prescription medicines only as told by [...] and water are not available, use hand fuel oil clerk. ? Change this dressing as told by [...] Document Reviewed: 02/27/2020 Elsevier Patient Education 2020 [employer] Additional Information VACCINATE! IT SAVES LIVES! Members of the community who have not yet received the COVID-19 vaccine and would like to receive it can visit one of [facility] vaccine clinics. There are many vaccine clinic locations within the [facility]. For locations and available times, please visit [email or web address] vao.[email or web address] It is important to note that some COVID mobile vaccine clinics are held outdoors and may be canceled in rainy or stormy conditions. To learn more about pediatric vaccinations (ages 5-11), we invite you to visit the [facility] webpage. [email or web address] [email or web address] To learn more about the COVID-19 vaccine, we invite you to visit the [employer] website for a list of frequently asked questions. [email or web address]-F requently_[email or web address]-Questions.pdf [facility] (EPS) Patient Portal Access Instructions: Stay connected with your healthcare team and access your personal medical information anytime with the [email or web address] Patient Portal.If you would like a full copy of your medical records, please contact the [facility] Medical Records Department, Monday through Monday between 8a.m. and 4:30p.m. Please follow the directions below to access the portal: 1.Access the email account you provided upon registration to the [facility].2.Look for an invitation email from [facility].3.Open the email and access the invitation link: Accept Invitation to [facility] (EPS)4.Fill in the required east to create your account. Sign into [email or web address] with your username and password that you [...] you will allow to register on the [facility] (EPS) Patient Portal for access to your information. You can also access the [email or web address] Patient Portal on the [employer] batsheva. Simply click on Health Records under Health Data and then click on the [employer] logo. HOW TO SAFELY DISPOSE OF PRESCRIPTION [...] Call your local pharmacy or go to http://bit.iQuantifi.com/0W5Js4l to find one close to you.3.Make use of household items: Use cat litter or old coffee grounds to dispose medications if other options are not available. Mix your drugs with these household products, seal them in an airtight container and throw it into the garbage. Call [facility]: [phone] to be sure your drugs can be [...] aware that I should contact my doctor. Patient/Test Designer Signature: Date/Time: Relationship to Patient: Witness Name/Signature: Date/Time: [facility] 12-23-2022 Anesthesiology Consult note Patient: JIM [...] Medical Carpal tunnel syndrome / SNOMED CT 94686914 / Confirmed Stenosis of cervical spine / SNOMED CT 374513234 / Confirmed TBI (traumatic brain injury) / SNOMED CT 597013 / Confirmed, Active Problems (19) Anxiety Back pain Balance disorder Carpal tunnel syndrome Claustrophobia COVID-19 Depression Diabetes Dizziness Hard of hearing Hearing aid HTN (hypertension) Hypercholesterolemia Impaired memory Panic attack Seizures Stenosis of cervical spine TBI (traumatic brain injury) Vertigo Histories Past Medical History: No active or resolved past medical history items have been selected or recorded. Procedure history: Carpal tunnel release ([id number]) on 12/22/2022 at 67 Years. 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 Coronary artery bypass graft ([id number]). Comments: 04/16/2021 14:14 ELMER Martinez quadruple Cyst ([id number]). Comments: 04/16/2021 14:14 ELMER Martinez right ear [...] Weight Lbs 257.2 lb Weight Method Actual [place] Body Weight 70.74 kg Type of Scale [...] Documentation reviewed: Current records. Assessment and Plan [place] Society of Anesthesiologists (ASA) physical status classification: Class III. Anesthetic Preoperative Plan Premedication: intravenous. Anesthetic technique: MAC. Postoperative pain management: Per surgeon. Informed consent: signed by patient. Notes: TBI, seizures. Digitally Signed by TALA JOHNSON MD on 12/23/2022 07:11 AM [facility] 06-17-2022 Note ORIGINAL HISTORY: Traumatic brain [...] intra or extra-axial fluid collections. There is zcmu-bw-sdkdnceo punctate and nodular T2 hyperintensity in the [...] Sign Date: 06/17/2022 2:37:18 PM Ordering Provider: [facility] 06-17-2022 Note ORIGINAL HISTORY: Traumatic brain injury [...] intra or extra-axial fluid collections. There is reft-uz-ndetealc punctate and nodular T2 hyperintensity in the [...] 06/17/2022 2:37:18 PM Ordering Provider[facility] Hospital Discharg e instructions Patient Education [...] Use night-lights. Place frequently used items in qdsb-bc-ndtyj places. Lower the shelves around your home [...] of the way. Do not use floor bengali or wax that makes floors slippery. If [...] include working with a physical therapist or hop trainer to improve your strength, balance, and endurance. Where to find more information Centers for Disease Control and PreventionRICHI: https://www.cdc.gov National [place] [employer] on Aging: https://jn9nndp.paulette.nih.gov Contact a health care provider if: You [...] 10/20/2003 Document Revised: 10/12/2018 Document Reviewed: 06/14/2018 [employer] Patient Education [employer]. Follow Up Care 2021 16:35:52 With:[facility] [phone] Address:Unknown When:1-2 days With:CRISTAL ROQUE MD, Neurosurgery Address: When: Unknown Comments:Follow-up in 1 week, has appointment on December 29 With:[facility] Address: When: Unknown Comments:Follow-up in 4 weeks With:[facility]. [phone] Address:Unknown When:1-2 days Comments:Home health physical and occupational therapists have been ordered for you. [facility]. will contact you to set up your first home visit. With:[facility] Address: [address] [place] [phone] (1) When:1-2 days [facility] TBI- Right frontal intracran ial hemorrhage; Right subdural hematoma; Scattered SAH with IVH: -Dr. Roque has reviewed the repeat CT of the [...] basal frontal contusion. He was transferred to [facility]. The CT scan of the head [...] he remains stable can be transferred to [facility]. Addendum by YULI MAX APRN-SKIN TOGGLER on December 01, 2021 11:45:11 EST This [...] CT Head or Brain w/o Contrast 12/29/21 [facility] Evaluation + Plan note Future Appointments Appointment Date:10/19/2022 01:30:00 PM Scheduled Provider: Location:PAIN Appointment Type:PM EMG/NCV 2 Extremity [facility] Evaluation + Plan note Future Appointments Appointment Date:10/25/2022 01:00:00 PM Scheduled Provider:CARRIE KELLER MD Location:NEUROS Appointment Type:NS OV [facility] Evaluation + Plan note Future Appointments [facility] Evaluation + Plan note Future Appointments Appointment Date:01/04/2023 01:40:00 PM Scheduled Provider: Location:NEUROS Appointment Type:NS Post Op [facility] Evaluation + Plan note Future Appointments Appointment Date:01/25/2023 08:40:00 AM Scheduled Provider: Location:[facility] Appointment Type:NS Post Op [facility] Hospital course Narrative No data available for this section [facility] Hospital Discharge instructions No data available for this section [facility] Progress note No data available for this section [facility] Summary Purpose Family History No Family History Records FoundNo Family History Records Found Advance Directives No Advanced Directives Records FoundNo Advanced Directives Records Found Additional Source Comments (unrecognized sect ion and content) No Status Records FoundNo Status Records Found INFORMATION SOURCE (unrecogn ized section and content) DATE CREATED AUTHOR AUTHOR'S CODY ATGINA 01/20/2023 [facility] ([place]) Care Team (unrecognized sect ion and content) Care Team Personnel Name: [facility], [facility] Position: Physician Member Role: Primary Care Physician Address: Address: [address] [place] [address] Care Team Related Persons Name: DAYSABI Care Team Personnel Name: [facility] Position: Physician Member Role: Primary Care Physician Address: Address: [address] [place] [address] Care Team Related Persons Name: SABI BERNSTEIN Care Team Personnel Name: [facility] Position: Physician Member Role: Primary Care Physician Address: Address: [address] [place] [address] Care Team Related Persons Name: DAYSABI WATSON Care Team Personnel Name: [facility] Position: Physician Member Role: Primary Care Physician Address: Address: [address] [place] [address] Care Team Related Persons Name: DAYSABI WATSON Care Team Personnel Name: [facility] Position: Physician Member Role: Primary Care Physician Address: Address: [address] [place] [address] Care Team Related Persons Name: DAYSABI WATSON Care Team Personnel Name: [facility] Position: Physician Member Role: Primary Care Physician Address: Address: [address] [place] [address] Care Team Related Persons Name: DAYSABI WATSON Care Team Personnel Name: [facility] Position: Physician Member Role: Primary Care Physician Address: Address: [address] [place] [address] Care Team Related Persons Name: SABI BERNSTEIN Care Team Personnel Name: [facility] Position: Physician Member Role: Primary Care Physician Address: Address: [address] [place] [address] Care Team Related Persons Name: SABI BERNSTEIN [...] BE BASED ON THE PRIMARY CLINICAL RECORDS. [email or web address] provides no warranty or guarantee of the accuracy or completeness of information in this document.
== END 2023-12-16 16:58 | disposition home or self-care (01) ==
PROVIDERS: Emergency Provider Emergency Medicine; Referring Provider Emergency Medicine; Visit Provider Emergency Medicine
DX: H16.9 Unspecified keratitis (principal); I25.10 Atherosclerotic heart disease of native coronary artery without angina pectoris; G47.30 Sleep apnea, unspecified; Z87.891 Personal history of nicotine dependence; Z86.73 Personal history of transient ischemic attack (TIA), and cerebral infarction without residual deficits
CPT/HCPCS: 99283

== ENCOUNTER → 2024-01-08 | Outpatient (CLI) | payer OTHER, SELFPAY | END | disposition home or self-care (01) | LOC: PSN 12:27 | PROVIDERS: Referring Provider Psychiatry & Neurology Neurology; Visit Provider Psychiatry & Neurology Neurology | DX: S06.5X9A Traumatic subdural hemorrhage with loss of consciousness of unspecified duration, initial encounter (principal); R41.3 Other amnesia | CPT/HCPCS: 95819 ==

== ENCOUNTER → 2024-03-11 | Outpatient (CLI) | payer OTHER, SELFPAY ==
[2024-03-11 17:23] LABS: Hematocrit 42.2 % (40-54); Hemoglobin 14.2 g/dL (13.0-16.5); Mean Corp Hgb Conc 33.6 g/dL (32-36); Mean Corpuscular Hgb 29.8 pg (27.0-32.0); Mean Corpuscular Volume 88.5 fL (80-94); Platelet Count 174 K/mm3 (150-450); RBC Distribution Width SD 42.3 fl (35.1-43.9); Red Blood Count 4.77 M/mm3 (4.6-6.2); White Blood Count 4.6 K/mm3 (4.4-11.0)
[2024-03-11 18:00] LABS: Vitamin B12 650 pg/mL (211-911)
[2024-03-11 18:14] LABS: AST(SGOT) 21 U/L (15-37); Alanine Aminotransfer ALT/SGPT 31 U/L (16-61); Albumin, Serum 3.9 g/dL (3.2-5.0); Alkaline Phosphatase 53 U/L (45-117); Anion Gap 6 (5-15); BUN 21 mg/dL (7-18); BUN/Creat Ratio 17.5 RATIO (10-20); Calcium,Total 9.1 mg/dL (8.5-10.1); Chloride 106 mmol/L (98-107); EST Glomerular Filtration Rate 64 mL/min (>60); Est Glom Filt Rate - Afr Amer 77 mL/min (>60); Globulin 4.1 g/dL (2.2-4.2); Glucose 163 mg/dL (74-106); Potassium 3.9 mmol/L (3.5-5.1); Sodium Level 137 mmol/L (136-145)
== END | disposition home or self-care (01) ==
PROVIDERS: Referring Provider Psychiatry & Neurology Neurology; Visit Provider Psychiatry & Neurology Neurology
DX: S06.5X9A Traumatic subdural hemorrhage with loss of consciousness of unspecified duration, initial encounter (principal)
CPT/HCPCS: 36415; 80053; 82607; 82746; 84425; 84443; 85027

== ENCOUNTER 2024-04-08 10:13 | Emergency (ER) | payer OTHER, SELFPAY ==
[2024-04-08 10:13] VITALS: BP 159/87; PULSE 82; RESP 18; TEMP 36.6; O2SAT 97; BMI 39.0
--- NOTE | 2024-04-08 10:39 | EX.ED.DYSGE1 ---
HPI History of Present Illness Chief Complaint: Cold Sx Informant: patient and spouse/S.O. Narrative Narrative: 68-year-old male states that yesterday he began to have sneezing and nasal congestion. He notes postnasal drip with cough. He denies any chest symptoms. He notes generalized myalgias. Denies any fever or headache. No vomiting or diarrhea. picked up some Mucinex and vitamins yesterday. She wonders if the Mucinex is causing his blood pressure to be elevated. Not sure if the Mucinex D though. states she is feeling fine. No rashes. states that he only takes 1 medicine for blood pressure but then tells me he is on a long list of blood pressure medicines for his heart. I see he is on amlodipine and carvedilol hydralazine lisinopril and also takes doxazosin. [facility] Medical History Open wounds of multiple sites of left hand History of carpal tunnel surgery of left wrist Neuropathy Hearing problem Arthritis Open wound of left hand except fingers with tendon involvement Open wound of left palm Open wound of left wrist with tendon involvement Tenosynovitis of hand Left hand pain Compartment syndrome of left hand Suppurative tenosynovitis of flexor tendon of left hand Extensor tenosynovitis of left wrist Abscess of dorsum of left hand Abscess of bursa, left wrist Abscess, palm UTI (urinary tract infection) Subdural hematoma Sleep apnea Former smoker Chest pain CVA (cerebral vascular accident) Diabetes Coronary artery disease High cholesterol HTN (hypertension) Home Medications ?Medication ?Instructions ?Recorded ?Last Taken ?Type doxazosin 2 mg tablet 2 mg PO DAILY BLOOD PRESSURE 05/10/21 01/06/23 History meclizine 12.5 mg tablet 6.25 mg PO BID DIZZINESS 05/10/21 01/06/23 History metformin 500 mg tablet 1,000 mg PO QPM DIABETES 05/10/21 01/06/23 History carvedilol 25 mg tablet 25 mg PO BID HEART 04/24/22 01/06/23 History Cinnamon 1,200 mg PO/SL DAILY SUPPLEMENT 01/07/23 01/06/23 History amlodipine 10 mg tablet 10 mg PO DAILY BLOOD PRESSURE 01/07/23 01/06/23 History aspirin 81 mg tablet,delayed 81 mg PO DAILY HEART HEALTH 01/07/23 01/06/23 History release fluticasone propionate 50 1 spray intranasal UD CONGESTION 01/07/23 01/06/23 History mcg/actuation nasal spray,suspension hydralazine 50 mg tablet 100 mg PO TIDCM BLOOD PRESSURE 01/07/23 01/06/23 History lisinopril 40 mg tablet 40 mg PO DAILY BLOOD PRESSURE 01/07/23 01/06/23 History pregabalin 25 mg capsule 25 mg PO QHS Check with primary 01/07/23 01/06/23 22:00 History doctor semaglutide (weight loss) 0.5 0.5 mg subcut SA DIABETES 01/07/23 12/31/22 History mg/0.5 mL subcutaneous pen injector sertraline 100 mg tablet (Zoloft) 100 mg PO DAILY DEPRESSION/ANXIETY 01/07/23 01/06/23 History pregabalin 50 mg capsule 50 mg PO BID #60 caps 01/12/23 Unknown Rx oxycodone 5 mg tablet 10 mg (2 x 5 mg) PO Q6H PRN pain 7 03/09/23 Unknown Rx days #56 tabs memantine 10 mg tablet 10 mg PO BID #60 tabs 03/11/24 Unknown Rx Allergy/AdvReac Type Severity Reaction Status Date / Time gabapentin Allergy Severe Other Verified 04/08/24 10:13 Family History Mother Dementia Parkinsons disease Father Heart disease Hypertension Myocardial infarction CVA (cerebral vascular accident) CAD (coronary artery disease) Surgical History History of hand surgery History of carpal tunnel surgery of left wrist History of appendectomy S/P appendectomy S/P CABG x 4 Social History household members: spouse Smoking Status: Former smoker how long ago did patient quit smoking: Smoked in x 7 years, quit 1979, cigars. 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 substance use type: does not use ROS ROS ED Constitutional Constitutional ED: Denies chills, fever(s) or weight loss Eyes Eyes: Denies change in vision or diplopia ENT ENT ED: Reports other Details: Sneezing nasal congestion postnasal drip ; Denies ear pain or sore throat Cardiovascular Cardiovascular: Denies chest pain, orthopnea, palpitations or racing heartbeat Respiratory/Chest Respiratory/Chest: Reports cough; Denies dyspnea or orthopnea Gastrointestinal Gastrointestinal: Denies abdominal pain, diarrhea, nausea or vomiting Genitourinary Genitourinary ED: Denies dysuria, hematuria or urinary frequency Musculoskeletal Musculoskeletal: Reports myalgias; Denies arthralgias Integumentary Denies abscess or rash Neurologic Neurologic: Denies headache(s) or weakness Psychiatric Psychiatric: Denies anxiety, depression, suicidal ideation or suicidal thoughts Endocrine Endocrinology: Denies polydipsia, polyphagia or polyuria Allergic/Immunologic Allergic/Immunologic ED: Denies mouth swelling, tongue swelling or urticaria EXAM Physical Exam Const Vital Signs: 04/08/24 10:13 04/08/24 10:24 04/08/24 10:25 Temperature 97.9 F Temperature Source Temporal Pulse Rate 82 Respiratory Rate 18 Respiratory Effort Normal Non-Labored Respiratory Depth Normal Respiratory Pattern Normal Normal Blood Pressure 159/87 H Blood Pressure Mean 111 Pulse Ox 97 Oxygen Delivery Method Room Air Room Air Positive well nourished, well developed and obese General Appearance ED: well developed Nutritional Appearance: obese HEENT Reports normocephalic, head/scalp atraumatic and moist mucous membranes HEENT Narrative: Turbinate edema that is pink on the right. There is evidence of posterior nasal drip. Tympanic membranes appear normal. He wears bilateral hearing aids. Eyes PERRL and EOMs intact bilaterally Neck no lymphadenopathy, supple and no JVD Resp normal respiratory effort and clear to auscultation bilaterally Cardio regular rate, regular rhythm and no murmurs GI normal to inspection, nondistended, normoactive bowel sounds and non-tender Palpation: soft Back/Spine no CVA tenderness and normal ROM Extremity normal to inspection General Extremety ED: Negative for edema General Extremity: Negative for edema Neuro oriented x3 and CN's II-XII intact bilaterally Sensorium / Orientation: alert Motor Exam: strength 5/5 throughout Psych mental status grossly normal Mood & Affect: Negative for depressed or tearful Skin no rashes or lesions noted and no wounds MDM MDM MDM Narrative Medical decision making narrative: Differential diagnosis includes sinusitis both viral and bacterial, pneumonia otitis media pharyngitis viral syndrome such as COVID influenza RSV. We spoke at length regarding home treatment which I believe at this time is supportive for a viral upper respiratory infection. Given his long list of medications that he takes for blood pressure I do recommend against most [id number] medications due to the potential for hypertension. We talked about nasal sprays. I would recommend against Afrin but if she wants to try it I would recommend monitoring his blood pressure. They understand this medicine may cause hypertension. To be safe ides a saline sprays would be recommended. We talked about viral testing but as it will not change the supportive care we will defer at this moment. I do not believe antibiotics are indicated at this time. History & Record Review Discussion w/independent historian: Patient and Significant other Discharge Plan Triage Chief Complaint: Cold Sx ED Provider: Bryson Beth Dx/Rx/DC Orders Prescriptions: No Action oxycodone 5 mg tablet 10 mg PO Q6H PRN (Reason: pain) 7 Days Qty: 56 0RF memantine 10 mg tablet 10 mg PO BID Qty: 60 7RF metformin 500 MG tablet 1,000 mg PO QPM meclizine 12.5 MG tablet 6.25 mg PO BID doxazosin 2 mg tablet 2 mg PO DAILY carvedilol 25 mg Tablet 25 mg PO BID sertraline [Zoloft] 100 mg Tablet 100 mg PO DAILY aspirin 81 mg Tablet,Delayed Release (Dr/Ec) 81 mg PO DAILY amlodipine 10 mg Tablet 10 mg PO DAILY fluticasone propionate 50 mcg/actuation [place],Suspension 1 spray intranasal UD semaglutide (weight loss) 0.5 mg/0.5 mL Pen Injector 0.5 mg SUBCUT SA Cinnamon 1,200 mg PO/SL DAILY hydralazine 50 mg tablet 100 mg PO TIDCM lisinopril 40 MG tablet 40 mg PO DAILY pregabalin 25 mg Capsule 25 mg PO QHS pregabalin 50 mg Capsule 50 mg PO BID Qty: 60 0RF [facility] Provider] - Print Language: German
== END 2024-04-08 10:57 | disposition home or self-care (01) ==
LOC: ED 10:50
PROVIDERS: Emergency Provider Emergency Medicine; Visit Provider Emergency Medicine
DX: J06.9 Acute upper respiratory infection, unspecified (principal); E11.9 Type 2 diabetes mellitus without complications; I25.10 Atherosclerotic heart disease of native coronary artery without angina pectoris; E66.9 Obesity, unspecified; Z86.73 Personal history of transient ischemic attack (TIA), and cerebral infarction without residual deficits; Z95.1 Presence of aortocoronary bypass graft; Z87.891 Personal history of nicotine dependence
CPT/HCPCS: 99283

== ENCOUNTER 2024-05-21 14:59 | Emergency (ER) | payer OTHER, SELFPAY ==
[2024-05-21 14:59] VITALS: BP 153/77; PULSE 80; RESP 14; TEMP 36.3; O2SAT 97; BMI 38.2
--- NOTE | 2024-05-21 16:48 | EDS_ITS ---
HPI History of Present Illness HPI Narrative: 68-year-old male who tripped and fell May 16 on uneven pavement landing on his left shoulder complaining of pain. He has had prior shoulder problems and does not normally have normal range of motion to his shoulder. Denies any other complaints an abrasion to his left knee. Chief Complaint: Upper Extremity Injury Informant: patient and spouse/S.O. Occured/Mechanism Mechanism/Context: Yes injury and Yes blunt trauma Onset/Context/Timing Onset: Days Context: Sudden Onset Timing: Continuous Quality of Pain: Dull and Aching Current Severity: Mild Maximum Severity: Moderate Associated Symptoms Associated Symptoms: Negative for Parasthesia, Weakness or Loss of Funtion Narrative Narrative: 68-year-old male history of prior diabetes, stroke, MO, CABG, subdural who tripped and fell uneven pavement on May 16 injuring his left shoulder. The pain has not gotten better even have evaluated today. Denies other complaints of the knee abrasion. States that he normally does not have full range of motion of the shoulder because of prior issues. Prior similar symptoms: Yes Recent Illness/Hospitalization: No PFSH PFSH Medical History Open wounds of multiple sites of left hand History of carpal tunnel surgery of left wrist Neuropathy Hearing problem Arthritis Open wound of left hand except fingers with tendon involvement Open wound of left palm Open wound of left wrist with tendon involvement Tenosynovitis of hand Left hand pain Compartment syndrome of left hand Suppurative tenosynovitis of flexor tendon of left hand Extensor tenosynovitis of left wrist Abscess of dorsum of left hand Abscess of bursa, left wrist Abscess, palm UTI (urinary tract infection) Subdural hematoma Sleep apnea Former smoker Chest pain CVA (cerebral vascular accident) Diabetes Coronary artery disease High cholesterol HTN (hypertension) Home Medications ?Medication ?Instructions ?Recorded ?Last Taken ?Type doxazosin 2 mg tablet 2 mg PO DAILY BLOOD PRESSURE 05/10/21 01/06/23 History meclizine 12.5 mg tablet 6.25 mg PO BID DIZZINESS 05/10/21 01/06/23 History metformin 500 mg tablet 1,000 mg PO QPM DIABETES 05/10/21 01/06/23 History carvedilol 25 mg tablet 25 mg PO BID HEART 04/24/22 01/06/23 History Cinnamon 1,200 mg PO/SL DAILY SUPPLEMENT 01/07/23 01/06/23 History amlodipine 10 mg tablet 10 mg PO DAILY BLOOD PRESSURE 01/07/23 01/06/23 History aspirin 81 mg tablet,delayed 81 mg PO DAILY HEART HEALTH 01/07/23 01/06/23 History release fluticasone propionate 50 1 spray intranasal UD CONGESTION 01/07/23 01/06/23 History mcg/actuation nasal spray,suspension hydralazine 50 mg tablet 100 mg PO TIDCM BLOOD PRESSURE 01/07/23 01/06/23 History lisinopril 40 mg tablet 40 mg PO DAILY BLOOD PRESSURE 01/07/23 01/06/23 History pregabalin 25 mg capsule 25 mg PO QHS Check with primary 01/07/23 01/06/23 22:00 History doctor semaglutide (weight loss) 0.5 0.5 mg subcut SA DIABETES 01/07/23 12/31/22 History mg/0.5 mL subcutaneous pen injector sertraline 100 mg tablet (Zoloft) 100 mg PO DAILY DEPRESSION/ANXIETY 01/07/23 01/06/23 History pregabalin 50 mg capsule 50 mg PO BID #60 caps 01/12/23 Unknown Rx oxycodone 5 mg tablet 10 mg (2 x 5 mg) PO Q6H PRN pain 7 03/09/23 Unknown Rx days #56 tabs memantine 10 mg tablet 10 mg PO BID #60 tabs 03/11/24 Unknown Rx Allergy/AdvReac Type Severity Reaction Status Date / Time gabapentin Allergy Severe Other Verified 05/21/24 14:59 Family History Mother Dementia Parkinsons disease Father Heart disease Hypertension Myocardial infarction CVA (cerebral vascular accident) CAD (coronary artery disease) Surgical History History of hand surgery History of carpal tunnel surgery of left wrist History of appendectomy S/P appendectomy S/P CABG x 4 Social History household members: spouse Smoking Status: Former smoker how long ago did patient quit smoking: Smoked in x 7 years, quit 1979, cigars. 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 substance use type: does not use ROS ROS ED ROS Narrative Denies recent illness. Review of Systems ROS Unobtainable: Denies due to encephalopathy Constitutional Constitutional ED: Denies chills or fever(s) Eyes Eyes: Denies blurry vision ENT ENT ED: Denies ear pain Cardiovascular Cardiovascular: Denies chest pain Respiratory/Chest Respiratory/Chest: Denies cough or dyspnea Gastrointestinal Gastrointestinal: Denies abdominal pain Genitourinary Genitourinary ED: Denies dysuria or hematuria Musculoskeletal Musculoskeletal: Denies back pain, myalgias or neck pain Integumentary Denies abscess or Abrasions Neurologic Neurologic: Denies headache(s), paresthesias or weakness Psychiatric Psychiatric: Denies anxiety or depression Endocrine Endocrinology: Denies cold intolerance Hematologic/Lymphatic Hematologic/Lymphatic: Denies easy bleeding Allergic/Immunologic Allergic/Immunologic ED: Denies mouth swelling EXAM Physical Exam Narrative Exam Narrative: Well-appearing 68-year-old male. Vital signs stable afebrile. H EENT exam unremarkable atraumatic. Pupils round react light. No facial droop. Normal speech. No trauma. Neck nontender. Back nontender. Lungs clear. Heart regular rhythm rate about 80. Chest wall and ribs nontender. Abdomen soft nontender. Pelvic girdle intact. Right upper both lower extremities nontender. No deformity. Normal range of motion. Left shoulder tenderness. No gross deformity. Limited range of motion which she states has had prior to the fall. He can flex and extend his elbow and his wrist. 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 Normal touch sensation of his hand. I cannot lift his left arm above his shoulder. Neurologically is awake and alert no focal motor deficits. Const Vital Signs: 05/21/24 14:59 Temperature 97.3 F L Temperature Source Temporal Pulse Rate 80 Respiratory Rate 14 Blood Pressure 153/77 H Blood Pressure Mean 102 Pulse Ox 97 Oxygen Delivery Method Room Air Positive well nourished and well developed; Negative for cachectic, contractures or unkempt General Appearance ED: well developed and NAD; Negative for unkempt, cachectic, contractures, cyanotic or diaphoretic Nutritional Appearance: Negative for cachectic HEENT Reports moist mucous membranes normocephalic and atraumatic; Negative for trauma or tenderness Eyes PERRL and EOMs intact bilaterally General Eye ED: Negative for other Neck full ROM and supple General: Negative for tenderness Lymph Lymphatic: Negative for other Chest Wall inspection of chest normal and palpation of chest normal Chest: Negative for other Resp normal respiratory effort and clear to auscultation bilaterally Effort and Inspection: Negative for pain with movement Auscultation: Negative for rales, rhonchi or wheezes Cardio regular rate, regular rhythm, S1 normal heart sound, S2 normal heart sound and no murmurs Rate: Negative for bradycardia or tachycardic Rhythm: Negative for abnormal rhythm GI non-tender, non-distended and no masses Inspection: Negative for abdominal distention Auscultation: normoactive bowel sounds Palpation: soft; Negative for tender or guarding Back/Spine no CVA tenderness General Back: Negative for CVA tenderness Cervical Spine: Negative for cervical spine tenderness Thoracic Spine / Upper Back: Negative for thoracic spinal tenderness Lumbar Spine / Lower Back: Negative for lumbar spinal tenderness Extremity Negative for normal to inspection Extremity Narrative: Left shoulder tenderness. No deformity. Cannot raise his left arm above his shoulder but that is chronic. Distal humerus, elbow, forearm, wrist and hand are nontender. 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 Normal sensation. General Extremety ED: Negative for edema General Extremity: Negative for edema Neuro oriented x3, CN's II-XII intact bilaterally and moves all extremities Sensorium / Orientation: oriented to person, oriented to place and oriented to time; Negative for orientation impaired or lethargic Motor Exam: strength 5/5 throughout Psych mental status grossly normal Appearance: Negative for unkempt Attitude: No agitated Mood & Affect: Negative for depressed, anxious or tearful Skin General Skin Exam: Negative for petechiae Lesions: no lesions Rashes: no rashes MDM MDM MDM Narrative Medical decision making narrative: 68-year-old male fall left shoulder injury x-ray being obtained. He was given 1 [place] for pain. Repeat exam unchanged. X-rays of shoulder unremarkable. Treated for shoulder contusion. Discharged home. History & Record Review Discussion w/independent historian: Patient and Family Radiography Diagnostic Testing: Left shoulder x-ray, 2 views, interpreted by myself shows no fracture or dislocation. No acute abnormality. I did go over the film with the patient and family. Discharge Plan Triage Chief Complaint: Upper Extremity Injury ED Provider: Dav Rhodes Dx/Rx/DC Orders Clinical Impression: Fall, Contusion of left shoulder, History of diabetes mellitus, History of MO (myocardial infarction) Instructions: ED Contusion, Upper Extremity Prescriptions: No Action oxycodone 5 mg tablet 10 mg PO Q6H PRN (Reason: pain) 7 Days Qty: 56 0RF memantine 10 mg tablet 10 mg PO BID Qty: 60 7RF metformin 500 MG tablet 1,000 mg PO QPM meclizine 12.5 MG tablet 6.25 mg PO BID doxazosin 2 mg tablet 2 mg PO DAILY carvedilol 25 mg Tablet 25 mg PO BID sertraline [Zoloft] 100 mg Tablet 100 mg PO DAILY aspirin 81 mg Tablet,Delayed Release (Dr/Ec) 81 mg PO DAILY amlodipine 10 mg Tablet 10 mg PO DAILY fluticasone propionate 50 mcg/actuation [place],Suspension 1 spray intranasal UD semaglutide (weight loss) 0.5 mg/0.5 mL Pen Injector 0.5 mg SUBCUT SA Cinnamon 1,200 mg PO/SL DAILY hydralazine 50 mg tablet 100 mg PO TIDCM lisinopril 40 MG tablet 40 mg PO DAILY pregabalin 25 mg Capsule 25 mg PO QHS pregabalin 50 mg Capsule 50 mg PO BID Qty: 60 0RF [facility] Provider] - 10-14 Days if not better Activity Restrictions/Additional Instructions: Ice to your shoulder. Tylenol and Motrin for pain. Follow-up if not improving. Print Language: Albanian Disposition Disposition: Home, Self Care
[2024-05-21] MEDS: HYDROcodone Bitartrate/Apap 5/325 Tablet PO (16:53)
--- NOTE | 2024-05-21 17:00 | RAD_ITS ---
INDICATION: fall and pain EXAMINATION/TECHNIQUE: X-RAY - LEFT XR Shoulder Min 2 Views 2 VIEWS COMPARISON: FINDINGS: SOFT TISSUES: No soft tissue swelling or gas. No radiopaque foreign body. BONES/JOINTS: No acute fracture or subluxation.. Degenerative hypertrophy at the acromioclavicular articulation.. No sclerotic or destructive changes observed. RAD/Shoulder min 2 Views IMPRESSION: Degenerative changes. Electronically Signed: London Purcell DO at 18:20 EDT ,
== END 2024-05-21 17:33 | disposition home or self-care (01) ==
PROVIDERS: Emergency Provider Emergency Medicine; Visit Provider Emergency Medicine
DX: S40.012A Contusion of left shoulder, initial encounter (principal); E11.40 Type 2 diabetes mellitus with diabetic neuropathy, unspecified; I25.10 Atherosclerotic heart disease of native coronary artery without angina pectoris; I25.2 Old myocardial infarction; Z87.891 Personal history of nicotine dependence; Z95.1 Presence of aortocoronary bypass graft; Z86.73 Personal history of transient ischemic attack (TIA), and cerebral infarction without residual deficits; W19.XXXA Unspecified fall, initial encounter
CPT/HCPCS: 73030; 99282

== ENCOUNTER 2025-07-30 22:03 | Emergency (ER) | payer OTHER, SELFPAY ==
[2025-07-30 22:05] VITALS: BP 170/94; PULSE 85; RESP 18; TEMP 36.6; O2SAT 100; BMI 38.4
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
--- NOTE | 2025-07-30 22:58 | RAD_ITS ---
PROCEDURE: RIBS UNI MIN 3V W/PA CHEST 07/30/2025 REASON FOR EXAM: PAIN TECHNIQUE: Procedure Code: RADRIB Modality: DX Procedure: RIBS UNI MIN 3V W/PA CHEST COMPARISON: 05/10/2021 FINDINGS: Lungs/Pleura: Clear. No pneumothorax or sizable pleural effusion. Heart/Mediastinum: Mildly enlarged. Evidence of prior CABG with sternotomy wires and multiple mediastinal surgical clips. Bones/Soft tissues: Multilevel degenerative changes of the spine and bilateral AC joints. No acute fracture or dislocation appreciated. RAD/Ribs Uni Min 3V w/PA Chest IMPRESSION: No acute cardiopulmonary disease. No acute rib fracture appreciated. Reading Location: [facility]
--- OUTSIDE RECORDS SUMMARY | 2025-07-30 23:27 | XMS RPT_ITS | CCD ---
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 Jeana Vasquez Admit Provider Dr. Jeana Vasquez Attending Provider Dr. Jeana Vasquez Other Provider Dr. Jim Calvo Other Provider Dr. Kristian Rae Attending Provider Dr. Matt Coleman Referring Provider Dr. Jeana Vasquez Referring Provider Dr. Jim Calvo Attending Provider [phone] Dr. Cristal Victor Other Provider Dr. Juma Hernandez Other Provider Dr. Jim Calvo Referring Provider [phone] Dr. Cristal Victor Attending Provider Lc BRAILLE TRANSLATOR, BRAILLE TRANSLATOR-C Nia Borrero Attending Provider [facility] Provider Unavailable Dr. Jim Calvo Attending Provider [phone] Dr. Deric Kothari Attending Provider [phone] [facility] Referring Provider Unavailable Dr. Deric Kothari Attending Provider [phone] [facility] Referring Provider Unavailable Saniya, Dr. Leos Attending Provider [phone] Deric Kothari Attending Unavailable Baddoally, Deric Referring [facility]available [facility] Unavailable Baddoally Deric Attending Unavailable Baddoally, Deric Referring [facility]available [facility] Unavailable Lc BRAILLE TRANSLATOR, Nia E [facility] BRAILLE TRANSLATOR, Nia E [facility] Unavailable Floridalma, Travon Attending Unavailable [facility] Unavailable Floridalma, Travon Attending Unavailable [facility], Travon Referring [facility]available [facility] Unavailable Bryson Beth Attending Unavailable Baddour, Deric Attending [facility]available [facility] Unavailable Baddour, Deric Referring Unavailable Baddour, Deric Attending [facility]available [facility] Referring [facility] Unavailable Baddoally, Deric Attending Unavailable [facility] Referring [facility] Unavailable BadDeric horn Attending Un[facility] Referring [facility] Unavailable Jim Calvo Attending [facility] Referring [facility] Unavailable Allergies Allergy Classification Reported Allergen(s) Allergy Type Date of Onset Reaction(s) Facility (16 sources) gabapentin; Translations: [gabapentin] Drug Allergy 3 Hallucinations (finding) [facility] (9 sources) PHENobarbital; Translations: [phenobarbital] Drug Allergy Unknown [facility] (9 sources) Phenytoin; Translations: [phenytoin] Drug Allergy Unknown [facility] (4 sources) atorvastatin; Translations: [atorvastatin] Drug Allergy Diarrhea (finding) [facility] (1 source) gabapentin Drug Allergy [facility] Repository Medications Current Medications Medication Drug Class(es) Dates [...] Status: Ordered amLODIPine 10 mg oral tablet (15 sources) Dihydropyridine Calcium Channel Anand Start: 01-07-2023 take 10 mg by mouth once daily Amlodipine Active 10 MG PO DAILY January 07, 2023 1:00am Start: 12-12-2022 amLODIPine 10 mg oral tablet Dose : 10 mg = 1 tab(s), Oral, qAM, # 30 tab(s), 0 Refill(s) Start Date: 12/12/22 Status: Ordered Start: 06-08-2022 amLODIPine Ora l, qDay, 0 Refill(s) Start Date: 06/08/22 Status: Ordered aspirin 81 mg delayed release oral tablet (20 sources) Platelet Aggregation Inhibitor, Nonsteroidal Anti-inflammatory Drug Start: 01-07-2023 take 81 mg by mouth once daily Aspirin Active 81 MG PO DAILY January 07, 2023 1:00am Start: 06-08-2022 take 1 mg by mouth once daily aspirin 81 mg oral delayed release tablet mg = tab(s), Oral, qDay, 0 Refill(s) Start Date: 06/08/22 Status: Ordered Start: 04-28-2021 End: 03-27-2022 take 81 mg by mouth at breakfast Aspirin Discontinued 81 MG PO WITH BREAKFAST 100 April 28, 2021 12:00am March 27, 2022 2:27am atorvastatin 80 mg oral tablet (15 sources) HMG-CoA Reductase Inhibitor Start: 02-09-2022 take 1 mg by mouth once daily atorvastatin 80 mg oral tablet mg = tab(s), Oral, qDay, 0 Refill(s) Start Date: 02/09/22 Status: Ordered Start: 10-30-2019 End: 04-28-2021 take 80 mg by mouth at bedtime Atorvastatin Discontinu ed 80 MG PO AT BEDTIME October 30, 2019 1:00am April 28, 2021 11:55am carvedilol 25 mg oral tablet (19 sources) alpha-Adrenergic Anand, beta-Adrenergic Anand Start: 04-24-2022 take 25 mg by mouth twice daily Carvedilol Active 25 MG PO TWICE A DAY April 24, 2022 12:00am chlorthalidone 25 mg oral tablet (5 sources) Thiazide-like Diuretic Start: 2021 chlorthalidone 25 mg oral tablet Dose : 25 mg = 1 tab(s), Oral, qAM Start Date: 11/30/21 Status: Ordered Cinnamon Preparation (7 sources) Non-Standardized Food Allergenic Extract Start: 01-07-2023 take 1200 mg by mouth once daily Cinnamon Active 1200 MG SL/PO DAILY January 07, 2023 1:00am Start: 01-07-2023 take 1200 mg by mouth once rhea ly Cinnamon Active 1200 MG SL/PO DAILY January 07, 2023 12:00am cloNIDine hydrochloride 0.1 mg oral tablet (5 sources) Central alpha-2 Adrenergic Agonist Start: 12-17-2021 cloNIDine 0.1 mg oral tablet Dose : 0.1 mg = 1 tab(s), Oral, BID, # 60 tab(s), 0 Refill(s), other reason (Rx) Start Date: 12/17/21 Status: Ordered doxazosin 2 mg oral tablet (20 sources) alpha-Adrenergic Anand Start: 04-28-2021 End: 05-10-2021 take 2 mg by mouth once daily Doxazosin Active 2 MG PO DAILY May 10, 2021 3:28pm fluticasone propionate 0.05 mg/actuat metered dose nasal spray (12 sources) Corticosteroid Start: 01-07-2023 Fluticasone Propionate Active 1 SPRAY INTRANASAL DIRECTED January 07, 2023 1:00am Start: 12-12-2022 take 1 dose nasal ro camille once daily at bedtime fluticasone proprionate NASAL 50 mcg/ spray Dose = 2 spray(s), Nostril, each, qHS, 0 Refill(s) Start Date: 12/12/22 Status: Ordered Start: 10-25-2022 fluticasone pr oprionate NASAL 50 mcg/ spray 0 Refill(s) Start Date: 10/25/22 Status: Ordered glipiZIDE 10 mg oral tablet (20 sources) Sulfonylurea Start: 2021 glipiZIDE 10 m g oral tablet Dose : 10 mg = 1 tab(s), Oral, BIDAC Start Date: 11/30/21 Status: Ordered Start: 04-28-2021 End: 05-10-2021 take 10 mg by mouth twice daily Glipizide Discontinued 10 MG PO TWICE A DAY 60 April 28, 2021 12:00am May 10, 2021 3:28pm Start: 10-30-2019 End: 04-28-2021 take 5 mg by mouth twice daily Glipizide Discontinued 5 MG PO TWICE A DAY October 30, 2019 1:00am April 28, 2021 11:24am hydrALAZINE hydrochloride 50 mg oral tablet (20 sources) Arteriolar Vasodilator Start: 03-07-2022 End: 01-07-2023 take 100 mg by mouth three times daily at mealtime Hydralazine Active 100 MG PO 3 TIMES DAILY WITH MEALS January 07, 2023 3:58pm Start: 12-17-2021 hydrALAZINE 50 mg oral tablet Dose : 100 mg = 2 tab(s), Oral, TID, # 180 tab(s), 0 Refill(s), other reason (Rx) Start Date: 12/17/21 Status: Ordered labetalol hydrochloride 300 mg oral tablet (6 sources) beta-Adrenergic Anand Start: 12-17-2021 labeta lol 300 mg oral tablet Dose : 300 mg = 1 tab(s), Oral, q6hr, # 120 tab(s), 0 Refill(s), other reason (Rx) Start Date: 12/17/21 Status: Ordered meclizine hydrochloride 25 mg oral tablet (20 sources) Antiemetic Start: 2021 meclizine 25 m g oral tablet Dose : 12.5 mg = 0.5 tab(s), Oral, BID, PRN Dizziness Start Date: 11/30/21 Status: Ordered Start: 05-10-2021 take 6.25 mg by mout h twice daily Meclizine Active 6.25 MG PO TWICE A DAY May 10, 2021 3:28pm Start: 10-30-2019 End: 05-10-2021 take 12.5 mg by mouth twice daily Meclizine Discontinued 12.5 MG PO TWICE A DAY 10 April 28, 2021 11:55am May 10, 2021 3:28pm memantine hydrochloride 10 mg oral tablet (9 sources) A-zifacb-G-aspartate Receptor Antagonist Start: 09-13-2023 End: 03-11-2024 take 10 mg by mouth twice daily Memantine Active 10 MG PO TWICE A DAY 60 March 11, 2024 8:55pm Start: 09-13-2023 End: 10-04-2023 take 1 tablet by mouth once daily, then take 1 tablet by mouth twice daily, then take 1 tablet by mouth once daily in the morning, then take 2 tablets by mouth once daily in the evening Memantine Discontinued 5 MG PO .COMPLEX 42 September 13, 2023 12:00am October 04, 2023 1:04am 1 tablet PO daily for 1 week then 1 tablet BID for one week then 1 tablet qAM and two tablets qPM for 1 week metFORMIN hydrochloride 500 mg oral tablet (20 sources) Biguanide Start: 12-12-2022 MetFORMIN (Eqv -Fortamet) 500 mg oral tablet, EXTENDED RELEASE Dose : 500 mg = 1 tab(s), Oral, qPM, # 90 tab(s), 0 Refill(s) Start Date: 12/12/22 Status: Ordered Start: 05-10-2021 take 1000 mg by mout h once daily in the evening Metformin Active 1000 MG PO EVERY EVENING May 10, 2021 3:28pm Start: 05-10-2021 take 1000 mg by mout h twice daily Metformin Active 1000 MG PO TWICE A DAY May 10, 2021 2:28pm Start: 04-28-2021 End: 05-10-2021 take 500 mg by mouth twice daily Metformin Discontinued 500 MG PO TWICE A DAY 60 April 28, 2021 11:55am May 10, 2021 3:28pm Start: 04-16-2021 metFORMIN 1000 mg oral tablet (IR) Dose : 1,000 mg = 1 tab(s), Oral, BID Start Date: 04/16/21 Status: Ordered Start: 10-30-2019 End: 04-28-2021 take 1000 mg by mouth twice daily Metformin Discontinued 1000 MG PO TWICE A DAY October 30, 2019 1:00am April 28, 2021 11:55am Neuropathy Pain Cream (5 sources) Start: 05-10-2021 Neuropathy Wilbert n Cream Active 1 PUMP TD THREE TIMES A DAY May 10, 2021 8:09pm Start: 05-10-2021 Neuropathy Wilbert n Cream Active 1 PUMP TD THREE TIMES A DAY May 09, 2021 11:00pm pregabalin 50 mg oral capsule (12 sources) Start: 01-12-2023 take 50 mg by mouth twice daily Pregabalin Active 50 MG PO TWICE A DAY 60 January 12, 2023 1:00am Start: 01-07-2023 take 25 mg by mouth at bedtime Pregabalin Active 25 MG PO AT BEDTIME January 07, 2023 1:00am Semaglutide (Weight Loss) (7 sources) Start: 01-07-2023 Semaglutide (W eight Loss) Active 0.5 MG SC SA January 07, 2023 1:00am Start: 01-07-2023 Semaglutide (W eight Loss) Active 0.5 MG SC SA January 07, 2023 12:00am sertraline 100 mg oral tablet (15 sources) Serotonin Reuptake Inhibitor Start: 01-07-2023 take 1 tablet by mouth once daily Sertraline (Zoloft) 100 mg Tablet Active 100 MG PO DAILY January 07, 2023 1:00am Start: 12-12-2022 sertraline 150 mg oral capsule Dose : 150 mg = 1 cap(s), Oral, qAM, swallow whole, # 30 cap(s), 0 Refill(s) Start Date: 12/12/22 Status: Ordered Start: 06-08-2022 take 1 mg by mouth once daily sertraline 25 mg oral tablet mg = tab(s), Oral, qDay, 0 Refill(s) Start Date: 06/08/22 Status: Ordered sulfamethoxazole 800 mg / trimethoprim 160 mg oral tablet (9 sources) Dihydrofolate Reductase Inhibitor Antibacterial, Sulfonamide Antimicrobial Start: 04-24-2022 take 1 tablet by mouth twice daily Sulfamethoxazole-Trimethoprim Active 1 TABLET PO TWICE A DAY April 23, 2022 11:00pm Start: 03-27-2022 take 1 tablet by ayad th twice daily Sulfamethoxazole-Trimethoprim (Bactrim D s) 800-160 mg tablet Active 1 TABLET PO TWICE A DAY March 26, 2022 11:00pm Completed/Discontinued Medications Medication Drug Class(es) Dates Sig (Normalized) Sig (Original) acetaminophen 500 mg oral tablet (12 sources) Start: 04-28-2021 End: 05-10-2021 take 1000 mg by mouth every eight hours as needed Acetaminophen Discontinued 1000 MG PO EVERY 8 HOURS NEEDED 0 April 28, 2021 12:00am May 10, 2021 3:28pm atenolol 50 mg oral tablet (20 sources) beta-Adrenergic Anand Start: 04-28-2021 End: 05-10-2021 take 50 mg by mouth twice daily Atenolol Discontinued 50 MG PO TWICE A DAY 60 April 28, 2021 12:00am May 10, 2021 3:28pm Start: 10-30-2019 End: 04-28-2021 take 25 mg by mouth once daily Atenolol Discontinued 2 5 MG PO DAILY October 30, 2019 1:00am April 28, 2021 11:19am cholecalciferol 0.025 mg oral capsule (5 sources) Vitamin D Start: 12-17-2021 End: 01-16-2022 cholecalciferol 25 mcg (1000 intl units) oral capsule Dose : 25 mcg = 1 cap(s), Oral, qDay, # 30 cap(s), 0 Refill(s), other reason (Rx) Start Date: 12/17/21 Stop Date: 01/16/22 Status: Ordered Start: 12-17-2021 End: 01-16-2022 cholecalciferol 25 mcg (1000 intl units) oral capsule Dose : 25 mcg = 1 cap(s), Oral, qDay, # 30 cap(s), 0 Refill(s), other reason (Rx) Start Date: 12/17/21 Stop Date: 01/16/22 Status: Ordered donepezil hydrochloride 10 mg oral tablet (10 sources) Start: 05-16-2023 End: 03-11-2024 take 10 mg by mouth once daily at bedtime Donepezil Discontinued 10 MG PO AT BEDTIME May 16, 2023 12:00am March 11, 2024 8:55pm Begin after completing one month of treatment of donepezil 5mg nightly Start: 05-16-2023 End: 03-11-2024 take 5 mg by mouth at bedtime Donepezil Discontinued 5 MG PO AT BEDTIME May 16, 2023 12:00am March 11, 2024 8:55pm gabapentin 300 mg oral capsule (20 sources) Anti-epileptic Agent Start: 04-10-2021 End: 04-28-2021 take 300 mg by mouth three times daily Gabapentin Discontinued 300 MG PO THREE TIMES A DAY April 21, 2021 12:01am April 28, 2021 11:30am levETIRAcetam 750 mg oral tablet (7 sources) Start: 12-17-2021 End: 02-11-2022 Keppra 750 mg oral tablet Dose : 750 mg = 1 tab(s), Oral, BID, # 60 tab(s), 0 Refill(s), Pharmacy: [id number], Subdural hematoma, 175.3, cm, 11/30/21 20:58:00 EST, Height, kg, 11/30/21 20:58:00 EST, Dosing Weight Start Date: 01/12/22 Stop Date: 02/11/22 Status: Ordered levoFLOXacin 500 mg oral tablet (18 sources) Quinolone Antimicrobial Start: 01-12-2023 End: 02-27-2023 take 500 mg by mouth once daily Levofloxacin Discontinued 500 MG PO DAILY February 07, 2023 4:09pm February 27, 2023 1:11pm lisinopril 40 mg oral tablet (20 sources) Angiotensin Converting Enzyme Inhibitor Start: 10-30-2019 End: 01-07-2023 take 40 mg by mouth once daily Lisinopril Discontinued 40 MG PO DAILY April 28, 2021 11:55am January 07, 2023 3:58pm 24 hr NIFEdipine 90 mg extended release oral tablet (20 sources) Dihydropyridine Calcium Channel Anadn Start: 10-30-2019 End: 04-28-2021 take 90 mg by mouth once daily Nifedipine Discontinued 90 MG PO DAILY October 30, 2019 1:00am April 28, 2021 11:55am oxyCODONE hydrochloride 5 mg oral tablet (20 sources) Opioid Agonist Start: 01-12-2023 End: 03-09-2023 take 10 mg by mouth every six hours Oxycodone Discontinued 10 MG PO EVERY 6 HOURS 56 7 February 07, 2023 March 09, 2023 5:07pm rosuvastatin calcium 20 mg oral tablet (11 sources) HMG-CoA Reductase Inhibitor Start: 01-07-2023 End: 03-11-2024 take 20 mg by mouth once daily Rosuvastatin Discontinued 20 MG PO DAILY January 07, 2023 1:00am March 11, 2024 3:11pm Start: 12-12-2022 rosuvastatin 2 0 mg oral capsule Dose : 20 mg = 1 cap(s), Oral, qAM, # 30 cap(s), 0 Refill(s) Start Date: 12/12/22 Status: Ordered Problems Active Problems Problem Classification Problem Date Documented Da te Episodic/Chronic Acute cerebrovascular disease (20 sources) Cerebral hemorrhage; Translations: [Nontraumatic intracerebral hemorrhage, unspecified] 12-08-2021 Chronic Anxiety disorders (12 sources) Anxiety; Translations: [Anxiety disorder, unspecified] 10-30-2019 Chronic Cardiac dysrhythmias (12 sources) Sinus tachycardia; Translations: [Tachycardia, unspecified] 01-19-2022 Episodic Complications of surgical procedures or medical care (9 sources) Postoperative wound infection; Translations: [Infection following a procedure, other surgical site, initial encounter] 01-07-2023 Episodic Conditions associated with dizziness or vertigo (20 sources) Dizziness; Translations: [Dizziness and giddiness] 05-10-2021 Episodic Coronary atherosclerosis and other heart disease (12 sources) Coronary arteriosclerosis; Translations: [Atherosclerotic heart disease of [place] coronary artery without angina pectoris] 04-28-2021 Chronic Delirium, dementia, and amnestic and other cognitive disorders (12 sources) Cognitive disorder; Translations: [Unspecified mental disorder due to known physiological condition] 04-28-2021 Chronic Diabetes mellitus without complication (20 sources) Diabetes mellitus; Translations: [Type 2 diabetes mellitus without complications] 04-27-2021 Chronic Diabetes mellitus without complication (9 sources) Hyperglycemia; Translations: [Hyperglycemia, unspecified] 01-07-2023 Episodic Disorders of lipid metabolism (12 sources) Hypercholesterolemia; Translations: [Pure hypercholesterolemia, unspecified] 10-30-2019 Chronic Disorders of teeth and jaw (12 sources) Tooth disorder; Translations: [Disorder of teeth and supporting structures, unspecified] 04-22-2021 Episodic E Codes: Fall (12 sources) Fall; Translations: [Unspecified fall, initial encounter] 12-08-2021 Episodic Esophageal disorders (12 sources) Gastroesophageal reflux disease; Translations: [Gastro-esophageal reflux disease without esophagitis] 04-27-2021 Chronic Essential hypertension (20 sources) Hypertensive disorder; Translations: [Essential (primary) hypertension] 04-22-2021 Chronic Immunizations and screening for infectious disease (12 sources) Requires diphtheria, tetanus and pertussis vaccination; Translations: [Encounter for immunization] 12-08-2021 Episodic Inflammation; infection of eye (except that caused by tuberculosis or sexually transmitteddisease) (3 sources) Keratitis; Translations: [Unspecified keratitis] 12-16-2023 Episodic Intracranial injury (20 sources) Traumatic brain injury; Translations: [Unspecified intracranial injury with loss of consciousness of unspecified duration, initial encounter] Onset: 12-29-2021 Episodic Malaise and fatigue (12 sources) Asthenia; Translations: [Other malaise] 04-21-2021 Episodic Mood disorders (12 sources) Depressive disorder; Translations: [Depression] 04-22-2021 Chronic Nausea and vomiting (12 sources) Vomiting; Translations: [Vomiting, unspecified] 04-28-2021 Episodic Nonspecific chest pain (12 sources) Chest pain; Translations: [Chest pain, unspecified] 06-09-2020 Episodic Occlusion or stenosis of precerebral arteries (12 sources) Stenosis of right vertebral artery; Translations: [Occlusion and stenosis of right vertebral artery] 04-21-2021 Chronic Osteoarthritis (6 sources) Arthritis; Translations: [Unspecified osteoarthritis, unspecified site] 01-16-2023 Chronic Other connective tissue disease (10 sources) Pain of left upper arm; Translations: [Pain in left upper arm] 12-27-2022 Episodic Other connective tissue disease (6 sources) Hand pain; Translations: [Pain in left hand] 03-01-2023 Episodic Other connective tissue disease (6 sources) Suppurative tenosynovitis of flexor tendon of left hand; Translations: [Other infective (teno)synovitis, left hand] 01-10-2023 Episodic Other connective tissue disease (6 sources) Extensor tenosynovitis of wrist; Translations: [Other synovitis and tenosynovitis, left forearm] 01-10-2023 Episodic Other connective tissue disease (6 sources) Abscess of bursa of left wrist; Translations: [Abscess of bursa, left wrist] 01-10-2023 Episodic Other connective tissue disease (6 sources) Tenosynovitis of hand; Translations: [Synovitis and tenosynovitis, unspecified] 01-10-2023 Episodic Other connective tissue disease (14 sources) Abscess of bursa, left wrist; Translations: [Other disorders of synovium, tendon, and bursa] 01-12-2023 Episodic Other connective tissue disease (14 sources) Other synovitis and tenosynovitis, left forearm; Translations: [Other tenosynovitis of hand and wrist] 01-12-2023 Episodic Other connective tissue disease (8 sources) Pain in left hand; Translations: [Pain in limb] 01-12-2023 Episodic Other connective tissue disease (14 sources) Other infective (teno)synovitis, left hand; Translations: [Other tenosynovitis of hand and wrist] 01-12-2023 Episodic Other connective tissue disease (1 source) Synovitis and tenosynovitis, unspecified; Translations: [Other tenosynovitis of hand and wrist] 01-12-2023 Episodic Other ear and sense organ disorders (6 sources) Hearing disorder; Translations: [Unspecified hearing loss, unspecified ear] 01-16-2023 Chronic Other gastrointestinal disorders (12 sources) Dysphagia; Translations: [Dysphagia, unspecified] 04-27-2021 Episodic Other gastrointestinal disorders (12 sources) Diarrhea; Translations: [Diarrhea, unspecified] 04-22-2021 Episodic Other injuries and conditions due to external causes (6 sources) Compartment syndrome; Translations: [Traumatic compartment syndrome of left upper extremity, initial encounter] 01-18-2023 Episodic Other injuries and conditions due to external causes (14 sources) Traumatic compartment syndrome of left upper extremity, initial encounter; Translations: [Traumatic compartment syndrome of upper extremity] 01-12-2023 Episodic Other nervous system disorders (5 sources) Carpal tunnel syndrome 10-25-2022 Chronic Comment on above: bilateral Other nervous system disorders (6 sources) Neuropathy; Translations: [Polyneuropathy, unspecified] 01-16-2023 Chronic Other nervous system disorders (5 sources) Polyneuropathy; Translations: [Polyneuropathy, unspecified] 05-16-2023 Chronic Other nervous system disorders (4 sources) Polyneuropathy, unspecified; Translations: [Unspecified hereditary and idiopathic peripheral neuropathy] Onset: 3 05-11-2023 Chronic Other nervous system disorders (1 source) Carpal tunnel syndrome, unspecified upper limb; Translations: [Carpal tunnel syndrome, unspecified upper limb] Onset: Chronic Other nutritional; endocrine; and metabolic disorders (12 sources) Morbid obesity; Translations: [Morbid (severe) obesity due to excess calories] 04-21-2021 Chronic Other upper respiratory disease (1 source) Nasal congestion; Translations: [Nasal congestion] Onset: Episodic Poisoning by nonmedicinal substances (5 sources) Insect sting; Translations: [Toxic effect of venom of other arthropod, accidental (unintentional), initial encounter] 07-13-2023 Episodic Residual codes; unclassified (12 sources) History of trephination of cranium; Translations: [Other specified postprocedural states] 01-11-2022 Episodic Residual codes; unclassified (10 sources) Other specified postprocedural states; Translations: [Other specified personal history presenting hazards to health] 02-13-2023 Episodic Residual codes; unclassified (5 sources) Amnesia; Translations: [Other amnesia] 05-16-2023 Episodic Residual codes; unclassified (5 sources) Other amnesia; Translations: [Memory loss] Onset: 4 05-11-2023 Episodic Screening and history of mental health and substance abuse codes (12 sources) Ex-smoker; Translations: [Personal history of nicotine dependence] 03-20-2023 Episodic Skin and subcutaneous tissue infections (20 sources) Cellulitis of hand; Translations: [Cellulitis of unspecified part of limb] 01-07-2023 Episodic Spondylosis; intervertebral disc disorders; other back problems (20 sources) Spinal stenosis of lumbar region; Translations: [Spinal stenosis, lumbar region without neurogenic claudication] 08-01-2022 Episodic Superficial injury; contusion (20 sources) Hematoma of occipital scalp; Translations: [Contusion of scalp, initial encounter] 12-08-2021 Episodic Transient cerebral ischemia (12 sources) Transient cerebral ischemia; Translations: [Transient cerebral ischemic attack, unspecified] 05-10-2021 Chronic Urinary tract infections (20 sources) Urinary tract infectious disease; Translations: [Urinary tract infection, site not specified] 04-04-2022 Episodic Past or Other Problems Problem Classification Problem Date Documented Da te Episodic/Chronic Blindness and vision defects (20 sources) Blurring of visual image; Translations: [Other visual disturbances] Onset: 12-20-2023 05-10-2021 Episodic Open wounds of extremities (20 sources) Open wound of hand, palm; Translations: [Unspecified open wound of left hand, initial encounter] Onset: 07-20-2023 02-21-2023 Episodic Results Test Name Value Interpretation Reference Range Facility Emergency Department Summary on 04-08-2024 Emergency Department Summary [facility] Medical Records Department [address] [place] [address] Emergency Department Summary 04/08/24 MR#: [id number] Acct: [id number] Name: JIM BERNSTEIN Rep #: [id number] : 1955 68 From: Bryson Beth DO PCP: [place] Hospital Status:[facility] ER Location: ED HPI History of Present Illness Chief Complaint: Cold Sx Informant: patient and spouse/S.O. Narrative Narrative: 68-year-old male states that yesterday he began to have sneezing and nasal congestion. He notes postnasal drip with cough. He denies any chest symptoms. He notes generalized myalgias. Denies any fever or headache. No vomiting or diarrhea. picked up some Mucinex and vitamins yesterday. She wonders if the Mucinex is causing his blood pressure to be elevated. Not sure if the Mucinex D though. states she is feeling fine. No rashes. states that he only takes 1 medicine for blood pressure but then tells me he is on a long list of blood pressure medicines for his heart. I see he is on amlodipine and carvedilol hydralazine lisinopril and also takes doxazosin. [facility] Medical History Open wounds of multiple sites of left hand History of carpal tunnel surgery of left wrist Neuropathy Hearing problem Arthritis Open wound of left hand except fingers with tendon involvement Open wound of left palm Open wound of left wrist with tendon involvement Tenosynovitis of hand Left hand pain Compartment syndrome of left hand Suppurative tenosynovitis of flexor tendon of left hand Extensor tenosynovitis of left wrist Abscess of dorsum of left hand Abscess of bursa, left wrist Abscess, palm UTI (urinary tract infection) Subdural hematoma Sleep apnea Former smoker Chest pain CVA (cerebral vascular accident) Diabetes Coronary artery disease High cholesterol HTN (hypertension) Home Medications ???Medication ???Instructions ???Recorded ???Last Taken ???Type doxazosin 2 mg tablet 2 mg PO DAILY BLOOD PRESSURE 05/10/21 01/06/23 History meclizine 12.5 mg tablet 6.25 mg PO BID DIZZINESS 05/10/21 01/06/23 History metformin 500 mg tablet 1,000 mg PO QPM DIABETES 05/10/21 01/06/23 History carvedilol 25 mg tablet 25 mg PO BID HEART 04/24/22 01/06/23 History Cinnamon 1,200 mg PO/SL DAILY SUPPLEMENT 01/07/23 01/06/23 History amlodipine 10 mg tablet 10 mg PO DAILY BLOOD PRESSURE 01/07/23 01/06/23 History aspirin 81 mg tablet,delayed 81 mg PO DAILY HEART HEALTH 01/07/23 01/06/23 History release fluticasone propionate 50 1 spray intranasal UD CONGESTION 01/07/23 01/06/23 History mcg/actuation nasal spray,suspension hydralazine 50 mg tablet 100 mg PO TIDCM BLOOD PRESSURE 01/07/23 01/06/23 History lisinopril 40 mg tablet 40 mg PO DAILY BLOOD PRESSURE 01/07/23 01/06/23 History pregabalin 25 mg capsule 25 mg PO QHS Check with primary 01/07/23 01/06/23 22:00 History doctor semaglutide (weight loss) 0.5 0.5 mg subcut SA DIABETES 01/07/23 12/31/22 History mg/0.5 mL subcutaneous pen injector sertraline 100 mg tablet (Zoloft) 100 mg PO DAILY DEPRESSION/ANXIETY 01/07/23 01/06/23 History pregabalin 50 mg capsule 50 mg PO BID #60 caps 01/12/23 Unknown Rx oxycodone 5 mg tablet 10 mg (2 x 5 mg) PO Q6H PRN pain 7 03/09/23 Unknown Rx days #56 tabs memantine 10 mg tablet 10 mg PO BID #60 tabs 03/11/24 Unknown Rx Allergy/AdvReac Type Severity Reaction Status Date / Time gabapentin Allergy Severe Other Verified 04/08/24 10:13 Family History Mother Dementia Parkinsons disease Father Heart disease Hypertension Myocardial infarction CVA (cerebral vascular accident) CAD (coronary artery disease) Surgical History History of hand surgery History of carpal tunnel surgery of left wrist History of appendectomy S/P appendectomy S/P CABG x 4 Social History household members: spouse Smoking Status: Former smoker how long ago did patient quit smoking: Smoked in [email or web address] x 7 years, quit 1978, cigars. 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 substance use type: does not use ROS ROS ED Constitutional Constitutional ED: Denies chills, fever(s) or weight loss Eyes Eyes: Denies change in vision or diplopia ENT ENT ED: Reports other Details: Sneezing nasal congestion postnasal drip ; Denies ear pain or sore throat Cardiovascular Cardiovascular: Denies chest pain, orthopnea, palpitations or racing heartbeat Respiratory/Chest Respiratory/Chest: Reports cough; Denies dyspnea or orthopnea Gastrointestinal Gastrointestinal: Denies abdominal pain, diarrhea, nausea or vomiting (more content not included)... Normal [facility] Vitamin B1, Thiamineon 03-15 VIT B1 THIAMINE 138.5 nmol/L Normal 66.5-200.[address] [facility] Comment on above: Order Comment: Test( s) 950304-Szl. B1, Whole Blood was developed and its performance characteristics determined by [facility]. It has not been cleared or approved by the Food and Drug Administration. Result Comment: Perf ormed at: - [facility] [address] [id number] Application Development Intern: Dawson Mtz MD, Phone: [phone] Performed By: #### L 500.4050, L3300.8000, L506.0250, L100.0500, L501.9520, L503.0105 #### [facility] [address] [place], [address] Basophil percentageOrdered B y: Deric Kothari on 03-11-2024 Bilirubin [Mass/Vol] 0.60 mg/dL 0.20-1.00 [facility] Comment on above: For patients on eltr ombopag therapy, use of Dimension [place] TBIL is not recommended. Chloride [Moles/Vol] 106 mmol/L 98-107 [facility] Glucose [Mass/Vol] 163 mg/dL 74-106 [facility] Comment on above: Fasting Glucose resu lt greater than or equal to 126 mg/dL suggests DIABETES MELLITUS per A.D.A. criteria. Hemoglobin (Bld) [Mass/Vol] 14.2 g/dL 13.0-16.[address] [facility] Potassium [Moles/Vol] 3.9 mmol/L 3.5-5.1 [facility] Protein [Mass/Vol] 8.0 g/dL 6.4-8.2 [facility] Sodium [Moles/Vol] 137 mmol/L 136-145 [facility] WBC (Bld) [#/Vol] 4.6 10*3/uL 4.4-11.0 [facility] CBC-Complete Blood Cnt No Di ffon 03-11-2024 Erythrocyte distribution width (RBC) [Ratio] 13.0 % Normal 11.6-14.[address] [facility] Comment on above: Performed By: #### L 500.4050, L3300.8000, L506.0250, L100.0500, L501.9520, L503.0105 #### [facility] [address] [place], [address] Hematocrit (Bld) [Volume fraction] 42.2 % Normal 40-[address] [facility] Comment on above: Performed By: #### L 500.4050, L3300.8000, L506.0250, L100.0500, L501.9520, L503.0105 #### [facility] [address] [place], [address] Hemoglobin (Bld) [Mass/Vol] 14.2 g/dL Normal 13.0-16.[address] [facility] Comment on above: Performed By: #### L 500.4050, L3300.8000, L506.0250, L100.0500, L501.9520, L503.0105 #### [facility] [address] [place], [address] MCH (RBC) [Entitic mass] 29.8 pg Normal 27.0-32.[address] [facility] Comment on above: Performed By: #### L 500.4050, L3300.8000, L506.0250, L100.0500, L501.9520, L503.0105 #### [facility] [address] [place], [address] MCHC (RBC) [Mass/Vol] 33.6 g/dL Normal 32-36 [facility] Comment on above: Performed By: #### L 500.4050, L3300.8000, L506.0250, L100.0500, L501.9520, L503.0105 #### [facility] [address] [place], [address] MCV (RBC) [Entitic vol] 88.5 fL Normal 80-94 [facility] Comment on above: Performed By: #### L 500.4050, L3300.8000, L506.0250, L100.0500, L501.9520, L503.0105 #### [facility] [address] [place], [address] Platelet mean volume (Bld) [Entitic vol] 11.0 fL Normal 6.2-12.[address] [facility] Comment on above: Performed By: #### L 500.4050, L3300.8000, L506.0250, L100.0500, L501.9520, L503.0105 #### [facility] [address] [place], [address] Platelets (Bld) [#/Vol] 174 10*3/uL Normal 150-[address] [facility] Comment on above: Performed By: #### L 500.4050, L3300.8000, L506.0250, L100.0500, L501.9520, L503.0105 #### [facility] [address] [place], [address] RBC (Bld) [#/Vol] 4.77 10*6/uL Normal 4.6-6.2 [facility] Comment on above: Performed By: #### L 500.4050, L3300.8000, L506.0250, L100.0500, L501.9520, L503.0105 #### [facility] [address] [place], [address] RDW SD 42.3 fl Normal 35.1-43.[address] [facility] Comment on above: Performed By: #### L 500.4050, L3300.8000, L506.0250, L100.0500, L501.9520, L503.0105 #### [facility] [address] [place], [address] WBC (Bld) [#/Vol] 4.6 10*3/uL Normal 4.4-11.0 [facility] Comment on above: Performed By: #### L 500.4050, L3300.8000, L506.0250, L100.0500, L501.9520, L503.0105 #### [facility] [address] [place], [address] Comprehensive Metabolic Prof ilon 03-11-2024 Albumin [Mass/Vol] 3.9 g/dL Normal 3.2-5.0 [facility] Comment on above: Order Comment: N Performed By: #### L 500.4050, L3300.8000, L506.0250, L100.0500, L501.9520, L503.0105 #### [facility] [address] [place], [address] Albumin/Globulin [Mass ratio] 1.0 {ratio} Normal 0.9-2.[address] [facility] Comment on above: Order Comment: N Performed By: #### L 500.4050, L3300.8000, L506.0250, L100.0500, L501.9520, L503.0105 #### [facility] [address] [place], [address] ALK P 53 U/L Normal 45-[address] [facility] Comment on above: Order Comment: N Performed By: #### L 500.4050, L3300.8000, L506.0250, L100.0500, L501.9520, L503.0105 #### [facility] [address] [place], [address] ALT [Catalytic activity/Vol] 31 U/L Normal 16-[address] [facility] Comment on above: Order Comment: N Performed By: #### L 500.4050, L3300.8000, L506.0250, L100.0500, L501.9520, L503.0105 #### [facility] [address] [place], [address] AST [Catalytic activity/Vol] 21 U/L Normal 15-[address] [facility] Comment on above: Order Comment: N Performed By: #### L 500.4050, L3300.8000, L506.0250, L100.0500, L501.9520, L503.0105 #### [facility] [address] [place], [address] Bilirubin [Mass/Vol] 0.60 mg/dL Normal 0.20-1.00 [facility] Comment on above: Order Comment: N Result Comment: For patients on eltrombopag therapy, use of Dimension [place] TBIL is not recommended. Performed By: #### L 500.4050, L3300.8000, L506.0250, L100.0500, L501.9520, L503.0105 #### [facility] [address] [place], [address] BUN/CRE 17.5 RATIO Normal 10-[address] [facility] Comment on above: Order Comment: N Performed By: #### L 500.4050, L3300.8000, L506.0250, L100.0500, L501.9520, L503.0105 #### [facility] [address] [place], [address] CA,Total 9.1 mg/dL Normal 8.5-10.[address] [facility] Comment on above: Order Comment: N Performed By: #### L 500.4050, L3300.8000, L506.0250, L100.0500, L501.9520, L503.0105 #### [facility] [address] [place], [address] Chloride [Moles/Vol] 106 mmol/L Normal 98-107 [facility] Comment on above: Order Comment: N Performed By: #### L 500.4050, L3300.8000, L506.0250, L100.0500, L501.9520, L503.0105 #### [facility] [address] [place], [address] CO2 [Moles/Vol] 25.0 mmol/L Normal 21.0-32.[address] [facility] Comment on above: Order Comment: N Performed By: #### L 500.4050, L3300.8000, L506.0250, L100.0500, L501.9520, L503.0105 #### [facility] [address] [place], [address] Creatinine [Mass/Vol] 1.20 mg/dL Normal 0.70-1.30 [facility] Comment on above: Order Comment: N Result Comment: The validity of the calculated GFR GFRAA in patients over 70 years has not been determined. Clinical correlation is essential. Performed By: #### L 500.4050, L3300.8000, L506.0250, L100.0500, L501.9520, L503.0105 #### [facility] [address] [place], [address] EST GFR - AA 77 mL/min Normal >[address] [facility] Comment on above: Order Comment: N Result Comment: Afri can [place] GFR Calc Performed By: #### L 500.4050, L3300.8000, L506.0250, L100.0500, L501.9520, L503.0105 #### [facility] [address] [place], [address] GAP 6 Normal 5-[address] [facility] Comment on above: Order Comment: N Performed By: #### L 500.4050, L3300.8000, L506.0250, L100.0500, L501.9520, L503.0105 #### [facility] [address] [place], [address] GFR/1.73 sq M.predicted among non-blacks MDRD (S/P/Bld) [Vol rate/Area] 64 mL/min/{1.73_m2} Normal >[address] [facility] Comment on above: Order Comment: N Result Comment: Non- GFR Calc Performed By: #### L 500.4050, L3300.8000, L506.0250, L100.0500, L501.9520, L503.0105 #### [facility] [address] [place], [address] Globulin (S) [Mass/Vol] 4.1 g/dL Normal 2.2-4.2 [facility] Comment on above: Order Comment: N Performed By: #### L 500.4050, L3300.8000, L506.0250, L100.0500, L501.9520, L503.0105 #### [facility] [address] [place], [address] Glucose [Mass/Vol] 163 mg/dL High 74-106 [facility] Comment on above: Order Comment: N Result Comment: Fast ing Glucose result greater than or equal to 126 mg/dL suggests DIABETES MELLITUS per A.D.A. criteria. Performed By: #### L 500.4050, L3300.8000, L506.0250, L100.0500, L501.9520, L503.0105 #### [facility] [address] [place], [address] Potassium [Moles/Vol] 3.9 mmol/L Normal 3.5-5.1 [facility] Comment on above: Order Comment: N Performed By: #### L 500.4050, L3300.8000, L506.0250, L100.0500, L501.9520, L503.0105 #### [facility] [address] [place], [address] Sodium [Moles/Vol] 137 mmol/L Normal 136-145 [facility] Comment on above: Order Comment: N Performed By: #### L 500.4050, L3300.8000, L506.0250, L100.0500, L501.9520, L503.0105 #### [facility] [address] [place], [address] T PROT 8.0 g/dL Normal 6.4-8.[address] [facility] Comment on above: Order Comment: N Performed By: #### L 500.4050, L3300.8000, L506.0250, L100.0500, L501.9520, L503.0105 #### [facility] [address] [place], [place], [address] Urea nitrogen [Mass/Vol] 21 mg/dL High 7-[address] [facility] Comment on above: Order Comment: N Performed By: #### L 500.4050, L3300.8000, L506.0250, L100.0500, L501.9520, L503.0105 #### [facility] [address] [place], [place], [address] Determination of erythrocyte mean corpuscular volume (MCV)Ordered By: Deric Kothari on 03-11-2024 MCV (RBC) [Entitic vol] 88.5 fL 80-94 [facility] Erythrocyte distribution wid th ratioOrdered By: Deric Kothari on 03-11-2024 Erythrocyte distribution width (RBC) [Ratio] 13.0 % 11.6-14.[address] [facility] Erythrocyte distribution wid th standard deviationOrdered By: Deric Kothari on 03-11-2024 Erythrocyte distribution width (RBC) [Entitic vol] 42.3 fL 35.1-43.[address] [facility] Folates, (Folic Acid)on 02-12 FOLATES 11.70 ng/mL Normal 3.1-55.[address] [facility] Comment on above: Order Comment: N Performed By: #### L 500.4050, L3300.8000, L506.0250, L100.0500, L501.9520, L503.0105 #### [facility] [address] [place], [place], [id number] Hematocrit Auto (Bld) [Volum e fraction]Ordered By: Deric Kothari on 03-11-2024 Hematocrit (Bld) [Volume fraction] 42.2 % 40-[address] [facility] - Chemistry and C hemistry - challengeOrdered By: Deric Kothari on 03-11-2024 Albumin/Globulin [Mass ratio] 1.0 {ratio} 0.9-2.[address] [facility] ALP [Catalytic activity/Vol] 53 U/L 45-[address] [facility] ALT [Catalytic activity/Vol] 31 U/L 16-[address] [facility] CO2 [Moles/Vol] 25.0 mmol/L 21.0-32.[address] [facility] Globulin (S) [Mass/Vol] 4.1 g/dL 2.2-4.2 [facility] Urea nitrogen/Creatinine [Mass ratio] 17.5 mg/mg 10-[address] [facility] - Hematology and Cell countsOrdered By: Deric Kothari on 03-11-2024 MCH (RBC) [Entitic mass] 29.8 pg 27.0-32.[address] [facility] MCHC (RBC) [Mass/Vol] 33.6 g/dL 32-36 [facility] Platelet mean volume (Bld) [Entitic vol] 11.0 fL 6.2-12.[address] [facility] Platelets (Bld) [#/Vol] 174 10*3/uL 150-[address] [facility] Neurology Visit Reporton Neurology Visit Report [facility] [address], [address] [place] [address] OFFICE VISIT Date of Service: 03/11/24 MR#: [id number] Acct: [id number] Name: DAYJIM DANIEL Rep #: [id number] : 1955 Provider: Dr. Deric evans MD Age/Sex: 68/M Location: [facility] Status: Signed Intake Vital Signs 07/13/23 22:45 12/16/23 14:32 03/11/24 14:35 Height 5 ft 8 in 5 ft 8 in 5 ft 8 in Weight: 260 lb 6 oz BMI 39.6 BP 130/76 H Blood Pressure Location Lt brachial Position Sitting Respiration 17 Pulse 81 Pulse Source Monitor Temp 97.8 F Temp Source Temporal Pulse Oximetry (%) 97 Oxygen Delivery Method room air Intake Visit Reasons: 6 M FU Chief Complaint: Shank Stitcher Required: No Accompanied by: Significant Other Allergies gabapentin Allergy (Severe, Verified 03/11/24 14:37) Other [facility] Medical History Abscess of bursa, left wrist Abscess of dorsum of left hand Abscess, palm Arthritis Chest pain Compartment syndrome of left hand Coronary artery disease CVA (cerebral vascular accident) Diabetes Extensor tenosynovitis of left wrist Former smoker Hearing problem High cholesterol History of carpal tunnel surgery of left wrist HTN (hypertension) Left hand pain Neuropathy Open wound of left hand except fingers with tendon involvement Open wound of left palm Open wound of left wrist with tendon involvement Open wounds of multiple sites of left hand Sleep apnea Subdural hematoma Suppurative tenosynovitis of flexor tendon of left hand Tenosynovitis of hand UTI (urinary tract infection) Surgical History History of appendectomy History of carpal tunnel surgery of left wrist History of hand surgery S/P appendectomy S/P CABG x 4 Family History Mother Dementia Parkinsons disease Father Heart disease Hypertension Myocardial infarction CVA (cerebral vascular accident) CAD (coronary artery disease) Social History household members: spouse Smoking Status: Former smoker how long ago did patient quit smoking: Smoked in [email or web address] x 7 years, quit 1978, cigars. 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 substance use type: does not use HPI HPI Chief Complaint: Details: Interim History: Jim returns for follow-up visit. He has a history of hypertension, diabetes mellitus, hyperlipidemia, bilateral carpal tunnel syndrome with underlying bilateral upper extremity polyneuropathy status post left carpal tunnel surgery in 2022 (complicated by postoperative wound infection for which he received antibiotic therapy and underwent further left hand surgery) epilepsy, obstructive sleep apnea (he did not tolerate CPAP), hypercholesterolemia and coronary artery disease status post CABG who presents for evaluation of traumatic brain injury sustained at work ([facility] claim). He is accompanied by his . On 2021, while working around his truck, he slipped on ice and struck his head and had momentary loss of consciousness. On medical evaluation, later that day his Glascow coma score was noted to be 14. Brain imaging revealed an acute right cerebral convexity and tentorial moderate-sized subdural hematoma with right to left shift, subarachnoid hemorrhage and right frontal lobe intracerebral hemorrhage. He was transferred from [facility] to another hospital with neurosurgical services. He did not require intracranial surgery. Since his injury he has had gait imbalance, left-sided weakness affecting the arm and the leg, complete right sided hearing loss; 70% left-sided hearing loss and cognitive deficits. He also has right eye blurring of vision. He has depression, anxiety and easy irritability. He exhibited gradual improvement of his neurological deficits following his injury. His current cognitive status is characterized by mental slowing, word finding difficulty and impaired recall of recent events/conversations. He is independent in his daily activities at home. He is able to perform calculations to manage his finances. His driving has been very limited. Memantine was initiated in 2022 and he has exhibited, some further improvement of his cognitive function. In April 2021, he was hospitalized for gait imbalance and left eye blurring of vision. A head MRI at that time did not reveal an acute stroke however moderate diffuse chronic bilateral periventricular and subcortical white matter chronic small vessel ischemic disease was noted. The possibility of a TIA was raised however, per the patient's history that he provided, his deficits may have persis (more content not included)... Normal [facility] No Panel InformationOrdered By: Deric Kothari on 03-11-2024 Estimated GFR (MDRD) Amer 77 mL/min >[address] [facility] Comment on above: GFR Calc Estimated GFR (MDRD) Non-Af Amer 64 mL/min >[address] [facility] Comment on above: Non- GFR Calc Folate 11.70 ng/mL 3.1-55.[address] [facility] RBC Auto (Bld) [#/Vol]Ordere d By: Deric Kothari on 03-11-2024 RBC (Bld) [#/Vol] 4.77 10*6/uL 4.6-6.2 [facility] Serum or plasma calcium kelsey urement (mass/volume)Ordered By: Deric Kothari on 03-11-2024 Calcium [Mass/Vol] 9.1 mg/dL 8.5-10.1 [facility] Serum or plasma creatinine m easurement (mass/volume)Ordered By: Deric Kothari on 03-11-2024 Creatinine [Mass/Vol] 1.20 mg/dL 0.70-1.30 [facility] Comment on above: The validity of the calculated GFR & GFRAA in patients over 70 years has not been determined. Clinical correlation is essential. Serum or plasma thyroid stim ulating hormone (TSH) measurement (units/volume)Ordered By: Deric Kothari on 03-11-2024 TSH Qn 1.90 uIU/mL 0.358-3.[address] [facility] Serum or plasma urea nitroge n measurement (mass/volume)Ordered By: Deric Kothari on 03-11-2024 Urea nitrogen [Mass/Vol] 21 mg/dL 7-[address] [facility] Thin prep Papanicolaou smear with manual screeningOrdered By: Deric Kothari on 03-11-2024 Thin prep Papanicolaou smear with manual screening 3.9 g/dL 3.2-5.[address] [facility] Thin prep Papanicolaou smear with manual screening 21 U/L 15-[address] [facility] Thin prep Papanicolaou smear with manual screening 6 5-[address] [facility] Thyroid Stim Hormone (TSH)on 03-11-2024 TSH 1.90 uIU/mL Normal 0.358-3.[address] [facility] Comment on above: Order Comment: N Performed By: #### L 500.4050, L3300.8000, L506.0250, L100.0500, L501.9520, L503.0105 #### [facility] [address] [facility] [place], [place], [address] Vitamin [id number] By: Jeremiah Kothari on 03-11-2024 Cobalamin (Vitamin B12) [Mass/Vol] 650 pg/mL Normal 211-[address] [facility] Comment on above: Performed By: #### L 500.4050, L3300.8000, L506.0250, L100.0500, L501.9520, L503.0105 #### [facility] [address] [place], [address] Emergency Department Summary on 12-16-2023 Emergency Department Summary [facility] Medical Records Department [address] [place] [address] Emergency Department Summary 12/16/23 MR#: [id number] Acct: [id number] Name: JIM BERNSTEIN Rep #: [id number] : 1955 68 From: Travon Hedrick MD PCP: [facility] Status:REG ER Location: ED HPI History of Present Illness Chief Complaint: Eye Problem Informant: patient and spouse/S.O. Associated Symptoms History of injury: No Visual correction: None Narrative Narrative: 68-year-old male states his right eye has been irritated and watering and bothersome for the past 3 to 4 years since he had a stroke. Today it is worse. Significant other shows me a picture saying that it was more red today, showing in a picture that appears to show significant bulbar conjunctival injection. The patient states his discharge is been clear today. His vision is blurry today and he is sensitive to the light in the right eye only. He denies any deep boring eye pain. He states chronically he has been using an unknown cooling drop in this eye. For the last 3 to 4 days, he has been using cetirizine drops several times a day. Once it helped but the majority of time including today it has not helped at all. He has not seen an radiation protection specialist for this. He was total 1 point that he was suspected to have glaucoma by someone but he cannot remember any details there. With regards to his stroke he does not have any chronic facial symptoms, but the significant other who was who brought him here and is extremely worried about him states that when he had a stroke before he had some vision affected. The patient admits that the blurry vision in his right eye is chronic and may be a little worse today but he has no visual field losses or other acute neurologic symptoms. 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 [facility] Medical History Abscess of bursa, left wrist Abscess of dorsum of left hand Abscess, palm Arthritis Chest pain Compartment syndrome of left hand Coronary artery disease CVA (cerebral vascular accident) Diabetes Extensor tenosynovitis of left wrist Former smoker Hearing problem High cholesterol History of carpal tunnel surgery of left wrist HTN (hypertension) Left hand pain Neuropathy Open wound of left hand except fingers with tendon involvement Open wound of left palm Open wound of left wrist with tendon involvement Open wounds of multiple sites of left hand Sleep apnea Subdural hematoma Suppurative tenosynovitis of flexor tendon of left hand Tenosynovitis of hand UTI (urinary tract infection) Home Medications doxazosin 2 mg tablet 2 mg PO DAILY BLOOD PRESSURE 05/10/21 [History Last Taken 01/06/23] meclizine 12.5 mg tablet 6.25 mg PO BID DIZZINESS 05/10/21 [History Last Taken 01/06/23] metformin 500 mg tablet 1,000 mg PO QPM DIABETES 05/10/21 [History Last Taken 01/06/23] carvedilol 25 mg tablet 25 mg PO BID HEART 04/24/22 [History Last Taken 01/06/23] Cinnamon 1,200 mg PO/SL DAILY SUPPLEMENT 01/07/23 [History Last Taken 01/06/23] amlodipine 10 mg tablet 10 mg PO DAILY BLOOD PRESSURE 01/07/23 [History Last Taken 01/06/23] aspirin 81 mg tablet,delayed release 81 mg PO DAILY HEART HEALTH 01/07/23 [History Last Taken 01/06/23] fluticasone propionate 50 mcg/actuation nasal spray,suspension 1 spray intranasal UD CONGESTION 01/07/23 [History Last Taken 01/06/23] hydralazine 50 mg tablet 100 mg PO TIDCM BLOOD PRESSURE 01/07/23 [History Last Taken 01/06/23] lisinopril 40 mg tablet 40 mg PO DAILY BLOOD PRESSURE 01/07/23 [History Last Taken 01/06/23] pregabalin 25 mg capsule 25 mg PO QHS Check with primary doctor 01/07/23 [History Last Taken 01/06/23 22:00] rosuvastatin 20 mg tablet 20 mg PO DAILY CHOLESTEROL 01/07/23 [History Last Taken 01/07/23] semaglutide (weight loss) 0.5 mg/0.5 mL subcutaneous pen injector 0.5 mg subcut SA DIABETES 01/07/23 [History Last Taken 12/31/22] sertraline 100 mg tablet (Zoloft) 100 mg PO DAILY DEPRESSION/ANXIETY 01/07/23 [History Last Taken 01/06/23] pregabalin 50 mg capsule 50 mg PO BID #60 caps 01/12/23 [Rx Last Taken Unknown] oxycodone 5 mg tablet 10 mg (2 x 5 mg) PO Q6H PRN pain 7 days #56 tabs 03/09/23 [Rx Last Taken Unknown] donepezil 10 mg tablet 10 mg PO QHS #30 tabs 05/16/23 [Rx Last Taken Unknown] donepezil 5 mg tablet 5 mg PO QHS #30 tabs 05/16/23 [Rx Last Taken Unknown] memantine 10 mg tablet 10 mg PO BID #60 tabs 09/13/23 [Rx Last Taken Unknown] Allergy/AdvReac Type Severity Reaction Status Date / Time gabapentin Allergy Severe Other Verified 12/16/23 14:32 Family History Mother Dementia Parkinsons disease Father Heart disease Hypertension Myocardial infarction CVA (cerebral vascular accident) CAD (coronary ar (more content not included)... Normal [facility] Brain/Head without Contrasto n 2023 Brain/Head without Contrast [facility] Imaging Services [address] [place] [address] Brain/Head without Contrast MR#: [id number] Acct: [id number] Name: JIM BERNSTEIN Rep #: [id number] : 1955 M 68 From: Andrew brar MD PCP: [facility] Status: REG CLI Study: Brain/Head without Contrast Date of Exam: 11/13 07/06 Exam# [id number] Ordering Dr: Deric Kothari MD [id number] STUDY: CT BRAIN WITHOUT CONTRAST REASON FOR EXAM: Male, 68 years old. eval for reaccumulation of subdural fluid RADIATION DOSAGE (If Supplied By Facility): CTDIvol = ( 47.06 ) mGy, DLP = ( 960.91 ) mGycm TECHNIQUE: Transaxial CT imaging of the brain was performed without administration of intravenous contrast material. Individualized dose optimization techniques were used for this CT. COMPARISON: 2021 FINDINGS: Normal soft tissue structures. Normal calvarium. There is mild cerebral atrophy with widening of the extra-axial spaces and ventricular dilatation. There are areas of decreased attenuation within the white matter tracts of the supratentorial brain, consistent with microvascular disease changes. There are bilateral lacunar infarcts of the basal ganglia and thalami. Normal brainstem. Normal cerebellum. Encephalomalacia seen in the right frontal lobe from previous infarct. No fluid collections. There is no intracranial hemorrhage. There are no findings of an acute ischemic infarction. Normal visualized paranasal sinuses. CT/Brain/Head without Contrast IMPRESSION: Chronic involutional changes of the brain. Old right frontal infarct. No acute abnormality. Electronically Signed: Andrew Dennis MD at 17:56 EST , CC: Dr. Deric Kothari MD; [facility] Crm Administrator: Signed Normal [facility] Neurology Visit Reporton Neurology Visit Report [facility] [address], [address] [place] [address] OFFICE VISIT Date of Service: 09/11/23 MR#: [id number] Acct: [id number] Name: JIM BERNSTEIN Rep #: [id number] : 1955 Provider: Dr. Deric evans MD Age/Sex: 67/M [place] [facility] Status: Signed Intake Vital Signs 05/11/23 10:08 07/13/23 22:45 09/11/23 14:01 Height 5 ft 9 in 5 ft 8 in Weight: 260 lb 8 oz BP 140/82 H Blood Pressure Location Lt brachial Position Sitting Respiration 16 Pulse 68 Pulse Source Monitor Temp 97.5 F L Temp Source Tympanic Pulse Oximetry (%) 97 Oxygen Delivery Method room air Intake Visit Reasons: 4 M FU Chief Complaint: recheck Allergies gabapentin Allergy (Severe, Verified 09/11/23 14:03) Other [facility] Medical History Abscess of bursa, left wrist Abscess of dorsum of left hand Abscess, palm Arthritis Chest pain Compartment syndrome of left hand Coronary artery disease CVA (cerebral vascular accident) Diabetes Extensor tenosynovitis of left wrist Former smoker Hearing problem High cholesterol History of carpal tunnel surgery of left wrist HTN (hypertension) Left hand pain Neuropathy Open wound of left hand except fingers with tendon involvement Open wound of left palm Open wound of left wrist with tendon involvement Open wounds of multiple sites of left hand Sleep apnea Subdural hematoma Suppurative tenosynovitis of flexor tendon of left hand Tenosynovitis of hand UTI (urinary tract infection) Surgical History History of appendectomy History of carpal tunnel surgery of left wrist History of hand surgery S/P appendectomy S/P CABG x 4 Family History Mother Dementia Parkinsons disease Father Heart disease Hypertension Myocardial infarction CVA (cerebral vascular accident) CAD (coronary artery disease) Social History household members: spouse Smoking Status: Former smoker how long ago did patient quit smoking: Smoked in x 7 years, quit 1978, cigars. 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 substance use type: does not use HPI HPI Chief Complaint: recheck Details: Interim History: Jim returns for follow-up visit. He has a history of hypertension, diabetes mellitus, hyperlipidemia, bilateral carpal tunnel syndrome with underlying bilateral upper extremity polyneuropathy status post left carpal tunnel surgery earlier in 2022 (complicated by postoperative wound infection for which he received antibiotic therapy and underwent further left hand surgery) epilepsy, obstructive sleep apnea (he did not tolerate CPAP), hypercholesterolemia and coronary artery disease status post CABG who presents for evaluation of traumatic brain injury sustained at work ([facility] claim). He is accompanied by his . On 2021, while working around his truck he slipped on ice and struck his head and had momentary loss of consciousness. On medical evaluation, later that day his Glascow coma score was noted to be 14. Brain imaging revealed an acute right cerebral convexity and tentorial moderate- sized subdural hematoma with right to left shift, subarachnoid hemorrhage and right frontal lobe intracerebral hemorrhage. He was transferred from [facility] to another hospital with neurosurgical services. He did not require intracranial surgery. Since his injury he has had gait imbalance, left-sided weakness affecting the arm and the leg, complete right sided hearing loss; 70% left-sided hearing loss and cognitive deficits. He also has right eye blurring of vision. He has depression, anxiety and easy irritability. He exhibited gradual improvement of his neurological deficits following his injury. His current cognitive status is characterized by mental slowing, word finding difficulty and impaired recall of recent events/conversations. He is independent in activities such as dressing and bathing and is able to perform calculations to manage his finances. His driving has been very limited. In April 2021, he was hospitalized for gait imbalance and left eye blurring of vision. A head MRI at that time did not reveal an acute stroke however moderate diffuse chronic bilateral periv entricular and subcortical white matter chronic small vessel ischemic disease was noted. The possibility of a TIA was raised however, per the patient's history that he provided, his deficits may have persisted for weeks though gradually improved and subsided. He was treated with clopidogrel and aspirin 81 mg daily and was on these medications when his trauma (more content not included)... Normal [facility] Emergency Department Summary on 07-13-2023 Emergency Department Summary [facility] Medical Records Department [address] [place] [address] Emergency Department Summary 07/13/23 MR#: [id number] Acct: [id number] Name: JIM BERNSTEIN Rep #: [id number] : 1955 67 From: Travon Hedrick MD [facility] Status:DEP ER Location: ED HPI History of Present Illness Chief Complaint: Bite Informant: patient and spouse/S.O. Narrative Narrative: Patient was placing wood into an existing wood pile, and was surprisingly met with a swarm of bees that look like yellow jackets, and he received multiple stings, 5 or 6 on his face and 1 on his left forearm. This was about 6 hours prior to evaluation. He states they are a little sore but he has no other symptoms. They did not cause him to fall or have an injury, he denies any pruritus or history of allergies to bee stings. His significant other brought him and states that she was concerned about all the medications that he is on and his medical problems and if any of this would interfere. She states after the stings, she cleaned them. Then she prepped them with hydrogen peroxide. Then she wiped them all with isopropanol. Then she was applying a drawing salve in order to get the stingers out. [facility] Medical History Abscess of bursa, left wrist Abscess of dorsum of left hand Abscess, palm Arthritis Chest pain Compartment syndrome of left hand Coronary artery disease CVA (cerebral vascular accident) Diabetes Extensor tenosynovitis of left wrist Former smoker Hearing problem High cholesterol History of carpal tunnel surgery of left wrist HTN (hypertension) Left hand pain Neuropathy Open wound of left hand except fingers with tendon involvement Open wound of left palm Open wound of left wrist with tendon involvement Open wounds of multiple sites of left hand Sleep apnea Subdural hematoma Suppurative tenosynovitis of flexor tendon of left hand Tenosynovitis of hand UTI (urinary tract infection) Home Medications doxazosin 2 mg tablet 2 mg PO DAILY BLOOD PRESSURE 05/10/21 [History Last Taken 01/06/23] meclizine 12.5 mg tablet 6.25 mg PO BID DIZZINESS 05/10/21 [History Last Taken 01/06/23] metformin 500 mg tablet 1,000 mg PO QPM DIABETES 05/10/21 [History Last Taken 01/06/23] carvedilol 25 mg tablet 25 mg PO BID HEART 04/24/22 [History Last Taken 01/06/23] Cinnamon 1,200 mg PO/SL DAILY SUPPLEMENT 01/07/23 [History Last Taken 01/06/23] amlodipine 10 mg tablet 10 mg PO DAILY BLOOD PRESSURE 01/07/23 [History Last Taken 01/06/23] aspirin 81 mg tablet,delayed release 81 mg PO DAILY HEART HEALTH 01/07/23 [History Last Taken 01/06/23] fluticasone propionate 50 mcg/actuation nasal spray,suspension 1 spray intranasal UD CONGESTION 01/07/23 [History Last Taken 01/06/23] hydralazine 50 mg tablet 100 mg PO TIDCM BLOOD PRESSURE 01/07/23 [History Last Taken 01/06/23] lisinopril 40 mg tablet 40 mg PO DAILY BLOOD PRESSURE 01/07/23 [History Last Taken 01/06/23] pregabalin 25 mg capsule 25 mg PO QHS Check with primary doctor 01/07/23 [History Last Taken 01/06/23 22:00] rosuvastatin 20 mg tablet 20 mg PO DAILY CHOLESTEROL 01/07/23 [History Last Taken 01/07/23] semaglutide (weight loss) 0.5 mg/0.5 mL subcutaneous pen injector 0.5 mg subcut SA DIABETES 01/07/23 [History Last Taken 12/31/22] sertraline 100 mg tablet (Zoloft) 100 mg PO DAILY DEPRESSION/ANXIETY 01/07/23 [History Last Taken 01/06/23] pregabalin 50 mg capsule 50 mg PO BID #60 caps 01/12/23 [Rx Last Taken Unknown] oxycodone 5 mg tablet 10 mg (2 x 5 mg) PO Q6H PRN pain 7 days #56 tabs 03/09/23 [Rx Last Taken Unknown] donepezil 10 mg tablet 10 mg PO QHS #30 tabs 05/16/23 [Rx Last Taken Unknown] donepezil 5 mg tablet 5 mg PO QHS #30 tabs 05/16/23 [Rx Last Taken Unknown] Allergy/AdvReac Type Severity Reaction Status Date / Time gabapentin Allergy Severe Other Verified 07/13/23 22:45 Family History Mother Dementia Parkinsons disease Father Heart disease Hypertension Myocardial infarction CVA (cerebral vascular accident) CAD (coronary artery disease) Surgical History History of appendectomy History of carpal tunnel surgery of left wrist History of hand surgery S/P appendectomy S/P CABG x 4 Social History household members: spouse Smoking Status: Former smoker how long ago did patient quit smoking: Smoked in [email or web address] x 7 years, quit 1978, cigars. 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 substance use type: does not use ROS ROS ED Constitutional Constitutional ED: Denies chills or fever(s) Eyes Eyes: Denies change in vision or diplopia ENT (more content not included)... Normal [facility] Neurology Visit Reporton Neurology Visit Report [facility] [address], [address] [place] [address] OFFICE VISIT Date of Service: 05/11/23 MR#: [id number] Acct: [id number] Name: JIM BERNSTEIN Rep #: [id number] : 1955 Provider: Dr. Deric evans MD Age/Sex: 67/M Location: [facility] Status: Signed Intake Vital Signs 05/09/23 13:51 05/11/23 10:08 Height 5 ft 9 in 5 ft 9 in Weight: 257 lb 6 oz 258 lb 10 oz BMI 38.0 38.2 BP 132/77 H 122/62 H Blood Pressure Location Rt brachial Rt brachial Position Sitting Sitting Respiration 18 16 Pulse 81 83 Pulse Source NIBP Monitor Temp 97.8 F 98.0 F Temp Source Oral Temporal Pulse Oximetry (%) 97 98 Oxygen Delivery Method room air room air Intake Visit Reasons: ESTABLISH Chief Complaint: recheck Accompanied by: Allergies gabapentin Allergy (Severe, Verified 05/11/23 10:18) Other Medications doxazosin 2 mg tablet 2 mg PO DAILY BLOOD PRESSURE 05/10/21 [History Confirmed 05/11/23] meclizine 12.5 mg tablet 6.25 mg PO BID DIZZINESS 05/10/21 [History Confirmed 05/11/23] metformin 500 mg tablet 1,000 mg PO QPM DIABETES 05/10/21 [History Confirmed 05/11/23] carvedilol 25 mg tablet 25 mg PO BID HEART 04/24/22 [History Confirmed 05/11/23] Cinnamon 1,200 mg PO/SL DAILY SUPPLEMENT 01/07/23 [History Confirmed 05/11/23] amlodipine 10 mg tablet 10 mg PO DAILY BLOOD PRESSURE 01/07/23 [History Confirmed 05/11/23] aspirin 81 mg tablet,delayed release 81 mg PO DAILY HEART HEALTH 01/07/23 [History Confirmed 05/11/23] fluticasone propionate 50 mcg/actuation nasal spray,suspension 1 spray intranasal UD CONGESTION 01/07/23 [History Confirmed 05/11/23] hydralazine 50 mg tablet 100 mg PO TIDCM BLOOD PRESSURE 01/07/23 [History Confirmed 05/11/23] lisinopril 40 mg tablet 40 mg PO DAILY BLOOD PRESSURE 01/07/23 [History Confirmed 05/11/23] pregabalin 25 mg capsule 25 mg PO QHS Check with primary doctor 01/07/23 [History Confirmed 05/11/23] rosuvastatin 20 mg tablet 20 mg PO DAILY CHOLESTEROL 01/07/23 [History Confirmed 05/11/23] semaglutide (weight loss) 0.5 mg/0.5 mL subcutaneous pen injector 0.5 mg subcut SA DIABETES 01/07/23 [History Confirmed 05/11/23] sertraline 100 mg tablet (Zoloft) 100 mg PO DAILY DEPRESSION/ANXIETY 01/07/23 [History Confirmed 05/11/23] pregabalin 50 mg capsule 50 mg PO BID #60 caps 01/12/23 [Rx Confirmed 05/11/23] oxycodone 5 mg tablet 10 mg (2 x 5 mg) PO Q6H PRN pain 7 days #56 tabs 03/09/23 [Rx Confirmed 05/09/23] donepezil 10 mg tablet 10 mg PO QHS #30 tabs 05/16/23 [Rx Confirmed 05/16/23] donepezil 5 mg tablet 5 mg PO QHS #30 tabs 05/16/23 [Rx Confirmed 05/16/23] PFSH Medical History (Updated 05/16/23 @ 16:[address] Deric Kothari MD) Abscess of bursa, left wrist Abscess of dorsum of left hand Abscess, palm Arthritis Chest pain Compartment syndrome of left hand Coronary artery disease CVA (cerebral vascular accident) Diabetes Extensor tenosynovitis of left wrist Former smoker Hearing problem High cholesterol History of carpal tunnel surgery of left wrist HTN (hypertension) Left hand pain Neuropathy Open wound of left hand except fingers with tendon involvement Open wound of left palm Open wound of left wrist with tendon involvement Open wounds of multiple sites of left hand Sleep apnea Subdural hematoma Suppurative tenosynovitis of flexor tendon of left hand Tenosynovitis of hand UTI (urinary tract infection) Surgical History History of appendectomy History of carpal tunnel surgery of left wrist History of hand surgery S/P appendectomy S/P CABG x 4 Family History Mother Dementia Parkinsons disease Father Heart disease Hypertension Myocardial infarction CVA (cerebral vascular accident) CAD (coronary artery disease) Social History household members: spouse Smoking Status: Former smoker how long ago did patient quit smoking: Smoked in [email or web address] x 7 years, quit 1978, cigars. 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 substance use type: does not use HPI HPI Chief Complaint: recheck Details: History: The patient is a 67-year-old right-handed male with a past medical history of hypertension, diabetes mellitus, hyperlipidemia, bilateral carpal tunnel syndrome with underlying bilateral upper extremity polyneuropathy status post left carpal tunnel surgery earlier in 2022 (complicated by postoperative wound infection for which he received antibiotic therapy and underwent further left hand surgery) epilepsy, obstructive sleep apnea (he did not tolerate CPAP), hypercholesterolemia and coronary artery disease status post CABG who presents for evaluation (more content not included)... Normal [facility] Plastic Surgery Visit Report on 05-09-2023 Plastic Surgery Visit Report [facility] Re[facility]ive Surgery [address] [place] [address] OFFICE VISIT Date of Service: 05/09/23 MR#: [id number] Acct: [id number] Name: JIM BERNSTEIN Rep #: [id number] : 1955 Provider: Dr. Jim muhammad MD Age/Sex: 67/M Location: [facility] Status: Signed Intake Vital Signs 03/20/23 11:12 05/09/23 13:51 Height 5 ft 9 in 5 ft 9 in Weight: 257 lb 6 oz BMI 38.0 BP 132/77 H Blood Pressure Location Rt brachial Position Sitting Respiration 18 Pulse 81 Pulse Source NIBP Temp 97.8 F Temp Source Oral Pulse Oximetry (%) 97 Oxygen Delivery Method room air Intake Visit Reasons: postop surgery 01/09/23 Chief Complaint: incisional discomfort left hand Shank Stitcher Required: No Is patient in pain?: No Allergies gabapentin Allergy (Severe, Verified 05/11/23 10:18) Other Medications doxazosin 2 mg tablet 2 mg PO DAILY BLOOD PRESSURE 05/10/21 [History Confirmed 05/11/23] meclizine 12.5 mg tablet 6.25 mg PO BID DIZZINESS 05/10/21 [History Confirmed 05/11/23] metformin 500 mg tablet 1,000 mg PO QPM DIABETES 05/10/21 [History Confirmed 05/11/23] carvedilol 25 mg tablet 25 mg PO BID HEART 04/24/22 [History Confirmed 05/11/23] Cinnamon 1,200 mg PO/SL DAILY SUPPLEMENT 01/07/23 [History Confirmed 05/11/23] amlodipine 10 mg tablet 10 mg PO DAILY BLOOD PRESSURE 01/07/23 [History Confirmed 05/11/23] aspirin 81 mg tablet,delayed release 81 mg PO DAILY HEART HEALTH 01/07/23 [History Confirmed 05/11/23] fluticasone propionate 50 mcg/actuation nasal spray,suspension 1 spray intranasal UD CONGESTION 01/07/23 [History Confirmed 05/11/23] hydralazine 50 mg tablet 100 mg PO TIDCM BLOOD PRESSURE 01/07/23 [History Confirmed 05/11/23] lisinopril 40 mg tablet 40 mg PO DAILY BLOOD PRESSURE 01/07/23 [History Confirmed 05/11/23] pregabalin 25 mg capsule 25 mg PO QHS Check with primary doctor 01/07/23 [History Confirmed 05/11/23] rosuvastatin 20 mg tablet 20 mg PO DAILY CHOLESTEROL 01/07/23 [History Confirmed 05/11/23] semaglutide (weight loss) 0.5 mg/0.5 mL subcutaneous pen injector 0.5 mg subcut SA DIABETES 01/07/23 [History Confirmed 05/11/23] sertraline 100 mg tablet (Zoloft) 100 mg PO DAILY DEPRESSION/ANXIETY 01/07/23 [History Confirmed 05/11/23] pregabalin 50 mg capsule 50 mg PO BID #60 caps 01/12/23 [Rx Confirmed 05/11/23] oxycodone 5 mg tablet 10 mg (2 x 5 mg) PO Q6H PRN pain 7 days #56 tabs 03/09/23 [Rx Confirmed 05/09/23] PFSH Medical History Abscess of bursa, left wrist Abscess of dorsum of left hand Abscess, palm Arthritis Chest pain Compartment syndrome of left hand Coronary artery disease CVA (cerebral vascular accident) Diabetes Extensor tenosynovitis of left wrist Former smoker Hearing problem High cholesterol History of carpal tunnel surgery of left wrist HTN (hypertension) Left hand pain Neuropathy Open wound of left hand except fingers with tendon involvement Open wound of left palm Open wound of left wrist with tendon involvement Open wounds of multiple sites of left hand Sleep apnea Subdural hematoma Suppurative tenosynovitis of flexor tendon of left hand Tenosynovitis of hand UTI (urinary tract infection) Surgical History History of appendectomy History of carpal tunnel surgery of left wrist History of hand surgery S/P appendectomy S/P CABG x 4 Family History Mother Dementia Parkinsons disease Father Heart disease Hypertension Myocardial infarction CVA (cerebral vascular accident) CAD (coronary artery disease) Social History household members: spouse Smoking Status: Former smoker how long ago did patient quit smoking: Smoked in x 7 years, quit 1978, cigars. 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 substance use type: does not use HPI postop surgery 01/09/23 Details: Postop visit from his recent surgery on 01/09/23 where he underwent incision and drainage left carpal tunnel abscess with extension into thenar area and incision and drainage midpalmar abscess left hand and tenosynovectomy flexor tendons left ring finger, left long finger, and left index finger and incision and drainage abscess dorsum left hand and extensor tenosynovectomy 4th compartment (EDC tendon) left wrist and fasciotomy 2nd, 3rd, and 4th dorsal interosseous muscles dorsum left hand for compartment syndrome.??? He was discharged from the hospital on 01/12/23. He comes in today denying complaints.??? He has been using his johnny wrap when active.??? He has been going to OT for range (more content not included)... Normal [facility] OT D/C Summaryon 05-08-2023 OT D/C Summary [facility] Occupational Therapy [facility] [address] [place] [address] / REHABILITATION SERVICES DISCHARGE SUMMARY MR#: [id number] Acct: [id number] Name: JIM BERNSTEIN Rep #: [id number] : 1955 67 From: Brittney Singh OTR/L, CHT Referring Dr.: KAMALA Platt Status: REG RCR Eval Date: Discharge Date: It has been my pleasure to treat JIM BERNSTEIN under orders from KAMALA Jeter, for the diagnosis of cutaneous abscess left hand, synovitis/tenosynoviti s/infection left hand for a total of 8 visit(s). Please see the following information for a summary of their discharge status. % Improvement: 75 Objective/Function: left community music therapist strength 50# increase from 20#. left lateral pinch 12# increase from 12#. left tripod pinch 14# same as evaluation. Patient Goals: Regain Strength, Improve Fine Motor Skills, Use Hand/Wrist/Arm Normally Again, Be More Independent in ADLS Goal:Daily scar massage when approriate: Yes Goal:ROM equal to unaffected hand: Yes Goal:Datastage Developer/Pinch strength at least 75% of unaffected hand: Yes Goal:No pain with affected hand use: Yes Goal:PIP Circumferences equal to unaffected hand: Yes Goal:Full use of affected hand in daily activities including: Yes Goal:Decrease scar hypersensitivity: Yes Plan: D/C Discharge Comments: pt states he is ready for D/C and states he will continue with his HEP. (scar mtg. ROM, PROM and PRE) as well as return to use with IADLs and ADLs. pt agrees with D/C and states he will continue with HEP. If there are questions or concerns regarding this patient's occupational therapy, please fell free to call me at [phone]. Thank you for the referral of this patient. Sincerely, Brittney Singh, OTR/L, CHT 05/08/23 1323 CC: KAMALA Platt; [facility] MK Signed Normal [facility] Fungus cultureOrdered By: Dr Katerin Calvo on 02-08-2023 Fungus identified Cx Nom (Unsp spec) [facility] Fungus stainOrdered By: Dr. Calvo on 02-08-2023 Fungus identified Fungus stain Nom (Unsp spec) [facility] Glucose Glucometer (BldC) [M ass/Vol]Ordered By: Dr. Victor on 01-12-2023 Glucose [Mass/Vol] 207 mg/dL 74-106 [facility] Comment on above: MANAGEMENT OF PATIEN T CARE PER NURSING PROTOCOL Laboratory - Microbiology an d Antimicrobial susceptibilityOrdered By: Bj Grant on 01-12-2023 Bacteria identified Cx Nom (Bld) No growth in [address] [facility] Bacteria identified Cx Nom (Bld) No growth in [address] [facility] Serum or plasma transthyreti n measurement (mass/volume)Ordered By: Dr. Calvo on 01-11-2023 Prealbumin [Mass/Vol] 12.9 mg/dL 20.0-40.0 [facility] Basophil percentageOrdered B y: Dr. Calvo on 01-10-2023 Chloride [Moles/Vol] 105 mmol/L 98-107 [facility] Glucose [Mass/Vol] 134 mg/dL 74-106 [facility] Comment on above: Fasting Glucose resu lt greater than or equal to 126 mg/dL suggests DIABETES MELLITUS per A.D.A. criteria. Potassium [Moles/Vol] 3.9 mmol/L 3.5-5.1 [facility] Sodium [Moles/Vol] 137 mmol/L 136-145 [facility] WBC (Bld) [#/Vol] 5.1 10*3/uL 4.4-11.0 [facility] Blood erythrocytes count (nu mber/volume)Ordered By: Dr. Calvo on 01-10-2023 RBC (Bld) [#/Vol] 3.60 10*6/uL 4.6-6.2 [facility] Blood hemoglobin measurement (mass/volume)Ordered By: Dr. Calvo on 01-10-2023 Hemoglobin (Bld) [Mass/Vol] 11.4 g/dL 13.0-16.[address] [facility] Blood platelet mean volumeOr dered By: Dr. Calvo on 01-10-2023 Platelet mean volume (Bld) [Entitic vol] 9.8 fL 6.2-12.[address] [facility] Determination of erythrocyte mean corpuscular volume (MCV)Ordered By: Dr. Calvo on 01-10-2023 MCV (RBC) [Entitic vol] 90.0 fL 80-94 [facility] Hematocrit Auto (Bld) [Volum e fraction]Ordered By: Dr. Calvo on 01-10-2023 Hematocrit (Bld) [Volume fraction] 32.4 % 40-[address] [facility] Laboratory - Chemistry and C hemistry - challengeOrdered By: Dr. Calvo on 01-10-2023 CO2 [Moles/Vol] 26.0 mmol/L 21.0-32.[address] [facility] Urea nitrogen/Creatinine [Mass ratio] 15.3 mg/mg 10-[address] [facility] Laboratory - Hematology and Cell countsOrdered By: Dr. Calvo on 01-10-2023 Erythrocyte distribution width (RBC) [Entitic vol] 41.1 fL 35.1-43.[address] [facility] Erythrocyte distribution width (RBC) [Ratio] 12.5 % 11.6-14.[address] [facility] MCH (RBC) [Entitic mass] 31.7 pg 27.0-32.[address] [facility] MCHC Auto (RBC) [Mass/Vol]Or dered By: Dr. Calvo on 01-10-2023 MCHC (RBC) [Mass/Vol] 35.2 g/dL 32-36 [facility] Comment on above: Delta: 33.3 on 01/08 No Panel InformationOrdered By: Dr. Calvo on 01-10-2023 Estimated Creatinine Clearance Calc 59.08 ml/min [facility] Estimated GFR (MDRD) Amer 79 mL/min >[address] [facility] Comment on above: GFR Calc Estimated GFR (MDRD) Non-Af Amer 65 mL/min >[address] [facility] Comment on above: Non- GFR Calc Platelets bldOrdered By: Dr. Calvo on 01-10-2023 Platelets (Bld) [#/Vol] 131 10*3/uL 150-[address] [facility] Serum or plasma calcium kelsey urement (mass/volume)Ordered By: Dr. Calvo on 01-10-2023 Calcium [Mass/Vol] 8.2 mg/dL 8.5-10.1 [facility] Serum or plasma creatinine m easurement (mass/volume)Ordered By: Dr. Calvo on 01-10-2023 Creatinine [Mass/Vol] 1.18 mg/dL 0.70-1.30 [facility] Comment on above: The validity of the calculated GFR & GFRAA in patients over 70 years has not been determined. Clinical correlation is essential. Serum or plasma urea nitroge n measurement (mass/volume)Ordered By: Dr. Calvo on 01-10-2023 Urea nitrogen [Mass/Vol] 18 mg/dL 7-[address] [facility] Thin prep Papanicolaou smear with manual screeningOrdered By: Dr. Calvo on 01-10-2023 Thin prep Papanicolaou smear with manual screening 6 03-[address] [facility] Vancomycin troughOrdered By: Dr. Vasquez on 01-09-2023 Vancomycin trough [Mass/Vol] 16.5 ug/mL 5.0-15.[address] [facility] Comment on above: VANCOMYCIN STANDARED DRUG THERAPY TROUGH LEVEL: 5.0 - 15.0 mg/L VANCOMYCIN HIGH INTENSITY THERAPY TROUGH LEVEL: 15.0 - 20.0 mg/L High Intensity therapy recommended for serious lifethreatening infections include:- Znjviizaaa-Klubwgqdpxep-Ikkupbkuo (Ventilator/Healtcare Associated)-Sepsis PLEASE CONTACT PHARMACY SERVICES (#9990) FOR INTERPRETATIONOF RESULTS. Whole blood hemoglobin A1c/t otal hemoglobin ratio (mass fraction)Ordered By: Dr. Marie on 01-09-2023 HbA1c (Bld) [Mass fraction] 6.0 % 3.8-5.[address] [facility] Comment on above: Normal < 5.7 % Predi abetic 5.7 - 6.4 % Diabetic >or= 6.5 % Please note range changes. Absolute lymphocyte countOrd ered By: Dr. Vasquez on 01-08-2023 Lymphocytes Auto (Unsp spec) [#/Vol] 1.56 10*3/uL 0.83-4.[address] [facility] Basophil percentageOrdered B y: Dr. Vasquez on 01-08-2023 Basophils/100 WBC (Bld) 0.3 % 0-1 [facility] Eosinophils/100 WBC (Bld) 1.2 % 0-[address] [facility] Neutrophils (Bld) [#/Vol] 4.3 10*3/uL 2.0-7.[address] [facility] Neutrophils/100 WBC (Bld) 65.7 % 47-[address] [facility] Blood lymphocytes/100 leukoc ytesOrdered By: Dr. Vasquez on 01-08-2023 Lymphocytes/100 WBC (Bld) 23.7 % 19-[address] [facility] Blood monocytes/100 leukocyt esOrdered By: Dr. Vasquez on 01-08-2023 Monocytes/100 WBC (Bld) 8.8 % 0-10 [facility] Laboratory - Hematology and Cell countsOrdered By: Dr. Vasquez on 01-08-2023 Immature granulocytes/100 WBC (Bld) 0.300 % 0.0-0.[address] [facility] Comment on above: IG% - Immature Granu locytes (promyelocytes, myelocytes and metamyelocytes) > 1% indicates that a LEFT SHIFT is Present. Nucleated RBC/100 WBC (Bld) [Ratio] 0 % 0-[address] [facility] Absolute lymphocyte countOrd ered By: Bj Grant on 01-07-2023 Lymphocytes Auto (Unsp spec) [#/Vol] 1.20 10*3/uL 0.83-4.[address] [facility] Basophil percentageOrdered B y: Bj Grant on 01-07-2023 Basophils/100 WBC (Bld) 0.2 % 0-1 [facility] Chloride [Moles/Vol] 108 mmol/L 98-107 [facility] Eosinophils/100 WBC (Bld) 0.7 % 0-[address] [facility] Glucose [Mass/Vol] 232 mg/dL 74-106 [facility] Comment on above: Glucose result great er than or equal to 200 mg/dLsuggests DIABETES MELLITUS per A.D.A. criteria. Lactate [Moles/Vol] 1.4 mmol/L 0.4-2.0 [facility] Neutrophils (Bld) [#/Vol] 6.4 10*3/uL 2.0-7.[address] [facility] Neutrophils/100 WBC (Bld) 76.9 % 47-[address] [facility] Potassium [Moles/Vol] 4.1 mmol/L 3.5-5.1 [facility] Sodium [Moles/Vol] 137 mmol/L 136-145 [facility] WBC (Bld) [#/Vol] 8.3 10*3/uL 4.4-11.0 [facility] Blood erythrocytes count (nu mber/volume)Ordered By: Bj Grant on 01-07-2023 RBC (Bld) [#/Vol] 4.15 10*6/uL 4.6-6.2 [facility] Blood hemoglobin measurement (mass/volume)Ordered By: Bj Grant on 01-07-2023 Hemoglobin (Bld) [Mass/Vol] 12.9 g/dL 13.0-16.[address] [facility] Blood lymphocytes/100 leukoc ytesOrdered By: Bj Grant on 01-07-2023 Lymphocytes/100 WBC (Bld) 14.5 % 19-[address] [facility] Blood monocytes/100 leukocyt esOrdered By: Bj Grant on 01-07-2023 Monocytes/100 WBC (Bld) 7.5 % 0-10 [facility] Blood platelet mean volumeOr dered By: Bj Grant on 01-07-2023 Platelet mean volume (Bld) [Entitic vol] 10.4 fL 6.2-12.[address] [facility] Determination of erythrocyte mean corpuscular volume (MCV)Ordered By: Bj Grant on 01-07-2023 MCV (RBC) [Entitic vol] 89.9 fL 80-94 [facility] Erythrocyte sedimentation ra teOrdered By: Bj Grant on 01-07-2023 ESR (Bld) [Velocity] 40 mm/h 0-20 [facility] Hematocrit Auto (Bld) [Volum e fraction]Ordered By: Bj Grant on 01-07-2023 Hematocrit (Bld) [Volume fraction] 37.3 % 40-[address] [facility] Laboratory - Chemistry and C hemistry - challengeOrdered By: Bj Grant on 01-07-2023 CO2 [Moles/Vol] 23.0 mmol/L 21.0-32.[address] [facility] Urea nitrogen/Creatinine [Mass ratio] 21.2 mg/mg 10-[address] [facility] Laboratory - Hematology and Cell countsOrdered By: Bj Grant on 01-07-2023 Erythrocyte distribution width (RBC) [Entitic vol] 41.5 fL 35.1-43.[address] [facility] Erythrocyte distribution width (RBC) [Ratio] 12.7 % 11.6-14.[address] [facility] Immature granulocytes/100 WBC (Bld) 0.200 % 0.0-0.[address] [facility] Comment on above: IG% - Immature Granu locytes (promyelocytes, myelocytes and metamyelocytes) > 1% indicates that a LEFT SHIFT is Present. MCH (RBC) [Entitic mass] 31.1 pg 27.0-32.[address] [facility] Nucleated RBC/100 WBC (Bld) [Ratio] 0 % 0-[address] [facility] MCHC Auto (RBC) [Mass/Vol]Or dered By: Bj Grant on 01-07-2023 MCHC (RBC) [Mass/Vol] 34.6 g/dL 32-36 [facility] No Panel InformationOrdered By: Bj Grant on 01-07-2023 Estimated Creatinine Clearance Calc 61.70 ml/min [facility] Estimated GFR (MDRD) Amer 83 mL/min >[address] [facility] Comment on above: GFR Calc Estimated GFR (MDRD) Non-Af Amer 68 mL/min >[address] [facility] Comment on above: Non- GFR Calc Platelets bldOrdered By: Cyndie Grant on 01-07-2023 Platelets (Bld) [#/Vol] 147 10*3/uL 150-[address] [facility] Serum or plasma C reactive p rotein measurement (mass/volume)Ordered By: Bj Grant on 01-07-2023 CRP [Mass/Vol] 73.40 mg/L 0.0-3.[address] [facility] Comment on above: C-Reactive Protein ( CRP) provides useful information for thediagnosis, therapy and monitoring of inflammatory processesand associated diseases. For the evaluation of Relative Riskfor Cardiovascular Disease, a High Sensitivity CRP (HSCRP)should be ordered. Serum or plasma calcium kelsey urement (mass/volume)Ordered By: Bj Grant on 01-07-2023 Calcium [Mass/Vol] 8.7 mg/dL 8.5-10.1 [facility] Serum or plasma creatinine m easurement (mass/volume)Ordered By: Bj Grant on 01-07-2023 Creatinine [Mass/Vol] 1.13 mg/dL 0.70-1.30 [facility] Comment on above: The validity of the calculated GFR & GFRAA in patients over 70 years has not been determined. Clinical correlation is essential. Serum or plasma urea nitroge n measurement (mass/volume)Ordered By: Bj Grant on 01-07-2023 Urea nitrogen [Mass/Vol] 24 mg/dL 7-[address] [facility] Thin prep Papanicolaou smear with manual screeningOrdered By: Bj Grant on 01-07-2023 Thin prep Papanicolaou smear with manual screening 6 5-[address] [facility] LABORATORYOrdered By: Swathi Barnes on 12-23-2022 Glucose [Mass/Vol] 145 mg/dL Invalid Interpretation Code 82 - 115 mg/dL [facility] Work Phone: XR CHEST 2 VIEWSon 3 XR CHEST 2 VIEWS ORIGINAL EXAMINATION: TWO XRAY VIEWS OF THE CHEST12/12/2022 3:52 pm XR Chest, two views COMPARISON: 12/09/2021 HISTORY: ORDERING SYSTEM PROVIDED HISTORY: Reason for Exam: cough, previous open heart surgery FINDINGS: The lungs show no infiltrate, consolidation or mass. Heart size and mediastinal contours are within normal limits except for postop changes.. No pneumothorax, pleural fluid, or vascular congestion is seen. The bones show no acute process. Postop changes in the heart and mediastinum with previous sternotomy. Mild dorsal spondylosis. IMPRESSION: No acute cardio pulmonary process. Interpreted by: Domingo Lisa MD Preliminary Report By: Domingo Lisa MD Electronically signed By Domingo Lisa MD Dictated Date: 12/14/2022 1:44:08 AM Prelim Date: 12/14/2022 1:45:00 AM Sign Date: 12/14/2022 1:45:00 AM Ordering Provider: CARRIE Khalil [facility] ([place]) .Auto Diffon 12-12-2022 Basophil, Absolute 0.0 10 3/mcL Normal 0.0-0.3 [facility] ([place]) Comment on above: Performed By: #### C BC, APTT, PRO, ADIFF, ANEU, CMP, GFR #### [address] [address] Basophils/100 WBC (Bld) 0.5 % Normal 0.0-2.5 [facility] ([place]) Comment on above: Performed By: #### C BC, APTT, PRO, ADIFF, ANEU, CMP, GFR #### [address] [address] Eosinophil, Absolute 0.1 10 3/mcL Normal 0.0-0.7 [facility] ([place]) Comment on above: Performed By: #### C BC, APTT, PRO, ADIFF, ANEU, CMP, GFR #### [address] [address] Eosinophils/100 WBC (Bld) 2.4 % Normal 0.0-6.0 [facility] ([place]) Comment on above: Performed By: #### C BC, APTT, PRO, ADIFF, ANEU, CMP, GFR #### [address] [address] Lymphocyte, Absolute 1.6 10 3/mcL Normal 0.9-4.3 [facility] ([place]) Comment on above: Performed By: #### C BC, APTT, PRO, ADIFF, ANEU, CMP, GFR #### [address] [address] Lymphocytes/100 WBC (Bld) 33.0 % Normal 20.0-40.0 [facility] ([place]) Comment on above: Performed By: #### C BC, APTT, PRO, ADIFF, ANEU, CMP, GFR #### [address] [place], [place] [address] Monocyte, Absolute 0.4 10 3/mcL Normal 0.1-1.4 [facility] ([place]) Comment on above: Performed By: #### C BC, APTT, PRO, ADIFF, ANEU, CMP, GFR #### [address] [address] Monocytes/100 WBC (Bld) 9.2 % Normal 2.0-13.0 A [facility] ([place]) Comment on above: Performed By: #### C BC, APTT, PRO, ADIFF, ANEU, CMP, GFR #### [address] [address] Neutrophils/100 WBC (Bld) 54.9 % Normal 50.0-75.0 [facility] ([place]) Comment on above: Performed By: #### C BC, APTT, PRO, ADIFF, ANEU, CMP, GFR #### [address] [address] .GFRon 12-12-2022 GFR >60 Normal [facility] ([place]) Comment on above: Result Comment: GFR Population mean for , Non- Americans Ages 20-29 = 116 mL/min/1.73 sq.m. Ages 30-39 = 107 mL/min/1.73 sq.m. Ages 40-49 = 99 mL/min/1.73 sq.m. Ages 50-59 = 93 mL/min/1.73 sq.m. Ages 60-69 = 85 mL/min/1.73 sq.m. Ages 70+ = 75 mL/min/1.73 sq.m. Chronic Kidney Disease: Less than 60 mL/min/1.73 square meters End Stage Renal Disease: Less than 15 mL/min/1.73 square meters Performed By: #### C BC, APTT, PRO, ADIFF, ANEU, CMP, GFR ####[address] [address] GFR Non- >60 Normal [facility] ([place]) Comment on above: Result Comment: GFR Population mean for , Non- Americans Ages 20-29 = 116 mL/min/1.73 sq.m. Ages 30-39 = 107 mL/min/1.73 sq.m. Ages 40-49 = 99 mL/min/1.73 sq.m. Ages 50-59 = 93 mL/min/1.73 sq.m. Ages 60-69 = 85 mL/min/1.73 sq.m. Ages 70+ = 75 mL/min/1.73 sq.m. Chronic Kidney Disease: Less than 60 mL/min/1.73 square meters End Stage Renal Disease: Less than 15 mL/min/1.73 square meters Performed By: #### C BC, APTT, PRO, ADIFF, ANEU, CMP, GFR ####[address] [address] .NEUABSon 12-12-2022 Neutrophil, Absolute 2.6 10 3/mcL Normal 2.3-8.1 [facility] ([place]) Comment on above: Performed By: #### C BC, APTT, PRO, ADIFF, ANEU, CMP, GFR #### [place] [address] APTTon 12-12-2022 aPTT Coag (Bld) [Time] 33.1 s Normal 25.0-35.0 [facility] ([place]) Comment on above: Result Comment: For Heparin anticoagulation therapy, the recommended therapeutic range is: 54-77 seconds (APTT Correlation with Anti-Xa therapeutic range of 0.3-0.7 units/ml). PLEASE REFERENCE THE PHARMACY PROTOCOL FOR DOSING. Performed By: #### C BC, APTT, PRO, ADIFF, ANEU, CMP, GFR #### [address] [address] Heparin dose (APTT) None Normal [facility] ([place]) Comment on above: Performed By: #### C BC, APTT, PRO, ADIFF, ANEU, CMP, GFR #### [address] [address] CBCon 12-12-2022 Erythrocyte distribution width (RBC) [Ratio] 13.5 % Normal 11.5-15.5 [facility] ([place]) Comment on above: Performed By: #### C BC, APTT, PRO, ADIFF, ANEU, CMP, GFR #### [place] [address] Hematocrit (Bld) [Volume fraction] 38.9 % Low 40.0-52.0 [facility] ([place]) Comment on above: Performed By: #### C BC, APTT, PRO, ADIFF, ANEU, CMP, GFR #### [place] [id number] Hgb 13.5 G/dL Normal 13.0-17.5 [facility] ([place]) Comment on above: Performed By: #### C BC, APTT, PRO, ADIFF, ANEU, CMP, GFR #### [place] [id number] MCH (RBC) [Entitic mass] 30.6 pg Normal 27.0-33.0 [facility] ([place]) Comment on above: Performed By: #### C BC, APTT, PRO, ADIFF, ANEU, CMP, GFR #### [place] [address] MCHC 34.7 G/dL Normal 32.0-36.0 [facility] ([place]) Comment on above: Performed By: #### C BC, APTT, PRO, ADIFF, ANEU, CMP, GFR #### [place] [address] MCV (RBC) [Entitic vol] 88.1 fL Normal 81.0-100.0 A [facility] ([place]) Comment on above: Performed By: #### C BC, APTT, PRO, ADIFF, ANEU, CMP, GFR #### [place] [address] Platelet 154 10 3/mcL Normal 150-450 [facility] ([place]) Comment on above: Performed By: #### C BC, APTT, PRO, ADIFF, ANEU, CMP, GFR #### [place] [address] Platelet mean volume (Bld) [Entitic vol] 8.5 fL Normal 6.4-10.5 [facility] ([place]) Comment on above: Performed By: #### C BC, APTT, PRO, ADIFF, ANEU, CMP, GFR #### [address] [address] RBC 4.41 10 6/mcL Low 4.50-6.00 [facility] ([place]) Comment on above: Performed By: #### C BC, APTT, PRO, ADIFF, ANEU, CMP, GFR #### [address] [address] WBC 4.8 10 3/mcL Normal 4.5-10.8 [facility] ([place]) Comment on above: Performed By: #### C BC, APTT, PRO, ADIFF, ANEU, CMP, GFR #### [place] [id number] CMPon 12-12-2022 Albumin Level 3.9 G/dL Normal 3.2-4.8 [facility] ([place]) Comment on above: Performed By: #### C BC, APTT, PRO, ADIFF, ANEU, CMP, GFR #### [place] [address] Albumin/Globulin [Mass ratio] 1.1 {ratio} Normal 0.9-1.6 [facility] ([place]) Comment on above: Performed By: #### C BC, APTT, PRO, ADIFF, ANEU, CMP, GFR #### [address] [address] ALP [Catalytic activity/Vol] 50 U/L Normal 38-126 [facility] ([place]) Comment on above: Performed By: #### C BC, APTT, PRO, ADIFF, ANEU, CMP, GFR #### [address] [address] ALT [Catalytic activity/Vol] 18 U/L Normal 12-55 [facility] ([place]) Comment on above: Performed By: #### C BC, APTT, PRO, ADIFF, ANEU, CMP, GFR #### [address] [address] AST [Catalytic activity/Vol] 14 U/L Normal 8-34 [facility] ([place]) Comment on above: Performed By: #### C BC, APTT, PRO, ADIFF, ANEU, CMP, GFR #### [address] [address] Bili Total 0.60 mg/dL Normal 0.20-1.20 [facility] ([place]) Comment on above: Result Comment: Use of this assay is not recommended for patients undergoing treatment with eltrombopag due to the potential for falsely elevated results. Performed By: #### C BC, APTT, PRO, ADIFF, ANEU, CMP, GFR #### [address] [address] BUN/Creatinine Ratio 23.8 ratio High 10.0-22.0 [facility] ([place]) Comment on above: Performed By: #### C BC, APTT, PRO, ADIFF, ANEU, CMP, GFR #### [address] [address] Calcium [Mass/Vol] 9.4 mg/dL Normal 8.7-10.4 [facility] ([place]) Comment on above: Performed By: #### C BC, APTT, PRO, ADIFF, ANEU, CMP, GFR #### [address] [address] Chloride [Moles/Vol] 106 mmol/L Normal 98-110 [facility] ([place]) Comment on above: Performed By: #### C BC, APTT, PRO, ADIFF, ANEU, CMP, GFR #### [address] [address] CO2 [Moles/Vol] 27 mmol/L Normal 22-32 [facility] ([place]) Comment on above: Performed By: #### C BC, APTT, PRO, ADIFF, ANEU, CMP, GFR #### [address] [address] Creatinine [Mass/Vol] 1.01 mg/dL Normal 0.60-1.40 [facility] ([place]) Comment on above: Performed By: #### C BC, APTT, PRO, ADIFF, ANEU, CMP, GFR #### [address] [address] Electrolyte Balance 7.0 mEq/L Normal 4.0-15.0 [facility] ([place]) Comment on above: Performed By: #### C BC, APTT, PRO, ADIFF, ANEU, CMP, GFR #### [address] [address] Globulin 3.6 G/dL Normal 1.5-3.8 [facility] ([place]) Comment on above: Performed By: #### C BC, APTT, PRO, ADIFF, ANEU, CMP, GFR #### [address] [address] Glucose [Mass/Vol] 119 mg/dL High 82-115 [facility] ([place]) Comment on above: Performed By: #### C BC, APTT, PRO, ADIFF, ANEU, CMP, GFR #### [address] [address] Potassium [Moles/Vol] 4.7 mmol/L Normal 3.5-5.0 [facility] ([place]) Comment on above: Performed By: #### C BC, APTT, PRO, ADIFF, ANEU, CMP, GFR #### [address] [address] Sodium [Moles/Vol] 140 mmol/L Normal 136-145 [facility] ([place]) Comment on above: Performed By: #### C BC, APTT, PRO, ADIFF, ANEU, CMP, GFR #### [address] [address] Total Protein 7.5 G/dL Normal 5.7-8.2 [facility] ([place]) Comment on above: Result Comment: No te - New Reference Range in effect 20 Performed By: #### C BC, APTT, PRO, ADIFF, ANEU, CMP, GFR #### [address] [address] Urea nitrogen [Mass/Vol] 24.0 mg/dL High 8.0-22.0 [facility] ([place]) Comment on above: Performed By: #### C BC, APTT, PRO, ADIFF, ANEU, CMP, GFR #### [address], [place] [id number] LABORATORYOrdered By: SYSTEM SYSTEM on 12-12-2022 Albumin BCP dye [Mass/Vol] 3.9 G/dL Invalid Interpretation Code 3.2 - 4.8 G/dL ADM SS Albumin/Globulin [Mass ratio] 1.1 {ratio} Invalid Interpretation Code 0.9 - 1.6 ratio ADM SS ALP [Catalytic activity/Vol] 50 U/L Invalid Interpretation Code 38 - 126 U/L ADM SS ALT No additional P-5'-P [Catalytic activity/Vol] 18 U/L Invalid Interpretation Code 12 - 55 U/L ADM SS AST [Catalytic activity/Vol] 14 U/L Invalid Interpretation Code 8 - 34 U/L ADM SS Basophils (Bld) [#/Vol] 0.0 103/mcL Invalid Interpretation Code 0.0 - 0.3 10^3/mcL Workflow SS Basophils/100 WBC (Bld) 0.5 % Invalid Interpretation Code 0.0 - 2.5 % Workflow SS Bilirubin [Mass/Vol] 0.60 mg/dL Invalid Interpretation Code 0.20 - 1.20 mg/dL ADM SS Calcium [Mass/Vol] 9.4 mg/dL Invalid Interpretation Code 8.7 - 10.4 mg/dL ADM SS Chloride [Moles/Vol] 106 mmol/L Invalid Interpretation Code 98 - 110 mEq/L ADM SS CO2 [Moles/Vol] 27 mmol/L Invalid Interpretation Code 22 - 32 mEq/L ADM SS Creatinine [Mass/Vol] 1.01 mg/dL Invalid Interpretation Code 0.60 - 1.40 mg/dL ADM SS Electrolyte Balance 7.0 mEq/L Invalid Interpretation Code 4.0 - 15.0 mEq/L ADM SS Eosinophils (Bld) [#/Vol] 0.1 103/mcL Invalid Interpretation Code 0.0 - 0.7 10^3/mcL Workflow SS Eosinophils/100 WBC (Bld) 2.4 % Invalid Interpretation Code 0.0 - 6.0 % Workflow SS Erythrocyte distribution width (RBC) [Ratio] 13.5 % Invalid Interpretation Code 11.5 - 15.5 % Workflow SS GFR/1.73 sq M.predicted among blacks MDRD (S/P/Bld) [Vol rate/Area] ml/min/1.73sqm Invalid Interpretation Code Chemistry S GFR/1.73 sq M.predicted among non-blacks MDRD (S/P/Bld) [Vol rate/Area] ml/min/1.73sqm Invalid Interpretation Code Chemistry S Globulin 3.6 G/dL Invalid Interpretation Code 1.5 - 3.8 G/dL ADM SS Glucose [Mass/Vol] 119 mg/dL Invalid Interpretation Code 82 - 115 mg/dL ADM SS Hematocrit (Bld) [Volume fraction] 38.9 % Invalid Interpretation Code 40.0 - 52.0 % AH Workflow SS Hemoglobin (Bld) [Mass/Vol] 13.5 G/dL Invalid Interpretation Code 13.0 - 17.5 G/dL AH Workflow SS Lymphocytes (Bld) [#/Vol] 1.6 103/mcL Invalid Interpretation Code 0.9 - 4.3 10^3/mcL AH Workflow SS Lymphocytes/100 WBC (Bld) 33.0 % Invalid Interpretation Code 20.0 - 40.0 % AH Workflow SS MCH (RBC) [Entitic mass] 30.6 pg Invalid Interpretation Code 27.0 - 33.0 pg AH Workflow SS MCHC 34.7 G/dL Invalid Interpretation Code 32.0 - 36.0 G/dL AH Workflow SS MCV (RBC) [Entitic vol] 88.1 fL Invalid Interpretation Code 81.0 - 100.0 fL AH Workflow SS Monocytes (Bld) [#/Vol] 0.4 103/mcL Invalid Interpretation Code 0.1 - 1.4 10^3/mcL AH Workflow SS Monocytes/100 WBC (Bld) 9.2 % Invalid Interpretation Code 2.0 - 13.0 % AH Workflow SS Neutrophils (Bld) [#/Vol] 2.6 103/mcL Invalid Interpretation Code 2.3 - 8.1 10^3/mcL AH Workflow SS Neutrophils/100 WBC (Bld) 54.9 % Invalid Interpretation Code 50.0 - 75.0 % AH Workflow SS Platelet mean volume (Bld) [Entitic vol] 8.5 fL Invalid Interpretation Code 6.4 - 10.5 fL AH Workflow SS Platelets (Bld) [#/Vol] 154 103/mcL Invalid Interpretation Code 150 - 450 10^3/mcL AH Workflow SS Potassium [Moles/Vol] 4.7 mmol/L Invalid Interpretation Code 3.5 - 5.0 mEq/L ADM SS Protein [Mass/Vol] 7.5 G/dL Invalid Interpretation Code 5.7 - 8.2 G/dL AH ADM SS RBC (Bld) [#/Vol] 4.41 106/mcL Invalid Interpretation Code 4.50 - 6.00 10^6/mcL AH Workflow SS Sodium [Moles/Vol] 140 mmol/L Invalid Interpretation Code 136 - 145 mEq/L AH ADM SS Urea nitrogen [Mass/Vol] 24.0 mg/dL Invalid Interpretation Code 8.0 - 22.0 mg/dL AH ADM SS Urea nitrogen/Creatinine [Mass ratio] 23.8 ratio Invalid Interpretation Code 10.0 - 22.0 ratio AH ADM SS WBC (Bld) [#/Vol] 4.8 103/mcL Invalid Interpretation Code 4.5 - 10.8 10^3/mcL AH Workflow SS LABORATORYOrdered By: Verito Good on 12-12-2022 Appearance (U) Clear (12/12/22 2:41 PM) Invalid Interpretation Code Clear AH Auto Urine SS Bilirubin Ql (U) Negative (12/12/22 2:41 PM) Invalid Interpretation Code Neg-Trace AH Auto Urine SS Color (U) Yellow (12/12/22 2:41 PM) Invalid Interpretation Code AH Auto Urine SS Glucose Test strip (U) [Mass/Vol] Negative Invalid Interpretation Code Negativemg/ dL AH Auto Urine SS Hemoglobin Auto test strip (U) [Mass/Vol] Negative (12/12/22 2:41 PM) Invalid Interpretation Code Neg-Trace AH Auto Urine SS Ketones Ql (U) Negative Invalid Interpretation Code Neg-Tracemg /dL AH Auto Urine SS UA Leuk Est Negative (12/12/22 2:41 PM) Invalid Interpretation Code Negative AH Auto Urine SS UA Nitrite Negative (12/12/22 2:41 PM) Invalid Interpretation Code Negative AH Auto Urine SS UA pH 5.0 (12/12/22 2:41 PM) Invalid Interpretation Code 5.0 - 8.0 AH Auto Urine SS UA Protein Negative Invalid Interpretation Code Negativemg/ dL AH Auto Urine SS UA Spec Grav 1.015 (12/12/22 2:41 PM) Invalid Interpretation Code 1.006-1.029 AH Auto Urine SS UA Specimen Type Clean Catch (12/12/22 2:41 PM) Invalid Interpretation Code AH Auto Urine SS UA Urobilinogen 0.2 E.U./dL Invalid Interpretation Code 0.2-1.0E.U. /dL AH Auto Urine SS LABORATORYOrdered By: Marline Martinez on 12-12-2022 aPTT Coag (PPP) [Time] 33.1 s Invalid Interpretation Code 25.0 - 35.0 seconds AH Auto Coag SS Heparin dose (APTT) None Invalid Interpretation Code AH Auto Coag SS INR Coag (PPP) [Relative time] 1.1 {INR} Invalid Interpretation Code AH Auto Coag SS PT Coag (PPP) [Time] 13.0 s Invalid Interpretation Code 9.0 - 14.9 seconds AH Auto Coag SS PROon 12-12-2022 INR Coag (PPP) [Relative time] 1.1 {INR} Normal [facility] ([place]) Comment on above: Result Comment: The [employer] (CHEST, 1992, 102:[id number]) recommended therapeutic range for oral anticoagulant therapy is: LOW RISK: Prophylaxis of venous thrombosis INR: 2.0-3.0 Treatment of pulmonary embolism 2.0-3.0 Prevention of systemic embolism 2.0-3.0 HIGH RISK: Mechanical prosthetic valves 2.5-3.5 Performed By: #### C BC, APTT, PRO, ADIFF, ANEU, CMP, GFR #### [address] [address] PT Coag (PPP) [Time] 13.0 s Normal 9.0-14.9 [facility] ([place]) Comment on above: Result Comment: Effe ctive 05/27/08, Protime results may be affected by some antibiotics (i.e. Ciprofloxacin, Azithromycin, Bactrim) which may potentiate the action of oral anticoagulants, with further increases in Protime/INR. Performed By: #### C BC, APTT, PRO, ADIFF, ANEU, CMP, GFR #### [facility] [address] [place] [id number] UAon 12-12-2022 Color (U) Yellow Normal [facility] ([place]) Comment on above: Performed By: #### U A #### [facility] [address] [place] [address] Glucose (U) [Mass/Vol] Negative Normal Negative [facility] ([place]) Comment on above: Performed By: #### U A #### [address] [address] Ketones Ql (U) Negative Normal Neg-Trace [facility] ([place]) Comment on above: Performed By: #### U A #### [place] [address] UA Appear Clear Normal Clear [facility] ([place]) Comment on above: Performed By: #### U A #### [place] [address] UA Blood Negative Normal Neg-Trace [facility] ([place]) Comment on above: Performed By: #### U A #### [place] [address] UA Leuk Est Negative Normal Negative [facility] ([place]) Comment on above: Performed By: #### U A #### [place] [address] UA Nitrite Negative Normal Negative [facility] ([place]) Comment on above: Performed By: #### U A #### [place] [address] UA pH 5.0 Normal 5.0 - 8.0 [facility] ([place]) Comment on above: Performed By: #### U A #### [place] [address] UA Protein Negative Normal Negative [facility] ([place]) Comment on above: Performed By: #### U A #### [place] [address] UA Spec Grav 1.015 Normal 1.006-1.029 [facility] ([place]) Comment on above: Performed By: #### U A #### [place] [address] UA Specimen Type Clean Catch Normal [facility] ([place]) Comment on above: Performed By: #### U A #### [place] [address] UA Urobilinogen 0.2 E.U./dL Normal 0.2-1.0 [facility] ([place]) Comment on above: Performed By: #### U A #### [facility] [address] [place] [address] Urobilinogen (U) [Mass/Vol] Negative Normal Neg-Trace [facility] ([place]) Comment on above: Performed By: #### U A #### [place] [id number] [place] [address] XR SPINE CERVICAL LATERAL/FL EX/EXTon 08-03-2022 XR SPINE CERVICAL LATERAL/FLEX/EXT ORIGINAL EXAMINATION: 3 XRAY VIEWS OF THE CERVICAL SPINE including lateral, flexion, and extension views 08/01/2022 1:32 pm COMPARISON: MRI cervical spine 06/17/2022 HISTORY: ORDERING SYSTEM PROVIDED HISTORY: Reason for Exam: cervical stenosis FINDINGS: The cervical spine is imaged from C1 through C7. C7 is not well seen due to overlying structures. Alignment is maintained without evidence of instability on flexion/extension imaging. Vertebral body heights are maintained. Multilevel mild degenerative changes which would be better characterized by prior MRI. No prevertebral soft tissue thickening. IMPRESSION: Multilevel degenerative changes without evidence of instability. Interpreted by: Jessica Adames MD Preliminary Report By: Jessica Adames MD Electronically signed By Jessica Adames MD Dictated Date: 08/03/2022 8:42:46 PM Prelim Date: 08/03/2022 8:43:54 PM Sign Date: 08/03/2022 8:43:54 PM Ordering Provider: CRISTAL Khalil [facility] ([place]) MRI SPINE CERVICAL W/O CONTR Marisela 06-20-2022 MRI SPINE CERVICAL W/O CONTRAST ORIGINAL INDICATION:ORDERING SYSTEM PROVIDED HISTORY: Reason for Exam: TBI TECHNIQUE: MRI of the cervical spine was performed without the administration of intravenous contrast, according to standard protocol. COMPARISON: Correlated with MRI brain 06/17/2022 FINDINGS: ALIGNMENT: Straightening of the normal cervical lordosis. The vertebral bodies are anatomically aligned. VERTEBRAE: No acute/recent fracture. Inferior C4 endplate degenerative changes. Mild chronic height loss of the superior T3 vertebral body. DISCS: Mild disc height loss involves C4-C5 and C5-C6. Disc desiccation involves each cervical level. CORD: Normal in signal. PARAVERTEBRAL SOFT TISSUES: Unremarkable. EVALUATION OF INDIVIDUAL LEVELS DEMONSTRATES: C2-3: No stenosis. Mild central osteophytosis. C3-4: Trace central and right central disc osteophyte complex causes mild remodeling of the ventral spinal cord and mild central canal stenosis. Uncovertebral and facet arthrosis results in mild right foraminal stenosis C4-5: A central and right subarticular disc extrusion remodels the ventral spinal cord and in combination with ligamentum flavum buckling causes moderate central canal and right lateral recess stenosis. Uncovertebral and facet arthrosis results in severe right foraminal stenosis. C5-6: A central zone disc herniation remodels the ventral spinal cord and in combination with ligamentum flavum buckling causes mild central canal stenosis. No foraminal stenosis. C6-7: A central zone disc herniation and ligamentum flavum buckling causes mild central canal stenosis. No foraminal stenosis. C7-T1: No stenosis. IMPRESSION: 1. C4-C5: Central and right subarticular disc extrusion remodeling the ventral spinal cord causing right lateral recess and moderate central canal stenosis. Severe right foraminal stenosis present. 2. C5-C6: Central zone disc herniation remodeling the ventral spinal cord and causing mild central canal stenosis. 3. C3-C4: Central and right central disc osteophyte complex remodeling the ventral spinal cord and causing mild central canal stenosis. Interpreted by: Juma Joyce MD Preliminary Report By: Juma Joyce MD Electronically signed By Juma Joyce MD Dictated Date: 06/20/2022 2:18:48 PM Prelim Date: 06/20/2022 3:38:23 PM Sign Date: 06/20/2022 3:38:23 PM Ordering Provider: CRISTAL ROQUE [facility] ([place]) MRI BRAIN W/O CONTRASTon MRI BRAIN W/O CONTRAST ORIGINAL HISTORY: Traumatic brain injury COMPARISON: 08 [...] intra or extra-axial fluid collections. There is [id number]-[id number] punctate and nodular T2 hyperintensity in the [...] 06/17/2022 2:37:18 PM Ordering Provider: CRISTAL ROQUE [facility] ([place]) Basophil percentageon 2021 Basophil percentage 25-50 SEEN /hpf [facility] Work Phone: Bilirubin Test strip Ql (U)o n 04-24-2022 Bilirubin Ql (U) Negative Negative [facility] Work Phone: [phone] Ketones Test strip Ql (U)on 04-24-2022 Ketones Ql (U) Negative Negative [facility] Work Phone: [phone] Mucus LM Ql (Urine sed)on Mucus Ql (Urine sed) 0 SEEN /hpf [facility] Work Phone: [phone] Nitrite Test strip Ql (U)on 04-24-2022 Nitrite Ql (U) Negative Negative [facility] Work Phone: [phone] Protein Test strip Ql (U)on 04-24-2022 Protein Ql (U) 100 mg/dl Negative [facility] Work Phone: [phone] Squamous epithelial cells de tection in urine sediment by light microscopyon 04-24-2022 Epithelial cells.squamous LM Ql (Urine sed) 0 SEEN /hpf [facility] Work Phone: Urine blood detectionon 04-13 RBC Ql (U) 250 /ul Negative [facility] Work Phone: RBC Ql (U) 50-100 SEEN /hpf [facility] Work Phone: Urine clarityon 04-24-2022 Clarity (U) Cloudy Clear [facility] Work Phone: Urine color determinationon 04-24-2022 Color (U) Brown Yellow [facility] Work Phone: Urine glucose detectionon Glucose Ql (U) 250 mg/dl Normal [facility] Work Phone: Urine leukocyte esterase det ection by dipstickon 04-24-2022 Leukocyte esterase Test strip Ql (U) 500 /ul Negative [facility] Work Phone: Urine pHon 04-24-2022 pH (U) 6.0 [pH] [facility] Work Phone: Urine sediment bacteria coun t by microscopy (number/high power field)on 04-24-2022 Bacteria LM.HPF (Urine sed) [#/Area] 4 /[HPF] None Seen [facility] Work Phone: Urine specific gravity measu rementon 04-24-2022 Specific gravity (U) [Rel density] 1.[address] [facility] Work Phone: Urobilinogen Auto test strip Ql (U)on 04-24-2022 Urobilinogen Ql (U) Normal mg/dl Normal [facility] Work Phone: Basophil percentageon 2021 Basophil percentage >100 SEEN /hpf [facility] Work Phone: Bilirubin Test strip Ql (U)o n 03-27-2022 Bilirubin Ql (U) Negative Negative [facility] Work Phone: Culture, urineon 03-27-2022 Bacteria identified Cx Nom (U) Culture exhibits no growth. [facility] Work Phone: [phone] Ketones Test strip Ql (U)on 03-27-2022 Ketones Ql (U) Negative Negative [facility] Work Phone: Mucus LM Ql (Urine sed)on Mucus Ql (Urine sed) 0 SEEN /hpf [facility] Work Phone: Nitrite Test strip Ql (U)on 03-27-2022 Nitrite Ql (U) Negative Negative [facility] Work Phone: Protein Test strip Ql (U)on 03-27-2022 Protein Ql (U) 100 mg/dl Negative [facility] Work Phone: Squamous epithelial cells de tection in urine sediment by light microscopyon 03-27-2022 Epithelial cells.squamous LM Ql (Urine sed) 0 SEEN /hpf [facility] Work Phone: Urine blood detectionon 03-13 RBC Ql (U) 250 /ul Negative [facility] Work Phone: [phone] RBC Ql (U) > 100 SEEN /hpf [facility] Work Phone: Urine clarityon 03-27-2022 Clarity (U) Cloudy Clear [facility] Work Phone: [phone] Urine color determinationon 03-27-2022 Color (U) Red Yellow [facility] Work Phone: Urine glucose detectionon Glucose Ql (U) Normal mg/dl Normal [facility] Work Phone: Urine leukocyte esterase det ection by dipstickon 03-27-2022 Leukocyte esterase Test strip Ql (U) 500 /ul Negative [facility] Work Phone: Urine pHon 03-27-2022 pH (U) 7.0 [pH] [facility] Work Phone: Urine sediment bacteria coun t by microscopy (number/high power field)on 03-27-2022 Bacteria LM.HPF (Urine sed) [#/Area] 2 /[HPF] None Seen [facility] Work Phone: Urine specific gravity measu rementon 03-27-2022 Specific gravity (U) [Rel density] 1.[address] [facility] Work Phone: Urobilinogen Auto test strip Ql (U)on 03-27-2022 Urobilinogen Ql (U) Normal mg/dl Normal [facility] Work Phone: CT HEAD OR BRAIN W/O CONTRAS Ton 02-10-2022 CT HEAD OR BRAIN W/O CONTRAST ORIGINAL EXAMINATION: CT OF THE HEAD WITHOUT CONTRAST 02/09/2022 2:00 pm TECHNIQUE: CT of the head was performed without the administration of intravenous contrast. Dose modulation, iterative reconstruction, and/or weight based adjustment of the mA/kV was utilized to reduce the radiation dose to as low as reasonably achievable. COMPARISON: CT head 12/29/2021, 12/21/2021, 12/14/2021. MRI brain 12/08/2021. HISTORY: ORDERING SYSTEM PROVIDED HISTORY: Reason for Exam: TBI, SAH, follow-up subdural hemorrhage status post fall. Unsteady gait, dizziness. FINDINGS: BRAIN/VENTRICLES: There has been significant decrease in size of a right subdural collection overlying the right cerebral convexity which is hypodense to brain and measuring approximately 1-2 mm in maximum diameter, previously measuring 10 mm. There has been interval evolution of encephalomalacia/glios is involving the right inferior frontal lobe there continues to be mild underlying sulcal effacement throughout the right cerebral convexity. No areas of new hemorrhage. No midline shift. There are unchanged chronic lacunar infarcts involving the left basal ganglia and right centrum semiovale. Unchanged small chronic infarcts involving bilateral cerebellar hemispheres. Patchy parenchymal hypodensities in the cerebral white matter are nonspecific but statistically most consistent with moderate chronic microvascular angiopathy. The density in the larger dural venous sinuses is grossly normal. Atherosclerotic calcifications are present in the cavernous carotid arteries bilaterally. There is proportionate enlargement of the ventricular system and cortical sulci, compatible with parenchymal volume loss. ORBITS: The visualized portion of the orbits demonstrate no acute abnormality. SINUSES: Minimal mucosal thickening within the right maxillary sinus and a small mucous retention cyst within the left maxillary sinus. Otherwise the remaining visualized paranasal sinuses and mastoid air cells are essentially clear. SOFT TISSUES/SKULL: No acute abnormality of the visualized skull or soft tissues. IMPRESSION: Near complete resolution of the previously predominantly right frontal subdural collection. No midline shift. Expected evolution of posttraumatic encephalomalacia/glios is involving the inferior right frontal lobe. I have personally reviewed the images of this examination and agree with the resident's findings and interpretation. Interpreted by: Jose Sanchez Preliminary Report By: Bryson Williamson Electronically signed By Jose Sanchez Dictated Date: 02/10/2022 8:26:59 AM Prelim Date: 02/10/2022 11:46:24 AM Sign Date: 02/10/2022 11:46:24 AM Ordering Provider: CRISTAL ROQUE [facility] ([place]) Basophil percentageon 2021 Basophil percentage >100 SEEN /hpf [facility] Work Phone: Comment on above: Microscopic field is filled. Other elements may be obscured. Bilirubin Test strip Ql (U)o n 01-29-2022 Bilirubin Ql (U) Negative Negative [facility] Work Phone: Culture, urineon 01-29-2022 Bacteria identified Cx Nom (U) Presumptive E. coli [facility] Work Phone: Ketones Test strip Ql (U)on 01-29-2022 Ketones Ql (U) 5 mg/dl Negative [facility] Work Phone: Mucus LM Ql (Urine sed)on Mucus Ql (Urine sed) 0 SEEN /hpf [facility] Work Phone: Nitrite Test strip Ql (U)on 01-29-2022 Nitrite Ql (U) Positive Negative [facility] Work Phone: Protein Test strip Ql (U)on 01-29-2022 Protein Ql (U) 100 mg/dl Negative [facility] Work Phone: Squamous epithelial cells de tection in urine sediment by light microscopyon 01-29-2022 Epithelial cells.squamous LM Ql (Urine sed) 0 SEEN /hpf [facility] Work Phone: Urine blood detectionon 01-11 RBC Ql (U) 25 /ul Negative [facility] Work Phone: RBC Ql (U) 0 SEEN /hpf [facility] Work Phone: Urine clarityon 01-29-2022 Clarity (U) Clear Clear [facility] Work Phone: Urine color determinationon 01-29-2022 Color (U) Yellow Yellow [facility] Work Phone: Urine glucose detectionon Glucose Ql (U) Normal mg/dl Normal [facility] Work Phone: Urine leukocyte esterase det ection by dipstickon 01-29-2022 Leukocyte esterase Test strip Ql (U) 500 /ul Negative [facility] Work Phone: Urine pHon 01-29-2022 pH (U) 5.0 [pH] [facility] Work Phone: Urine sediment bacteria coun t by microscopy (number/high power field)on 01-29-2022 Bacteria LM.HPF (Urine sed) [#/Area] 2 /[HPF] None Seen [facility] Work Phone: Urine specific gravity measu rementon 01-29-2022 Specific gravity (U) [Rel density] 1.[address] [facility] Work Phone: Urobilinogen Auto test strip Ql (U)on 01-29-2022 Urobilinogen Ql (U) Normal mg/dl Normal [facility] Work Phone: Absolute lymphocyte counton 01-11-2022 Lymphocytes Auto (Unsp spec) [#/Vol] 1.48 10*3/uL 0.83-4.[address] [facility] Work Phone: Amorphous sediment detection in urine sediment by light microscopyon 01-11-2022 Amorphous sediment LM Ql (Urine sed) 1+ PHOS [facility] Work Phone: Basophil percentageon 2021 Basophil percentage 50-100 SEEN /hpf [facility] Work Phone: Basophils/100 WBC (Bld) 0.5 % 0-1 [facility] Work Phone: Chloride [Moles/Vol] 108 mmol/L 98-107 [facility] Work Phone: Eosinophils/100 WBC (Bld) 2.2 % 0-[address] [facility] Work Phone: Glucose [Mass/Vol] 141 mg/dL 74-106 [facility] Work Phone: Comment on above: Fasting Glucose resu lt greater than or equal to 126 mg/dL suggests DIABETES MELLITUS per A.D.A. criteria. Neutrophils (Bld) [#/Vol] 4.3 10*3/uL 2.0-7.[address] [facility] Work Phone: Neutrophils/100 WBC (Bld) 68.1 % 47-[address] [facility] Work Phone: [phone] Potassium [Moles/Vol] 3.8 mmol/L 3.5-5.1 [facility] Work Phone: Sodium [Moles/Vol] 140 mmol/L 136-145 [facility] Work Phone: [phone] WBC (Bld) [#/Vol] 6.4 10*3/uL 4.4-11.0 [facility] Work Phone: Bilirubin Test strip Ql (U)o n 01-11-2022 Bilirubin Ql (U) Negative Negative [facility] Work Phone: [phone] Blood erythrocytes count (nu mber/volume)on 01-11-2022 RBC (Bld) [#/Vol] 3.63 10*6/uL 4.6-6.2 [facility]: Blood hemoglobin measurement (mass/volume)on 01-11-2022 Hemoglobin (Bld) [Mass/Vol] 11.0 g/dL 13.0-16.[address] [facility] Work Phone: Blood lymphocytes/100 leukoc yteson 01-11-2022 Lymphocytes/100 WBC (Bld) 23.3 % 19-[address] [facility] Work Phone: [phone] Blood monocytes/100 leukocyt eson 01-11-2022 Monocytes/100 WBC (Bld) 5.4 % 0-10 [facility] Work Phone: [phone] Blood platelet mean volumeon 01-11-2022 Platelet mean volume (Bld) [Entitic vol] 10.0 fL 6.2-12.[address] [facility] Work Phone: [phone] Culture, urineon 01-11-2022 Bacteria identified Cx Nom (U) Presumptive E. coli [facility] Work Phone: Determination of erythrocyte mean corpuscular volume (MCV)on 01-11-2022 MCV (RBC) [Entitic vol] 88.2 fL 80-94 [facility] Work Phone: [phone] Hematocrit Auto (Bld) [Volum e fraction]on 01-11-2022 Hematocrit (Bld) [Volume fraction] 32.0 % 40-[address] [facility] Work Phone: [phone] Ketones Test strip Ql (U)on 01-11-2022 Ketones Ql (U) Negative Negative [facility] Work Phone: [phone] Laboratory - Chemistry and C hemistry - challengeon 01-11-2022 CO2 [Moles/Vol] 27.0 mmol/L 21.0-32.[address] [facility] Work Phone: [phone] Urea nitrogen/Creatinine [Mass ratio] 21.3 mg/mg 10-[address] [facility] Work Phone: [phone] Laboratory - Hematology and Cell countson 01-11-2022 Erythrocyte distribution width (RBC) [Entitic vol] 40.4 fL 35.1-43.[address] [facility] Work Phone: [phone] Erythrocyte distribution width (RBC) [Ratio] 12.6 % 11.6-14.[address] [facility] Work Phone: [phone] Immature granulocytes/100 WBC (Bld) 0.500 % 0.0-0.[address] [facility] Work Phone: [phone] Comment on above: IG% - Immature Granu locytes (promyelocytes, myelocytes and metamyelocytes) > 1% indicates that a LEFT SHIFT is Present. MCH (RBC) [Entitic mass] 30.3 pg 27.0-32.[address] [facility] Work Phone: [phone] Nucleated RBC/100 WBC (Bld) [Ratio] 0 % 0-[address] [facility] Work Phone: [phone] MCHC Auto (RBC) [Mass/Vol]on 01-11-2022 MCHC (RBC) [Mass/Vol] 34.4 g/dL 32-36 [facility] Work Phone: [phone] Mucus LM Ql (Urine sed)on Mucus Ql (Urine sed) 0 SEEN /hpf [facility] Work Phone: Nitrite Test strip Ql (U)on 01-11-2022 Nitrite Ql (U) Negative Negative [facility] Work Phone: No Panel Informationon 01-11 Estimated Creatinine Clearance Calc 71.41 ml/min [facility] Work Phone: Estimated GFR (MDRD) Amer 97 mL/min >[address] [facility] Work Phone: Comment on above: GFR Calc Estimated GFR (MDRD) Non-Af Amer 80 mL/min >[address] [facility] Work Phone: Comment on above: Non- GFR Calc Platelets bldon 01-11-2022 Platelets (Bld) [#/Vol] 202 10*3/uL 150-[address] [facility] Work Phone: Protein Test strip Ql (U)on 01-11-2022 Protein Ql (U) 15 mg/dl Negative [facility] Work Phone: Serum or plasma calcium kelsey urement (mass/volume)on 01-11-2022 Calcium [Mass/Vol] 9.4 mg/dL 8.5-10.1 [facility] Work Phone: Serum or plasma creatinine m easurement (mass/volume)on 01-11-2022 Creatinine [Mass/Vol] 0.99 mg/dL 0.70-1.30 [facility] Work Phone: Comment on above: The validity of the calculated GFR & GFRAA in patients over 70 years has not been determined. Clinical correlation is essential. Serum or plasma urea nitroge n measurement (mass/volume)on 01-11-2022 Urea nitrogen [Mass/Vol] 21 mg/dL 7-[address] [facility] Work Phone: [phone] Squamous epithelial cells de tection in urine sediment by light microscopyon 01-11-2022 Epithelial cells.squamous LM Ql (Urine sed) 0-5 SEEN /hpf [facility] Work Phone: [phone] Thin prep Papanicolaou smear with manual screeningon 01-11-2022 Thin prep Papanicolaou smear with manual screening 5 5-[address] [facility] Work Phone: Urine blood detectionon 03-0 RBC Ql (U) 10 /ul Negative [facility] Work Phone: RBC Ql (U) 0-5 SEEN /hpf [facility] Work Phone: Urine clarityon 01-11-2022 Clarity (U) Sl. Cloudy Clear [facility] Work Phone: Urine color determinationon 01-11-2022 Color (U) Yellow Yellow [facility] Work Phone: Urine glucose detectionon Glucose Ql (U) Normal mg/dl Normal [facility] Work Phone: Urine leukocyte esterase det ection by dipstickon 01-11-2022 Leukocyte esterase Test strip Ql (U) 500 /ul Negative [facility] Work Phone: Urine pHon 01-11-2022 pH (U) 8.0 [pH] [facility] Work Phone: Urine sediment bacteria coun t by microscopy (number/high power field)on 01-11-2022 Bacteria LM.HPF (Urine sed) [#/Area] 3 /[HPF] None Seen [facility] Work Phone: Urine specific gravity measu rementon 01-11-2022 Specific gravity (U) [Rel density] 1.[address] [facility] Work Phone: Urobilinogen Auto test strip Ql (U)on 01-11-2022 Urobilinogen Ql (U) Normal mg/dl Normal [facility] Work Phone: LABORATORYOrdered By: Hima carter on 12-21-2021 Glucose [Mass/Vol] 166 mg/dL Invalid Interpretation Code 82 - 115 mg/dL [facility] Work Phone: LABORATORYOrdered By: Shilpi Tijerina on 12-21-2021 Glucose [Mass/Vol] 215 mg/dL Invalid Interpretation Code 82 - 115 mg/dL [facility] Work Phone: Blood Glucose Interventions Administered agent to increase blood sugar (12/21/21 4:39 PM) [facility] Work Phone: Blood Glucose Interventions Administered agent to increase blood sugar (12/21/21 3:55 PM) [facility] Work Phone: Blood Glucose Interventions Administered agent to increase blood sugar (12/21/21 2:50 PM) [facility] Work Phone: LABORATORYOrdered By: Marily Mckeon on 12-21-2021 Blood Glucose Testing Reason Routine (12/21/21 4:55 PM) [facility] Work Phone: Glucose [Mass/Vol] 109 mg/dL Invalid Interpretation Code 82 - 115 mg/dL [facility] Work Phone: LABORATORYOrdered By: Stacie Uriarte on 12-20-2021 Blood Glucose Testing Reason Routine (12/20/21 4:37 PM) [facility] Work Phone: LABORATORYOrdered By: Madalyn Govea on 12-20-2021 Blood Glucose Testing Reason Routine (12/20/21 11:27 AM) [facility] Work Phone: LABORATORYOrdered By: [employer] SYSTEM on 12-18-2021 Base excess Calc (BldMV) [Moles/Vol] 5.0 mEq/L Invalid Interpretation Code 4.0 - 15.0 mEq/L ADM SS Basophils (Bld) [#/Vol] 0.00 103/mcL Invalid Interpretation Code 0.00 - 0.27 10^3/mcL AH Remisol SS Basophils/100 WBC (Bld) 0.6 % Invalid Interpretation Code 0.0 - 2.5 % AH Remisol SS Calcium [Mass/Vol] 9.2 mg/dL Invalid Interpretation Code 8.4 - 10.1 mg/dL AH ADM SS Chloride [Moles/Vol] 105 mmol/L Invalid Interpretation Code 98 - 110 mEq/L ADM SS CO2 [Moles/Vol] 26 mmol/L Invalid Interpretation Code 22 - 32 mEq/L AH ADM SS Creatinine [Mass/Vol] 0.79 mg/dL Invalid Interpretation Code 0.60 - 1.40 mg/dL AH ADM SS Eosinophils (Bld) [#/Vol] 0.10 103/mcL Invalid Interpretation Code 0.00 - 0.65 10^3/mcL AH Remisol SS Eosinophils/100 WBC (Bld) 2.8 % Invalid Interpretation Code 0.0 - 6.0 % AH Remisol SS Erythrocyte distribution width (RBC) [Ratio] 13.7 % Invalid Interpretation Code 11.5 - 15.5 % AH Remisol SS GFR/1.73 sq M.predicted among blacks MDRD (S/P/Bld) [Vol rate/Area] ml/min/1.73sqm Invalid Interpretation Code AH ADM SS GFR/1.73 sq M.predicted among non-blacks MDRD (S/P/Bld) [Vol rate/Area] ml/min/1.73sqm Invalid Interpretation Code AH ADM SS Glucose [Mass/Vol] 256 mg/dL Invalid Interpretation Code 82 - 115 mg/dL AH ADM SS Hematocrit (Bld) [Volume fraction] 30.6 % Invalid Interpretation Code 40.0 - 52.0 % AH Remisol SS Hemoglobin (Bld) [Mass/Vol] 10.4 G/dL Invalid Interpretation Code 13.0 - 17.5 G/dL AH Remisol SS Lymphocytes (Bld) [#/Vol] 1.00 103/mcL Invalid Interpretation Code 0.90 - 4.32 10^3/mcL AH Remisol SS Lymphocytes/100 WBC (Bld) 22.0 % Invalid Interpretation Code 20.0 - 40.0 % AH Remisol SS MCH (RBC) [Entitic mass] 30.5 pg Invalid Interpretation Code 27.0 - 33.0 pg AH Remisol SS MCHC (RBC) [Mass/Vol] 34.0 G/dL Invalid Interpretation Code 32.0 - 36.0 G/dL AH Remisol SS MCV (RBC) [Entitic vol] 89.7 fL Invalid Interpretation Code 81.0 - 100.0 fL AH Remisol SS Monocytes (Bld) [#/Vol] 0.40 103/mcL Invalid Interpretation Code 0.09 - 1.40 10^3/mcL AH Remisol SS Monocytes/100 WBC (Bld) 8.1 % Invalid Interpretation Code 2.0 - 13.0 % AH Remisol SS Neutrophils (Bld) [#/Vol] 3.00 103/mcL Invalid Interpretation Code 2.25 - 8.10 10^3/mcL AH Remisol SS Neutrophils/100 WBC (Bld) 66.5 % Invalid Interpretation Code 50.0 - 75.0 % AH Remisol SS Platelet mean volume (Bld) [Entitic vol] 9.2 fL Invalid Interpretation Code 6.4 - 10.5 fL AH Remisol SS Platelets (Bld) [#/Vol] 223 103/mcL Invalid Interpretation Code 150 - 450 10^3/mcL AH Remisol SS Potassium [Moles/Vol] 3.8 mmol/L Invalid Interpretation Code 3.5 - 5.0 mEq/L AH ADM SS RBC (Bld) [#/Vol] 3.42 106/mcL Invalid Interpretation Code 4.50 - 6.00 10^6/mcL AH Remisol SS Sodium [Moles/Vol] 136 mmol/L Invalid Interpretation Code 136 - 145 mEq/L AH ADM SS Urea nitrogen [Mass/Vol] 14.0 mg/dL Invalid Interpretation Code 8.0 - 22.0 mg/dL AH ADM SS Urea nitrogen/Creatinine [Mass ratio] 17.7 ratio Invalid Interpretation Code 10.0 - 22.0 ratio AH ADM SS WBC (Bld) [#/Vol] 4.50 103/mcL Invalid Interpretation Code 4.50 - 10.80 10^3/mcL AH Remisol SS LABORATORYOrdered By: SYSTEM SYSTEM on 12-17-2021 Base excess Calc (BldMV) [Moles/Vol] 6.0 mEq/L Invalid Interpretation Code 4.0 - 15.0 mEq/L AH ADM SS Calcium [Mass/Vol] 9.3 mg/dL Invalid Interpretation Code 8.4 - 10.1 mg/dL AH ADM SS Chloride [Moles/Vol] 107 mmol/L Invalid Interpretation Code 98 - 110 mEq/L AH ADM SS CO2 [Moles/Vol] 25 mmol/L Invalid Interpretation Code 22 - 32 mEq/L AH ADM SS Creatinine [Mass/Vol] 0.81 mg/dL Invalid Interpretation Code 0.60 - 1.40 mg/dL AH ADM SS GFR/1.73 sq M.predicted among blacks MDRD (S/P/Bld) [Vol rate/Area] ml/min/1.73sqm Invalid Interpretation Code AH ADM SS GFR/1.73 sq M.predicted among non-blacks MDRD (S/P/Bld) [Vol rate/Area] ml/min/1.73sqm Invalid Interpretation Code AH ADM SS Glucose [Mass/Vol] 276 mg/dL Invalid Interpretation Code 82 - 115 mg/dL AH ADM SS Potassium [Moles/Vol] 3.8 mmol/L Invalid Interpretation Code 3.5 - 5.0 mEq/L AH ADM SS Sodium [Moles/Vol] 138 mmol/L Invalid Interpretation Code 136 - 145 mEq/L AH ADM SS Urea nitrogen [Mass/Vol] 17.0 mg/dL Invalid Interpretation Code 8.0 - 22.0 mg/dL AH ADM SS Urea nitrogen/Creatinine [Mass ratio] 21.0 ratio Invalid Interpretation Code 10.0 - 22.0 ratio AH ADM SS LABORATORYOrdered By: SYSTEM SYSTEM on 12-15-2021 Basophils (Bld) [#/Vol] 0.00 103/mcL Invalid Interpretation Code 0.00 - 0.27 10^3/mcL AH Remisol SS Basophils/100 WBC (Bld) 0.7 % Invalid Interpretation Code 0.0 - 2.5 % AH Remisol SS Calcium [Mass/Vol] 8.9 mg/dL Invalid Interpretation Code 8.7 - 10.4 mg/dL AH ADM SS Chloride [Moles/Vol] 113 mmol/L Invalid Interpretation Code 98 - 110 mEq/L AH ADM SS CO2 [Moles/Vol] 24 mmol/L Invalid Interpretation Code 22 - 32 mEq/L AH ADM SS Creatinine [Mass/Vol] 0.91 mg/dL Invalid Interpretation Code 0.60 - 1.40 mg/dL AH ADM SS Electrolyte Balance 5.0 mEq/L Invalid Interpretation Code 4.0 - 15.0 mEq/L AH ADM SS Eosinophils (Bld) [#/Vol] 0.10 103/mcL Invalid Interpretation Code 0.00 - 0.65 10^3/mcL AH Remisol SS Eosinophils/100 WBC (Bld) 2.4 % Invalid Interpretation Code 0.0 - 6.0 % AH Remisol SS Erythrocyte distribution width (RBC) [Ratio] 13.0 % Invalid Interpretation Code 11.5 - 15.5 % AH Remisol SS GFR/1.73 sq M.predicted among blacks MDRD (S/P/Bld) [Vol rate/Area] ml/min/1.73sqm Invalid Interpretation Code ADM SS GFR/1.73 sq M.predicted among non-blacks MDRD (S/P/Bld) [Vol rate/Area] ml/min/1.73sqm Invalid Interpretation Code AH ADM SS Glucose [Mass/Vol] 233 mg/dL Invalid Interpretation Code 82 - 115 mg/dL AH ADM SS Hematocrit (Bld) [Volume fraction] 29.8 % Invalid Interpretation Code 40.0 - 52.0 % AH Remisol SS Hemoglobin (Bld) [Mass/Vol] 10.4 G/dL Invalid Interpretation Code 13.0 - 17.5 G/dL AH Remisol SS Lymphocytes (Bld) [#/Vol] 0.80 103/mcL Invalid Interpretation Code 0.90 - 4.32 10^3/mcL AH Remisol SS Lymphocytes/100 WBC (Bld) 17.7 % Invalid Interpretation Code 20.0 - 40.0 % Remisol SS Magnesium [Mass/Vol] 1.8 mg/dL Invalid Interpretation Code 1.6 - 2.4 mg/dL AH ADM SS MCH (RBC) [Entitic mass] 31.0 pg Invalid Interpretation Code 27.0 - 33.0 pg AH Remisol SS MCHC (RBC) [Mass/Vol] 34.8 G/dL Invalid Interpretation Code 32.0 - 36.0 G/dL AH Remisol SS MCV (RBC) [Entitic vol] 89.0 fL Invalid Interpretation Code 81.0 - 100.0 fL AH Remisol SS Monocytes (Bld) [#/Vol] 0.40 103/mcL Invalid Interpretation Code 0.09 - 1.40 10^3/mcL AH Remisol SS Monocytes/100 WBC (Bld) 8.2 % Invalid Interpretation Code 2.0 - 13.0 % AH Remisol SS Neutrophils (Bld) [#/Vol] 3.20 103/mcL Invalid Interpretation Code 2.25 - 8.10 10^3/mcL AH Remisol SS Neutrophils/100 WBC (Bld) 71.0 % Invalid Interpretation Code 50.0 - 75.0 % AH Remisol SS Phosphate [Mass/Vol] 3.8 mg/dL Invalid Interpretation Code 2.4 - 5.1 mg/dL AH ADM SS Platelet mean volume (Bld) [Entitic vol] 8.9 fL Invalid Interpretation Code 6.4 - 10.5 fL AH Remisol SS Platelets (Bld) [#/Vol] 196 103/mcL Invalid Interpretation Code 150 - 450 10^3/mcL AH Remisol SS Potassium [Moles/Vol] 3.4 mmol/L Invalid Interpretation Code 3.5 - 5.0 mEq/L AH ADM SS RBC (Bld) [#/Vol] 3.35 106/mcL Invalid Interpretation Code 4.50 - 6.00 10^6/mcL AH Remisol SS Sodium [Moles/Vol] 142 mmol/L Invalid Interpretation Code 136 - 145 mEq/L AH ADM SS Urea nitrogen [Mass/Vol] 18.0 mg/dL Invalid Interpretation Code 8.0 - 22.0 mg/dL AH ADM SS Urea nitrogen/Creatinine [Mass ratio] 19.8 ratio Invalid Interpretation Code 10.0 - 22.0 ratio AH ADM SS WBC (Bld) [#/Vol] 4.50 103/mcL Invalid Interpretation Code 4.50 - 10.80 10^3/mcL AH Remisol SS LABORATORYOrdered By: SYSTEM SYSTEM on 12-13-2021 Basophils (Bld) [#/Vol] 0.00 103/mcL Invalid Interpretation Code 0.00 - 0.27 10^3/mcL AH Remisol SS Basophils/100 WBC (Bld) 0.9 % Invalid Interpretation Code 0.0 - 2.5 % AH Remisol SS Eosinophils (Bld) [#/Vol] 0.20 103/mcL Invalid Interpretation Code 0.00 - 0.65 10^3/mcL AH Remisol SS Eosinophils/100 WBC (Bld) 4.8 % Invalid Interpretation Code 0.0 - 6.0 % AH Remisol SS Erythrocyte distribution width (RBC) [Ratio] 13.1 % Invalid Interpretation Code 11.5 - 15.5 % AH Remisol SS Hematocrit (Bld) [Volume fraction] 31.9 % Invalid Interpretation Code 40.0 - 52.0 % AH Remisol SS Hemoglobin (Bld) [Mass/Vol] 10.9 G/dL Invalid Interpretation Code 13.0 - 17.5 G/dL AH Remisol SS Lymphocytes (Bld) [#/Vol] 1.10 103/mcL Invalid Interpretation Code 0.90 - 4.32 10^3/mcL AH Remisol SS Lymphocytes/100 WBC (Bld) 22.9 % Invalid Interpretation Code 20.0 - 40.0 % AH Remisol SS MCH (RBC) [Entitic mass] 30.5 pg Invalid Interpretation Code 27.0 - 33.0 pg AH Remisol SS MCHC (RBC) [Mass/Vol] 34.1 G/dL Invalid Interpretation Code 32.0 - 36.0 G/dL AH Remisol SS MCV (RBC) [Entitic vol] 89.5 fL Invalid Interpretation Code 81.0 - 100.0 fL AH Remisol SS Monocytes (Bld) [#/Vol] 0.30 103/mcL Invalid Interpretation Code 0.09 - 1.40 10^3/mcL AH Remisol SS Monocytes/100 WBC (Bld) 5.4 % Invalid Interpretation Code 2.0 - 13.0 % AH Remisol SS Neutrophils (Bld) [#/Vol] 3.20 103/mcL Invalid Interpretation Code 2.25 - 8.10 10^3/mcL AH Remisol SS Neutrophils/100 WBC (Bld) 66.0 % Invalid Interpretation Code 50.0 - 75.0 % AH Remisol SS Platelet mean volume (Bld) [Entitic vol] 8.6 fL Invalid Interpretation Code 6.4 - 10.5 fL AH Remisol SS Platelets (Bld) [#/Vol] 187 103/mcL Invalid Interpretation Code 150 - 450 10^3/mcL AH Remisol SS RBC (Bld) [#/Vol] 3.57 106/mcL Invalid Interpretation Code 4.50 - 6.00 10^6/mcL AH Remisol SS WBC (Bld) [#/Vol] 4.80 103/mcL Invalid Interpretation Code 4.50 - 10.80 10^3/mcL AH Remisol SS LABORATORYOrdered By: SYSTEM SYSTEM on 12-12-2021 Magnesium [Mass/Vol] 2.0 mg/dL Invalid Interpretation Code 1.6 - 2.4 mg/dL AH ADM SS Phosphate [Mass/Vol] 3.0 mg/dL Invalid Interpretation Code 2.4 - 5.1 mg/dL AH ADM SS Laboratory - Microbiology an d Antimicrobial susceptibilityon 12-10-2021 Bacteria identified Cx Nom (Bld) Culture has been received in lab and is no growth to date. Culture will be held for four weeks. [facility] Work Phone: No Panel Informationon 12-10 Culture Urine No growth at [address] [facility] Work Phone: LABORATORYOrdered By: Phillip Oglesby on 12-09-2021 Barometric Pressure 714 mm[Hg] Invalid Interpretation Code AH Auto Chem SS Base excess Calc (Bld) [Moles/Vol] 0.7 mmol/L Invalid Interpretation Code AH Auto Chem SS CO2 (Bld) [Partial pressure] 33.0 mm[Hg] Invalid Interpretation Code 32.0 - 46.0 mm Hg AH Auto Chem SS CO2 [Moles/Vol] 24.9 mmol/L Invalid Interpretation Code 22.0 - 30.0 mmol/L AH Auto Chem SS HCO3 (Bld) [Moles/Vol] 23.9 mmol/L Invalid Interpretation Code 21.0 - 29.0 mmol/L AH Auto Chem SS Oxygen (Bld) [Partial pressure] 95.3 mm[Hg] Invalid Interpretation Code 74.0 - 108.0 mm Hg AH Auto Chem SS pH (Bld) 7.477 [pH] Invalid Interpretation Code 7.380 - 7.460 Auto Chem SS LABORATORYOrdered By: Kalyn Pereyra on 12-09-2021 Cholesterol [Mass/Vol] 176 mg/dL Invalid Interpretation Code 50 - 199 mg/dL ADM SS Cholesterol in HDL [Mass/Vol] 24 mg/dL Invalid Interpretation Code 40 - 59 mg/dL AH ADM SS Cholesterol in LDL [Mass/Vol] 121 mg/dL Invalid Interpretation Code 0 - 129 mg/dL ADM SS Triglyceride [Mass/Vol] 157 mg/dL Invalid Interpretation Code 3 - 149 mg/dL ADM SS LABORATORYOrdered By: SYSTEM SYSTEM on 12-09-2021 HbA1c (Bld) [Mass fraction] 6.8 % Invalid Interpretation Code 4.0 - 6.0 % Auto Chem SS Magnesium [Mass/Vol] 2.2 mg/dL Invalid Interpretation Code 1.6 - 2.4 mg/dL AH ADM SS Phosphate [Mass/Vol] 3.8 mg/dL Invalid Interpretation Code 2.4 - 5.1 mg/dL ADM SS LABORATORYOrdered By: Laura Curiel on 12-09-2021 Barometric Pressure 718 mm[Hg] Invalid Interpretation Code AH Auto Chem SS Base excess Calc (Bld) [Moles/Vol] -1.0000 mmol/L Invalid Interpretation Code AH Auto Chem SS CO2 (Bld) [Partial pressure] 29.2 mm[Hg] Invalid Interpretation Code 32.0 - 46.0 mm Hg AH Auto Chem SS CO2 [Moles/Vol] 22.5 mmol/L Invalid Interpretation Code 22.0 - 30.0 mmol/L AH Auto Chem SS HCO3 (Bld) [Moles/Vol] 21.6 mmol/L Invalid Interpretation Code 21.0 - 29.0 mmol/L AH Auto Chem SS Oxygen (Bld) [Partial pressure] 73.8 mm[Hg] Invalid Interpretation Code 74.0 - 108.0 mm Hg AH Auto Chem SS pH (Bld) 7.487 [pH] Invalid Interpretation Code 7.380 - 7.460 AH Auto Chem SS Barometric Pressure 718 mm[Hg] Invalid Interpretation Code AH Auto Chem SS Base excess Calc (Bld) [Moles/Vol] -1.6000 mmol/L Invalid Interpretation Code AH Auto Chem SS CO2 (Bld) [Partial pressure] 30.2 mm[Hg] Invalid Interpretation Code 32.0 - 46.0 mm Hg AH Auto Chem SS CO2 [Moles/Vol] 22.2 mmol/L Invalid Interpretation Code 22.0 - 30.0 mmol/L AH Auto Chem SS HCO3 (Bld) [Moles/Vol] 21.3 mmol/L Invalid Interpretation Code 21.0 - 29.0 mmol/L AH Auto Chem SS Oxygen (Bld) [Partial pressure] 127.5 mm[Hg] Invalid Interpretation Code 74.0 - 108.0 mm Hg AH Auto Chem SS pH (Bld) 7.466 [pH] Invalid Interpretation Code 7.380 - 7.460 AH Auto Chem SS No Panel Informationon 12-09 Culture Respiratory with Gram Stain Normal respiratory julieta present. Sensitivity testing not indicated. [facility] Work Phone: Comment on above: Requests for Mycopla sma, Legionella, Fungi, Mycobacteria, Chlamydia, and Viruses require ordering of those individual tests. GS 2+ Polymorphonuclear cells 2+ Mononuclear cells Rare Yeast [facility] Work Phone: Comment on above: Requests for Mycopla sma, Legionella, Fungi, Mycobacteria, Chlamydia, and Viruses require ordering of those individual tests. LABORATORYOrdered By: Maren Hollins on 12-07-2021 Date of Onset [id number] Invalid Interpretation Code AH Auto Viro/Sero SS Employed in Healthcare No (12/07/21 1:37 PM) Invalid Interpretation Code AH Auto Viro/Sero SS First Test No (12/07/21 1:37 PM) Invalid Interpretation Code AH Auto Viro/Sero SS FLU A PCR Negative 3 (12/07/21 1:37 PM) Invalid Interpretation Code Negative AH Auto Viro/Sero SS Comment on above: Result Comment: Note s FLU B PCR Negative 4 (12/07/21 1:37 PM) Invalid Interpretation Code Negative AH Auto Viro/Sero SS Comment on above: Result Comment: [place] [id number] Hospitalized Yes (12/07/21 1:37 PM) Invalid Interpretation Code AH Auto Viro/Sero SS ICU Yes (12/07/21 1:37 PM) Invalid Interpretation Code AH Auto Viro/Sero SS Not (12/07/21 1:37 PM) Invalid Interpretation Code AH Auto Viro/Sero SS Resides in Congregate Care Setting No (12/07/21 1:37 PM) Invalid Interpretation Code AH Auto Viro/Sero SS RSV PCR Negative 5 (12/07/21 1:37 PM) Invalid Interpretation Code Negative AH Auto Viro/Sero SS Comment on above: Result Comment: Note s SARS-CoV-2 (COVID-19) RNA MARLI+probe Ql (Unsp spec) Negative 2 (12/07/21 1:37 PM) Invalid Interpretation Code Negative AH Auto Viro/Sero SS Comment on above: Result Comment: [place] [id number] Symptomatic as Defined by CDC Yes (12/07/21 1:37 PM) Invalid Interpretation Code AH Auto Viro/Sero SS LABORATORYOrdered By: Domingo Heller on 12-07-2021 Appearance (U) Clear (12/07/21 10:54 AM) Invalid Interpretation Code Clear AH Auto Urine SS Bilirubin Ql (U) Negative (12/07/21 10:54 AM) Invalid Interpretation Code Neg-Trace AH Auto Urine SS Color (U) Yellow (12/07/21 10:54 AM) Invalid Interpretation Code AH Auto Urine SS Glucose Test strip (U) [Mass/Vol] 250 mg/dL Invalid Interpretation Code Negativemg/ dL AH Auto Urine SS Hemoglobin Auto test strip (U) [Mass/Vol] Negative (12/07/21 10:54 AM) Invalid Interpretation Code Neg-Trace Auto Urine SS Ketones Ql (U) 40 mg/dL Invalid Interpretation Code Neg-Tracemg /dL AH Auto Urine SS UA Leuk Est Negative (12/07/21 10:54 AM) Invalid Interpretation Code Negative AH Auto Urine SS UA Nitrite Negative (12/07/21 10:54 AM) Invalid Interpretation Code Negative AH Auto Urine SS UA pH 5.0 (12/07/21 10:54 AM) Invalid Interpretation Code 5.0 - 8.0 AH Auto Urine SS UA Protein Trace mg/dL Invalid Interpretation Code Negativemg/ dL AH Auto Urine SS UA Spec Grav 1.025 (12/07/21 10:54 AM) Invalid Interpretation Code 1.006-1.029 Auto Urine SS UA Specimen Type Void (12/07/21 10:54 AM) Invalid Interpretation Code AH Auto Urine SS UA Urobilinogen 1.0 E.U./dL Invalid Interpretation Code 0.2-1.0E.U. /dL Auto Urine SS LABORATORYOrdered By: SYSTEM SYSTEM on 12-07-2021 Ammonia (P) [Moles/Vol] 22 umol/L Invalid Interpretation Code 11 - 32 mcmol/L ADM SS Comment on above: Result Comment: Spec imen slightly hemolyzed. Cobalamin (Vitamin B12) [Mass/Vol] 1917 pg/mL Invalid Interpretation Code 211 - 911 pg/mL ADM SS TSH Qn 1.299 mIU/mL Invalid Interpretation Code 0.550 - 4.780 mIU/mL ADM SS No Panel Informationon 12-07 Culture Urine No growth at [address] [facility] Work Phone: Microscopic examination of blood, culture Blood Culture: No Growth at [address] [facility] Work Phone: Microscopic examination of blood, culture Blood Culture: No Growth at [address] [facility] Work Phone: LABORATORYOrdered By: Miguel davis on 12-06-2021 Osmolality [Osmolality] 295 mosm/kg Invalid Interpretation Code 275 - 300 mOsm/kg Manual Chem SS LABORATORYOrdered By: Shantal Coker on 12-06-2021 Osmolality [Osmolality] 300 mosm/kg Invalid Interpretation Code 275 - 300 mOsm/kg Manual Chem SS LABORATORYOrdered By: [employer] SYSTEM on 12-06-2021 Albumin [Mass/Vol] 2.8 G/dL Invalid Interpretation Code 3.2 - 4.8 G/dL ADM SS Albumin/Globulin [Mass ratio] 0.7 {ratio} Invalid Interpretation Code 0.9 - 1.6 ratio ADM SS ALP [Catalytic activity/Vol] 41 U/L Invalid Interpretation Code 38 - 126 U/L ADM SS ALT [Catalytic activity/Vol] 21 U/L Invalid Interpretation Code 12 - 55 U/L ADM SS AST [Catalytic activity/Vol] 8 U/L Invalid Interpretation Code 8 - 34 U/L ADM SS Bilirubin [Mass/Vol] 0.7 mg/dL Invalid Interpretation Code 0.2 - 1.2 mg/dL ADM SS Globulin (S) [Mass/Vol] 4.0 G/dL Invalid Interpretation Code 1.5 - 3.8 G/dL ADM SS Protein [Mass/Vol] 6.8 G/dL Invalid Interpretation Code 6.0 - 8.5 G/dL ADM SS LABORATORYOrdered By: Kalyn Pereyra on 12-05-2021 Osmolality [Osmolality] 297 mosm/kg Invalid Interpretation Code 275 - 300 mOsm/kg Manual Chem SS LABORATORYOrdered By: Ellen Monson on 12-01-2021 Albumin BCP dye [Mass/Vol] 3.3 G/dL Invalid Interpretation Code 3.2 - 4.8 G/dL ADM SS Albumin/Globulin [Mass ratio] 1.1 {ratio} Invalid Interpretation Code 0.9 - 1.6 ratio ADM SS ALP [Catalytic activity/Vol] 49 U/L Invalid Interpretation Code 38 - 126 U/L ADM SS ALT No additional P-5'-P [Catalytic activity/Vol] 17 U/L Invalid Interpretation Code 12 - 55 U/L ADM SS AST [Catalytic activity/Vol] 11 U/L Invalid Interpretation Code 8 - 34 U/L ADM SS Bili Indirect 0.4 mg/dL Invalid Interpretation Code 0.1 - 10.0 mg/dL Chemistry S Bilirubin [Mass/Vol] 0.60 mg/dL Invalid Interpretation Code 0.20 - 1.20 mg/dL ADM SS Bilirubin.conjugated [Mass/Vol] 0.2 mg/dL Invalid Interpretation Code 0.0 - 0.4 mg/dL ADM SS Globulin 3.1 G/dL Invalid Interpretation Code 1.5 - 3.8 G/dL ADM SS Protein [Mass/Vol] 6.4 G/dL Invalid Interpretation Code 5.7 - 8.2 G/dL ADM SS LABORATORYOrdered By: [employer] SYSTEM on 12-01-2021 25-hydroxyvitamin D3 [Mass/Vol] 21.3 ng/mL Invalid Interpretation Code ADM SS LABORATORYOrdered By: [employer] SYSTEM on 2021 Albumin [Mass/Vol] 3.6 G/dL Invalid Interpretation Code 3.2 - 4.8 G/dL ADM SS Albumin/Globulin [Mass ratio] 0.9 {ratio} Invalid Interpretation Code 0.9 - 1.6 ratio ADM SS ALP [Catalytic activity/Vol] 50 U/L Invalid Interpretation Code 38 - 126 U/L ADM SS ALT [Catalytic activity/Vol] 30 U/L Invalid Interpretation Code 12 - 55 U/L ADM SS AST [Catalytic activity/Vol] 12 U/L Invalid Interpretation Code 8 - 34 U/L ADM SS Bilirubin [Mass/Vol] 0.6 mg/dL Invalid Interpretation Code 0.2 - 1.2 mg/dL ADM SS Globulin (S) [Mass/Vol] 4.1 G/dL Invalid Interpretation Code 1.5 - 3.8 G/dL ADM SS Protein [Mass/Vol] 7.7 G/dL Invalid Interpretation Code 6.0 - 8.5 G/dL ADM SS LABORATORYOrdered By: William Randhawa on 2021 ABO and Rh group Nom (Bld) Blood group A Rh(D) positive Invalid Interpretation Code BB Auto SS Blood group antibody screen Ql NEG (11/30/21 4:57 PM) Invalid Interpretation Code BB Auto SS LABORATORYOrdered By: Carol Khan on 2021 aPTT Coag (PPP) [Time] 31.8 s Invalid Interpretation Code 25.0 - 35.0 seconds AH Auto Coag SS Heparin dose (APTT) None Invalid Interpretation Code AH Auto Coag SS INR Coag (PPP) [Relative time] 1.1 {INR} Invalid Interpretation Code AH Auto Coag SS PT Coag (PPP) [Time] 12.8 s Invalid Interpretation Code 9.0 - 14.9 seconds AH Auto Coag SS Vital Signs Date Time Vital Sign Value Performing Clinician Facility 03-11-2024 14:35-0400 Body mass index (BMI) [Ratio] 39.6 kg/m2 [facility] 03-11-2024 14:35-0400 Body temperature 97.8 [degF] [facility] 03-11-2024 14:35-0400 Body weight 118.1 kg [facility] 03-11-2024 14:35-0400 Diastolic blood pressure 76 mm[Hg] [facility] 03-11-2024 14:35-0400 Heart rate 81 /min [facility] 03-11-2024 14:35-0400 Respiratory rate 17 /min [facility] 03-11-2024 14:35-0400 SaO2% (BldA) [Mass fraction] 97 % [facility] 03-11-2024 14:35-0400 Systolic blood pressure 130 mm[Hg] [facility] 12-16-2023 14:32-0500 Body height 172.72 cm [facility] 12-16-2023 14:32-0500 Body mass index (BMI) [Ratio] 37.5 kg/m2 [facility] 12-16-2023 14:32-0500 Body temperature 97 [degF] [facility] 12-16-2023 14:32-0500 Body weight 112.03 kg [facility] 12-16-2023 14:32-0500 Diastolic blood pressure 89 mm[Hg] [facility] 12-16-2023 14:32-0500 Heart rate 80 /min [facility] 12-16-2023 14:32-0500 Respiratory rate 16 /min [facility] 12-16-2023 14:32-0500 SaO2% (BldA) [Mass fraction] 100 % [facility] 12-16-2023 14:32-0500 Systolic blood pressure 157 mm[Hg] [facility] 09-11-2023 14:01-0400 Body temperature 97.5 [degF] [facility] 09-11-2023 14:01-0400 Body weight 118.16 kg [facility] 09-11-2023 14:01-0400 Diastolic blood pressure 82 mm[Hg] [facility] 09-11-2023 14:01-0400 Heart rate 68 /min [facility] 09-11-2023 14:01-0400 Respiratory rate 16 /min [facility] 09-11-2023 14:01-0400 SaO2% (BldA) [Mass fraction] 97 % [facility] 09-11-2023 14:01-0400 Systolic blood pressure 140 mm[Hg] [facility] 07-13-2023 23:26-0400 Diastolic blood pressure 81 mm[Hg] [facility] 07-13-2023 23:26-0400 Heart rate 78 /min [facility] 07-13-2023 23:26-0400 Respiratory rate 16 /min [facility] 07-13-2023 23:26-0400 SaO2% (BldA) [Mass fraction] 99 % [facility] 07-13-2023 23:26-0400 Systolic blood pressure 164 mm[Hg] [facility] 07-13-2023 22:45-0400 Body height 172.72 cm [facility] 07-13-2023 22:45-0400 Body mass index (BMI) [Ratio] 39.6 kg/m2 [facility] 07-13-2023 22:45-0400 Body temperature 98.4 [degF] [facility] 07-13-2023 22:45-0400 Body weight 118.11 kg [facility] 05-11-2023 10:08-0400 Body mass index (BMI) [Ratio] 38.2 kg/m2 [facility] 05-11-2023 10:08-0400 Body temperature 98 [degF] [facility] 05-11-2023 10:08-0400 Body weight 117.31 kg [facility] 05-11-2023 10:08-0400 Diastolic blood pressure 62 mm[Hg] [facility] 05-11-2023 10:08-0400 Heart rate 83 /min [facility] 05-11-2023 10:08-0400 Respiratory rate 16 /min [facility] 05-11-2023 10:08-0400 SaO2% (BldA) [Mass fraction] 98 % [facility] 05-11-2023 10:08-0400 Systolic blood pressure 122 mm[Hg] [facility] 05-09-2023 13:51-0400 Body mass index (BMI) [Ratio] 38 kg/m2 [facility] 05-09-2023 13:51-0400 Body temperature 97.8 [degF] [facility] 05-09-2023 13:51-0400 Body weight 116.74 kg [facility] 05-09-2023 13:51-0400 Diastolic blood pressure 77 mm[Hg] [facility] 05-09-2023 13:51-0400 Heart rate 81 /min [facility] 05-09-2023 13:51-0400 Respiratory rate 18 /min [facility] 05-09-2023 13:51-0400 SaO2% (BldA) [Mass fraction] 97 % [facility] 05-09-2023 13:51-0400 Systolic blood pressure 132 mm[Hg] [facility] 04-03-2023 12:46-0400 Body weight 119.29 kg [facility] 03-20-2023 11:12-0400 Body height 175.26 cm [facility] 03-20-2023 11:12-0400 Body temperature 97 [degF] [facility] 03-20-2023 11:12-0400 Heart rate 77 /min [facility] 03-20-2023 11:12-0400 Respiratory rate 16 /min [facility] 03-20-2023 11:12-0400 SaO2% (BldA) [Mass fraction] 96 % [facility] 03-13-2023 10:53-0400 Body temperature 97.4 [degF] [facility] 03-13-2023 10:53-0400 Heart rate 78 /min [facility] 03-13-2023 10:53-0400 Respiratory rate 16 /min [facility] 03-13-2023 10:53-0400 SaO2% (BldA) [Mass fraction] 97 % [facility] 03-06-2023 15:19-0400 Body temperature 97.1 [degF] [facility] 03-06-2023 15:19-0400 Heart rate 73 /min [facility] 03-06-2023 15:19-0400 Respiratory rate 16 /min [facility] 03-06-2023 15:19-0400 SaO2% (BldA) [Mass fraction] 97 % [facility] 02-27-2023 13:12-0400 Body temperature 97 [degF] [facility] 02-27-2023 13:12-0400 Heart rate 86 /min [facility] 02-27-2023 13:12-0400 Respiratory rate 16 /min [facility] 02-27-2023 13:12-0400 SaO2% (BldA) [Mass fraction] 96 % [facility] 02-20-2023 14:04-0400 Body temperature 97.5 [degF] [facility] 02-20-2023 14:04-0400 Heart rate 78 /min [facility] 02-20-2023 14:04-0400 Respiratory rate 16 /min [facility] 02-20-2023 14:04-0400 SaO2% (BldA) [Mass fraction] 97 % [facility] 02-13-2023 14:10-0400 Body temperature 97.5 [degF] [facility] 02-13-2023 14:10-0400 Heart rate 78 /min [facility] 02-13-2023 14:10-0400 Respiratory rate 16 /min [facility] 02-13-2023 14:10-0400 SaO2% (BldA) [Mass fraction] 97 % [facility] 02-07-2023 15:36-0400 Body temperature 97.6 [degF] [facility] 02-07-2023 15:36-0400 Heart rate 79 /min [facility] 02-07-2023 15:36-0400 Respiratory rate 16 /min [facility] 02-07-2023 15:36-0400 SaO2% (BldA) [Mass fraction] 98 % [facility] 01-30-2023 14:53-0400 Body temperature 97.5 [degF] [facility] 01-30-2023 14:53-0400 Heart rate 80 /min [facility] 01-30-2023 14:53-0400 Respiratory rate 16 /min [facility] 01-30-2023 14:53-0400 SaO2% (BldA) [Mass fraction] 97 % [facility] 01-23-2023 10:06-0400 Body temperature 97.4 [degF] [facility] 01-23-2023 10:06-0400 Heart rate 80 /min [facility] 01-23-2023 10:06-0400 Respiratory rate 16 /min [facility] 01-23-2023 10:06-0400 SaO2% (BldA) [Mass fraction] 98 % [facility] 01-16-2023 10:19-0500 Body mass index (BMI) [Ratio] 38.8 kg/m2 [facility] 01-16-2023 10:19-0500 Body temperature 97.5 [degF] [facility] 01-16-2023 10:19-0500 Body weight 119.29 kg [facility] 01-16-2023 10:19-0500 Diastolic blood pressure 80 mm[Hg] [facility] 01-16-2023 10:19-0500 Heart rate 75 /min [facility] 01-16-2023 10:19-0500 Respiratory rate 16 /min [facility] 01-16-2023 10:19-0500 SaO2% (BldA) [Mass fraction] 96 % [facility] 01-16-2023 10:19-0500 Systolic blood pressure 143 mm[Hg] [facility] 01-12-2023 16:40-0500 Body temperature 98.1 [degF] [facility] 01-12-2023 16:40-0500 Diastolic blood pressure 79 mm[Hg] [facility] 01-12-2023 16:40-0500 Heart rate 82 /min [facility] 01-12-2023 16:40-0500 Respiratory rate 16 /min [facility] 01-12-2023 16:40-0500 SaO2% (BldA) [Mass fraction] 94 % [facility] 01-12-2023 16:40-0500 Systolic blood pressure 149 mm[Hg] [facility] 01-11-2023 10:58-0500 Body weight 117.6 kg [facility] 01-11-2023 02:30-0500 Inhaled oxygen flow rate 2 L/min [facility] 01-09-2023 11:54-0500 Body mass index (BMI) [Ratio] 38.2 kg/m2 [facility] 01-07-2023 15:00-0500 Body temperature 98.2 [degF] [facility] 01-07-2023 15:00-0500 Diastolic blood pressure 68 mm[Hg] [facility] 01-07-2023 15:00-0500 Heart rate 87 /min [facility] 01-07-2023 15:00-0500 Respiratory rate 16 /min [facility] 01-07-2023 15:00-0500 SaO2% (BldA) [Mass fraction] 95 % [facility] 01-07-2023 15:00-0500 Systolic blood pressure 146 mm[Hg] [facility] 01-07-2023 11:42-0500 Body height 175.26 cm [facility] 01-07-2023 11:42-0500 Body mass index (BMI) [Ratio] 38.7 kg/m2 [facility] 01-07-2023 11:42-0500 Body weight 118.84 kg [facility] 12-27-2022 23:24-0500 Diastolic blood pressure 76 mm[Hg] [facility] 12-27-2022 23:24-0500 Heart rate 74 /min [facility] 12-27-2022 23:24-0500 Respiratory rate 18 /min [facility] 12-27-2022 23:24-0500 SaO2% (BldA) [Mass fraction] 100 % [facility] 12-27-2022 23:24-0500 Systolic blood pressure 145 mm[Hg] [facility] 12-27-2022 22:14-0500 Body height 175.26 cm [facility] 12-27-2022 22:14-0500 Body mass index (BMI) [Ratio] 38 kg/m2 [facility] 12-27-2022 22:14-0500 Body temperature 97.2 [degF] [facility] 12-27-2022 22:14-0500 Body weight 117.02 kg [facility] 12-23-2022 08:53-0500 Diastolic Blood Pressure Non-Invasive [address] KELLER MD [facility] 12-23-2022 08:53-0500 Heart rate 76 /min DR CARRIE KELLER MD [facility] 12-23-2022 08:53-0500 Respiratory rate 16 /min DR CARRIE KELLER MD [facility] 12-23-2022 08:53-0500 Systolic Blood Pressure Non-Invasive [address]RI[address] KELLER MD [facility] 12-23-2022 08:15-0500 Body temperature 96.8 [degF] DR CARRIE KELLER MD [address] [place] [address] 12-23-2022 08:15-0500 Diastolic Blood Pressure Non-Invasive [address] CARRIE KELLER MD [address] [place] [address] 12-23-2022 08:15-0500 Heart rate 74 /min DR CARRIE KELLER MD [address] [place] [address] 12-23-2022 08:15-0500 Reason For Taking VItal Signs DR CARRIE KELLER MD [address] [place] [address] 12-23-2022 08:15-0500 Respiratory rate 16 /min DR CARRIE KELLER MD [address] [place] [address] 12-23-2022 08:15-0500 Systolic Blood Pressure Non-Invasive [address] CARRIE KELLER MD [address] [place] [address] 12-23-2022 08:05-0500 Heart rate 75 /min DR CARRIE KELLER MD [address] [place] [address] 12-23-2022 08:05-0500 Respiratory Rate - Anes 20 br/min DR CARRIE KELLER MD [address] [place] [address] 12-23-2022 08:04-0500 Diastolic Blood Pressure Non-Invasive [address] CARRIE KELLER MD [address] [place] [address] 12-23-2022 08:04-0500 Systolic Blood Pressure Non-Invasive [address] CARRIE KELLER MD [address] [place] [address] 12-23-2022 07:55-0500 Heart rate 73 /min DR CARRIE KELLER MD [address] [place] [address] 12-23-2022 07:55-0500 Respiratory Rate - Anes 17 br/min DR CARRIE KELLER MD [address] [place] [address] 12-23-2022 05:30-0500 Body height 175.[address] CARRIE KELLER MD [address] [place] [address] 12-23-2022 05:30-0500 Body temperature 97.7 [degF] DR CARRIE KELLER MD [address] 12-23-2022 05:30-0500 Body weight 116.[address] CARRIE KELLER MD [address] 12-23-2022 05:30-0500 Heart rate 70 /min DR CARRIE KELLER MD [address] 12-23-2022 05:30-0500 Respiratory rate 16 /min DR CARRIE KELLER MD [address] [place] [address] 12-12-2022 14:43-0500 Blood Pressure Cuff Size DR CARRIE KELLER MD [address] [place] [address] 12-12-2022 14:43-[address] CARRIE KELLER MD [address] 12-12-2022 14:43-[address] CARRIE KELLER MD [address] [place] [address] 12-12-2022 14:43-0500 Body height [address] CARRIE KELLER MD [address] 12-12-2022 14:43-0500 Body temperature 97.52 [degF] DR CARRIE KELLER MD [address] 12-12-2022 14:43-0500 Body weight [address] CARRIE KELLER MD [address] [place] [address] 12-12-2022 14:43-0500 Diastolic Blood Pressure Non-Invasive [address] CARRIE KELLER MD [address] 12-12-2022 14:43-0500 Heart rate 73 /min DR CARRIE KELLER MD [address] 12-12-2022 14:43-0500 Systolic Blood Pressure Non-Invasive [address] CARRIE KELLER MD [address] [place] [address] 04-24-2022 12:39-0400 Body height 175.26 cm [facility] Work Phone: 04-24-2022 12:39-0400 Body mass index (BMI) [Ratio] 36.6 kg/m2 [facility] Work Phone: 04-24-2022 12:39-0400 Body temperature 98.1 [degF] [facility] Work Phone: 04-24-2022 12:39-0400 Body weight 112.6 kg [facility] Work Phone: 04-24-2022 12:39-0400 Diastolic blood pressure 71 mm[Hg] [facility] Work Phone: 04-24-2022 12:39-0400 Heart rate 80 /min [facility] Work Phone: 04-24-2022 12:39-0400 Respiratory rate 17 /min [facility] Work Phone: 04-24-2022 12:39-0400 SaO2% (BldA) [Mass fraction] 97 % [facility] Work Phone: 04-24-2022 12:39-0400 Systolic blood pressure 148 mm[Hg] [facility] Work Phone: 03-27-2022 03:44-0400 Diastolic blood pressure 74 mm[Hg] [facility] Work Phone: 03-27-2022 03:44-0400 Heart rate 75 /min [facility] Work Phone: 03-27-2022 03:44-0400 SaO2% (BldA) [Mass fraction] 96 % [facility] Work Phone: 03-27-2022 03:44-0400 Systolic blood pressure 141 mm[Hg] [facility] Work Phone: 03-27-2022 02:19-0400 Body height 175.26 cm [facility] Work Phone: 03-27-2022 02:19-0400 Body mass index (BMI) [Ratio] 37.5 kg/m2 [facility] Work Phone: 03-27-2022 02:19-0400 Body temperature 96.4 [degF] [facility] Work Phone: 03-27-2022 02:19-0400 Body weight 115.2 kg [facility] Work Phone: 03-27-2022 02:19-0400 Respiratory rate 18 /min [facility] Work Phone: 03-07-2022 20:02-0400 Body mass index (BMI) [Ratio] 36.4 kg/m2 [facility] Work Phone: 03-07-2022 20:02-0400 Body temperature 97.2 [degF] [facility] Work Phone: 03-07-2022 20:02-0400 Body weight 112.03 kg [facility] Work Phone: 03-07-2022 20:02-0400 Diastolic blood pressure 70 mm[Hg] [facility] Work Phone: 03-07-2022 20:02-0400 Heart rate 123 /min [facility] Work Phone: 03-07-2022 20:02-0400 Respiratory rate 16 /min [facility] Work Phone: 03-07-2022 20:02-0400 SaO2% (BldA) [Mass fraction] 98 % [facility] Work Phone: 03-07-2022 20:02-0400 Systolic blood pressure 133 mm[Hg] [facility] Work Phone: 01-29-2022 20:40-0400 Diastolic blood pressure 60 mm[Hg] [facility] Work Phone: 01-29-2022 20:40-0400 Heart rate 71 /min [facility] Work Phone: 01-29-2022 20:40-0400 Respiratory rate 16 /min [facility] Work Phone: 01-29-2022 20:40-0400 Systolic blood pressure 126 mm[Hg] [facility] Work Phone: 01-29-2022 19:05-0400 Body mass index (BMI) [Ratio] 38.2 kg/m2 [facility] Work Phone: 01-29-2022 19:05-0400 Body temperature 97.4 [degF] [facility] Work Phone: 01-29-2022 19:05-0400 Body weight 117.48 kg [facility] Work Phone: 01-29-2022 19:05-0400 SaO2% (BldA) [Mass fraction] 99 % [facility] Work Phone: 01-11-2022 18:12-0500 Diastolic blood pressure 73 mm[Hg] [facility] Work Phone: 01-11-2022 18:12-0500 Heart rate 87 /min [facility] Work Phone: 01-11-2022 18:12-0500 Respiratory rate 16 /min [facility] Work Phone: 01-11-2022 18:12-0500 SaO2% (BldA) [Mass fraction] 97 % [facility] Work Phone: 01-11-2022 18:12-0500 Systolic blood pressure 153 mm[Hg] [facility] Work Phone: 01-11-2022 14:51-0500 Body mass index (BMI) [Ratio] 34.5 kg/m2 [facility] Work Phone: 01-11-2022 14:51-0500 Body temperature 97.2 [degF] [facility] Work Phone: 01-11-2022 14:51-0500 Body weight 106.14 kg [facility] Work Phone: 12-21-2021 18:40-0500 Heart rate 69 /min CRISTAL ROQUE MD [facility] 12-21-2021 18:40-0500 Respiratory rate 18 /min CRISTAL ROQUE MD [facility] 12-21-2021 14:30-0500 Body temperature 97.88 [degF] CRISTAL ROQUE MD [facility] 12-21-2021 14:30-0500 Diastolic blood pressure 69 mm[Hg] CRISTAL ROQUE MD [facility] 12-21-2021 14:30-0500 Heart rate 70 /min CRISTAL ROQUE MD [facility] 12-21-2021 14:30-0500 Mean blood pressure 89 mm[Hg] CRISTAL ROQUE MD [facility] 12-21-2021 14:30-0500 Reason For Taking VItal Signs CRISTAL ROQUE MD [facility] 12-21-2021 14:30-0500 Respiratory rate 17 /min CRISTAL ROQUE MD [facility] 12-21-2021 14:30-0500 Systolic blood pressure 130 mm[Hg] CRISTAL ROQUE MD [facility] 12-21-2021 12:49-0500 Heart rate 69 /min CRISTAL ROQUE MD [facility] 12-21-2021 12:49-0500 Respiratory rate 18 /min CRISTAL ROQUE MD [facility] 12-21-2021 09:34-0500 Heart rate 68 /min CRISTAL ROQUE MD [facility] 12-21-2021 06:44-0500 Body temperature 97.88 [degF] CRISTAL ROQUE MD [facility] 12-21-2021 06:44-0500 Heart rate 79 /min CRISTAL ROQUE MD [facility] 12-21-2021 06:44-0500 Reason For Taking VItal Signs CRISTAL ROQUE MD [facility] 12-21-2021 03:00-0500 Body temperature 97.7 [degF] CRISTAL ROQUE MD [facility] 12-21-2021 03:00-0500 Heart rate 80 /min CRISTAL ROQUE MD [facility] 12-21-2021 03:00-0500 Reason For Taking VItal Signs CRISTAL ROQUE MD [facility] 12-20-2021 22:46-0500 Heart rate 68 /min CRISTAL ROQUE MD [facility] 12-20-2021 22:46-0500 Mean blood pressure 72 mm[Hg] CRISTAL ROQUE MD [facility] 12-20-2021 18:52-0500 Heart rate 72 /min CRISTAL ROQUE MD [facility] 12-18-2021 00:00-0500 Diastolic Blood Pressure NBP 82 [address] [facility] 12-18-2021 00:00-0500 Mean blood pressure 102 mm[Hg] CRISTAL ROQUE MD [facility] 12-18-2021 00:00-0500 Systolic Blood Pressure NBP 145 [address] [facility] 12-17-2021 18:00-0500 Diastolic Blood Pressure NBP 86 [address] [facility] 12-17-2021 18:00-0500 Mean blood pressure 94 mm[Hg] CRISTAL ROQUE MD [facility] 12-17-2021 18:00-0500 Systolic Blood Pressure NBP 124 [address] [facility] 12-17-2021 13:15-0500 Diastolic Blood Pressure NBP 78 [address] [facility] 12-17-2021 13:15-0500 Mean blood pressure 91 mm[Hg] CRISTAL ROQUE MD [facility] 12-17-2021 13:15-0500 Systolic Blood Pressure NBP 135 [address] [facility] 12-11-2021 08:40-0500 Mean blood pressure 112 mm[Hg] CRISTAL ROQUE MD [facility] 12-11-2021 07:23-0500 Mean blood pressure 101 mm[Hg] CRISTAL ROQUE MD [facility] 12-11-2021 06:45-0500 Diastolic blood pressure 47 mm[Hg] CRISTAL ROQUE MD [facility] 12-11-2021 06:45-0500 Mean blood pressure 74 mm[Hg] CRISTAL ROQUE MD [facility] 12-11-2021 06:45-0500 Systolic blood pressure 125 mm[Hg] CRISTAL ROQUE MD [facility] 12-11-2021 06:31-0500 Diastolic blood pressure 50 mm[Hg] CRISTAL ROQUE MD [facility] 12-11-2021 06:31-0500 Systolic blood pressure 126 mm[Hg] CRISTAL ROQUE MD [facility] 12-11-2021 06:10-0500 Diastolic blood pressure 45 mm[Hg] CRISTAL ROQUE MD [facility] 12-11-2021 06:10-0500 Systolic blood pressure 124 mm[Hg] CRISTAL ROQUE MD [facility] 12-10-2021 12:30-0500 Body temperature 99.68 [degF] CRISTAL ROQUE MD [facility] 12-10-2021 09:37-0500 Body temperature 98.24 [degF] CRISTAL ROQUE MD [facility] 12-10-2021 08:04-0500 Body temperature 100.58 [degF] CRISTAL ROQUE MD [facility] 12-09-2021 14:14-0500 SaO2% (BldA) [Mass fraction] 97.5 % CRISTAL ROQUE [facility] 12-09-2021 04:39-0500 SaO2% (BldA) [Mass fraction] 95.0 % CRISTAL ROQUE MD [facility] 12-09-2021 01:52-0500 SaO2% (BldA) [Mass fraction] 98.5 % CRISTAL ROQUE MD [facility] 2021 20:30-0500 Body height 175.3 cm [address]RISTAL ROQUE MD [facility] 2021 20:30-0500 Body weight 118.2 kg CRISTAL ROQUE MD [facility] 2021 20:30-0500 Body weight 38.46 kg/m2 CRISTAL ROQUE MD [facility] 2021 16:35-0500 Body weight 127.5 kg CRISTAL ROQUE MD [facility] Encounters Encounter Date Encounter Type Care Provider Facility Start: 04-08-2024 End: 04-08-2024 Emergency department patient visit [facility] Facility:[facility] Start: 03-11-2024 End: 03-11-2024 ambulatory [facility] Work Phone: Start: 03-11-2024 End: 03-11-2024 Patient encounter procedure [facility] [place] Work Phone: Start: 03-11-2024 End: 03-11-2024 Patient encounter procedure [facility] Work Phone: Start: 03-11-2024 End: 03-11-2024 ambulatory [facility] Facility:[facility] Start: 03-11-2024 End: 03-11-2024 ambulatory [facility] Facility:[facility] Start: 01-08-2024 End: 01-08-[address] [facility] Work Phone: Start: 01-08-2024 End: 01-08-2024 Patient encounter [address] [facility]Neurology Work Phone: Start: 01-08-2024 End: 01-08-2024 ambulatory [facility] Facility:[facility] Start: 12-16-2023 End: 12-16-2023 Emergency department patient visit [facility] Work Phone: Start: 2023 End: 2023 ambulatory [facility] Work Phone: Start: 2023 End: 2023 Patient encounter procedure [facility]Cat [facility], [facility] Work Phone: Start: 2023 End: 2023 ambulatory [facility] Facility:[address] [facility] Start: 09-11-2023 End: 09-11-2023 Patient encounter procedure [facility] Work Phone: Start: 09-11-2023 End: 09-11-2023 ambulatory [facility] Facility:[facility] Start: 07-13-2023 End: 07-13-2023 Emergency department patient visit [facility]Emergency Department Work Phone: Start: 05-11-2023 End: 05-11-2023 Patient encounter procedure [facility] Work Phone: Start: 05-11-2023 End: 05-11-2023 ambulatory [facility] Facility:[facility] Start: 05-09-2023 End: 05-09-2023 Patient encounter procedure [facility] Work Phone: Start: 05-09-2023 End: 05-09-2023 ambulatory Jim Calvo Facility:[facility] Start: 05-08-2023 End: 05-08-2023 ambulatory [facility] Work Phone: Start: 05-08-2023 End: 05-08-2023 Discharged Recurring [facility]-Occupational Therapy Start: 04-03-2023 End: 04-03-2023 Patient encounter procedure [facility] Start: 03-20-2023 End: 03-20-2023 Patient encounter procedure [facility] Start: 03-13-2023 End: 03-13-2023 Patient encounter procedure [facility] Start: 03-06-2023 End: 03-06-2023 Patient encounter procedure [facility] Start: 02-27-2023 End: 02-27-2023 Patient encounter procedure [facility] Start: 02-20-2023 End: 02-20-2023 Patient encounter procedure [facility] Start: 02-13-2023 End: 02-13-2023 Patient encounter procedure [facility] Start: 02-07-2023 End: 02-07-2023 Patient encounter procedure [facility] Start: 01-30-2023 End: 01-30-2023 Patient encounter procedure [facility] Start: 01-24-2023 Non-patient / Non-visit [facility] Start: 01-23-2023 End: 01-23-2023 Patient encounter procedure [facility] Start: 01-16-2023 End: 01-16-2023 Patient encounter procedure [facility] Start: 01-12-2023 Non-patient / Non-visit [facility] Start: 01-11-2023 Non-patient / Non-visit [facility] Start: 01-10-2023 Non-patient / Non-visit [facility] Start: 01-09-2023 Non-patient / Non-visit [facility] Start: 01-09-2023 End: 01-12-2023 Non-patient / Non-visit [facility] Start: 01-09-2023 End: 01-09-2023 Non-patient / Non-visit [facility] Start: 01-08-2023 Non-patient / Non-visit [facility] Start: 01-07-2023 End: 01-12-2023 Evaluation and management of inpatient [facility]-Medical Surgical 3 Start: 01-04-2023 End: 01-05-[address] CARRIE KELLER MD Facility:A Start: 01-04-2023 End: 01-04-[address] CARRIE KELLER MD [facility] Start: 12-28-2022 End: 12-28-[address] [facility] Work Phone: Start: 12-28-2022 End: 12-28-[address] [facility] Start: 12-27-2022 End: 12-27-2022 Emergency department patient visit [facility]-Emergency Department Start: 12-27-[address] CARRIE KELLER MD Faci lity:A Start: 12-23-2022 End: 12-23-[address] CARRIE KELLER MD Facility:A Start: 12-23-2022 End: 12-23-[address] CARRIE KELLER MD [facility] Start: 12-12-2022 End: 12-12-2022 Admission to [facility] DR CARRIE KELLER MD 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 Start: 11-02-2022 End: 11-02-[address] [facility] Work Phone: Start: 11-02-2022 End: 11-02-[address] [facility]-Occupational Therapy Start: 11-02-2022 Registered Rec[facility]ring [facility]-Occupational Therapy Start: 10-25-2022 End: 10-26-[address] CARRIE KELLER MD Facility:A Start: 10-25-2022 End: 10-25-[address] CARRIE KELLER MD [facility] Start: 10-19-2022 End: 10-20-2022 ambulatory CRISTAL ROQUE MD Facility:A Start: 10-19-2022 End: 10-19-2022 Minor Procedure CRISTAL ROQUE MD [facility] Start: 08-01-2022 End: 08-02-2022 ambulatory CRISTAL ROQUE MD Facility:A Start: 08-01-2022 End: 08-01-2022 Patient encounter procedure CRISTAL ROQUE MD [facility] Start: 06-17-2022 End: 06-18-2022 ambulatory CRISTAL ROQUE MD Facility:B Start: 06-17-2022 End: 06-17-2022 Patient encounter procedure CRISTAL ROQUE MD [facility] Start: 06-08-2022 End: 06-09-2022 ambulatory CRISTAL ROQUE MD Facility:A Start: 04-24-2022 End: 04-24-2022 Emergency department patient visit [facility]-Emergency Department Start: 03-27-2022 End: 03-27-2022 Emergency department patient visit [facility]-Emergency Department Start: 03-24-2022 End: 03-24-[address] [facility]-Physical Therapy Start: 03-07-2022 End: 03-07-2022 Emergency department patient visit [facility]-Emergency Department Start: 02-09-2022 End: 02-10-2022 ambulatory CRISTAL ROQUE MD Facility:A Start: 01-29-2022 End: 01-29-2022 Emergency department patient visit [facility]-Emergency Department Start: 01-11-2022 End: 01-11-2022 Emergency department patient visit [facility]-Emergency Department Start: 2021 End: 2021 ambulatory UNKNOWN PROVIDER Facility:[facility] Start: 2021 End: 12-21-2021 Evaluation and management of inpatient LUISANA BROOKS MD [facility] Procedures Date Procedure Procedure Detail Performing Clinician Start: 2023 CT of head without contrast [facility] Start: 01-09-2023 Incision and drainag e of abscess [facility] Start: 01-07-2023 Plain x-ray of hand Start: 12-22-2022 Decompression of med mary nerve DR CARRIE KELLER MD Comment on above: left Start: 03-27-2022 Urine culture Start: 01-29-2022 Urine culture Start: 01-11-2022 Urine culture Start: 11-13-[address] CARRIE HERNANDEZ MD Bacteria identified in Blood by Culture [facility] Coronary artery bypa ss graft CRISTAL ROQUE MD Comment on above: quadruple Cyst (disorder) CRISTAL ROQUE MD Comment on above: right ear Fungus stain method [place] [facility] H/O: surgery History of hand surgery [facility] History of coronary artery bypass grafting Hx 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 History of carpal tunnel surgery of left wrist [facility] History of decompres adonis of median nerve History of carpal tunnel surgery of left wrist [facility] Mycology culture [facility] Plan of Treatment Date Care Activity Detail Author Start: 12-16-2023 [facility] Start: 04-03-2023 Patient referral [facility] Work Phone: Start: 01-12-2023 Patient discharge [facility] Start: 01-11-2023 Referral to service [facility] Start: 01-10-2023 Consultation for treatment [facility] Start: 01-10-2023 Wound care [facility] Start: 01-09-2023 Consultation [facility] Start: 01-08-2023 Consultation [facility] Start: 01-07-2023 Following clinical p athway protocol [facility] Start: 01-07-2023 Assessment of risk o f venous thromboembolism [facility] Start: 01-07-2023 Care regimes management [facility] Start: 01-07-2023 Insertion of cathete r into peripheral vein [facility] Start: 01-07-2023 Providing care accor ding to standard [facility] Start: 01-07-2023 Provision of activity privileges [facility] Start: 01-07-2023 Referral to occupati onal therapist [facility] Start: 01-07-2023 Referral to service [facility] Start: 01-07-2023 [facility] Start: 01-07-2023 Admission procedure [facility] Start: 01-07-2023 Verification routine [facility] Start: 01-07-2023 End: 01-07-[address] [facility] Start: 12-27-2022 US.doppler Lower extremity vein [facility] Start: 04-24-2022 Bacteria identified in Urine by Culture Urine Culture [facility] Work Phone: Bacteria identified in Blood by Culture Blood Culture [facility] Complete blood count [facility] CT Unspecified body region WO contrast [facility] Electroencephalogram [facility] Folate [Mass/volume] in Serum or Plasma [facility] [place] and lambda light chains [facility] Patient Education [facility] Work Phone: Patient referral [facility] Work Phone: Thiamine measurement [facility] Thiamine measurement [facility] Thyroid stimulating hormone measurement [facility] Vitamin B12 measurement [facility] Immunizations Immunization Date Immunization Notes Care Provider Fa alexandra 2021 tetanus toxoid, redu jennifer diphtheria toxoid, and acellular pertussis vaccine, adsorbed CRISTAL ROQUE MD [facility] 08-22-2021 SARS-CoV-2 mRNA (tozinameran) vaccine CRISTAL ROQUE MD [facility] 02-13-2021 SARS-CoV-2 mRNA (tozinameran) vaccine CRISTAL ROQUE MD [facility] 01-23-2021 SARS-CoV-2 mRNA (tozinameran) vaccine CRISTAL ROQUE MD [facility] Payers Date Payer Category Payer Unknown [id number] 2023 Unknown [id number] 2023 Self-pay [id number] 2021 Unknown [id number] 2021 Unknown [id number] 1955 Unknown [id number] 2.16. [id number] 1955 Unknown [id number] 2.16.8 [id number] 1955 Unknown [id number] 2.16.8 40.1.061718.3.579.2.627 1955 Unknown [id number] 2.16.8 40.1.103617.3.579.2.627 1955 Unknown [id number] 2.16.8 40.1.666809.3.579.2.627 1955 Unknown [id number] 2.16.8 40.1.907472.3.579.2.627 1955 Unknown [id number] 2.16.8 40.1.873296.3.579.2. 1955 Unknown [id number] 2.16.8 40.1.498063.3.579.2. 1955 Unknown [id number] 2.16.8 40.1.189634.3.579.2. 1955 Unknown [id number] 2.16.8 40.1.784010.3.579.2. 1955 Unknown [id number] 2.16.8 40.1.618313.3.579.2. 1955 Unknown [id number] 2.16.8 40.1.180753.3.579.2.627 Medicare [id number] Unknown [id number] 2.16.8 40.1.581768.3.579.2.462 Unknown [id number] 2.16.8 40.1.330768.3.579.2.462 Unknown [id number] 2.16.8 40.1.450060.3.579.2.462 Unknown [id number] 2.16.8 40.1.635379.3.579.2.462 Unknown [id number] 2.16.8 40.1.221027.3.579.2.462 Unknown [id number] 2.16.8 40.1.842307.3.579.2.462 Unknown [id number] 2.16.8 40.1.422406.3.579.2.462 Unknown [id number] 2.16.8 40.1.110043.3.579.2.462 Unknown [id number] 2.16.8 40.1.270007.3.579.2.462 Unknown [id number] 2.16.8 40.1.453681.3.579.2.462 Unknown [id number] 2.16.8 40.1.865788.3.579.2.462 Social History Date Type Detail Facility Start: 04-16-2021 Never smoked t obacco (finding) [facility] Start: 1955 Sex Assigned At Male [facility] Start: 03-27-2022 End: 03-11-2024 Tobacco smoking status NHIS Unknown if ever smoked [facility] Start: 10-30-2019 Spouse/ Signif icant Other [facility] Start: 05-11-2021 Cigarettes [facility] Start: 12-12-2022 Tobacco smoking status Ex-smoker (finding) [facility] Goals Date Patient Goal Desired Activity /State Functional Status Date Assessment Result Facility 01-12-2023 Functional status Ambulates [facility] Work Phone: 12-23-2022 Functional Status Awake [facility] 12-23-2022 Functional Status [facility] 12-12-2022 Functional Status Sensory Defici ts Hearing deficit, left ear, Hearing deficit, right ear [facility] Mental Status Date Assessment Result Facility 01-12-2023 Cognitive function Voice/Name [facility] Work Phone: 12-23-2022 Mental Status Oriented x 4 [facility] 12-23-2022 Mental Status [facility] 03-07-2022 Cognitive function Level Of Cons ciousness Awake;Alert;Appropriate;Follow s Commands [facility] Work Phone: 01-29-2022 Cognitive function Level Of Cons ciousness Awake;Alert;Appropriate;Follow s Commands [facility] Work Phone: 01-11-2022 Cognitive function Level Of Cons ciousness Awake;Alert;Appropriate;Follow s Commands [facility] Work Phone: Clinical Notes 12-01-2021 to 12-16-2023 Note Date & Type Note Facility 12-16-2023 Discharge summary Note Date/Time December 16, 2023 3:00pm [facility] Medical Records Department [address] [place] [address] Emergency Department Summary 12/16/23 MR#: [id number] Acct: [id number] Name: JIM BERNSTEIN Rep #:[id number] : 1955 68 From: Travon Hedrick MD PCP: [place] [facility] Status:REG ER Location: ED HPI History of Present Illness Chief Complaint: Eye Problem Informant: patient and spouse/S.O. Associated Symptoms History of injury: No Visual correction: None Narrative Narrative: 68-year-old male states his right eye has been irritated and watering and bothersome for the past 3 to 4 years since he had a stroke. Today it is worse. Significant other shows me a picture saying that it was more red today, showing in a picture that appears to show significant bulbar conjunctival injection. The patient states his discharge is been clear today. His vision is blurry today and he is sensitive to the light in the right eye only. He denies any deep boring eye pain. He states chronically he has been using an unknown cooling drop in this eye. For the last 3 to 4 days, he has been using cetirizine drops several times a day. Once it helped but the majority of time including today it has not helped at all. He has not seen an radiation protection specialist forthis. He was total 1 point that he was suspected to have glaucoma by someone but he cannot remember any details there. With regards to his stroke he does not have any chronic facial symptoms, but the significant other who was who brought him here and is extremely worried about him states that when he had a stroke before he had some vision affected. The patient admits that the blurry vision in his right eye is chronic and may be a little worse today but he has novisual field losses or other acute neurologic symptoms. 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 [facility] Medical History Abscess of bursa, left wrist Abscess of dorsum of left hand Abscess, palm Arthritis Chest pain Compartment syndrome of left hand Coronary artery disease CVA (cerebral vascular accident) Diabetes Extensor tenosynovitis of left wrist Former smoker Hearing problem High cholesterol History of carpal tunnel surgery of left wrist HTN (hypertension) Left hand pain Neuropathy Open wound of left hand except fingers with tendon involvement Open wound of left palm Open wound of left wrist with tendon involvement Open wounds of multiple sites of left hand Sleep apnea Subdural hematoma Suppurative tenosynovitis of flexor tendon of left hand Tenosynovitis of hand UTI (urinary tract infection) Home Medications doxazosin 2 mg tablet 2 mg PO DAILY BLOOD PRESSURE 05/10/21 [History Last Taken 01/06/23] meclizine 12.5 mg tablet 6.25 mg PO BID DIZZINESS 05/10/21 [History Last Taken 01/06/23] metformin 500 mg tablet 1,000 mg PO QPM DIABETES 05/10/21 [History Last Taken 01/06/23] carvedilol 25 mg tablet 25 mg PO BID HEART 04/24/22 [History Last Taken 01/06/23] Cinnamon 1,200 mg PO/SL DAILY SUPPLEMENT 01/07/23 [History Last Taken 01/06/23] amlodipine 10 mg tablet 10 mg PO DAILY BLOOD PRESSURE 01/07/23 [History Last Taken 01/06/23] aspirin 81 mg tablet,delayed release 81 mg PO DAILY HEART HEALTH 01/07/23 [History Last Taken 01/06/23] fluticasone propionate 50 mcg/actuation nasal spray,suspension 1 spray intranasal UD CONGESTION 01/07/23 [History Last Taken 01/06/23] hydralazine 50 mg tablet 100 mg PO TIDCM BLOOD PRESSURE 01/07/23 [History Last Taken 01/06/23] lisinopril 40 mg tablet 40 mg PO DAILY BLOOD PRESSURE 01/07/23 [History Last Taken 01/06/23] pregabalin 25 mg capsule 25 mg PO QHS Check with primary doctor 01/07/23 [History Last Taken 01/06/23 22:00] rosuvastatin 20 mg tablet 20 mg PO DAILY CHOLESTEROL 01/07/23 [History Last Taken 01/07/23] semaglutide (weight loss) 0.5 mg/0.5 mL subcutaneous pen injector 0.5 mg subcut SA DIABETES 01/07/23 [History Last Taken 12/31/22] sertraline 100 mg tablet (Zoloft) 100 mg PO DAILY DEPRESSION/ANXIETY 01/07/23 [History Last Taken 01/06/23] pregabalin 50 mg capsule 50 mg PO BID #60 caps 01/12/23 [Rx Last Taken Unknown] oxycodone 5 mg tablet 10 mg (2 x 5 mg) PO Q6H PRN pain 7 days #56 tabs 03/09/23 [Rx Last Taken Unknown] donepezil 10 mg tablet 10 mg PO QHS #30 tabs 05/16/23 [Rx Last Taken Unknown] donepezil 5 mg tablet 5 mg PO QHS #30 tabs 05/16/23 [Rx Last Taken Unknown] memantine 10 mg tablet 10 mg PO BID #60 tabs 09/13/23 [Rx Last Taken Unknown] Allergy/AdvReac Type Severity Reaction Status Date / Time gabapentin Allergy Severe Other Verified 12/16/23 14:32 Family History Mother Dementia Parkinsons disease Father Heart disease Hypertension Myocardial infarction CVA (cerebral vascular accident) CAD (coronary artery disease) Surgical History History of appendectomy History of carpal tunnel surgery of left wrist History of hand surgery S/P appendectomy S/P CABG x 4 Social History household members: spouse Smoking Status: Former smoker how long ago did patient quit smoking: Smoked in x 7 years, quit 1978,cigars. 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 substance use type: does not use ROS ROS ED Constitutional Constitutional ED: Denies chills or fever(s) Eyes Eyes: Reports as per HPI, blurry vision right, erythema, tearing and other Details: irritated, not painful ENT ENT ED: Denies ear pain, rhinorrhea or sore throat Gastrointestinal Gastrointestinal: Denies nausea or vomiting Neurologic Neurologic: Denies headache(s), paresthesias or weakness EXAM Physical Exam Const Vital Signs: 12/16/23 14:32 Temperature 97.0 F L Temperature Source Temporal Pulse Rate 80 Respiratory Rate 16 Blood Pressure 157/89 H Blood Pressure Mean 111 Pulse Ox 100 Oxygen Delivery Method Room Air Positive well nourished and well developed General Appearance ED: well developed and NAD HEENT atraumatic; Negative for tenderness Mouth ED: Yes oral and palatal mucosa normal and Yes lips normal Mouth: oral and palatal mucosa normal and lips normal Eyes PERRL and EOMs intact bilaterally Eyes Narrative: Mild right bulbar conjunctival injection. No chemosis. No major palpebral injection or eyelid swelling. No periorbital cellulitis. No active discharge present. Mild photophobia. Neck no lymphadenopathy and supple Neuro oriented x3, CN's II-XII intact bilaterally and gait normal Sensorium / Orientation: alert Skin Lesions: no lesions Rashes: no rashes MDM MDM MDM Narrative Medical decision making narrative: After visual acuities were done, tetracaine was placed in both eyes for local anesthesia for Paul-Pen measurement of pressures. Vision was 20/70 OS, 20/50 OD, 20/40 both eyes. Pressures were 23-24 on both eyes, several measurements taken which were consistent and of 5% or less degree of error according to the Paul-Pen which was calibrated before measurement. On slit-lamp exam, he does have some speckling of the cornea. With fluorescein staining, this does uptake the dye, it appears to be superficial and I do not see any evidence of an ulcer or linear abrasion or foreign body. I discussed all this with ophthalmology , she advises discontinuing all of the drops he is doing, and having him dopreservative-free refresh p.m. ointment as needed, and [facility] with [facility] as the patient had previously planned. Discharge Plan Triage Chief Complaint: Eye Problem ED Provider: Travon Hedrick Dx/Rx/DC Orders Clinical Impression: Keratitis, right Prescriptions: No Action oxycodone 5 mg tablet 10 mg PO Q6H PRN (Reason: pain) 7 Days Qty: 56 0RF donepezil 5 mg tablet 5 mg PO QHS Qty: 30 0RF donepezil 10 mg tablet 10 mg PO QHS Qty: 30 5RF Rx Instructions: Begin after completing one month of treatment of donepezil 5mg nightly memantine 10 mg tablet 10 mg PO BID Qty: 60 4RF Rx Instructions: Begin after completing 3-week titration using memantine 5 mg tablets. metformin 500 MG tablet 1,000 mg PO QPM meclizine 12.5 MG tablet 6.25 mg PO BID doxazosin 2 mg tablet 2 mg PO DAILY carvedilol 25 mg Tablet 25 mg PO BID sertraline [Zoloft] 100 mg Tablet 100 mg PO DAILY aspirin 81 mg Tablet,Delayed Release (Dr/Ec) 81 mg PO DAILY amlodipine 10 mg Tablet 10 mg PO DAILY fluticasone propionate 50 mcg/actuation [place],Suspension 1 spray intranasal UD rosuvastatin 20 mg Tablet 20 mg PO DAILY semaglutide (weight loss) 0.5 mg/0.5 mL Pen Injector 0.5 mg SUBCUT SA Cinnamon 1,200 mg PO/SL DAILY hydralazine 50 mg tablet 100 mg PO TIDCM lisinopril 40 MG tablet 40 mg PO DAILY pregabalin 25 mg Capsule 25 mg PO QHS pregabalin 50 mg Capsule 50 mg PO BID Qty: 60 0RF Primary Care Provider: [facility] Referrals: Calli Escoto MD [Med Staff - Active Staff] - 3-5 Days if not improving [facility] [Primary Care Provider] - Activity Restrictions/Additional Instructions: Discontinue the upfl-zla-mvhuxcb drops that you are currently using. For thenext 3 to 4 days, use REFRESH PM ointment especially at night, you can use this up to every hour as needed for discomfort. If you want to transition to drops after this, then you may use any preservative-free artificial tears product. Follow-up with an radiation protection specialist as above or with the [facility]. Keratitis is an inflammation of the cornea. The cornea is the outer, clear layerthat covers the colored part of your eye and pupil. Ultraviolet light can burn your eye and cause keratitis. Bright sunlight can do this if you don't wear sunglasses that block ultraviolet light. This is especially true when the sun's rays reflect off snow or water, or when you look directly into the sun for a long time. The problem can also be caused by bright light from welding equipment (also known as welder/fabricator's flash), tanning booths, and sunlamps. These can burn your eyes if you don't wear eye protection. Your doctor may have put a few drops of medicine into your eye to prevent infection and scarring. Your doctor may also have given you an eye patch or a special type of contact lens to wear while your eye heals. It may take 24 hours after the burn to know how much of your eye was affected. Your vision may be blurry and your eye may hurt and feel irritated. These symptoms should start to get better within a few days. Follow-up care is a thomas part of your treatment and safety.?Be sure to make and go to all appointments, and call your doctor if you are having problems. It is also a good idea to know your test results and keep a list of the medicines you take. How can you care for yourself at home? * If your doctor gave you eyedrops, use them as directed. Antibiotic eyedrops help prevent infection and scarring. Use the medicine for as long as your doctor tells you to, even if your eye starts to look and feel better. Keep the bottle tip clean. Do not let it touch the eye area. * Be sure to only use the eyedrops your doctor prescribed. Do not use ifxk-dly-ongvohj eyedrops. They may make your symptoms worse. * To put in eyedrops: * Tilt your head back, and pull your lower eyelid down with one finger. * Drop or squirt the medicine inside the lower lid. * Close your eye for 30 to 60 seconds to let the drops move around. * Do not touch the eyedropper tip to your eyelashes or any other surface. * Put a cold washcloth over your eye to help reduce swelling. Do this for 15 minutes 3 or 4 times a day for the first 24 to 48 hours after a burn to your eye. If you use a small ice pack, place a cloth between the ice and your skin. Do not use chemical cooling packs on or near your eye. If the pack leaks, the chemicals could cause more harm to your eye. After the swelling goes down, put a warm washcloth over your eye to help relieve pain. * Do not wear contact lenses or eye makeup until your doctor says it is okay. If you were wearing disposable contacts when the burn happened, throw them away. Use a new pair when your eye has healed and it is safe to wear them again. * Take an sthe-tai-mjvkndz pain medicine, such as acetaminophen (Tylenol), ibuprofen (Advil, Motrin), or naproxen (Aleve), as needed. Read and follow all instructions on the label. * If you feel like you have something in your eye, don't rub it. This could cause more harm to your eye. To prevent ultraviolet reyes to your eye: * Wear sunglasses that block ultraviolet rays. Do this even on cloudy days and in the winter. * Protect your eyes from the sun's glare when you are boating, sunbathing, or skiing. * Wear a mask or goggles designed for welding if you are welding or are near someone who is welding. * Use goggles to protect your eyes when you use tanning booths or sunlamps. When should you call for help? Call your doctor now?or seek immediate medical care if: * You have signs of an eye infection, such as: * Pus or thick discharge coming from the eye. * Redness or swelling around the eye. * A fever. * You have new or worse eye pain. * You have vision changes. * It feels like there is something in your eye. * Light hurts your eye. Watch closely for changes in your health, and be sure to contact your doctor if: * You do not get better as expected. What to do if you have Problems For any increased pain, shortness of breath, bleeding, nausea or vomiting, chestpain, or any unexpected problems, contact your Primary Care Provider. Call [facility] ([phone]) or report to the closest Emergency Room. Call 911 if necessary. 12/16/23 1640 <Electronically signed by Travon Hedrick MD> Scott Signature (if applicable): CC: [facility] ~ Signed [facility] Work Phone: [phone] 466-812102-03-2024 Hospital Discharge instructions Additional Instructions Discontinue the wzae-ooi-iiylhlj drops that you are currently using. For the next 3 to 4 days, use REFRESH PM ointment especially at night, you can use this up to every hour as needed for discomfort. If you want to transition to drops after this, then you may use any preservative-free artificial tears product. Follow-up with an radiation protection specialist as above or with the [facility]. Keratitis is an inflammation of the cornea. The cornea is the outer, clear layer that covers the colored part of your eye and pupil. Ultraviolet light can burn your eye and cause keratitis. Bright sunlight can do this if you don't wear sunglasses that block ultraviolet light. This is especially true when the sun's rays reflect off snow or water, or when you look directly into the sun for a long time. The problem can also be caused by bright light from welding equipment (also known as welder/fabricator's flash), tanning booths, and sunlamps. These can burn your eyes if you don't wear eye protection. Your doctor may have put a few drops of medicine into your eye to prevent infection and scarring. Your doctor may also have given you an eye patch or a special type of contact lens to wear while your eye heals. It may take 24 hours after the burn to know how much of your eye was affected. Your vision may be blurry and your eye may hurt and feel irritated. These symptoms should start to get better within a few days. Follow-up care is a thomas part of your treatment and safety. Be sure to make and go to all appointments, and call your doctor if you are having problems. It is also a good idea to know your test results and keep a list of the medicines you take. How can you care for yourself at home? If your doctor gave you eyedrops, use them as directed. Antibiotic eyedrops help prevent infection and scarring. Use the medicine for as long as your doctor tells you to, even if your eye starts to look and feel better. Keep the bottle tip clean. Do not let it touch the eye area. Be sure to only use the eyedrops your doctor prescribed. Do not use zxcz-fud-pfcocez eyedrops. They may make your symptoms worse. To put in eyedrops: Tilt your head back, and pull your lower eyelid down with one finger. Drop or squirt the medicine inside the lower lid. Close your eye for 30 to 60 seconds to let the drops move around. Do not touch the eyedropper tip to your eyelashes or any other surface. Put a cold washcloth over your eye to help reduce swelling. Do this for 15 minutes 3 or 4 times a day for the first 24 to 48 hours after a burn to your eye. If you use a small ice pack, place a cloth between the ice and your skin. Do not use chemical cooling packs on or near your eye. If the pack leaks, the chemicals could cause more harm to your eye. After the swelling goes down, put a warm washcloth over your eye to help relieve pain. Do not wear contact lenses or eye makeup until your doctor says it is okay. If you were wearing disposable contacts when the burn happened, throw them away. Use a new pair when your eye has healed and it is safe to wear them again. Take an mjam-jfc-stcyxjf pain medicine, such as acetaminophen (Tylenol), ibuprofen (Advil, Motrin), or naproxen (Aleve), as needed. Read and follow all instructions on the label. If you feel like you have something in your eye, don't rub it. This could cause more harm to your eye. To prevent ultraviolet reyes to your eye: Wear sunglasses that block ultraviolet rays. Do this even on cloudy days and in the winter. Protect your eyes from the sun's glare when you are boating, sunbathing, or skiing. Wear a mask or goggles designed for welding if you are welding or are near someone who is welding. Use goggles to protect your eyes when you use tanning booths or sunlamps. When should you call for help? Call your doctor now or seek immediate medical care if: You have signs of an eye infection, such as: Pus or thick discharge coming from the eye. Redness or swelling around the eye. A fever. You have new or worse eye pain. You have vision changes. It feels like there is something in your eye. Light hurts your eye. Watch closely for changes in your health, and be sure to contact your doctor if: You do not get better as expected.[facility] Work Phone: [phone]) 352-120906-26-2023 Discharge summary Author Brittney Singh [facility] May 08, 2023 1:23pm Note Date/Time May 08, 2023 1:[address] [facility] Occupational Therapy [facility] [address] [place] [address] [address] [place] [address] / REHABILITATION SERVICES DISCHARGE SUMMARY MR#: [id number] Acct: [id number] Name: JIM BERNSTEIN Rep #: [id number] : 1955 67 From: Brittney ANDREA CHT Referring Dr.: KAMALA Platt Status: REG RCR Eval Date: Discharge Date: It has been my pleasure to treat JIM BERNSTEIN under orders from KAMALA Stock, for the diagnosis of cutaneous abscess left hand, synovitis/tenosynovitis/infection left hand for a total of 8 visit(s). Please see the following information for a summary of their discharge status. % Improvement: 75 Objective/Function: left community music therapist strength 50# increase from 20#. left lateral pinch 12# increase from 12#. left tripod pinch 14# same as evaluation. Patient Goals: Regain Strength, Improve Fine Motor Skills, Use Hand/Wrist/Arm Normally Again, Be More Independent in ADLS Goal:Daily scar massage when approriate: Yes Goal:ROM equal to unaffected hand: Yes Goal:Datastage Developer/Pinch strength at least 75% of unaffected hand: Yes Goal:No pain with affected hand use: Yes Goal:PIP Circumferences equal to unaffected hand: Yes Goal:Full use of affected hand in daily activities including: Yes Goal:Decrease scar hypersensitivity: Yes Plan: D/C Discharge Comments: pt states he is ready for D/C and states he will continue with his HEP. (scar mtg. ROM, PROM and PRE) as well as return to use with IADLs and ADLs. pt agrees with D/C and states he will continue with HEP. If there are questions or concerns regarding this patient's occupational therapy, please fell free to call me at [phone]. Thank you for the referral of this patient. Sincerely, ZULLY Britton CHT <Electronically signed by Brittney ANDREA CHT> 05/08/23 0693 CC: KMAALA Platt; [facility] ~ MK Signed [facility] Work Phone: [phone]) 106-576002-14-2023 Hospital Discharge instructions Additional Instructions Your risk factors and physical exam do not suggest blood clot but as there is a concern for this because of your recent carpal tunnel surgery a venous duplex for your arm has been ordered. This cannot be performed at this time of night so therefore return tomorrow as directed on your order. If there are any further concerns or worsening of symptoms please [facility] Work Phone: [phone]) 564-707302-10-2023 Anesthesiology Consult note Patient: JIM BERNSTEIN Age: [...] KAVITA CRUZ MD on 12/23/2022 04:[address] [id number] Discharge instructions Patient Education 12/23/2022 08:34:44 1-SDS Discharge Instructions Template (08/2018) (Custom) [place] [facility] DISCHARGE INSTRUCTIONS PLEASE FOLLOW [...] us better serve our patients. Form: 1522 [id number]) R: 02/1912/23/2022 08:34:44 Endoscopic Carpal Tunnel Release, [...] Follow these instructions at home: Medicines Take jlac-aay-fwstvxv and prescription medicines only as told by [...] and after you change any additional bandage (dressing).If soap and water are not available, use hand supreme court judge. ?Change this dressing as told by your [...] your health care provider approves. Ask your healthcare provider if you may take showers. Managing [...] contain nicotine or tobacco, such as cigarettes, e- cigarettes, and chewing tobacco. These can delay incision [...] 02/27/2020 Document Revised: 02/27/2020 Document Reviewed: 02/27/2020 ElseMetaLINCS Patient Education 2019 [employer]. Follow Up Care 11/29/2022 10:30:23 With:CARRIE KELLER MD, Neurosurgery Address: [address] [place] [address] [address] [place] [phone] When: Unknown Comments:Follow-up as scheduled With:JOSE AKHTAR, Neurosurgery Address: [address] [place] [address] [address] [place] [phone] When:01/04/2023 13:40:00 [facility] 02-10-2023 Summary of episode note Discharge Instructions Thank you for allowing [facility] to assist you with your healthcare needs. The following is importantdischarge information regarding your hospital visit. Your Care Team [facility] What to do next Instructions From Your Doctor Your follow up appointment will be with Dr. Keller's Nurse Practitioner, Jose Akhtar CNP. No aspirin, aspirin products, NSAIDS (no [...] chills, redness around the incision, or drainage fromthe incision. Scheduled Follow-Up Appointments Appointment Type When Where Contact InformationNS Post Op 01/04/2023 01:40 PM [facility] Neurosurgery [address] [place] [phone] Surgical Pre-Test 01/05/2023 08:30 AM EST Main PAT Surgery 01/12/2023 07:45 AM EST Main OR Follow Up Appointments Follow Up with JOSE AKHTAR, Neurosurgery When 01/04/2023 01:40 PM EST Where: [address] [place] [address]- [phone] Follow Up with KRISHNA VENTURA, CARRIE Woody, Neurosurgery When Why: Follow-up as scheduled Where: [address] [facility] [address] [place] [address]- [phone] The Following Activity and Diet Have Been [...] and or supplements as they may interact withyour home medications. What How Much When Instructions [...] medication providers or retail pharmacies. Education Materials [place] [facility] DISCHARGE INSTRUCTIONS PLEASE FOLLOW [...] us better serve our patients. Form: 1522 ([id number]) R: 02/19 Endoscopic Carpal Tunnel Release, Care [...] Follow these instructions at home: Medicines Take vltx-lbt-qlhbxoh and prescription medicines only as told by [...] and water are not available, use hand supreme court judge. ? Change this dressing as told by [...] your health care provider approves. Ask your healthcare provider if you may take showers. Managing [...] contain nicotine or tobacco, such as cigarettes, e- cigarettes, and chewing tobacco. These can delay incision [...] Document Reviewed: 02/27/2020 Elsevier Patient Education 2020 [employer]. Additional Information VACCINATE! IT SAVES LIVES! Members of the community who have not yet received the COVID-19 vaccine and would like to receive it can visit one of [facility] vaccine clinics. There are many vaccine clinic locations within the [facility]. For locations and available times, please visit [email or web address]/. It is important to note that some COVID mobile vaccine clinics are held outdoors and may be canceled in rainy or stormy conditions. To learn more about pediatric vaccinations (ages 5-11), we invite you to visit the [facility] webpage. [email or web address]/[email or web address]-[email or web address] stions.htmlTo learn more about the COVID-19 vaccine, we invite you to visit the [facility] website for a list of frequently asked questions. [email or web address] [email or web address] [facility] Patient Portal Access Instructions: Stay connected with your healthcare team and access your personal medical information anytime with the [employer] Patient Portal.If you would like a full copy of your medical records, please contact the [facility] Medical Records Department, Monday through Monday between 8a.m. and 4:30p.m. Please follow the directions below to access the portal: 1.Access the email account you provided upon registration to the [facility].2.Look for an invitation email from [facility].3.Open the email and access the invitation link: Accept Invitation to [employer]4.Fill in the required east to create your account. Sign into www.[employer] Inc[employer] with your username and password that you [...] you will allow to register on the [facility] Patient Portal for access to your information. You can also access the [employer] Patient Portal on the [employer] [address] batsheva. Simply click on Health Records under [employer] and then click on the [facility] logo. HOW TO SAFELY DISPOSE OF PRESCRIPTION MEDICATIONS Please use one of the following methods to safely dispose of your unused medications. 1.Use a drug disposal kit: the drug disposal pouch allows you to safely discard your old and unuseddrugs. Ask your nurse to give you one when you are discharged.2.Visit a local take-back location: Many local pharmacies and police departments have programs that collect old and unwanted prescriptiondrugs. Call your local pharmacy or go to http://bit.placespourtous.com/2I0Er2k to find one close to you.3.Make use of household items: Use cat litter or old coffee grounds to dispose medications if other options arenot available. Mix your drugs with these household products, seal them in an airtight container andthrow it into the garbage. Call [facility]: [phone] to be sure your drugs can be [...] aware that I should contact my doctor. Patient/Chief Operating Officer Signature: Date/Time: Relationship to Patient: Witness Name/Signature: Date[facility]Time: [facility] Anesthesiology Consult note Patient: JIM BERNSTEIN Age: [...] 20 mL, IV Push (INT), PREOP pharm, Routine,18 hour(s), Stop date 12/23/22 23:42:00 EST, Rate: [...] : 500 mg = 1 tab(s), Oral, qPM,# 90 tab(s), 0 Refill(s) amLODIPine 10 mg [...] Medical Carpal tunnel syndrome / SNOMED CT 36601228 / Confirmed Stenosis of cervical spine / SNOMED CT 371799802 / Confirmed TBI (traumatic brain injury) / SNOMED CT 303839 / Confirmed, Active Problems (19) Anxiety Back pain Balance disorder Carpal tunnel syndrome Claustrophobia COVID-19 Depression Diabetes Dizziness Hard of hearing Hearing aid HTN (hypertension) Hypercholesterolemia Impaired memory Panic attack Seizures Stenosis of cervical spine TBI (traumatic brain injury) Vertigo Histories Past Medical History: No active or resolved past medical history items have been selected or recorded. Procedure history: Carpal tunnel release ([id number]) on 12/22/2022 at 67 Years. 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 Coronary artery bypass graft ([id number]). Comments: 04/16/2021 14:14 ELMER Martinez quadruple Cyst ([id number]). Comments: 04/16/2021 14:14 ELMER Martinez right ear Social History Social & Psychosocial Habits Alcohol 04/16/2021 Use: Current Type: Beer Frequency: Daily Comment: 2-3 beers daily - 04/16/2021 14:14 ELMER Kumar Substance Abuse 04/16/2021 Use: Never Tobacco 12/12/2022 [...] Weight Lbs 257.2 lb Weight Method Actual [place] Body Weight 70.74 kg Type of Scale [...] Documentation reviewed: Current records. Assessment and Plan [place] Society of Anesthesiologists (ASA) physical status classification: Class III. Anesthetic Preoperative Plan Premedication: intravenous. Anesthetic technique: MAC. Postoperative pain management: Per surgeon. Informed consent: signed by patient. Notes: TBI, seizures. Digitally Signed by TALA JOHNSON MD on 12/23/2022 07:[address] [id number] Note ORIGINAL HISTORY: Traumatic brain injury COMPARISON: [...] intra or extra-axial fluid collections. There is ybze-ap-lkgcajft punctate and nodular T2 hyperintensity in the [...] 06/17/2022 2:37:18 PM Ordering Provider: CRISTAL ROQUE [facility]08-05-2022 Note ORIGINAL HISTORY: Traumatic brain injury COMPARISON: [...] intra or extra-axial fluid collections. There is hbaz-fq-ibxyynaf punctate and nodular T2 hyperintensity in the [...] 2:37:18 PM Ordering Provider: [facility]02-08-2022 Hospital Discharge instructions Patient Education 12/21/2021 12:35:11 Fall Prevention [...] Use night-lights. Place frequently used items in tacu-bi-leggs places. Lower the shelves around your home [...] of the way. Do not use floor maltese or wax that makes floors slippery. If [...] Wear shoes that have rubber soles or lowheels. Use mobility aids as needed, such as canes, walkers, scooters, and crutches. Review your medicines with your health care provider. Some medicines can cause dizziness or changesin blood pressure, which increase your risk of falling. Talk with your health care provider about other ways that you can decrease your risk of falls. Thismay include working with a physical therapist or ultimate hoops trainer to improve your strength, balance, and endurance. Where to find more information Centers for Disease Control and Prevention, RICHI: https://www.cdc.gov National [place] on Aging: https://pi4ixfq.paulette.nih.gov Contact a health care provider if: You [...] 10/20/2003 Document Revised: 10/12/2018 Document Reviewed: 06/14/2018 Favbuy Patient Education 2020 [employer]. Follow Up Care 2021 16:35:52 With:[facility] [phone] Address:Unknown When:1-2 days With:CRISTAL ROQUE MD, Neurosurgery Address: When: Unknown Comments:Follow-up in 1 week, has [facility] on December 29 [facility] Address: When: Unknown Comments:Follow-up in 4 weeks With:[facility] [phone] Address:Unknown When:1-2 days Comments:Home health physical and occupational therapists have been ordered for you. [facility] will contact you to set up your first home visit. With:[facility] Address: [address] [place], [place] [address]K[place] [address]- Business (1) When:1-[address] 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 The history given by the patient to [...] basal frontal contusion. He was transferred to [facility]. The CT scan of the head [...] remains stable can be transferred to [facility]. Addendum by DIOMEDES COTTO LINE DECORATOR-WELDING MACHINE SETTER on December 01, 2021 11:45:11 EST This [...] CT Head or Brain w/o Contrast 12/29/21 [facility] evaluation + Plan note Future Appointments Appointment Date:10/19/2022 01:30:00 PM Scheduled Provider: Location:PAIN Appointment Type:PM EMG/NCV [address] [facility] Evaluation + Plan note Future Appointments Appointment Date:10/25/2022 01:00:00 PM Scheduled Provider:KRISHNA VENTURA, CARRIE Woody Location:NEUROS Appointment Type:NS [facility] Evaluation + Plan note Future Appointments [facility] evaluation + Plan note Future Appointments Appointment Date:01/04/2023 01:40:00 PM Scheduled Provider: Location:NEUROS Appointment Type:NS Post Op [facility] Evaluation + Plan note Future Appointments Appointment Date:01/25/2023 08:40:00 AM Scheduled Provider: Location:NEUROS Appointment Type:NS Post Op [facility] evaluation noteNo assessment information available [facility] Work Phone: evaluation note* Diagnosis Onset Date Resolution Status Cellulitis of hand acute Hyperglycemia acute Surgical site infection acut e [facility] Work Phone: evaluation note* Diagnosis Onset Date Resolution Status Abscess of bursa, left wrist acute Abscess of dorsum of left hand acute Abscess, palm acute Cellulitis and abscess of hand acute Cellulitis of hand acute Compartment syndrome of left hand acute Extensor tenosynovitis of left wrist acute Hyperglycemia acute Left hand pain acute Open wound of left hand exce pt fingers with tendon involvement acute Suppurative tenosynovitis of flexor tendon of left hand acute Surgical site infection acut e Tenosynovitis of hand acute Diabetes chronic Former smoker chronic Open wound of left palm reso lved Open wound of left wrist with tendon involvement resolved Abscess of bursa, left wrist acute Abscess of dorsum of left hand acute Abscess, palm acute Compartment syndrome of left hand acute Extensor tenosynovitis of left wrist acute Left hand pain acute Suppurative tenosynovitis of flexor tendon of left hand acute Diabetes chronic Abscess of bursa, left wrist acute Abscess of dorsum of left hand acute Abscess, palm acute Compartment syndrome of left hand acute Extensor tenosynovitis of left wrist acute Left hand pain acute Suppurative tenosynovitis of flexor tendon of left hand acute Diabetes chronic Abscess of bursa, left wrist acute Abscess of dorsum of left hand acute Abscess, palm acute Compartment syndrome of left hand acute Extensor tenosynovitis of left wrist acute Left hand pain acute Open wounds of multiple sites of left hand acute Suppurative tenosynovitis of flexor tendon of left hand acute Diabetes chronic Abscess of bursa, left wrist acute Abscess of dorsum of left hand acute Abscess, palm acute Compartment syndrome of left hand acute Extensor tenosynovitis of left wrist acute Open wound of left hand exce pt fingers with tendon involvement acute Open wounds of multiple sites of left hand acute Suppurative tenosynovitis of flexor tendon of left hand acute Diabetes chronic History of carpal tunnel surgery of left wrist chronic Open wound of left palm reso lved Open wound of left wrist with tendon involvement resolved Abscess of bursa, left wrist acute Abscess of dorsum of left hand acute Abscess, palm acute Compartment syndrome of left hand acute Extensor tenosynovitis of left wrist acute Open wound of left hand exce pt fingers with tendon involvement acute Open wounds of multiple sites of left hand acute Suppurative tenosynovitis of flexor tendon of left hand acute Diabetes chronic History of carpal tunnel surgery of left wrist chronic Abscess of bursa, left wrist acute Abscess of dorsum of left hand acute Abscess, palm acute Compartment syndrome of left hand acute Extensor tenosynovitis of left wrist acute Open wounds of multiple sites of left hand acute Suppurative tenosynovitis of flexor tendon of left hand acute Diabetes chronic History of carpal tunnel surgery of left wrist chronic Abscess of bursa, left wrist acute Abscess of dorsum of left hand acute Abscess, palm acute Compartment syndrome of left hand acute Extensor tenosynovitis of left wrist acute Open wounds of multiple sites of left hand acute Suppurative tenosynovitis of flexor tendon of left hand acute Diabetes chronic History of carpal tunnel surgery of left wrist chronic Abscess of bursa, left wrist acute Abscess of dorsum of left hand acute Abscess, palm acute Compartment syndrome of left hand acute Extensor tenosynovitis of left wrist acute Open wounds of multiple sites of left hand acute Suppurative tenosynovitis of flexor tendon of left hand acute Diabetes chronic History of carpal tunnel surgery of left wrist chronic Abscess of bursa, left wrist acute Abscess of dorsum of left hand acute Abscess, palm acute Compartment syndrome of left hand acute Extensor tenosynovitis of left wrist acute Left hand pain acute Open wound of left hand exce pt fingers with tendon involvement acute Open wounds of multiple sites of left hand acute Suppurative tenosynovitis of flexor tendon of left hand acute Diabetes chronic Former smoker chronic History of carpal tunnel surgery of left wrist chronic Open wound of left palm reso lved Open wound of left wrist with tendon involvement resolved Abscess of bursa, left wrist acute Abscess of dorsum of left hand acute Abscess, palm acute Compartment syndrome of left hand acute Extensor tenosynovitis of left wrist acute Left hand pain acute Open wound of left hand exce pt fingers with tendon involvement acute Open wounds of multiple sites of left hand acute Suppurative tenosynovitis of flexor tendon of left hand acute Diabetes chronic Former smoker chronic History of carpal tunnel surgery of left wrist chronic Open wound of left palm reso lved Open wound of left wrist with tendon involvement resolved [facility] Work Phone: Evaluation note* Diagnosis Onset Date Resolution Status Abscess of bursa, left wrist acute Abscess of dorsum of left hand acute Abscess, palm acute Compartment syndrome of left hand acute Extensor tenosynovitis of left wrist acute Left hand pain acute Open wound of left hand exce pt fingers with tendon involvement acute Open wounds of multiple sites of left hand acute Suppurative tenosynovitis of flexor tendon of left hand acute Diabetes chronic Former smoker chronic History of carpal tunnel surgery of left wrist chronic Open wound of left palm reso lved Open wound of left wrist with tendon involvement resolved Abscess of bursa, left wrist acute Abscess of dorsum of left hand acute Abscess, palm acute Compartment syndrome of left hand acute Extensor tenosynovitis of left wrist acute Left hand pain acute Open wound of left hand exce pt fingers with tendon involvement acute Open wounds of multiple sites of left hand acute Suppurative tenosynovitis of flexor tendon of left hand acute Diabetes chronic Former smoker chronic History of carpal tunnel surgery of left wrist chronic Open wound of left palm reso lved Open wound of left wrist with tendon involvement resolved Abscess of bursa, left wrist acute Abscess of dorsum of left hand acute Abscess, palm acute Compartment syndrome of left hand acute Extensor tenosynovitis of left wrist acute Open wound of left hand exce pt fingers with tendon involvement acute Suppurative tenosynovitis of flexor tendon of left hand acute Diabetes chronic Former smoker chronic History of carpal tunnel surgery of left wrist chronic Open wound of left palm reso lved Open wound of left wrist with tendon involvement resolved Polyneuropathy acute Memory loss chronic TBI (traumatic brain injury) chronic [id number] [facility] Work Phone: Evaluation note* Diagnosis Onset Date Resolution Status Polyneuropathy acute Memory loss chronic TBI (traumatic brain injury) chronic [id number] [facility] Work Phone: Evaluation note* Diagnosis Onset Date Resolution Status Memory loss chronic TBI (traumatic brain injury) chronic [id number] [facility] Work Phone: Hospital course Narrative No data available for this section [facility] Discharge instructions No data available for this section [facility] Discharge instructions Additional Instructions Your risk factors and physical exam do not suggest blood clot but as there is a concern for this because of your recent carpal tunnel surgery a venous duplex for your arm has been ordered. This cannot be performed at this time of night so therefore return tomorrow as directed on your order. If there are any further concerns or worsening of symptoms please [facility]: Progress note No data available for this section [facility] Summary Purpose Family History No Family History Records Found Relationship Condition Age at Onset Recorded Date/T sarmad mother Dementia Unknown Parkinson's disease Unknown father Cardiac disease Unknown Hypertension Unknown Myocardial infarction Unknown Cerebrovascular accident (CVA) Unknown Coronary artery disease Unknown Advance Directives No Advanced Directives Records Found Advance Directive Response Recorded Date/ Time Name of Medical Power of Parachutist/Combatant Diver Qualified Lindsay WALTERS January 11, 2022 5:12pm Name of Medical Power of Parachutist/Combatant Diver Qualified significant ot her January 29, 2022 7:51pm Living Will Yes March 27, 2022 2 :22am Power of Parachutist/Combatant Diver Qualified Yes March 27, 2022 2:22am Advance Directive Response Recorded Date/ Time Name of Medical Power of Parachutist/Combatant Diver Qualified Lindsay WALTERS January 11, 2022 5:12pm Name of Medical Power of Parachutist/Combatant Diver Qualified significant ot her January 29, 2022 7:51pm Name of Medical Power of Parachutist/Combatant Diver Qualified Lindsay Bhardwaj March 27, 2022 2:22am Living Will Yes April 24, 2022 1:16pm Power of Parachutist/Combatant Diver Qualified Yes April 24 1:16pm Advance Directive Response Recorded Date/ Time Living Will No December 27 023 10:42pm Power of Parachutist/Combatant Diver Qualified No December 27, 2022 10:42pm Advance Directive Response Recorded Date/ Time Living Will No January 07 11:55am Power of Parachutist/Combatant Diver Qualified No January 07, 2023 11:55am Advance Directive Response Recorded Date/ Time Name of Medical Power of Parachutist/Combatant Diver Qualified lindsay bhardwaj January 07, 2023 4:58pm Living Will Yes January 07 4:58pm Power of Parachutist/Combatant Diver Qualified Yes January 07, 2023 4:58pm Advance Directive Response Recorded Date/ Time Living Will No July 13 11:23pm Power of Parachutist/Combatant Diver Qualified No July 13 023 11:23pm Advance Directive Response Recorded Date/ Time Living Will No July 13 10:23pm Power of Parachutist/Combatant Diver Qualified No July 13 023 10:23pm Advance Directive Response Recorded Date/ Time Living Will No December 16 3:03pm Power of Parachutist/Combatant Diver Qualified No December 16, 2023 3:03pm Advance Directive Response Recorded Date/ Time Living Will No March 11, 2024 3:17pm Power of Parachutist/Combatant Diver Qualified No March 11 3:17pm Chief Complaint and Reason for Visit Chief Complaint PALPITATIONS FATIGUE med refill RIGHT CRANIAL HEMORRHAGE.RX HERE hematuria Chief Complaint PALPITATIONS FATIGUE med refill RIGHT CRANIAL HEMORRHAGE.RX HERE hematuria COMPLAINT Chief Complaint TBI RX HERE LEFT UPPER ARM PAIN Chief Complaint TBI RX HERE LEFT UPPER ARM PAIN Pain LEFT ARM Chief Complaint TBI RX HERE LEFT UPPER ARM PAIN Pain LEFT ARM POST OP CELLULITIS OF THE LEFT HAND Reason for Visit Cellulitis of hand Hyperglycemia Surgical site infection Chief Complaint POST OP CELLULITIS O F THE LEFT HAND POST OP CELLULITIS OF THE LEFT HAND PREOP POST OP CELLULITIS OF THE LEFT HAND POST OP CELLULITIS OF THE LEFT HAND POST OP CELLULITIS OF THE LEFT HAND POST OP CELLULITIS OF THE LEFT HAND POST OP CELLULITIS OF THE LEFT HAND POST OP CELLULITIS OF THE LEFT HAND POST OP CELLULITIS OF THE LEFT HAND POST OP CELLULITIS OF THE LEFT HAND Post Op Post Op Amb Documentation Post Op 1 W FU Post Op Post Op Post Op Post Op Post Op Post Op Post Op PAIN IN L HAND RX HERE Reason for Visit Abscess of bursa, le ft wrist Abscess of dorsum of left hand Abscess, palm Cellulitis and abscess of hand Cellulitis of hand Compartment syndrome of left hand Extensor tenosynovitis of left wrist Hyperglycemia Left hand pain Open wound of left hand except fingers with tendon involvement Suppurative tenosynovitis of flexor tendon of left hand Surgical site infection Tenosynovitis of hand Diabetes Former smoker Open wound of left palm Open wound of left wrist with tendon involvement Abscess of bursa, left wrist Abscess of dorsum of left hand Abscess, palm Compartment syndrome of left hand Extensor tenosynovitis of left wrist Left hand pain Suppurative tenosynovitis of flexor tendon of left hand Diabetes Abscess of bursa, left wrist Abscess of dorsum of left hand Abscess, palm Compartment syndrome of left hand Extensor tenosynovitis of left wrist Left hand pain Suppurative tenosynovitis of flexor tendon of left hand Diabetes Abscess of bursa, left wrist Abscess of dorsum of left hand Abscess, palm Compartment syndrome of left hand Extensor tenosynovitis of left wrist Left hand pain Open wounds of multiple sites of left hand Suppurative tenosynovitis of flexor tendon of left hand Diabetes Abscess of bursa, left wrist Abscess of dorsum of left hand Abscess, palm Compartment syndrome of left hand Extensor tenosynovitis of left wrist Open wound of left hand except fingers with tendon involvement Open wounds of multiple sites of left hand Suppurative tenosynovitis of flexor tendon of left hand Diabetes History of carpal tunnel surgery of left wrist Open wound of left palm Open wound of left wrist with tendon involvement Abscess of bursa, left wrist Abscess of dorsum of left hand Abscess, palm Compartment syndrome of left hand Extensor tenosynovitis of left wrist Open wound of left hand except fingers with tendon involvement Open wounds of multiple sites of left hand Suppurative tenosynovitis of flexor tendon of left hand Diabetes History of carpal tunnel surgery of left wrist Abscess of bursa, left wrist Abscess of dorsum of left hand Abscess, palm Compartment syndrome of left hand Extensor tenosynovitis of left wrist Open wounds of multiple sites of left hand Suppurative tenosynovitis of flexor tendon of left hand Diabetes History of carpal tunnel surgery of left wrist Abscess of bursa, left wrist Abscess of dorsum of left hand Abscess, palm Compartment syndrome of left hand Extensor tenosynovitis of left wrist Open wounds of multiple sites of left hand Suppurative tenosynovitis of flexor tendon of left hand Diabetes History of carpal tunnel surgery of left wrist Abscess of bursa, left wrist Abscess of dorsum of left hand Abscess, palm Compartment syndrome of left hand Extensor tenosynovitis of left wrist Open wounds of multiple sites of left hand Suppurative tenosynovitis of flexor tendon of left hand Diabetes History of carpal tunnel surgery of left wrist Abscess of bursa, left wrist Abscess of dorsum of left hand Abscess, palm Compartment syndrome of left hand Extensor tenosynovitis of left wrist Left hand pain Open wound of left hand except fingers with tendon involvement Open wounds of multiple sites of left hand Suppurative tenosynovitis of flexor tendon of left hand Diabetes Former smoker History of carpal tunnel surgery of left wrist Open wound of left palm Open wound of left wrist with tendon involvement Abscess of bursa, left wrist Abscess of dorsum of left hand Abscess, palm Compartment syndrome of left hand Extensor tenosynovitis of left wrist Left hand pain Open wound of left hand except fingers with tendon involvement Open wounds of multiple sites of left hand Suppurative tenosynovitis of flexor tendon of left hand Diabetes Former smoker History of carpal tunnel surgery of left wrist Open wound of left palm Open wound of left wrist with tendon involvement Chief Complaint Post Op Post Op PAIN IN L HAND RX HERE POST OP ESTABLISH BEE STING Reason for Visit Abscess of bursa, le ft wrist Abscess of dorsum of left hand Abscess, palm Compartment syndrome of left hand Extensor tenosynovitis of left wrist Left hand pain Open wound of left hand except fingers with tendon involvement Open wounds of multiple sites of left hand Suppurative tenosynovitis of flexor tendon of left hand Diabetes Former smoker History of carpal tunnel surgery of left wrist Open wound of left palm Open wound of left wrist with tendon involvement Abscess of bursa, left wrist Abscess of dorsum of left hand Abscess, palm Compartment syndrome of left hand Extensor tenosynovitis of left wrist Left hand pain Open wound of left hand except fingers with tendon involvement Open wounds of multiple sites of left hand Suppurative tenosynovitis of flexor tendon of left hand Diabetes Former smoker History of carpal tunnel surgery of left wrist Open wound of left palm Open wound of left wrist with tendon involvement Abscess of bursa, left wrist Abscess of dorsum of left hand Abscess, palm Compartment syndrome of left hand Extensor tenosynovitis of left wrist Open wound of left hand except fingers with tendon involvement Suppurative tenosynovitis of flexor tendon of left hand Diabetes Former smoker History of carpal tunnel surgery of left wrist Open wound of left palm Open wound of left wrist with tendon involvement Polyneuropathy Memory loss TBI (traumatic brain injury) [id number] Chief Complaint 4 M FU TBI IN NOVEMBER 2021, COGNITIVE DEFICITS Reason for Visit Polyneuropathy Memory loss TBI (traumatic brain injury) [id number] Chief Complaint 4 M FU TBI IN NOVEMBER 2021, COGNITIVE DEFICITS RT EYE Reason for Visit Polyneuropathy Memory loss TBI (traumatic brain injury) [id number] Chief Complaint TBI IN NOVEMBER 2021, COGNITIVE DEFICITS RT EYE TBI IN NOVEMBER 2021, COGNITIVE DEFICITS Chief Complaint TBI IN NOVEMBER 2021, COGNITIVE DEFICITS RT EYE TBI IN NOVEMBER 2021, COGNITIVE DEFICITS 6 M FU EORDER Reason for Visit Memory loss TBI (traumatic brain injury) [id number] Additional Source Comments (unrecognized sect ion and content) No Status Records FoundNo Status Records FoundNo Status Records Found INFORMATION SOURCE (unrecogn ized section and content) DATE CREATED AUTHOR 12/06/2021 [employer] DATE CREATED AUTHOR AUTHOR'S ORGANIZ ATION 01/20/2023 [facility] ([place]) DATE CREATED AUTHOR AUTHOR'S ORGANIZ ATION 04/15/2024 [facility] Goals (unrecognized section and content) Goals may be documented in a n alternate section Care Team (unrecognized sect ion and content) Care Team Personnel Name: [place] Position: Physician Member Role: Primary Care Physician Address: Address: [address] [place] [address] Care Team Related Persons Name: LINDSAY BERNSTEIN Care Team Personnel Name: [place] Position: Physician Member Role: Primary Care Physician Address: Address: [address] [place] [address] Care Team Related Persons Name: LINDSAY BERNSTEIN Care Team Personnel Name: [place] Position: Physician Member Role: Primary Care Physician Address: Address: [address] [place] [address] Care Team Related Persons Name: LINDSAY BERNSTEIN Care Team Personnel Name: [place] Position: Physician Member Role: Primary Care Physician Address: Address: [address] [place] [address] Care Team Related Persons Name: LINDSAY BERNSTEIN Care Team Personnel Name: [place] Position: Physician Member Role: Primary Care Physician Address: Address: [address] [place] [address] Care Team Related Persons Name: LINDSAY BERNSTEIN Care Team Personnel Name: [place] Position: Physician Member Role: Primary Care Physician Address: Address: [address] [place] [address] Care Team Related Persons Name: LINDSAY BERNSTEIN Care Team Personnel Name: [place] Position: Physician Member Role: Primary Care Physician Address: Address: [address] [place] [address] Care Team Related Persons Name: LINDSAY BERNSTEIN Care Team Personnel Name: [place] Position: Physician Member Role: Primary Care Physician Address: Address: [address] [place] [address] Care Team Related Persons Name: LINDSAY BERNSTEIN Care Teams (unrecognized sec tion and content) Team Status: Active Member Role Status Dates [facility] Family Provider Active [facility] Primary Care Provider Active Team Status: Active Member Role Status [facility] Primary Care Provider Active Dr. Cristal Roque MD Attending Provider, Referring Pro vider Active Team Status: Inactive Member Role Status [facility] Primary Care Provider Active Dr. Julio Cesar Larios DO Emergency Provider Active Team Status: Inactive Member Role Status [facility] Primary Care Provider Active Dr. Cristal Roque MD Attending Provider, Referring Pro vider Active Team Status: Active Member Role Status [facility] Primary Care Provider Active Dr. Julio Cesar Larios DO Attending Provider Active Team Status: Inactive Member Role Status [facility] Primary Care Provider Active Dr. Julio Cesar Larios DO Attending Provider, Emergency Pr ovider Active Team Status: Inactive Member Role Status [facility] Primary Care Provider Active Dr. Julio Cesar Larios DO Attending Provider Active Team Status: Active Member Role Status [facility] Primary Care Provider Active Kamar Vega MD Emergency Provider Active Dr. Jeana Vasquez MD Admit Provider, Attending Prov ider Active Team Status: Active Member Role Status [facility] Primary Care Provider Active Kamar Vega MD Emergency Provider Active Dr. Jeana Vasquez MD Admit Provider, Attending Provider, Other Provider Active Dr. Jim Calvo MD Other Provider Active Team Status: Active Member Role Status [facility] Primary Care Provider Active Kamar Vega MD Emergency Provider Active Dr. Jeana Vasquez MD Admit Provider, Other Provider Active Dr. Jim Calvo MD Other Provider Active Dr. Cristal Victor DO Attending Provider, Other Pro vider Active Dr. Juma Hernandez MD Other Provider Active Team Status: Active Member Role Status [facility] Primary Care Provider Active Kamar Vega MD Emergency Provider Active Dr. Jeana Vasquez MD Admit Provider, Other Provider Active Dr. Jim Calvo MD Attending Provider, Other Provi sayra Active Dr. Cristal Victor DO Other Provider Active Dr. Juma Hernandez MD Other Provider Active Team Status: Active Member Role Status [facility] Primary Care Provider Active Kamar Vega MD Emergency Provider Active Dr. Jeana Vasquez MD Admit Provider, Referring Provider, Other Provider Active Dr. Jim Calvo MD Attending Provider, Other Provi sayra Active Dr. Cristal Victor DO Other Provider Active Dr. Juma Hernandez MD Other Provider Active Team Status: Active Member Role Status [facility] Primary Care Provider Active Kamar Vega MD Emergency Provider Active Dr. Jeana Vasquez MD Admit Provider, Other Provider Active Dr. Jim Calvo MD Other Provider Active Dr. Cristal Victor DO Other Provider Active Dr. Juma Hernandez MD Other Provider Active Nia Platt BRAILLE TRANSLATOR, BRAILLE TRANSLATOR-C Attending Provider Active Team Status: Active Member Role Status [facility] Primary Care Provider Active Dr. Kristian Rae MD Attending Provider Active Dr. Matt Coleman MD Referring Provider Active Team Status: Inactive Member Role Status [facility] Primary Care Provider, Referring Provider Active Dr. Jim Calvo MD Attending Provider Active Team Status: Inactive Member Role Status [facility] Primary Care Provider, Referring Provider Active Nia Platt BRAILLE TRANSLATOR, BRAILLE TRANSLATOR-C Attending Provider Active Team Status: Active Member Role Status [facility] Primary Care Provider Active Dr. Jim Calvo MD Attending Provider, Referring P chemo Active Team Status: Active Member Role Status [facility] Primary Care Provider Active Nia Paltt BRAILLE TRANSLATOR, BRAILLE TRANSLATOR-C Attending Provider Active Team Status: Inactive Member Role Status [facility] Primary Care Provider Active Kamar Vega MD Emergency Provider Active Dr. Jeana Vasquez MD Admit Provider, Other Provider Active Dr. Jim Calvo MD Other Provider Active Dr. Cristal Victor DO Attending Provider Active Dr. Juma Hernandez MD Other Provider Active Team Status: Inactive Member Role Status [facility] Primary Care Provider Active Nia Platt BRAILLE TRANSLATOR, BRAILLE TRANSLATOR-C Attending Provider, Referri ng Provider Active Team Status: Inactive Member Role Status [facility] Primary Care Provider, Referring Provider Active Dr. Deric Kothari MD Attending Provider Active Team Status: Inactive Member Role Status [facility] Primary Care Provider Active Dr. Travon Hedrick MD Emergency Provider Active Team Status: Inactive Member Role Status [facility] Primary Care Provider Active Dr. Deric Kothari MD Attending Provider, Referring Provider Active Team Status: Inactive Member Role Status [facility] Primary Care Provider Active Dr. Travon Hedrick MD Referring Provider, Emergency Provider Active Team Status: Inactive Member Role Status [facility] Primary Care Provider Active Dr. Travon Hedrick MD Attending Provid er, Referring Provider, Emergency Provider Active FOR RECORDS PERTAINING TO PATIENTS WHO ARE [...] BE BASED ON THE PRIMARY CLINICAL RECORDS. [facility] [employer] [facility]. provides no warranty or guarantee of the accuracy or completeness of information in this document.
[2025-07-31 00:05] VITALS: BP 159/74; PULSE 81; RESP 18; TEMP 36.6; O2SAT 100
== END 2025-07-31 00:05 | disposition home or self-care (01) ==
LOC: ED 23:24
PROVIDERS: Emergency Provider Emergency Medicine; Visit Provider Emergency Medicine
DX: S20.212A Contusion of left front wall of thorax, initial encounter (principal); E11.40 Type 2 diabetes mellitus with diabetic neuropathy, unspecified; V43.62XA Car passenger injured in collision with other type car in traffic accident, initial encounter; I10 Essential (primary) hypertension; E78.5 Hyperlipidemia, unspecified; I25.10 Atherosclerotic heart disease of native coronary artery without angina pectoris; Z95.1 Presence of aortocoronary bypass graft; Z79.82 Long term (current) use of aspirin; Z79.85 Long-term (current) use of injectable non-insulin antidiabetic drugs; Z86.73 Personal history of transient ischemic attack (TIA), and cerebral infarction without residual deficits; Z79.84 Long term (current) use of oral hypoglycemic drugs; Z79.899 Other long term (current) drug therapy; Z87.891 Personal history of nicotine dependence
CPT/HCPCS: 70450; 71101; 96372; 99282

== ENCOUNTER 2025-11-04 14:11 | Emergency (ER) | payer OTHER, SELFPAY ==
[2025-11-04 14:13] VITALS: BP 153/85; PULSE 76; RESP 18; TEMP 36.5; O2SAT 97; BMI 38.0
[2025-11-04 14:16] VITALS: BP 153/85; PULSE 76; RESP 18; TEMP 36.5; O2SAT 97
--- NOTE | 2025-11-04 15:11 | EX.ED.GUMALE ---
HPI History of Present Illness Chief Complaint: Male Pain/Injury Narrative Narrative: Patient is a 69-year-old male with a past medical history of diabetes, hypertension, hypercholesteremia, subdural hematoma, CAD who presented to the emergency department with a chief complaint of skin irritation near the tip of his penis. He states that lately he has had some issues with his urine where he states that he is not making it to the bathroom in time when he has to go therefore he has been wearing more of a depends he describes and notes that he thinks that this is irritating his skin. Patient family at bedside notes that he soaked in hot Epsom salt yesterday and the seem to provide him significant relief of his symptoms. She did note that his sugars have been running high the past few days as well. She notes that he is a junk food junky and will not stop eating junk food she notes that he is on metformin. [facility] Medical History Open wounds of multiple sites of left hand History of carpal tunnel surgery of left wrist Neuropathy Hearing problem Arthritis Open wound of left hand except fingers with tendon involvement Open wound of left palm Open wound of left wrist with tendon involvement Tenosynovitis of hand Left hand pain Compartment syndrome of left hand Suppurative tenosynovitis of flexor tendon of left hand Extensor tenosynovitis of left wrist Abscess of dorsum of left hand Abscess of bursa, left wrist Abscess, palm UTI (urinary tract infection) Subdural hematoma Sleep apnea Former smoker Chest pain CVA (cerebral vascular accident) Diabetes Coronary artery disease High cholesterol HTN (hypertension) Home Medications ?Medication ?Instructions ?Recorded ?Last Taken ?Type doxazosin 2 mg tablet 2 mg PO DAILY BLOOD PRESSURE 05/10/21 01/06/23 History meclizine 12.5 mg tablet 6.25 mg PO BID DIZZINESS 05/10/21 01/06/23 History metformin 500 mg tablet 1,000 mg PO QPM DIABETES 05/10/21 01/06/23 History carvedilol 25 mg tablet 25 mg PO BID HEART 04/24/22 01/06/23 History amlodipine 10 mg tablet 10 mg PO DAILY BLOOD PRESSURE 01/07/23 01/06/23 History aspirin 81 mg tablet,delayed 81 mg PO DAILY HEART HEALTH 01/07/23 01/06/23 History release hydralazine 50 mg tablet 100 mg PO TIDCM BLOOD PRESSURE 01/07/23 01/06/23 History lisinopril 40 mg tablet 40 mg PO DAILY BLOOD PRESSURE 01/07/23 01/06/23 History semaglutide (weight loss) 0.5 0.5 mg subcut SA DIABETES 01/07/23 12/31/22 History mg/0.5 mL subcutaneous pen injector methocarbamol 500 mg tablet 500 mg PO TID PRN Muscle 07/30/25 Unknown Rx pain/spasm #30 tabs nystatin 100,000 unit/gram topical 1 applic topical TID #30 grams 11/04/25 Unknown Rx powder paroxetine HCl 20 mg tablet (Paxil) 20 mg PO BID 11/04/25 Unknown History Allergy/AdvReac Type Severity Reaction Status Date / Time gabapentin Allergy Severe Other Verified 11/04/25 14:13 Family History Mother Dementia Parkinsons disease Father Heart disease Hypertension Myocardial infarction CVA (cerebral vascular accident) CAD (coronary artery disease) Surgical History History of hand surgery History of carpal tunnel surgery of left wrist History of appendectomy S/P appendectomy S/P CABG x 4 Social History household members: spouse Smoking Status: Former smoker how long ago did patient quit smoking: Smoked in [place] x 7 years, quit 1978, cigars. 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 substance use type: does not use ROS ROS ED ROS Narrative Constitutional: Denies any fevers, chills, headaches Abdomen: Denies abdominal pain nausea vomit diarrhea : Complains of urinary symptoms and lesion near the tip of his penis Neurological: Denies any numbness, weakness, tingling Musculoskeletal: denies back pain Skin: Complains of lesion as noted above EXAM Physical Exam Narrative Exam Narrative: General: Patient lying bed rest comfortably. In acute distress Head: Atraumatic, normocephalic Eyes: PERRL bilaterally, EOMI bilaterally, no conjunctival injection noted Neck: Soft, supple, trachea midline Cardiovascular: Regular rate and rhythm Abdomen: Soft, nondistended, nontender to palpation Genitourinary: Uncircumcised male, no concern for Regan's gangrene, patient has some skin irritation near the at distal foreskin no concern for abscess no sloughing skin no petechia no purpura. Patient does appear to have a fungal infection in his groin region Extremities: +4/5 strength noted in the bilateral upper and lower extremities Neurological: Patient following commands knew that he was at [facility] the year is 2024 sensation grossly intact Skin: See genitourinary Const Vital Signs: 11/04/25 14:13 11/04/25 14:16 11/04/25 15:16 Temperature 97.7 F L 97.7 F L 98.7 F Temperature Source Oral Oral Oral Pulse Rate 76 76 75 Respiratory Rate 18 18 18 Blood Pressure 153/85 H 153/85 H 140/77 H Blood Pressure Mean 107 107 98 Pulse Ox 97 97 100 Oxygen Delivery Method Room Air Room Air 11/04/25 16:00 11/04/25 17:00 Temperature 98.7 F 98.7 F Temperature Source Oral Oral Pulse Rate 77 78 Respiratory Rate 17 15 Blood Pressure 146/73 H 144/74 H Blood Pressure Mean 97 97 Pulse Ox 98 98 Oxygen Delivery Method Room Air Room Air MDM MDM MDM Narrative Medical decision making narrative: Patient is a 69-year-old male who presented to the emergency department with concern for lesion at the tip of his penis. On the differential diagnosis includes but not limited to fungal infection, hyperglycemia, DKA, UTI. Once workup is obtained and reviewed he will be reevaluated. Patient is CBC reviewed and showed a white blood count of 4.1, heme was 13.7, plate count 167. Patient's VBG reviewed showed a pH 7.40. Patient sodium normal 133, potassium normal at 4.3, creatinine was noted be 1.01 anion gap normal at 10. Patient's glucose noted be 397 he was given 10 units subcutaneous insulin here in the emergency department. Patient's AST and ALT were 18 and 26 respectively. Patient's beta hydroxybutyrate normal at 0.2 urinalysis showed glucose but no evidence of infection. Patient was given additional liter of IV fluids. Patient's repeat glucose was noted be 321. Per significant other bedside she states that he has Ozempic at home as well as metformin but he does not take the Ozempic I educated the patient on the importance of taking his medications as prescribed to control his diabetes. They are advised to return with worsening symptoms or any concerns. They are agreeable with this plan all question concerns answered is discharged home in stable condition. Patient will be given a nystatin powder for his fungal infection. Lab Data Labs: Laboratory Results - last 24 hr 11/04/25 11/04/25 11/04/25 15:13 15:35 15:58 WBC 4.1 L RBC 4.56 L Hgb 13.7 Hct 37.9 L MCV 83.1 MCH 30.0 MCHC 36.1 H RDW Std Deviation 39.6 RDW Coeff of Vern 13.2 Plt Count 167 MPV 10.2 Immature Gran % (Auto) 0.200 Neut % (Auto) 59.5 Lymph % (Auto) 29.4 [place] % (Auto) 8.0 Eos % (Auto) 2.4 Baso % (Auto) 0.5 Absolute Neuts (auto) 2.4 Absolute Lymphs (auto) 1.21 Nucleated RBC % 0 Sodium 133 L Potassium 4.3 Chloride 100 Carbon Dioxide 23.1 Anion Gap 10 BUN 24 H Creatinine 1.01 Estim Creat Clear Calc 84.67 Est GFR (MDRD) Non-Af 80 BUN/Creatinine Ratio 24.1 H Glucose 397 H Lactic Acid 1.2 Calcium 8.9 Total Bilirubin 0.44 AST 18 ALT 26 Alkaline Phosphatase 74 Total Protein 6.8 Albumin 3.7 Globulin 3.1 Albumin/Globulin Ratio 1.2 b-Hydroxybutyric mmol/L 0.2 Urine Color Yellow Urine Clarity Clear Urine pH 6.0 Ur Specific [place] 1.015 Urine Protein 15 H Urine Glucose (UA) 1000 H Urine Ketones Negative Urine Occult Blood Negative Urine Nitrite Negative Urine Bilirubin Negative Urine Urobilinogen Normal Ur Leukocyte Esterase Negative Urine RBC 0 SEEN Urine WBC 0 SEEN Ur Squamous Epith Cells 0 SEEN Urine Bacteria 0 SEEN Urine Mucus 0 SEEN POC Glucose 426 H ABG Data ABG results: ABG 11/04/25 16:06 Specimen Type RADHA Sample Site Not entered VBG pH 7.40 VBG pO2 50 H VBG HCO3 24 VBG Total CO2 26 VBG O2 Sat (Calc) 85 H VBG Base Excess -1 POC Mix VBG pCO2 Pt Tmp 39.0 L O2 Delivery Device Not entered Discharge Plan Triage Chief Complaint: Male Pain/Injury ED Provider: [facility] Dx/Rx/DC Orders Clinical Impression: Coronary artery disease, Hypertension, Diabetes, Fungal infection of the groin Prescriptions: New nystatin 100,000 unit/gram powder 1 applic topical TID Qty: 30 0RF No Action metformin 500 MG tablet 1,000 mg PO QPM meclizine 12.5 MG tablet 6.25 mg PO BID doxazosin 2 mg tablet 2 mg PO DAILY carvedilol 25 mg Tablet 25 mg PO BID aspirin 81 mg Tablet,Delayed Release (Dr/Ec) 81 mg PO DAILY amlodipine 10 mg Tablet 10 mg PO DAILY semaglutide (weight loss) 0.5 mg/0.5 mL Pen Injector 0.5 mg SUBCUT SA hydralazine 50 mg tablet 100 mg PO TIDCM lisinopril 40 MG tablet 40 mg PO DAILY methocarbamol 500 mg tablet 500 mg PO TID PRN (Reason: Muscle pain/spasm) Qty: 30 0RF paroxetine HCl [Paxil] 20 mg tablet 20 mg PO BID Rx Instructions: administer in the morning and at noon/midday [facility] [Primary Care Provider, None] Activity Restrictions/Additional Instructions: Follow-up with your doctor in the outpatient setting. If your glucose is reading high on your monitor you need to return to the emergency department. Keep your groin dry and clean do not put any creams in this area and use the powder that as prescribed. Return with worsening symptoms or any other concerns Print Language: [place] Disposition Disposition: Home, Self Care
[2025-11-04 15:16] VITALS: BP 140/77; PULSE 75; RESP 18; TEMP 37.1; O2SAT 100
[2025-11-04 15:38] LABS: Mucous, Urine 0 SEEN /hpf (<or=2+); Red Blood Cells-Urine 0 SEEN /hpf (0-5); Squamous Epithelial Cells - UA 0 SEEN /hpf (0-5)
[2025-11-04 15:39] LABS: Color, Urine Yellow (Yellow); Glucose, Dipstick 1000 mg/dl (Normal); Ketone-Dipstick Negative (Negative); Leukocyte Esterase-Dipstick Negative /ul (Negative); Nitrite-Dipstick Negative (Negative); Occult Blood-Urine Negative /ul (Negative); Protein-Dipstick 15 mg/dl (Negative); Specific Gravity, Urine 1.015 (1.002-1.030); Urine Bilirubin Dipstick Negative (Negative)
[2025-11-04] MEDS: 0.9% Normal Saline (1000mL) 1,000 ML 999 ML IV (15:59)
[2025-11-04 16:00] VITALS: BP 146/73; PULSE 77; RESP 17; TEMP 37.1; O2SAT 98
[2025-11-04 16:06] LABS: Hematocrit 37.9 % (40-54); Hemoglobin 13.7 g/dL (13.0-16.5); Immature Granulocytes Count 0.010 X10^3/uL (0.0-0.0); Mean Corp Hgb Conc 36.1 g/dL (32-36); Mean Corpuscular Volume 83.1 fL (80-94); Mean Platelet Vol. 10.2 fl (6.2-12.0); NRBC Flagged by Analyzer 0 % (0-5); Platelet Count 167 K/mm3 (150-450); RBC Distribution Width CV 13.2 % (11.6-14.6); RBC Distribution Width SD 39.6 fl (35.1-43.9); Red Blood Count 4.56 M/mm3 (4.6-6.2); White Blood Count 4.1 K/mm3 (4.4-11.0)
[2025-11-04 16:11] LABS: SITE Not entered; VBG BASE EXCESS -1 mmol/L (-1.0-3.5); VBG PO2 50 mmHg (25-40); VBG SO2 85 % (50-70); VBG TCO2 26 mmol/L (23-33)
[2025-11-04 16:32] LABS: AST(SGOT) 18 U/L (<=37); Alanine Aminotransfer ALT/SGPT 26 U/L (<=46); Albumin, Serum 3.7 g/dL (3.4-4.8); Alkaline Phosphatase 74 U/L (40-129); Anion Gap 10 (7-18); BETA-HYDROXYBUTYRATE 0.2 mmol/L (0.0-0.3); BUN 24 mg/dL (4-19); BUN/Creat Ratio 24.1 RATIO (10-20); Calcium,Total 8.9 mg/dL (7.6-11.0); Carbon Dioxide 23.1 mmol/L (20.0-29.0); Chloride 100 mmol/L (96-106); Estimated Creatinine Clearance 84.67 ml/min (50-250); Globulin 3.1 g/dL (2.2-4.2); Glucose 397 mg/dL (70-99); Potassium 4.3 mmol/L (3.5-5.1)
[2025-11-04 17:00] VITALS: BP 144/74; PULSE 78; RESP 15; TEMP 37.1; O2SAT 98
[2025-11-04 17:43] VITALS: BP 144/75; PULSE 88; RESP 17; TEMP 36.7; O2SAT 98
== END 2025-11-04 17:57 | disposition home or self-care (01) ==
PROVIDERS: Emergency Provider Emergency Medicine; Visit Provider Emergency Medicine
DX: B35.6 Tinea cruris (principal); E11.40 Type 2 diabetes mellitus with diabetic neuropathy, unspecified; I25.10 Atherosclerotic heart disease of native coronary artery without angina pectoris; E78.00 Pure hypercholesterolemia, unspecified; I10 Essential (primary) hypertension; Z87.891 Personal history of nicotine dependence; Z79.899 Other long term (current) drug therapy; Z79.82 Long term (current) use of aspirin; Z79.84 Long term (current) use of oral hypoglycemic drugs; Z86.73 Personal history of transient ischemic attack (TIA), and cerebral infarction without residual deficits
CPT/HCPCS: 80053; 81001; 82010; 82803; 82962; 83605; 85025; 96360; 99283